=== PATIENT | male | born 1960 | race Caucasian/White ===

== ENCOUNTER 2017-08-13 12:45 | Inpatient (IN) | payer MEDICARE ==
[2017-08-13 13:21] LABS: Glucose,Whole Blood 114 mg/dL (75-99)
[2017-08-13] MEDS ORDERED: SODIUM CHLORIDE 0.9% 1,000 ML IV STA ×3 (13:25→13:42)
--- NOTE | 2017-08-13 13:36 | ED ---
General Adult HPI - General Chief complaint: Syncope Stated complaint: Syncope Time Seen by Provider: 08/13/17 13:13 Source: patient, family, RN notes reviewed Mode of arrival: wheelchair Limitations: no limitations - History of Present Illness Initial comments: Plain history of present illness this is a 56-year-old male here with his and son. The son reports that they were out [place] and he said he didn't feel well stated that he was seeing some dots and then he collapsed. Son states he also noted his father having had a second episode of passing out. Patient denies any headache denies any chest pain denies any shortness of breath denies being sweaty. No abdominal pain no nausea no vomiting and no neuro deficits. Patient states she's never happened to him before - Related Data Home Medications Medication Instructions Recorded Confirmed Atenolol [Tenormin] 25 mg PO DAILY 08/13/17 08/13/17 Gabapentin 600 mg PO TID 08/13/17 08/13/17 Losartan/Hydrochlorothiazide 1 tab PO DAILY 08/13/17 08/13/17 [Losartan-Hctz 100-12.5 mg Tab] oxyCODONE-APAP 10-325MG [Percocet 1 tab PO QID PRN 08/13/17 08/13/17 10-325 mg] Allergies Allergy/AdvReac Type Severity Reaction Status Date / Time No Known Allergies Allergy Verified 08/13/17 13:17 Review of Systems ROS Statement: Those systems with pertinent positive or pertinent negative responses have been documented in the HPI. Review of systems patient's denying any headache or visual acuity changes no neck ache denies any chest pain, palpitations this time no shortness of breath no GI/ problems. He has chronic weakness due to previous back problems. Not worse today than any other day. All systems were reviewed. Past medical problems hypertension he took his blood pressure pills today. He also has had back surgery L2-L3 with a lewis and screws he reports the lewis broke. Has not been replaced. He's had rotator cuff surgery right knee left knee patellar surgeries. Family history noncontributory no known ALLERGIES. The patient reports having had several beers today and denies drug use. Smokes daily. Strongly advised to stop. ROS Other: All systems not noted in ROS Statement are negative. Past Medical History Past Medical History: Hypertension History of Any Multi-Drug Resistant Organisms: None Reported Past Surgical History: Back Surgery, Joint Replacement, Orthopedic Surgery Additional Past Surgical History / Comment(s): rotator cuff,rt knee, Past Psychological History: No Psychological Hx Reported Smoking Status: Current every day smoker Past Alcohol Use History: Daily, Heavy Past Drug Use History: None Reported General Exam - General Exam Comments Initial Comments: General: The patient is awake and alert, currently in no distress. But he did report having had episodes of of seeing spots while sitting and moving all day today. 2 episodes of passing out. Denying any pain anywhere. Vital signs temp 98.0 pulse 79 respiratory rate 18 pulse ox 95% room air blood pressure 181/43. This is repeated after the patient Back to room 7 any staying in that same range. 1 L of fluid is being administered a second IV is being started at this time. Eye: Pupils are equal, round and reactive to light, pupils are small but equal. Patient denies any pain medications. extra-ocular movements are intact; there is normal conjunctiva bilaterally. No signs of icterus. Ears, nose, mouth and throat: There are moist mucous membranes and no oral lesions. Neck: The neck is supple, there is no tenderness Cardiovascular: There is a regular rate and rhythm. No murmur, rub or gallop is appreciated. Respiratory: Lungs are clear to auscultation, respirations are non-labored, breath sounds are equal. No wheezes, stridor, rales, or rhonchi. Gastrointestinal: Soft, non-distended, non-tender abdomen without masses or organomegaly noted. There is no rebound or guarding present. No CVA tenderness. Bowel sounds are unremarkable. Back: Chronic back pain. The patient uses walking devices. States no worse today than any other day. Musculoskeletal: Patient chronic pain to his lower extremities and weakness from previous lumbar surgeries. He states he feels her main injured himself in the medial groin area. Neurological: CN II-XII intact, There are no obvious motor or sensory deficits. Coordination appears grossly intact. Speech is normal. No focal or lateralizing findings. Patient states is not able to walk in normal fashion and has not been able to do so for a long time and that has not changed. Skin: Skin is warm and dry and no rashes or lesions are noted. Limitations: no limitations Course Vital Signs 09/08/13/17 08/13/17 13:04 13:33 13:43 Temperature 98.0 F Pulse Rate 79 70 68 Respiratory 18 16 16 Rate Blood Pressure 81/43 66/39 68/37 O2 Sat by Pulse 95 96 95 Oximetry 08/13/17 08/13/17 08/13/17 13:48 13:54 14:03 Temperature Pulse Rate 67 67 73 Respiratory 16 20 18 Rate Blood Pressure 77/46 80/42 86/50 O2 Sat by Pulse 96 96 96 Oximetry 08/13/17 08/13/17 08/13/17 14:08 14:28 15:05 Temperature 97.8 F Pulse Rate 70 65 94 Respiratory 18 20 18 Rate Blood Pressure 87/54 99/56 138/66 O2 Sat by Pulse 96 98 94 L Oximetry 08/13/17 08/13/17 15:21 16:14 Temperature 98.3 F Pulse Rate 81 82 Respiratory 18 20 Rate Blood Pressure 103/54 108/58 O2 Sat by Pulse 96 95 Oximetry EKG Findings - EKG Comments: EKG Findings:: EKG was done reviewed and 1312 showing normal sinus rhythm no acute ST elevation no ectopy no ischemic changes. Rate 77 HI interval was 154 QRS [address] QT [address] Villasenor Medical Decision Making - Medical Decision Making Medical decision-making. The patient presents with hypertension. It stayed in the low ranges. He received 1 L of fluid did not change significantly. A second liter as half minute this time. The patient denies any headache no chest pain no shortness of breath no extremity injuries pain no nausea no vomiting no diarrhea no chest pain or pressures he did take his blood pressure pills this morning. Has never noticed any dark black stools. No symptoms of fluid loss or dehydration secondary to bleeding or anemia. Patient states he feels normal. The patient will have dopamine started at 5 mcg/kg/m . S x-ray is done and reviewed by radiologist his impression is there is no focal airspace opacity, pleural effusion, or pneumothorax seen. Cardiac silhouette size is upper limits of normal. The osseous structures are demineralized. Impression no acute cardiopulmonary process as read by Dr. vieira Ultrasound of the right leg was done because the patient had discomfort to the medial thigh which she states occurred when he stumbled and fell. The radiologist's final impression is negative for DVT right leg. No ultrasound evidence for acute DVT in the right lower extremity. As read by Dr. vieira His urine drug triage positive for oxycodone. The patient does take Percocet on a when necessary basis for chronic back pain. He states he did not even take it today. Review of labs shows a white count of 8.5 hemoglobin 16 hematocrit of 45 with an INR 1.0. D-dimer isn't elevated at 2.37. The patient's potassium is 3.5. BUN 18 creatinine elevated at 2.0 with a GFR 34. Sugars 104. Troponin less than 0.012. The patient received 2 half liters of fluid before the blood pressure came up to the 90s systolic. He was started on dopamine 5 mcg/m/kg. After an hour more the blood pressure went up to approximately 150 range systolic was back down to 2 mics blood pressure dropped to approximately 180. The so dopamine was prepped again to 2.5. Patient remained symptom free. He denies knowing anything about chronic kidney disease. He's been stable while in emergency room. Case discussed with Dr. Woo on-call for Dr. Rick. Patient be admitted to his service with consultation from Dr. Juares - Lab Data Result diagrams: 08/13/17 13:30 08/13/17 13:30 Lab Results 08/13/17 08/13/17 08/13/17 Range/Units 13:17 13:30 13:30 WBC 8.5 (3.8-10.6) k/uL RBC 4.58 (4.30-5.90) m/uL Hgb 16.2 (13.0-17.5) gm/dL Hct 45.6 (39.0-53.0) % MCV 99.4 (80.0-100.0) fL MCH 35.3 H (25.0-35.0) pg MCHC 35.5 (31.0-37.0) g/dL RDW 12.5 (11.5-15.5) % Plt Count 232 (150-450) k/uL Neutrophils % 70 % Lymphocytes % 19 % Monocytes % 5 % Eosinophils % 3 % Basophils % 1 % Neutrophils # 6.0 (1.3-7.7) k/uL Lymphocytes # 1.6 (1.0-4.8) k/uL Monocytes # 0.4 (0-1.0) k/uL Eosinophils # 0.3 (0-0.7) k/uL Basophils # 0.1 (0-0.2) k/uL PT (9.0-12.0) sec INR (<1.2) APTT (22.0-30.0) sec D-Dimer (<0.60) mg/L FEU Sodium (137-145) mmol/L Potassium (3.5-5.1) mmol/L Chloride (98-107) mmol/L Carbon Dioxide (22-30) mmol/L Anion Gap mmol/L BUN (9-20) mg/dL Creatinine (0.66-1.25) mg/dL Est GFR (MDRD) Af Amer (>60 ml/min/1.73 sqM) Est GFR (MDRD) Non-Af (>60 ml/min/1.73 sqM) Glucose (74-99) mg/dL POC Glucose (mg/dL) 114 H (75-99) mg/dL POC Glu Cherry Cutter ID Dunore, Mellisa Calcium (8.4-10.2) mg/dL Magnesium (1.6-2.3) mg/dL Total Bilirubin (0.2-1.3) mg/dL AST (17-59) U/L ALT (21-72) U/L Alkaline Phosphatase (38-126) U/L Total Creatine Kinase 179 H (55-170) U/L CK-MB (CK-2) 1.5 (0.0-2.4) ng/mL CK-MB (CK-2) Rel Index 0.8 Troponin I <0.012 (0.000-0.034) ng/mL Total Protein (6.3-8.2) g/dL Albumin (3.5-5.0) g/dL Urine Opiates Screen (NotDetected) Ur Oxycodone Screen (NotDetected) Urine Methadone Screen (NotDetected) Ur Propoxyphene Screen (NotDetected) Ur Barbiturates Screen (NotDetected) U Tricyclic Antidepress (NotDetected) Ur Phencyclidine Scrn (NotDetected) Ur Amphetamines Screen (NotDetected) U Methamphetamines Scrn (NotDetected) U Benzodiazepines Scrn (NotDetected) Urine Cocaine Screen (NotDetected) U Marijuana (THC) Screen (NotDetected) Serum Alcohol mg/dL 08/13/17 08/13/17 08/13/17 Range/Units 13:30 13:30 14:55 WBC (3.8-10.6) k/uL RBC (4.30-5.90) m/uL Hgb (13.0-17.5) gm/dL Hct (39.0-53.0) % MCV (80.0-100.0) fL MCH (25.0-35.0) pg MCHC (31.0-37.0) g/dL RDW (11.5-15.5) % Plt Count (150-450) k/uL Neutrophils % % Lymphocytes % % Monocytes % % Eosinophils % % Basophils % % Neutrophils # (1.3-7.7) k/uL Lymphocytes # (1.0-4.8) k/uL Monocytes # (0-1.0) k/uL Eosinophils # (0-0.7) k/uL Basophils # (0-0.2) k/uL PT 10.2 (9.0-12.0) sec INR 1.0 (<1.2) APTT 24.3 (22.0-30.0) sec D-Dimer 2.37 H (<0.60) mg/L FEU Sodium 130 L (137-145) mmol/L Potassium 3.5 (3.5-5.1) mmol/L Chloride 90 L (98-107) mmol/L Carbon Dioxide 22 (22-30) mmol/L Anion Gap 18 mmol/L BUN 18 (9-20) mg/dL Creatinine 2.00 H (0.66-1.25) mg/dL Est GFR (MDRD) Af Amer 42 (>60 ml/min/1.73 sqM) Est GFR (MDRD) Non-Af 34 (>60 ml/min/1.73 sqM) Glucose 104 H (74-99) mg/dL POC Glucose (mg/dL) (75-99) mg/dL POC Glu Cherry Cutter ID Calcium 9.2 (8.4-10.2) mg/dL Magnesium 1.7 (1.6-2.3) mg/dL Total Bilirubin 0.8 (0.2-1.3) mg/dL AST 67 H (17-59) U/L ALT 77 H (21-72) U/L Alkaline Phosphatase 102 (38-126) U/L Total Creatine Kinase (55-170) U/L CK-MB (CK-2) (0.0-2.4) ng/mL CK-MB (CK-2) Rel Index Troponin I (0.000-0.034) ng/mL Total Protein 7.5 (6.3-8.2) g/dL Albumin 4.0 (3.5-5.0) g/dL Urine Opiates Screen Not Detected (NotDetected) Ur Oxycodone Screen Detected H (NotDetected) Urine Methadone Screen Not Detected (NotDetected) Ur Propoxyphene Screen Not Detected (NotDetected) Ur Barbiturates Screen Not Detected (NotDetected) U Tricyclic Antidepress Not Detected (NotDetected) Ur Phencyclidine Scrn Not Detected (NotDetected) Ur Amphetamines Screen Not Detected (NotDetected) U Methamphetamines Scrn Not Detected (NotDetected) U Benzodiazepines Scrn Not Detected (NotDetected) Urine Cocaine Screen Not Detected (NotDetected) U Marijuana (THC) Screen Not Detected (NotDetected) Serum Alcohol 91 mg/dL Disposition Clinical Impression: Syncopal episodes, Hypotension, Chronic kidney disease, Elevated d-dimer Disposition: ADMITTED IP TO THIS [facility] Condition: Serious Referrals: Diana Rick MD [Primary Care Provider] - 1-2 days
[2017-08-13 13:49] LABS: Basophils # (A) 0.1 k/uL (0-0.2); Basophils % (A) 1 %; CH 34.6; CHCM 34.9; Eosinophils # (A) 0.3 k/uL (0-0.7); Eosinophils % (A) 3 %; HCT 45.6 % (39.0-53.0); HDW 2.17; HGB 16.2 gm/dL (13.0-17.5); Luc # (Auto) 0.16; Luc % (Auto) 2; Lymphocytes # (A) 1.6 k/uL (1.0-4.8); Lymphocytes % (A) 19 %; MCH 35.3 pg (25.0-35.0); MCHC 35.5 g/dL (31.0-37.0); MCV 99.4 fL (80.0-100.0); Mean Platelet Volume 7.6; Monocytes # (A) 0.4 k/uL (0-1.0); Monocytes % (A) 5 %; Neutrophils % (A) 70 %; RBC 4.58 m/uL (4.30-5.90); RDW 12.5 % (11.5-15.5); WBC 8.5 k/uL (3.8-10.6); WBC (Perox) 8.23
[2017-08-13] MEDS ORDERED: DOPamine DRIP 800 MG in DEXTROSE/WATER 1 500ML.BAG IV ONE (13:52)
[2017-08-13 14:01] LABS: Partial Thromboplastin Time 24.3 sec (22.0-30.0); Prothrombin Time 10.2 sec (9.0-12.0)
[2017-08-13 14:03] LABS: Calcium 9.2 mg/dL (8.4-10.2); Magnesium 1.7 mg/dL (1.6-2.3); Potassium 3.5 mmol/L (3.5-5.1); Total Bilirubin 0.8 mg/dL (0.2-1.3); Total Protein 7.5 g/dL (6.3-8.2)
--- NOTE | 2017-08-13 14:05 | XR ---
EXAMINATION TYPE: XR chest 1V portable DATE OF EXAM: 08/13/2017 COMPARISON: NONE HISTORY: Syncope and hypotension TECHNIQUE: 2 AP portable frontal upright views of the chest are obtained. FINDINGS: There is no focal air space opacity, pleural effusion, or pneumothorax seen. The cardiac silhouette size is upper limits of normal. The osseous structures are demineralized. IMPRESSION: No acute cardiopulmonary process.
[2017-08-13 14:11] LABS: Creatine Kinase 179 U/L (55-170)
[2017-08-13 14:23] LABS: Creatine Kinase MB 1.5 ng/mL (0.0-2.4); Troponin I <0.012 ng/mL (0.000-0.034)
--- NOTE | 2017-08-13 14:24 | US ---
EXAMINATION TYPE: US venous doppler duplex LE RT DATE OF EXAM: 08/13/2017 1:27 PM COMPARISON: Prior in PACS bilateral venous ultrasound September 13, 2013. CLINICAL HISTORY: Pain right leg. Patient fell on right knee today SIDE PERFORMED: Right TECHNIQUE: The lower extremity deep venous system is examined utilizing real time linear array sonog eliana with graded compression, doppler sonography and color-flow sonography. VESSELS IMAGED: External Iliac Vein (EIV) Common Femoral Vein Deep Femoral Vein Greater Saphenous Vein * Femoral Vein Popliteal Vein Small Saphenous Vein * Proximal Calf Veins (* superficial vessels) Right Leg: Negative for DVT Grayscale, color doppler, spectral doppler imaging performed of the deep veins of the right lower ext remity. There is normal flow, compressibility, vascular waveforms. Mild subcutaneous edema is seen distally at calf level. IMPRESSION: No ultrasound evidence for acute DVT in the right lower extremity.
[2017-08-13] MEDS ORDERED: DOPamine DRIP 250 ML IV SCH (16:28)
[2017-08-13] MEDS ORDERED: NALOXONE 0.4 MG/ML 1 ML VIAL IV PRN (16:28)
[2017-08-13] MEDS: SODIUM CHLORIDE 0.9% 1,000 ML IV SCH (16:55)
[2017-08-13] MEDS ORDERED: DOPamine DRIP 800 MG in DEXTROSE/WATER 1 500ML.BAG IV SCH (17:00)
[2017-08-13] MEDS ORDERED: THIAMINE 100 MG TAB PO SCH (17:00)
[2017-08-13 17:25] LABS: Glucose,Whole Blood 150 mg/dL (75-99)
[2017-08-13 17:40] VITALS: BMI 40.0
[2017-08-13] MEDS ORDERED: LORazepam 2 MG/ML SYRINGE IV PRN ×3 (18:31)
[2017-08-13] MEDS: FAMOTIDINE 20 MG TAB PO SCH (20:42)
[2017-08-13 20:43] LABS: Glucose,Whole Blood 134 mg/dL (75-99)
[2017-08-13] MEDS: GABAPENTIN 300 MG CAP PO SCH (21:16)
[2017-08-13] MEDS: INSULIN LISPRO (humaLOG) 300 UNIT/3 ML VIAL SQ SCH (21:16)
[2017-08-14 05:03] LABS: Basophils % (A) 1 %; CH 34.9; CHCM 33.8; Eosinophils # (A) 0.3 k/uL (0-0.7); Eosinophils % (A) 4 %; HGB 15.1 gm/dL (13.0-17.5); Luc % (Auto) 2; Lymphocytes # (A) 1.1 k/uL (1.0-4.8); Lymphocytes % (A) 18 %; MCH 35.4 pg (25.0-35.0); MCHC 34.2 g/dL (31.0-37.0); MCV 103.4 fL (80.0-100.0); Macrocytosis Slight; Mean Platelet Volume 7.5; Monocytes # (A) 0.3 k/uL (0-1.0); Monocytes % (A) 6 %; Neutrophils % (A) 69 %; RBC 4.26 m/uL (4.30-5.90); RDW 12.6 % (11.5-15.5); WBC 5.8 k/uL (3.8-10.6); WBC (Perox) 5.83
[2017-08-14 05:23] LABS: ALT 63 U/L (21-72); AST 46 U/L (17-59); Alkaline Phosphatase 87 U/L (38-126); Anion Gap 5 mmol/L; Blood Urea Nitrogen 17 mg/dL (9-20); Calcium 8.4 mg/dL (8.4-10.2); Carbon Dioxide 30 mmol/L (22-30); Chloride 97 mmol/L (98-107); Glucose 140 mg/dL (74-99); Magnesium 1.6 mg/dL (1.6-2.3); Non-African American GFR(MDRD) >60 (>60 ml/min/1.73 sqM); Phosphorous 2.9 mg/dL (2.5-4.5); Potassium 3.7 mmol/L (3.5-5.1); Sodium 132 mmol/L (137-145); Total Bilirubin 1.1 mg/dL (0.2-1.3); Total Protein 6.3 g/dL (6.3-8.2)
[2017-08-14] MEDS ORDERED: Magnesium Replacement Protocol 1 EACH MISC MISCELLANE PRN (06:02)
[2017-08-14] MEDS ORDERED: Potassium Replacement Protocol 1 EACH MISC MISCELLANE PRN (06:03)
[2017-08-14] MEDS: SODIUM CHLORIDE 0.9% 1,000 ML IV SCH (06:49)
[2017-08-14] MEDS: MAGNESIUM SULFATE-D5W PMX 1 GM in DEXTROSE/WATER 1 100ML.BAG IVPB SCH ×2 (06:49→08:34)
[2017-08-14] MEDS ORDERED: POTASSIUM CHLORIDE ER 20 MEQ TAB.ER PO SCH (07:00)
[2017-08-14 07:39] LABS: Glucose,Whole Blood 145 mg/dL (75-99)
[2017-08-14] MEDS: INSULIN LISPRO (humaLOG) 300 UNIT/3 ML VIAL SQ SCH ×4 (08:15→21:02)
[2017-08-14] MEDS: FAMOTIDINE 20 MG TAB PO SCH ×2 (08:47→21:08)
[2017-08-14] MEDS: GABAPENTIN 300 MG CAP PO SCH ×3 (08:47→21:08)
[2017-08-14 11:59] LABS: Glucose,Whole Blood 94 mg/dL (75-99)
--- NOTE | 2017-08-14 12:04 | P.HPIM ---
History of Present Illness 56-year-old gentleman was admitted to the hospital after presyncopal episodes patient is found to have very low blood pressures systolic going up to 80s patient was given 2 L of IV fluids and subsequently was started on dopamine was admitted to ICU. Patient has normal sinus rhythm on the EKG patient is also taking atenolol at home. Patient did lose 50 pounds of weight. Patient denied any cough fever chills seizure-like activity post ictal confusion patient's episode lasted for few minutes. Patient's uses losartan and hydrocodone thiazide her hypertension along with atenolol. Patient has been using this medication for 3 years but did lose 50 pounds of this year which is unintentional weight loss. Patient quit smoking for 20 years started smoking again. Patient denied any cough denied any dysuria no signs or symptoms of sepsis whatsoever. Review of Systems REVIEW OF SYSTEMS: CONSTITUTIONAL: No fever, no malaise, no fatigue. HEENT: No recent visual problems or hearing problems. Denied any sore throat. CARDIOVASCULAR: No chest pain, orthopnea, PND, no palpitations, PULMONARY: No shortness of breath, no cough, no hemoptysis. GASTROINTESTINAL: No diarrhea, no nausea, no vomiting, no abdominal pain. Normoactive bowel sounds. NEUROLOGICAL: No headaches, no weakness, no numbness. HEMATOLOGICAL: Denies any bleeding or petechiae. GENITOURINARY: Denies any burning micturition, frequency, or urgency. MUSCULOSKELETAL/RHEUMATOLOGICAL: Denies any joint pain, swelling, or any muscle pain. ENDOCRINE: Denies any polyuria or polydipsia. The rest of the 14-point review of systems is negative. Past Medical History Past Medical History: Hypertension History of Any Multi-Drug Resistant Organisms: None Reported Past Surgical History: Back Surgery, Joint Replacement, Orthopedic Surgery Additional Past Surgical History / Comment(s): rotator cuff,rt knee, Past Psychological History: No Psychological Hx Reported Smoking Status: Current every day smoker Past Alcohol Use History: Daily, Heavy Past Drug Use History: None Reported - Past Family History Mother Family Medical History: Diabetes Mellitus Medications and Allergies Home Medications Medication Instructions Recorded Confirmed Type Atenolol [Tenormin] 25 mg PO DAILY 08/13/17 08/13/17 History Gabapentin 600 mg PO TID 08/13/17 08/13/17 History Losartan/Hydrochlorothiazide 1 tab PO DAILY 08/13/17 08/13/17 History [Losartan-Hctz 100-12.5 mg Tab] oxyCODONE-APAP 10-325MG [Percocet 1 tab PO QID PRN 08/13/17 08/13/17 History 10-325 mg] Allergies Allergy/AdvReac Type Severity Reaction Status Date / Time No Known Allergies Allergy Verified 08/13/17 13:17 Physical Exam Vitals: Vital Signs Temp Pulse Pulse Resp BP Pulse Ox 08/14/17 11:00 59 L 20 100/53 98 08/14/17 10:00 63 24 108/50 97 08/14/17 09:00 75 20 121/56 95 08/14/17 08:00 98.1 F 63 109/61 96 08/14/17 07:00 62 24 100/54 98 08/14/17 06:00 53 L 20 115/64 95 08/14/17 05:00 57 L 21 102/60 95 08/14/17 04:00 98.1 F 56 L 20 122/64 97 08/14/17 03:00 56 L 20 126/59 96 08/14/17 02:00 55 L 20 127/62 96 08/14/17 01:00 60 19 116/53 95 08/14/17 00:00 98.2 F 62 18 123/57 94 L 08/13/17 23:00 69 20 103/60 94 L 08/13/17 22:00 73 18 146/65 96 08/13/17 21:00 69 15 119/59 95 08/13/17 20:00 98.4 F 86 17 106/59 96 08/13/17 19:00 92 13 116/46 97 08/13/17 18:45 94 132/41 97 08/13/17 18:30 99 145/54 91 L 08/13/17 18:15 84 30 H 139/61 95 08/13/17 18:00 86 19 138/74 96 08/13/17 17:50 85 18 08/13/17 17:45 87 16 138/74 95 08/13/17 17:32 98.0 F 87 18 08/13/17 17:30 83 10 L 138/74 95 08/13/17 17:22 138/74 08/13/17 17:04 98.2 F 83 18 120/57 95 08/13/17 16:14 98.3 F 82 20 108/58 95 08/13/17 15:21 81 18 103/54 96 08/13/17 15:05 97.8 F 94 18 138/66 94 L 08/13/17 14:28 65 20 99/56 98 08/13/17 14:08 70 18 87/54 96 08/13/17 14:03 73 18 86/50 96 08/13/17 13:54 67 20 80/42 96 08/13/17 13:53 66 18 80/42 97 08/13/17 13:48 67 16 77/46 96 08/13/17 13:43 68 16 68/37 95 08/13/17 13:33 70 18 66/39 95 08/13/17 13:23 74 20 79/44 95 08/13/17 13:04 98.0 F 79 18 81/43 95 Intake and Output 08/13/17 08/14/17 08/14/17 22:59 06:59 14:59 Intake Total 2691.616 004 3921 Output Total 1400 1100 650 Balance 1291.552 -400 350 Intake: IV 225 700 400 Sodium Chloride 0.9% 1, 100 400 000 ml @ 100 mls/hr IV . Q10H JALEN Rx#:[id number] Sodium Chloride 0.9% 1, 225 600 000 ml @ 75 mls/hr IV . [id number] STA Rx#:[id number] Amount of Fluid Infused ( 2000 ml) Intake, IV Titration 266.552 100 Amount DOPamine DRIP 800 mg In 60.015 Dextrose/Water 1 500ml. bag @ 2.5 MCG/KG/MIN 12. 11 mls/hr IV .Q24H JALEN Rx #:[id number] DOPamine DRIP 800 mg In 56.537 Dextrose/Water 1 500ml. bag @ 5 MCG/KG/MIN 24.23 mls/hr IV .[id number] ONE Rx #:[id number] Magnesium Sulfate-D5w Pmx 100 1 gm In Dextrose/Water 1 100ml.bag @ 100 mls/hr IVPB Q1H JALEN Rx#: [id number] Sodium Chloride 0.9% 1, 150 000 ml @ 75 mls/hr IV . [id number] STA Rx#:[id number] Oral 200 500 Output: Urine 1400 1100 650 Other: Voiding Method Urinal Urinal Urinal # Voids 0 0 Weight 134 kg 133.8 kg PHYSICAL EXAMINATION: GENERAL: The patient is alert and oriented x3, not in any acute distress. Well developed, well nourished. HEENT: Pupils are round and equally reacting to light. EOMI. No scleral icterus. No conjunctival pallor. Normocephalic, atraumatic. No pharyngeal erythema. No thyromegaly. CARDIOVASCULAR: S1 and S2 present. No murmurs, rubs, or gallops. PULMONARY: Chest is clear to auscultation, no wheezing or crackles. ABDOMEN: Soft, nontender, nondistended, normoactive bowel sounds. No palpable organomegaly. MUSCULOSKELETAL: No joint swelling or deformity. EXTREMITIES: No cyanosis, clubbing, or pedal edema. NEUROLOGICAL: Gross neurological examination did not reveal any focal deficits. SKIN: No rashes. Results CBC & Chem 7: 08/14/17 04:39 08/14/17 04:37 Labs: Abnormal Lab Results - Last 24 Hours (Table) 08/13/17 08/13/17 08/13/17 Range/Units 13: 13:30 13:30 RBC (4.30-5.90) m/uL MCV (80.0-100.0) fL MCH 35.3 H (25.0-35.0) pg D-Dimer (<0.60) mg/L FEU Sodium (137-145) mmol/L Chloride (98-107) mmol/L Creatinine (0.66-1.25) mg/dL Glucose (74-99) mg/dL POC Glucose (mg/dL) 114 H (75-99) mg/dL AST (17-59) U/L ALT (21-72) U/L Total Creatine Kinase 179 H (55-170) U/L Albumin (3.5-5.0) g/dL Ur Oxycodone Screen (NotDetected) 08/13/17 08/13/17 08/13/17 Range/Units 13:30 13:30 14:55 RBC (4.30-5.90) m/uL MCV (80.0-100.0) fL MCH (25.0-35.0) pg D-Dimer 2.37 H (<0.60) mg/L FEU Sodium 130 L (137-145) mmol/L Chloride 90 L (98-107) mmol/L Creatinine 2.00 H (0.66-1.25) mg/dL Glucose 104 H (74-99) mg/dL POC Glucose (mg/dL) (75-99) mg/dL AST 67 H (17-59) U/L ALT 77 H (21-72) U/L Total Creatine Kinase (55-170) U/L Albumin (3.5-5.0) g/dL Ur Oxycodone Screen Detected H (NotDetected) 08/13/17 08/13/17 08/14/17 Range/Units 17:22 20:40 04:37 RBC (4.30-5.90) m/uL MCV (80.0-100.0) fL MCH (25.0-35.0) pg D-Dimer (<0.60) mg/L FEU Sodium 132 L (137-145) mmol/L Chloride 97 L (98-107) mmol/L Creatinine (0.66-1.25) mg/dL Glucose 140 H (74-99) mg/dL POC Glucose (mg/dL) 150 H 134 H (75-99) mg/dL AST (17-59) U/L ALT (21-72) U/L Total Creatine Kinase (55-170) U/L Albumin 3.2 L (3.5-5.0) g/dL Ur Oxycodone Screen (NotDetected) 08/14/17 08/14/17 Range/Units 04:39 07:38 RBC 4.26 L (4.30-5.90) m/uL MCV 103.4 H (80.0-100.0) fL MCH 35.4 H (25.0-35.0) pg D-Dimer (<0.60) mg/L FEU Sodium (137-145) mmol/L Chloride (98-107) mmol/L Creatinine (0.66-1.25) mg/dL Glucose (74-99) mg/dL POC Glucose (mg/dL) 145 H (75-99) mg/dL AST (17-59) U/L ALT (21-72) U/L Total Creatine Kinase (55-170) U/L Albumin (3.5-5.0) g/dL Ur Oxycodone Screen (NotDetected) Thrombosis Risk Factor Assmnt - Choose All That Apply Each Factor Represents 1 point: Age 41-60 years, Swollen legs (current) Thrombosis Risk Factor Assessment Total Risk Factor Score: 2 Thrombosis Risk Factor Assessment Level: Low Risk Assessment and Plan Plan: #1 syncope: Will opt an echocardiogram patient has normal sinus rhythm on the EKG and telemetry is essentially within normal his dopamine will be discussed in your patient will be started on lactated Ringer's because of hyperchloremia. Patient syncope secondary to low blood pressure which is again secondary to antidepressant medications. Loss of weight contributed to better control of his blood pressure may not need either of antidepressive medications. #2 hyponatremia hypovolemic hyponatremia antihypertensive medication along with the diuretic will be discontinued. #3 elevated d-dimer patient's venous Doppler of the bilateral lower extremities negative. My suspicion is extremely low for pulmonary embolism #4 rule out ankle fracture will often ankle x-ray. #5 mild sinus bradycardia secondary to atenolol which will be held. #6 obesity patient has been losing weight
--- NOTE | 2017-08-14 12:16 | XR ---
EXAMINATION TYPE: XR ankle complete RT DATE OF EXAM: 08/14/2017 CLINICAL HISTORY: Lateral right ankle pain with no known injury TECHNIQUE: Frontal, lateral and oblique images of the right ankle are obtained. COMPARISON: None. FINDINGS: There is no acute fracture/dislocation evident in the right ankle. The ankle mortise appe ars within normal limits. Soft tissue swelling is seen of the ankle, most pronounced medially. IMPRESSION: Mild soft tissue swelling of the ankle with no acute fracture or dislocation in the right ankle.
--- NOTE | 2017-08-14 12:20 | P.CNPUL ---
History of Present Illness Consult date: 08/14/17 Chief complaint: hypotension History of present illness: A 56-year-old male patient, obese, known history of obstructive sleep apnea, known history of excessive alcohol drinking, who came into the emergency department yesterday after having a brief episodes of syncope. The patient apparently was in a good state of health. He was at home and he felt acutely that his vision was off and he was seeing some dots and within a few seconds he collapsed and he had a very brief loss of consciousness following which she recovered his level of consciousness. This was witnessed by family members. He did not have any jerking body movements. No slurred speech. No focal neurological deficits. No change in his vision. No facial asymmetry or weakness. The patient was brought into the hospital where he was found to have a systolic blood pressure in the mid 60s. EKG was normal sinus rhythm without any acute ischemic changes. The patient was given IV fluids a total of 2 L and his blood pressure improved. Subsequently dropped again and had to be placed on dopamine and he had moved to the intensive care unit. He is still on normal saline today to 100 mL an hour. Dopamine was discontinued this morning at around 10:00. He is producing adequate amount of urine output. His blood pressure normalized. This patient had a recent cardiac evaluation by Dr. Chapman. Apparently had an echocardiogram and a cardiac stress this was done the office and he was told that the results were negative. He had a new blood pressure medication added to his regimen. He is on his losartan/ hydrochlorothiazide and atenolol got added to his regimen. Note that he did not have any nausea vomiting diarrhea or abdominal pain. No intravascular volume depletion or dehydration. Yet his creatinine was at 2 which normalized with fluids. He denies having any chest pain. No cough or sputum production. No chest tightness or wheezing. He did not have his carotids checked nor he had his CAT scan of his head. Currently his blood pressure medications are both on hold and he is maintaining a normal blood pressure and normal heart rate in the mid 60s. He has no specific complaints. Another issue is difficulty with ambulation. The patient had a work-related injury to his back many years back. He has undergone a spine surgery with laminectomy and fusion. Subsequently he had failure of the surgery and developed lower extremity weakness. Had seen by spine surgery for possible redo operation. However this has not been done and the patient has been having difficulty with mobility and is walking with the help of a crutches. No previous history of DVT or pulmonary embolism. Dr. Best of these were both negative. Urine drug screen was positive for oxycodone which the patient takes. I'll call level was also positive at 90. Review of Systems Constitutional: Reports weight loss (In the order of 50 pounds as the patient is trying to lose weight.) Eyes: denies blurred vision, denies bulging eye, denies decreased vision Ears: deny: decreased hearing, ear discharge, earache Ears, nose, mouth and throat: Denies headache, Denies sore throat Cardiovascular: Reports leg edema Respiratory: Reports sleep apnea, Reports snoring Gastrointestinal: Denies abdominal pain, Denies diarrhea, Denies nausea, Denies vomiting Genitourinary: Reports as per HPI Musculoskeletal: Reports gait dysfunction, Reports limitation of motion, Reports low back pain Musculoskeletal: bilateral: ankle swelling, absent: ankle pain, ankle stiffness Integumentary: Denies pruritus, Denies rash Neurological: Reports balance difficulties, Reports gait dysfunction, Reports motor disturbance, Reports syncope Psychiatric: Denies anxiety, Denies depression Endocrine: Denies fatigue, Denies weight change Past Medical History Past Medical History: Hypertension Additional Past Medical History / Comment(s): Obesity, obstructive sleep apnea, chronic back pain, previous back injury work-related and the patient has undergone a back surgery with laminectomy and fusion and he is receiving and management through Dr. Ruth. He has seen also Dr. Salcedo in the past. Hypertension, alcoholism. History of Any Multi-Drug Resistant Organisms: None Reported Past Surgical History: Back Surgery, Joint Replacement, Orthopedic Surgery Additional Past Surgical History / Comment(s): rotator cuff,rt knee, Past Psychological History: No Psychological Hx Reported Smoking Status: Current every day smoker Past Alcohol Use History: Daily, Heavy Past Drug Use History: None Reported - Past Family History Mother Family Medical History: Diabetes Mellitus Medications and Allergies Home Medications Medication Instructions Recorded Confirmed Type Atenolol [Tenormin] 25 mg PO DAILY 08/13/17 08/13/17 History Gabapentin 600 mg PO TID 08/13/17 08/13/17 History Losartan/Hydrochlorothiazide 1 tab PO DAILY 08/13/17 08/13/17 History [Losartan-Hctz 100-12.5 mg Tab] oxyCODONE-APAP 10-325MG [Percocet 1 tab PO QID PRN 08/13/17 08/13/17 History 10-325 mg] Allergies Allergy/AdvReac Type Severity Reaction Status Date / Time No Known Allergies Allergy Verified 08/13/17 13:17 Physical Exam Vitals: Vital Signs Temp Pulse Pulse Resp BP Pulse Ox 08/14/17 11:00 59 L 20 100/53 98 08/14/17 10:00 63 24 108/50 97 08/14/17 09:00 75 20 121/56 95 08/14/17 08:00 98.1 F 63 109/61 96 08/14/17 07:00 62 24 100/54 98 08/14/17 06:00 53 L 20 115/64 95 08/14/17 05:00 57 L 21 102/60 95 08/14/17 04:00 98.1 F 56 L 20 122/64 97 08/14/17 03:00 56 L 20 126/59 96 08/14/17 02:00 55 L 20 127/62 96 08/14/17 01:00 60 19 116/53 95 08/14/17 00:00 98.2 F 62 18 123/57 94 L 08/13/17 23:00 69 20 103/60 94 L 08/13/17 22:00 73 18 146/65 96 08/13/17 21:00 69 15 119/59 95 08/13/17 20:00 98.4 F 86 17 106/59 96 08/13/17 19:00 92 13 116/46 97 08/13/17 18:45 94 132/41 97 08/13/17 18:30 99 145/54 91 L 08/13/17 18:15 84 30 H 139/61 95 08/13/17 18:00 86 19 138/74 96 08/13/17 17:50 85 18 08/13/17 17:45 87 16 138/74 95 08/13/17 17:32 98.0 F 87 18 08/13/17 17:30 83 10 L 138/74 95 08/13/17 17:22 138/74 08/13/17 17:04 98.2 F 83 18 120/57 95 08/13/17 16:14 98.3 F 82 20 108/58 95 08/13/17 15:21 81 18 103/54 96 08/13/17 15:05 97.8 F 94 18 138/66 94 L 08/13/17 14:28 65 20 99/56 98 08/13/17 14:08 70 18 87/54 96 08/13/17 14:03 73 18 86/50 96 08/13/17 13:54 67 20 80/42 96 08/13/17 13:53 66 18 80/42 97 08/13/17 13:48 67 16 77/46 96 08/13/17 13:43 68 16 68/37 95 08/13/17 13:33 70 18 66/39 95 08/13/17 13:23 74 20 79/44 95 08/13/17 13:04 98.0 F 79 18 81/43 95 Intake and Output 08/13/17 08/14/17 08/14/17 22:59 06:59 14:59 Intake Total 2691.034 710 7242 Output Total 1400 1100 650 Balance 1291.552 -400 350 Intake: IV 225 700 400 Sodium Chloride 0.9% 1, 100 400 000 ml @ 100 mls/hr IV . Q10H JALEN Rx#:[id number] Sodium Chloride 0.9% 1, 225 600 000 ml @ 75 mls/hr IV . [id number] STA Rx#:[id number] Amount of Fluid Infused ( 2000 ml) Intake, IV Titration 266.552 100 Amount DOPamine DRIP 800 mg In 60.015 Dextrose/Water 1 500ml. bag @ 2.5 MCG/KG/MIN 12. 11 mls/hr IV .Q24H JALEN Rx #:[id number] DOPamine DRIP 800 mg In 56.537 Dextrose/Water 1 500ml. bag @ 5 MCG/KG/MIN 24.23 mls/hr IV .[id number] ONE Rx #:[id number] Magnesium Sulfate-D5w Pmx 100 1 gm In Dextrose/Water 1 100ml.bag @ 100 mls/hr IVPB Q1H JALEN Rx#: [id number] Sodium Chloride 0.9% 1, 150 000 ml @ 75 mls/hr IV . [id number] STA Rx#:[id number] Oral 200 500 Output: Urine 1400 1100 650 Other: Voiding Method Urinal Urinal Urinal # Voids 0 0 Weight 134 kg 133.8 kg Gen. appearance is calm and comfortable likely distress. Head is atraumatic normocephalic. Neck is supple and there is Mallampati class IV there is no with or neck masses and there is significant crowding of posterior oropharynx.Cardiac exam revealed the PMI to be normally situated and sized. The rhythm was regular and no extrasystoles were noted during several minutes of auscultation. The first and second heart sounds were normal and physiologic splitting of the second heart sound was noted. There were no murmurs, rubs, clicks, or gallops.Lungs were clear to auscultation and percussion, and with normal diaphragmatic excursion. No wheezes or rales were noted. Abdominal exam revealed normal bowel sounds. The abdomen was soft, non-tender, and without masses, organomegaly, or appreciable enlargement of the abdominal aorta. Extremities show trace edema and there is no cyanosis or clubbing. Neurologically the patient is motivated with his lower extremities bilaterally and the motor functions all 4 out of 5 and this is related to previous lumbar spine injury. He is or 81. Is awake and alert and following commands and answer questions appropriately. No cranial nerve deficits. No changes in speech. He has good insight. Skin is negative for any ulcers or wounds or rashes. Skeletal exam shows no active arthritis at this point. No joint deformities. Results - Laboratory Findings CBC and BMP: 08/14/17 04:39 08/14/17 04:37 PT/INR, D-dimer PT 10.2 sec (9.0-12.0) 08/13/17 13:30 INR 1.0 (<1.2) 08/13/17 13:30 D-Dimer 2.37 mg/L FEU (<0.60) H 08/13/17 13:30 Abnormal lab findings: Abnormal Labs 08/13/17 08/13/17 08/13/17:17 13:30 13:30 RBC MCV MCH 35.3 H D-Dimer Sodium Chloride Creatinine Glucose POC Glucose (mg/dL) 114 H AST ALT Total Creatine Kinase 179 H Albumin Ur Oxycodone Screen 08/13/17 08/13/17 08/13/17 13:30 13:30 14:55 RBC MCV MCH D-Dimer 2.37 H Sodium 130 L Chloride 90 L Creatinine 2.00 H Glucose 104 H POC Glucose (mg/dL) AST 67 H ALT 77 H Total Creatine Kinase Albumin Ur Oxycodone Screen Detected H 08/13/17 08/13/17 08/14/17 17:22 20:40 04:37 RBC MCV MCH D-Dimer Sodium 132 L Chloride 97 L Creatinine Glucose 140 H POC Glucose (mg/dL) 150 H 134 H AST ALT Total Creatine Kinase Albumin 3.2 L Ur Oxycodone Screen 08/14/17 08/14/17 04:39 07:38 RBC 4.26 L MCV 103.4 H MCH 35.4 H D-Dimer Sodium Chloride Creatinine Glucose POC Glucose (mg/dL) 145 H AST ALT Total Creatine Kinase Albumin Ur Oxycodone Screen - Diagnostic Findings Chest x-ray: image reviewed Assessment and Plan Plan: Assessment 1 syncope probably related to hemodynamic changes and hypotension. The patient had brief hypotension which was probably drug induced coupled by intravascular volume depletion and alcohol intoxication. This has recovered. No focal neurological deficit at this point. A recent cardiac evaluation that was done at [facility] office was apparently negative. We'll obtain the records from cardiology. 2 hypotension recovered and the patient is currently off antihypertensive medications 3 acute kidney injury, recovered 4 obesity 5 obstructive sleep apnea 6 gait dysfunction due to motor weakness rated to lumbar spine injury 7 alcoholism with acute alcohol intoxication, recovered. No signs of any delirium tremens 8 chronic back pain Plan Stop all antihypertensive medication. Obtain the records of the echocardiogram and stress is from cardiology's office. The patient is currently off pressors. The patient which is at the medical floor. Obtain Dopplers of the carotids if not done. We'll monitor his hemodynamics, blood pressure and neurologic status for another 24 hours here in the hospital.
[2017-08-14] MEDS: LACTATED RINGERS 1,000 ML IV SCH ×2 (12:33→21:03)
[2017-08-14] MEDS: THIAMINE 100 MG TAB PO SCH ×2 (12:33→16:12)
[2017-08-14 17:15] LABS: Glucose,Whole Blood 109 mg/dL (75-99)
[2017-08-14 20:50] LABS: Glucose,Whole Blood 121 mg/dL (75-99)
[2017-08-14] MEDS: oxyCODONE-APAP 10-325MG 1 EACH TAB PO PRN (21:08)
[2017-08-15 07:34] LABS: Glucose,Whole Blood 128 mg/dL (75-99)
[2017-08-15 07:52] VITALS: BP 114/72; PULSE 62; RESP 20; TEMP 96.2
[2017-08-15] MEDS: FAMOTIDINE 20 MG TAB PO SCH (08:00)
[2017-08-15] MEDS: INSULIN LISPRO (humaLOG) 300 UNIT/3 ML VIAL SQ SCH ×2 (08:00→12:32)
[2017-08-15] MEDS: LACTATED RINGERS 1,000 ML IV SCH (08:01)
[2017-08-15] MEDS: GABAPENTIN 300 MG CAP PO SCH (08:01)
[2017-08-15] MEDS: oxyCODONE-APAP 10-325MG 1 EACH TAB PO PRN (08:04)
--- NOTE | 2017-08-15 08:07 | ECHOF ---
Referral Reason: MEASUREMENTS -------- HEIGHT: 182.9 cm WEIGHT: 133.4 kg BP: 110/47 RVIDd: 2.4 cm (< 3.3) IVSd: 1.2 cm (0.6 - 1.1) LVIDd: 3.9 cm (3.9 - 5.3) LVPWd: 1.2 cm (0.6 - 1.1) IVSs: 1.9 cm LVIDs: 2.9 cm LVPWs: 1.8 cm LAESV Index (A-L): 17.24 ml/m Ao Diam: 3.4 cm (2.0 - 3.7) AV Cusp: 2.2 cm (1.5 - 2.6) LA Diam: 4.1 cm (2.7 - 3.8) MV EXCURSION: 16.594 mm (> 18.000) MV EF SLOPE: 116 mm/s (70 - 150) EPSS: 0.7 cm MV E Nickolas: 1.08 m/s MV DecT: 256 ms MV A Nickolas: 0.41 m/s MV E/A Ratio: 2.62 RAP: 5.00 mmHg RVSP: 9.56 mmHg FINDINGS -------- Sinus rhythm. This was a technically adequate study. The left ventricular size is normal. There is mild concentric left ventricular hypertrophy. Overall left ventricular systolic function is normal with, an EF between 55 - 60 %. The right ventricle is normal in size and function. Normal LA size by volume 22+/-6 ml/m2. The right atrium is normal in size. Aortic valve is trileaflet and is mildly thickened. There is no evidence of aortic regurgitation. There is no evidence of aortic stenosis. The mitral valve leaflets are mildly thickened. There is trace mitral regurgitation. Trace tricuspid regurgitation present. Right ventricular systolic pressure is normal at < 35 mmHg. There is no evidence of pulmonary hypertension. The pulmonic valve was not well visualized. The aortic root size is normal. IVC Not well visulized. The pericardium is normal. There is no pericardial effusion. CONCLUSIONS -------- 1. Sinus rhythm. 2. Trace tricuspid regurgitation present. 3. Right ventricular systolic pressure is normal at < 35 mmHg. 4. There is no evidence of pulmonary hypertension. 5. The pulmonic valve was not well visualized. 6. The aortic root size is normal. 7. IVC Not well visulized. 8. There is no pericardial effusion. 9. This was a technically adequate study. 10. The left ventricular size is normal. 11. There is mild concentric left ventricular hypertrophy. 12. Overall left ventricular systolic function is normal with, an EF between 55 - 60 %. 13. Normal LA size by volume 22+/-6 ml/m2. 14. Aortic valve is trileaflet and is mildly thickened. 15. The mitral valve leaflets are mildly thickened. 16. There is trace mitral regurgitation. [employer]YCHOLOGIST: Jarred Beatty RDCS
[2017-08-15 10:16] LABS: Anion Gap 7 mmol/L; Blood Urea Nitrogen 11 mg/dL (9-20); Calcium 8.8 mg/dL (8.4-10.2); Carbon Dioxide 28 mmol/L (22-30); Chloride 99 mmol/L (98-107); Glucose 161 mg/dL (74-99); Magnesium 1.6 mg/dL (1.6-2.3); Non-African American GFR(MDRD) >60 (>60 ml/min/1.73 sqM); Potassium 3.8 mmol/L (3.5-5.1); Sodium 134 mmol/L (137-145)
[2017-08-15 11:27] LABS: Glucose,Whole Blood 121 mg/dL (75-99)
[2017-08-15] MEDS: THIAMINE 100 MG TAB PO SCH (12:27)
--- NOTE | 2017-08-15 12:42 | P.DS ---
Providers Date of admission: 08/13/17 16:35 Attending physician: Eva Woo Consults: 08/13/17 16:28 Consult Physician Stat Consulting Provider: Sy Juares Consult Reason/Comments: ICU management Do you want consulting provider notified?: Already Contacted Primary care physician: Diana Rick [facility] Course: 56-year-old gentleman was admitted to the hospital after presyncopal episodes patient is found to have very low blood pressures systolic going up to 80s patient was given 2 L of IV fluids and subsequently was started on dopamine was admitted to ICU. Patient has normal sinus rhythm on the EKG patient is also taking atenolol at home. Patient did lose 50 pounds of weight. Patient denied any cough fever chills seizure-like activity post ictal confusion patient's episode lasted for few minutes. Patient's uses losartan and hydrocodone thiazide her hypertension along with atenolol. Patient has been using this medication for 3 years but did lose 50 pounds of this year which is unintentional weight loss. Patient quit smoking for 20 years started smoking again. Patient denied any cough denied any dysuria no signs or symptoms of sepsis whatsoever. 08/15/2017 Patient's echogram is essentially within normal limits no overnight events patient is feeling much better patient will be discharged home atenolol, INCK inhibitor and diuretic therapy will be discontinued and patient will follow Dr. Diana Rick as an outpatient PHYSICAL EXAMINATION: GENERAL: The patient is alert and oriented x3, not in any acute distress. Well developed, well nourished. HEENT: Pupils are round and equally reacting to light. EOMI. No scleral icterus. No conjunctival pallor. Normocephalic, atraumatic. No pharyngeal erythema. No thyromegaly. CARDIOVASCULAR: S1 and S2 present. No murmurs, rubs, or gallops. PULMONARY: Chest is clear to auscultation, no wheezing or crackles. ABDOMEN: Soft, nontender, nondistended, normoactive bowel sounds. No palpable organomegaly. MUSCULOSKELETAL: No joint swelling or deformity. EXTREMITIES: No cyanosis, clubbing, or pedal edema. NEUROLOGICAL: Gross neurological examination did not reveal any focal deficits. SKIN: No rashes. #1 syncope: Due to antidepressive medications #2 hyponatremia hypovolemic hyponatremia antihypertensive medication along with the diuretic will be discontinued. #3 elevated d-dimer patient's venous Doppler of the bilateral lower extremities negative. My suspicion is extremely low for pulmonary embolism #4 rule out ankle fracture, no ankle fracture on x-ray #5 mild sinus bradycardia secondary to atenolol which will be held. #6 obesity patient has been losing weight Patient Condition at Discharge: Good Plan - Discharge Summary New Discharge Prescriptions: Discontinued Losartan/Hydrochlorothiazide [Losartan-Hctz 100-12.5 mg Tab] 1 tab PO DAILY Atenolol [Tenormin] 25 mg PO DAILY No Action oxyCODONE-APAP 10-325MG [Percocet 10-325 mg] 1 tab PO QID PRN PRN Reason: Pain Gabapentin 600 mg PO TID Discharge Medication List Gabapentin 600 mg PO TID 08/13/17 [History] oxyCODONE-APAP 10-325MG [Percocet 10-325 mg] 1 tab PO QID PRN 08/13/17 [History] Follow up Appointment(s)/Referral(s): Thaddeus Hurley MD [STAFF PHYSICIAN] - As Needed Diana Rick MD [Primary Care Provider] - 3 Days (Office currently closed, please call for appointment. ) Sy Juares MD [STAFF PHYSICIAN] - As Needed Patient Instructions/Handouts: Hypotension (DC) Activity/Diet/Wound Care/Special Instructions: Low fat diet. NO smoking, cessation information provided. Discharge Disposition: HOME SELF-CARE
== END 2017-08-15 12:37 | disposition home or self-care (01) | DRG 312 ==
LOC: EC 12:45 → 6ICU 16:35 → 4MS4W 08-14 15:57
PROVIDERS: ADMIT Internal Medicine; ATTEND Internal Medicine
DX: R55 Syncope and collapse (principal); E87.1 Hypo-osmolality and hyponatremia; I95.9 Hypotension, unspecified; I10 Essential (primary) hypertension; T40.2X5A Adverse effect of other opioids, initial encounter; T46.5X5A Adverse effect of other antihypertensive drugs, initial encounter; R63.4 Abnormal weight loss; F17.200 Nicotine dependence, unspecified, uncomplicated; R00.1 Bradycardia, unspecified; T44.7X5A Adverse effect of beta-adrenoreceptor antagonists, initial encounter; G47.33 Obstructive sleep apnea (adult) (pediatric); Y90.4 Blood alcohol level of 80-99 mg/100 ml; E66.9 Obesity, unspecified; G89.29 Other chronic pain; M54.9 Dorsalgia, unspecified; F10.229 Alcohol dependence with intoxication, unspecified; E86.9 Volume depletion, unspecified; W01.0XXA Fall on same level from slipping, tripping and stumbling without subsequent striking against object, initial encounter; M25.472 Effusion, left ankle; M25.471 Effusion, right ankle; Z71.6 Tobacco abuse counseling; Z79.899 Other long term (current) drug therapy; Z98.1 Arthrodesis status; Z83.3 Family history of diabetes mellitus
CPT/HCPCS: 36415; 71010; 80048; 80053; 80306; 80320; 82550; 82553; 83735; 84100; 84484; 85025; 85379; 85610; 85730; 93005; 93306; 96361; 96365; 96366; 99285

== ENCOUNTER 2018-03-03 13:24 | Emergency (ER) | payer MEDICARE ==
[2018-03-03] MEDS ORDERED: RX INFO: IV CONTRAST WAS GIVEN 1 EACH MISC MISCELLANE PRN (13:29)
--- NOTE | 2018-03-03 13:36 | ED ---
General Adult HPI - General Stated complaint: Fall Time Seen by Provider: 03/03/18 13:24 Source: RN notes reviewed - History of Present Illness Initial comments: This is a 57-year-old male who presents emergency Department as a green party 1 trauma. Patient was significantly intoxicated according to the son and he fell down 10 steps. When EMS arrived they stated the patient a GCS of 3. Patient also was noted to have a laceration to the occipital region of the scalp. Patient is unable give any further history and no further history is available at this time. - Related Data Home Medications Medication Instructions Recorded Confirmed oxyCODONE-APAP 10-325MG [Percocet 1 tab PO QID PRN 08/13/17 03/03/18 10-325 mg] Gabapentin 600 mg PO Q8H 03/03/18 03/03/18 Losartan-Hctz 50-12.5 mg [Hyzaar 1 tab PO DAILY 03/03/18 03/03/18 50-12.5] Allergies Allergy/AdvReac Type Severity Reaction Status Date / Time No Known Allergies Allergy Verified 08/13/17 13:17 Review of Systems ROS Statement: Those systems with pertinent positive or pertinent negative responses have been documented in the HPI. ROS Other: All systems not noted in ROS Statement are negative. Past Medical History Past Medical History: Hypertension Additional Past Medical History / Comment(s): Obesity, obstructive sleep apnea, chronic back pain, previous back injury work-related and the patient has undergone a back surgery with laminectomy and fusion and he is receiving and management through Dr. Ruth. He has seen also Dr. Salcedo in the past. Hypertension, alcoholism. History of Any Multi-Drug Resistant Organisms: None Reported Past Surgical History: Back Surgery, Joint Replacement, Orthopedic Surgery Additional Past Surgical History / Comment(s): rotator cuff,rt knee, Past Psychological History: No Psychological Hx Reported Smoking Status: Current every day smoker Past Alcohol Use History: Daily, Heavy Past Drug Use History: None Reported - Past Family History Mother Family Medical History: Diabetes Mellitus General Exam - General Exam Comments Initial Comments: GENERAL: Patient is well-developed and well-nourished. Patient is nontoxic and well- hydrated and is in mild distress. ENT: Patient is in a c-collar and is level of consciousness is is not such that we can assess his neck. EYES: The sclera were anicteric and conjunctiva were pink and moist. Extraocular movements were intact and pupils were equal round and reactive to light. Eyelids were unremarkable. PULMONARY: Unlabored respirations. Good breath sounds bilaterally. No audible rales rhonchi or wheezing was noted. CARDIOVASCULAR: There is a regular rate and rhythm without any murmurs gallops or rubs. ABDOMEN: Soft and nontender with normal bowel sounds. SKIN: Abrasion right elbow Rectal Rectal exam had good sphincter tone NEUROLOGIC: Patient is awake but not answering any questions and only has garbled speech. Patient moves 3 extremities with painful stimuli with the exception of the right arm which appears to be flaccid. MUSCULOSKELETAL: Unable to assess since patient is not following commands. I have moved all 4 times without eliciting any pain however he is quite intoxicated. Procedures - Intubation Time Out Performed: Yes Sedative: Versed Paralytic: Succinylcholine Laryngoscope: Pizano Size: 3 ET Tube Size: 8 ET Tube Uncuffed: No Tube Secured Location: teeth Tube Placement Confirmation: visualized tube passing through cords, equal breath sounds bilaterally, no breath sounds over epigastrium, confirmation by capnometry Patient Tolerated Procedure: well Intubation Complications: none Medical Decision Making - Medical Decision Making This was a green party [address] with [address] Corral EKG shows normal sinus rhythm at 89 bpm SD interval is 176 QRS is 116 QT interval 398 QTC is 484. Patient's EKG shows no ST segment elevation or depression. nurse in the OR because he was in the middle of the surgery. Patient's EKG shows normal sinus rhythm at 89 bpm SD interval is 176 QRS is 116 QT interval 398 QTC is 484. Patient's EKG shows no ST segment elevation or depression. Patient's GCS on arrival was 10 patient was opening eyes spontaneously he was having income principal speech and he was withdrawing to painful stimuli except for the right arm CT of the brain shows a intercranial hemorrhage on the left frontal parietal region. Patient became combative while in CT so C-spine and CT of the chest and pelvis could not be completed. We took the patient back to the emergency department intubated the patient and then sedated with propofol and eventually brought him back for the remainder of his CAT scans. CT of the chest abdomen pelvis showed no acute abnormality. I spoke with the ER Dr. abby Franco at 3:51 PM and they accepted the patient. - Lab Data Result diagrams: 03/03/18 13:30 03/03/18 13:30 Lab Results 03/03/18 03/03/18 03/03/18 Range/Units 13:30 13:30 13:30 WBC 6.3 (3.8-10.6) k/uL RBC 5.28 (4.30-5.90) m/uL Hgb 17.8 H (13.0-17.5) gm/dL Hct 52.7 (39.0-53.0) % MCV 99.8 (80.0-100.0) fL MCH 33.7 (25.0-35.0) pg MCHC 33.7 (31.0-37.0) g/dL RDW 12.7 (11.5-15.5) % Plt Count 140 L (150-450) k/uL Neutrophils % 59 % Lymphocytes % 28 % Monocytes % 5 % Eosinophils % 5 % Basophils % 1 % Neutrophils # 3.7 (1.3-7.7) k/uL Lymphocytes # 1.7 (1.0-4.8) k/uL Monocytes # 0.3 (0-1.0) k/uL Eosinophils # 0.3 (0-0.7) k/uL Basophils # 0.1 (0-0.2) k/uL PT (9.0-12.0) sec INR (<1.2) APTT (22.0-30.0) sec Sodium 141 (137-145) mmol/L Potassium 3.9 (3.5-5.1) mmol/L Chloride 100 (98-107) mmol/L Carbon Dioxide 20 L (22-30) mmol/L Anion Gap 21 mmol/L BUN 11 (9-20) mg/dL Creatinine 0.70 (0.66-1.25) mg/dL Est GFR (CKD-EPI)AfAm >90 (>60 ml/min/1.73 sqM) Est GFR (CKD-EPI)NonAf >90 (>60 ml/min/1.73 sqM) Glucose 164 H (74-99) mg/dL POC Glucose (mg/dL) (75-99) mg/dL POC Glu Any Commodity Sales Deliverer ID Plasma Lactic Acid Jeremy (0.7-2.0) mmol/L Calcium 9.0 (8.4-10.2) mg/dL Total Bilirubin 1.4 H (0.2-1.3) mg/dL AST 122 H (17-59) U/L ALT 77 H (21-72) U/L Alkaline Phosphatase 117 (38-126) U/L Total Creatine Kinase 224 H (55-170) U/L CK-MB (CK-2) 2.2 (0.0-2.4) ng/mL CK-MB (CK-2) Rel Index 1.0 Troponin I <0.012 (0.000-0.034) ng/mL Total Protein 8.4 H (6.3-8.2) g/dL Albumin 4.2 (3.5-5.0) g/dL Amylase 52 (30-110) U/L Lipase 93 (23-300) U/L Urine Color Urine Appearance (Clear) Urine pH (5.0-8.0) Ur Specific [place] (1.001-1.035) Urine Protein (Negative) Urine Glucose (UA) (Negative) Urine Ketones (Negative) Urine Blood (Negative) Urine Nitrite (Negative) Urine Bilirubin (Negative) Urine Urobilinogen (<2.0) mg/dL Ur Leukocyte Esterase (Negative) Urine RBC (0-5) /hpf Urine WBC (0-5) /hpf Hyaline Casts (0-2) /lpf Urine Mucus (None) /hpf Urine Opiates Screen (NotDetected) Ur Oxycodone Screen (NotDetected) Urine Methadone Screen (NotDetected) Ur Propoxyphene Screen (NotDetected) Ur Barbiturates Screen (NotDetected) U Tricyclic Antidepress (NotDetected) Ur Phencyclidine Scrn (NotDetected) Ur Amphetamines Screen (NotDetected) U Methamphetamines Scrn (NotDetected) U Benzodiazepines Scrn (NotDetected) Urine Cocaine Screen (NotDetected) U Marijuana (THC) Screen (NotDetected) Serum Alcohol 278 mg/dL Blood Type Blood Type Recheck Antibody Screen Spec Expiration Date 03/03/18 03/03/18 03/03/18 Range/Units 13:30 13:30 13:31 WBC (3.8-10.6) k/uL RBC (4.30-5.90) m/uL Hgb (13.0-17.5) gm/dL Hct (39.0-53.0) % MCV (80.0-100.0) fL MCH (25.0-35.0) pg MCHC (31.0-37.0) g/dL RDW (11.5-15.5) % Plt Count (150-450) k/uL Neutrophils % % Lymphocytes % % Monocytes % % Eosinophils % % Basophils % % Neutrophils # (1.3-7.7) k/uL Lymphocytes # (1.0-4.8) k/uL Monocytes # (0-1.0) k/uL Eosinophils # (0-0.7) k/uL Basophils # (0-0.2) k/uL PT 11.0 (9.0-12.0) sec INR 1.1 (<1.2) APTT 21.5 L (22.0-30.0) sec Sodium (137-145) mmol/L Potassium (3.5-5.1) mmol/L Chloride (98-107) mmol/L Carbon Dioxide (22-30) mmol/L Anion Gap mmol/L BUN (9-20) mg/dL Creatinine (0.66-1.25) mg/dL Est GFR (CKD-EPI)AfAm (>60 ml/min/1.73 sqM) Est GFR (CKD-EPI)NonAf (>60 ml/min/1.73 sqM) Glucose (74-99) mg/dL POC Glucose (mg/dL) 147 H (75-99) mg/dL POC Glu Any Commodity Sales Deliverer ID Deepika Arnold Plasma Lactic Acid Jeremy 4.2 H* (0.7-2.0) mmol/L Calcium (8.4-10.2) mg/dL Total Bilirubin (0.2-1.3) mg/dL AST (17-59) U/L ALT (21-72) U/L Alkaline Phosphatase (38-126) U/L Total Creatine Kinase (55-170) U/L CK-MB (CK-2) (0.0-2.4) ng/mL CK-MB (CK-2) Rel Index Troponin I (0.000-0.034) ng/mL Total Protein (6.3-8.2) g/dL Albumin (3.5-5.0) g/dL Amylase (30-110) U/L Lipase (23-300) U/L Urine Color Urine Appearance (Clear) Urine pH (5.0-8.0) Ur Specific [place] (1.001-1.035) Urine Protein (Negative) Urine Glucose (UA) (Negative) Urine Ketones (Negative) Urine Blood (Negative) Urine Nitrite (Negative) Urine Bilirubin (Negative) Urine Urobilinogen (<2.0) mg/dL Ur Leukocyte Esterase (Negative) Urine RBC (0-5) /hpf Urine WBC (0-5) /hpf Hyaline Casts (0-2) /lpf Urine Mucus (None) /hpf Urine Opiates Screen (NotDetected) Ur Oxycodone Screen (NotDetected) Urine Methadone Screen (NotDetected) Ur Propoxyphene Screen (NotDetected) Ur Barbiturates Screen (NotDetected) U Tricyclic Antidepress (NotDetected) Ur Phencyclidine Scrn (NotDetected) Ur Amphetamines Screen (NotDetected) U Methamphetamines Scrn (NotDetected) U Benzodiazepines Scrn (NotDetected) Urine Cocaine Screen (NotDetected) U Marijuana (THC) Screen (NotDetected) Serum Alcohol mg/dL Blood Type Blood Type Recheck Antibody Screen Spec Expiration Date 03/03/18 03/03/18 Range/Units 13:47 14:25 WBC (3.8-10.6) k/uL RBC (4.30-5.90) m/uL Hgb (13.0-17.5) gm/dL Hct (39.0-53.0) % MCV (80.0-100.0) fL MCH (25.0-35.0) pg MCHC (31.0-37.0) g/dL RDW (11.5-15.5) % Plt Count (150-450) k/uL Neutrophils % % Lymphocytes % % Monocytes % % Eosinophils % % Basophils % % Neutrophils # (1.3-7.7) k/uL Lymphocytes # (1.0-4.8) k/uL Monocytes # (0-1.0) k/uL Eosinophils # (0-0.7) k/uL Basophils # (0-0.2) k/uL PT (9.0-12.0) sec INR (<1.2) APTT (22.0-30.0) sec Sodium (137-145) mmol/L Potassium (3.5-5.1) mmol/L Chloride (98-107) mmol/L Carbon Dioxide (22-30) mmol/L Anion Gap mmol/L BUN (9-20) mg/dL Creatinine (0.66-1.25) mg/dL Est GFR (CKD-EPI)AfAm (>60 ml/min/1.73 sqM) Est GFR (CKD-EPI)NonAf (>60 ml/min/1.73 sqM) Glucose (74-99) mg/dL POC Glucose (mg/dL) (75-99) mg/dL POC Glu Any Commodity Sales Deliverer ID Plasma Lactic Acid [place] (0.7-2.0) mmol/L Calcium (8.4-10.2) mg/dL Total Bilirubin (0.2-1.3) mg/dL AST (17-59) U/L ALT (21-72) U/L Alkaline Phosphatase (38-126) U/L Total Creatine Kinase (55-170) U/L CK-MB (CK-2) (0.0-2.4) ng/mL CK-MB (CK-2) Rel Index Troponin I (0.000-0.034) ng/mL Total Protein (6.3-8.2) g/dL Albumin (3.5-5.0) g/dL Amylase (30-110) U/L Lipase (23-300) U/L Urine Color Yellow Urine Appearance Clear (Clear) Urine pH 6.0 (5.0-8.0) Ur Specific [place] 1.010 (1.001-1.035) Urine Protein 2+ H (Negative) Urine Glucose (UA) Trace H (Negative) Urine Ketones Negative (Negative) Urine Blood Small H (Negative) Urine Nitrite Negative (Negative) Urine Bilirubin Negative (Negative) Urine Urobilinogen <2.0 (<2.0) mg/dL Ur Leukocyte Esterase Negative (Negative) Urine RBC 1 (0-5) /hpf Urine WBC 3 (0-5) /hpf Hyaline Casts 9 H (0-2) /lpf Urine Mucus Rare H (None) /hpf Urine Opiates Screen Not Detected (NotDetected) Ur Oxycodone Screen Not Detected (NotDetected) Urine Methadone Screen Not Detected (NotDetected) Ur Propoxyphene Screen Not Detected (NotDetected) Ur Barbiturates Screen Not Detected (NotDetected) U Tricyclic Antidepress Not Detected (NotDetected) Ur Phencyclidine Scrn Not Detected (NotDetected) Ur Amphetamines Screen Not Detected (NotDetected) U Methamphetamines Scrn Not Detected (NotDetected) U Benzodiazepines Scrn Not Detected (NotDetected) Urine Cocaine Screen Not Detected (NotDetected) U Marijuana (THC) Screen Not Detected (NotDetected) Serum Alcohol mg/dL Blood Type O Positive Blood Type Recheck No Antibody Screen NEGATIVE Spec Expiration Date 03/06/2018 - 2329 Critical Care Time Critical Care Time: Yes Total Critical Care Time: 35 Disposition Clinical Impression: Alcohol intoxication, Intraparenchymal hemorrhage of brain, Fall, Paralysis of right upper extremity Disposition: OTHER INSTITUTION NOT DEFINED Referrals: Diana Rick MD [Primary Care Provider] - 1-2 days
[2018-03-03 13:45] LABS: Basophils # (A) 0.1 k/uL (0-0.2); Basophils % (A) 1 %; Eosinophils # (A) 0.3 k/uL (0-0.7); Eosinophils % (A) 5 %; HCT 52.7 % (39.0-53.0); HGB 17.8 gm/dL (13.0-17.5); Lymphocytes # (A) 1.7 k/uL (1.0-4.8); Lymphocytes % (A) 28 %; MCH 33.7 pg (25.0-35.0); MCHC 33.7 g/dL (31.0-37.0); MCV 99.8 fL (80.0-100.0); Mean Platelet Volume 7.4; Monocytes # (A) 0.3 k/uL (0-1.0); Monocytes % (A) 5 %; Neutrophils # (A) 3.7 k/uL (1.3-7.7); Neutrophils % (A) 59 %; Platelet Count 140 k/uL (150-450); RBC 5.28 m/uL (4.30-5.90); RDW 12.7 % (11.5-15.5); WBC 6.3 k/uL (3.8-10.6)
--- NOTE | 2018-03-03 13:48 | XR ---
EXAMINATION TYPE: XR chest 1V portable DATE OF EXAM: 03/03/2018 Comparison: 08/13/2017 Clinical History: 57-year-old male pain after fall, trauma Findings: Backboard and other external artifact limits the assessment as well as low lung volumes. Heart border line to mildly enlarged. Diffuse interstitial prominence. No consolidation, pneumothorax, or pleural effusion. Impression: Exam limitations due to external artifacts. There is borderline cardiomegaly and hypoventilatory murdock ges. No definite acute process.
--- NOTE | 2018-03-03 13:50 | XR ---
EXAMINATION TYPE: XR pelvis AP view DATE OF EXAM: 03/03/2018 COMPARISON: NONE HISTORY: 57-year-old male pain after fall today, trauma TECHNIQUE: AP view FINDINGS: Exam limitations due to backboard artifact and large patient body habitus causing underpenetration. P osterior lumbar fusion hardware is present. There is limited assessment of the femoral necks due to e xternal rotation of the hips during patient positioning. Fragmented spur superior left acetabulum vinicio brayan os acetabuli or degenerative labral ossification. Some can deformities appear to be present at th e femoral head neck junctions and can be seen in the setting of femoral acetabular impingement syndro me. No displaced fracture seen. IMPRESSION: Suboptimal study. No obvious displaced fracture. The exam can be repeated when the patient is able.
[2018-03-03 13:55] LABS: ALT 77 U/L (21-72); AST 122 U/L (17-59); Albumin 4.2 g/dL (3.5-5.0); Alkaline Phosphatase 117 U/L (38-126); Amylase 52 U/L (30-110); Anion Gap 21 mmol/L; Blood Urea Nitrogen 11 mg/dL (9-20); Carbon Dioxide 20 mmol/L (22-30); Chloride 100 mmol/L (98-107); Glucose 164 mg/dL (74-99); Lipase 93 U/L (23-300); Potassium 3.9 mmol/L (3.5-5.1); Sodium 141 mmol/L (137-145); Total Bilirubin 1.4 mg/dL (0.2-1.3); Total Protein 8.4 g/dL (6.3-8.2)
[2018-03-03 13:59] LABS: Glucose,Whole Blood 147 mg/dL (75-99)
[2018-03-03 14:01] LABS: Alcohol 278 mg/dL
[2018-03-03] MEDS ORDERED: DIPH,PERTUS(ACELL)TETVAC-LF 0.5 ML VIAL IM ONE (14:02)
[2018-03-03 14:05] LABS: Creatine Kinase 224 U/L (55-170)
[2018-03-03 14:06] LABS: Appearance,Urine Clear (Clear); Bilirubin,Urine Negative (Negative); Blood,Urine Small (Negative); Color,Urine Yellow; Glucose,Urine (UA) Trace (Negative); Hyaline Casts,Urine 9 /lpf (0-2); Ketones,Urine Negative (Negative); Leukocyte Esterase,Urine Negative (Negative); Mucus,Urine Rare /hpf; Nitrite,Urine Negative (Negative); Protein,Urine 2+ (Negative); RBC,Urine 1 /hpf (0-5); Urobilinogen,Urine <2.0 mg/dL (<2.0); WBC,Urine 3 /hpf (0-5)
[2018-03-03] MEDS ORDERED: SUCCINYLCHOLINE CHLORIDE VIAL 200 MG/10 ML VIAL IV STA (14:06)
[2018-03-03] MEDS ORDERED: MIDAZOLAM (PF) 1 MG/ML 5 ML VIAL IV STA (14:06)
[2018-03-03] MEDS ORDERED: ceFAZolin 1,000 MG in DEXTROSE/WATER 1 50ML.BAG IVPB STA (14:06)
[2018-03-03 14:09] LABS: INR 1.1 (<1.2)
[2018-03-03] MEDS ORDERED: SODIUM CHLORIDE 0.9% 1,000 ML IV ONE ×2 (14:13→16:34)
[2018-03-03 14:15] LABS: Partial Thromboplastin Time 21.5 sec (22.0-30.0)
[2018-03-03 14:16] LABS: Amphetamine Screen,Urine Not Detected (NotDetected); Barbiturate Screen,Urine Not Detected (NotDetected); Benzodiazepines Screen,Urine Not Detected (NotDetected); Cocaine Screen,Urine Not Detected (NotDetected); Methadone Screen, Urine Not Detected (NotDetected); Opiate Screen,Urine Not Detected (NotDetected); Oxycodone Screen, Urine Not Detected (NotDetected); Phencyclidine Screen,Urine Not Detected (NotDetected); Tricyclic Antidepressant,Urine Not Detected (NotDetected); Urn Cannabinoid Scrn Not Detected (NotDetected)
[2018-03-03 14:18] LABS: Creatine Kinase MB 2.2 ng/mL (0.0-2.4); Troponin I <0.012 ng/mL (0.000-0.034)
--- NOTE | 2018-03-03 14:23 | CT ---
EXAMINATION TYPE: CT brain wo con DATE OF EXAM: 03/03/2018 COMPARISON: NONE HISTORY: Patient fell with blow to back of head. Laceration at site. Altered mental status. Patien t increasingly agitated during scan. CT DLP: 1110.[address] of the brain was performed. Left frontal parietal intraparenchymal hemorrhage measuring 1.6 x 1.1 cm. Small adjacent areas of sub arachnoid component. The ventricles, basal cisterns and sulci overlying the cerebral convexities demonstrate mild enlargem ent. There is decreased attenuation about the periventricular white matter and deep white matter of both cerebral hemispheres, compatible with chronic small vessel ischemia. Differential diagnosis does incl ude demyelination. No mass effects are seen.No midline shift. Osseous calvarium is intact. Moderate right-sided scalp hematoma temporal and temporoparietal region s. There is pansinusitis noted. If symptoms persist consider MRI. IMPRESSION: 1.Left frontal parietal intraparenchymal hemorrhage measuring 1.6 x 1.1 cm. Small adjacent areas of s ubarachnoid component. 2. Age related atrophic and chronic small vessel ischemic change . 3. Scalp hematoma is noted.
[2018-03-03] MEDS ORDERED: PROPOFOL 10 MG/ML 20 ML VIAL IV STA (14:36)
[2018-03-03] MEDS: PROPOFOL 1,000 MG in EMPTY BAG 1 BAG IV ONE ×2 (14:41→16:44)
--- NOTE | 2018-03-03 14:53 | XR ---
EXAMINATION TYPE: XR chest 1V portable DATE OF EXAM: 03/03/2018 HISTORY: Endotracheal tube COMPARISON: 03/03/2019 TECHNIQUE: Single view of the chest is submitted. FINDINGS: Endotracheal tube is appropriately placed with its distal tip 4.9 cm from the level of the kirit. There is no evidence for focal infiltrate. The heart is stable. Hilar and mediastinal structures are within normal limits. Degenerative changes are seen of the dorsal spine. IMPRESSION: 1. Appropriate endotracheal tube placement.
--- NOTE | 2018-03-03 15:24 | CT ---
EXAMINATION TYPE: CT cervical spine wo con DATE OF EXAM: 03/03/2018 COMPARISON: NONE HISTORY: Patient fell down 10 steps and hit back of head on cement. Laceration on back of head. Pat ient intubated and sedated at time of exam CT DLP: 688.[address] of the cervical spine was performed with bone and soft tissue window settings submitted . Coronal and sagittal reconstruction is obtained. There is normal alignment and prevertebral soft tissues. I do not see evidence for fracture or subluxation. Moderate to severe degenerative changes are present. Endotracheal tube is in place. IMPRESSION: No evidence for fracture or subluxation of the cervical spine.
[2018-03-03 15:48] LABS: ABG Base Excess -3.5 mmol/L; ABG HCO3 23 mmol/L (21-25); ABG PCO2 44 mmHg (35-45); ABG PH 7.32 (7.35-7.45); ABG PO2 326 mmHg (83-108); ABG TCO2 24 mmol/L (19-24)
--- NOTE | 2018-03-03 16:05 | CT ---
EXAMINATION TYPE: CT ChestAbdPelvis w con DATE OF EXAM: 03/03/2018 COMPARISON: NONE HISTORY: Patient fell down 10 steps and hit back of head on cement. Laceration on back of head. Pat ient intubated and sedated at time of exam and unable to bring arms above head. CT DLP: 688.4 mGycm CONTRAST: Contrast enhanced Trauma CT of the Chest, Abdomen and Pelvis is performed with IV Contrast, patient i njected with 100 mL of Isovue 300. Chest: LUNGS: Appropriate intubation noted. Basilar atelectasis identified. Mild upper lobe emphysematous ch kumar. There is no evidence for pneumothorax. No pleural effusion MEDIASTINUM: Thoracic aorta is of normal caliber without CT evidence to suggest traumatic induced ao rtic injury. No mediastinal fluid or blood. No pericardial fluid or cardia abnormality. HILAR STRUCTURES: No evidence for mass. No hilar adenopathy is appreciated. OTHER: No significant abnormality. OSSEOUS: No displaced osseous fractures identified. CT ABDOMEN AND PELVIS FINDINGS: LIVER/GB: No focal laceration, contusion or subcapsular hemorrhage. Incidental cholelithiasis noted . No space occupying hepatic lesion. Biliary tree is of normal caliber. PANCREAS: No evidence for transection. No inflammation. No distinct mass. SPLEEN: No focal laceration, contusion or subcapsular hemorrhage. ADRENALS: No hemorrhage. No nodule. No thickening. KIDNEYS/BLADDER: No focal laceration, contusion or subcapsular hemorrhage. No hydronephrosis. No n ephrolithiasis. No disctinct renal mass. BOWEL: Bowel is intact. No evidence for pneumoperitoneum. GENITAL ORGANS: No gross abnormality. LYMPH NODES: Periportal adenopathy measuring 2.2 cm. AORTA: No traumatic aortic injury visualized. OSSEOUS STRUCTURES: Postoperative fusion changes lumbar spine and lower cervical spine. OTHER: No evidence for hemoperitoneum. IMPRESSION: 1. No evidence for traumatic injury to the chest. 2. No evidence for traumatic injury to the abdomen or pelvis.
--- NOTE | 2018-03-06 08:09 | P.GSHP ---
History of Present Illness H&P Date: 03/03/18 Chief Complaint: Fall down steps, intoxicated This a 57-year-old male who apparently fell at home down approximately 10 steps. Patient is severely intoxicated. He had a Cle[place] Coma Scale of 3 at the scene. The patient was brought as a priority 1 trauma due to his low GCS. He is currently in the resuscitation room. The patient is combative and swearing. He is unable to give any medical history. Past Medical History Past Medical History: Hypertension Additional Past Medical History / Comment(s): Obesity, obstructive sleep apnea, chronic back pain, previous back injury work-related and the patient has undergone a back surgery with laminectomy and fusion and he is receiving and management through Dr. Ruth. He has seen also Dr. Salcedo in the past. Hypertension, alcoholism. History of Any Multi-Drug Resistant Organisms: None Reported Past Surgical History: Back Surgery, Joint Replacement, Orthopedic Surgery Additional Past Surgical History / Comment(s): rotator cuff,rt knee, Past Psychological History: No Psychological Hx Reported Smoking Status: Current every day smoker Past Alcohol Use History: Daily, Heavy Past Drug Use History: None Reported - Past Family History Mother Family Medical History: Diabetes Mellitus Medications and Allergies Home Medications Medication Instructions Recorded Confirmed Type oxyCODONE-APAP 10-325MG [Percocet 1 tab PO QID PRN 08/13/17 03/03/18 History 10-325 mg] Gabapentin 600 mg PO Q8H 03/03/18 03/03/18 History Losartan-Hctz 50-12.5 mg [Hyzaar 1 tab PO DAILY 03/03/18 03/03/18 History 50-12.5] Allergies Allergy/AdvReac Type Severity Reaction Status Date / Time No Known Allergies Allergy Verified 08/13/17 13:17 Surgical - Exam Vital signs appear stable. The patient is combative. He is moving all extremities, he has decreased movement of his right arm. - General Severely intoxicated well developed, well nourished - Eyes PERRL - ENT normal pinna, normal nares, normal mucosa, no hearing loss - Neck no masses - Respiratory normal expansion - Cardiovascular Rhythm: regular - Abdomen Abdomen: soft, non tender - Rectum Rectum: normal sphincter tone - Integumentary There is a contusion to the occipital area Results - Labs 03/03/18 13:03/03/18 13:30 Assessment and Plan Assessment: Fall down approximately 10 steps Severe intoxication Patient will undergo computed tomography scan for evaluation of traumatic brain injury.
== END 2018-03-03 16:56 | disposition other institution (70) ==
LOC: EC 13:24
DX: S06.2X9A Diffuse traumatic brain injury with loss of consciousness of unspecified duration, initial encounter (principal); F10.120 Alcohol abuse with intoxication, uncomplicated; G83.21 Monoplegia of upper limb affecting right dominant side; R40.2422 Glasgow coma scale score 9-12, at arrival to emergency department; I10 Essential (primary) hypertension; E66.9 Obesity, unspecified; Z68.41 Body mass index [BMI] 40.0-44.9, adult; G47.30 Sleep apnea, unspecified; F17.200 Nicotine dependence, unspecified, uncomplicated; Z79.899 Other long term (current) drug therapy; Z23 Encounter for immunization; W10.9XXA Fall (on) (from) unspecified stairs and steps, initial encounter
CPT/HCPCS: 99291; 31500; 96365; 90471; 36415; 36600; 94002; 93005; 86900; 86901; 80053; 82150; 82550; 82553; 82805; 83605; 83690; 84484; 85025; 85610; 85730; 86850; 81001; 80306; 80320; 72170; 71045; 72125; 70450; 71260; 74177; 90715; J0330; J2250; J0690; J2704 ×2; Q9967

== ENCOUNTER 2018-09-26 09:40 | Inpatient (IN) | payer MEDICARE ==
[2018-09-26] MEDS ORDERED: IBUPROFEN IV 600 MG in SODIUM CHLORIDE 0.9% 250 ML IV STA (09:56)
[2018-09-26] MEDS ORDERED: ACETAMINOPHEN IV (For NPO) 1,000 MG in EMPTY BAG 1 BAG IVPB STA (09:56)
[2018-09-26] MEDS ORDERED: cefTRIAXone 2,000 MG in SODIUM CHLORIDE 0.9% 100 ML IVPB STA (09:56)
--- NOTE | 2018-09-26 10:05 | ED ---
General Adult HPI - General Chief complaint: Neuro Symptoms/Deficit Stated complaint: poss CVA Time Seen by Provider: 09/26/18 09:45 Source: patient, RN notes reviewed Mode of arrival: EMS Limitations: no limitations - History of Present Illness Initial comments: This is a 57-year-old male who comes into the emergency department today with the complaint of right-sided facial twitching increased garbled speech and right arm weakness. According to the this all started yesterday but has progressed throughout the night and become worse. Patient also had 101 fever at home. Patient is unable to give any history because unable to express himself clearly at this time. states he is a drinker and he did have a couple drinks today. Patient has a history of diabetes hypertension high cholesterol. There is been no history of recent falls. Been no history of any syncopal episodes. According to the he has a couple speech quite a while now but yesterday was considerably worse and this morning was even worse. Patient has had no nausea or vomiting he is not complaining of any abdominal pain any chest pain. - Related Data Home Medications Medication Instructions Recorded Confirmed oxyCODONE-APAP 10-325MG [Percocet 1 tab PO QID PRN 08/13/17 03/03/18 10-325 mg] Gabapentin 600 mg PO Q8H 03/03/18 03/03/18 Losartan-Hctz 50-12.5 mg [Hyzaar 1 tab PO DAILY 03/03/18 03/03/18 50-12.5] Allergies Allergy/AdvReac Type Severity Reaction Status Date / Time No Known Allergies Allergy Verified 08/13/17 13:17 Review of Systems ROS Statement: Those systems with pertinent positive or pertinent negative responses have been documented in the HPI. ROS Other: All systems not noted in ROS Statement are negative. Past Medical History Past Medical History: Hypertension Additional Past Medical History / Comment(s): Obesity, obstructive sleep apnea, chronic back pain, previous back injury work-related and the patient has undergone a back surgery with laminectomy and fusion and he is receiving and management through Dr. Ruth. He has seen also Dr. Salcedo in the past. Hypertension, alcoholism. History of Any Multi-Drug Resistant Organisms: None Reported Past Surgical History: Back Surgery, Joint Replacement, Orthopedic Surgery Additional Past Surgical History / Comment(s): rotator cuff,rt knee, Past Psychological History: No Psychological Hx Reported Smoking Status: Current every day smoker Past Alcohol Use History: Daily, Heavy Past Drug Use History: None Reported - Past Family History Mother Family Medical History: Diabetes Mellitus General Exam - General Exam Comments Initial Comments: GENERAL: Patient is well-developed and well-nourished. Patient is nontoxic and well- hydrated and is in mild distress. ENT: Neck is soft and supple. No significant lymphadenopathy is noted. Oropharynx is clear. Moist mucous membranes. Neck has full range of motion without eliciting any pain. EYES: The sclera were anicteric and conjunctiva were pink and moist. Extraocular movements were intact and pupils were equal round and reactive to light. Eyelids were unremarkable. PULMONARY: Patient has rhonchi on the right side the base CARDIOVASCULAR: There is a regular rate and rhythm without any murmurs gallops or rubs. ABDOMEN: Soft and nontender with normal bowel sounds. No palpable organomegaly was noted. There is no palpable pulsatile mass. SKIN: Skin is clear with no lesions or rashes and otherwise unremarkable. NEUROLOGIC: Patient is alert and oriented difficult to assess orientation because he cannot understand the patient this time. Patient has twitching of the right side of his face but does not appear to be weak. Patient does have good extraocular motion. Patient's speech is significantly garbled and nontender breath and supple patient's right arm is significantly weaker than the left arm. MUSCULOSKELETAL: Normal extremities with adequate strength and full range of motion. LYMPHATICS: No significant lymphadenopathy is noted PSYCHIATRIC: Unable to assess secondary is poor speech. Limitations: no limitations Course Vital Signs 09/26/18 09/26/18 09/26/18 09:46 12:30 13:00 Temperature 101.1 F H Pulse Rate 99 96 Respiratory 18 22 22 Rate Blood Pressure 141/94 138/88 163/86 O2 Sat by Pulse 92 L 95 95 Oximetry 09/26/18 09/26/18 09/26/18 13:30 14:00 14:08 Temperature 100.8 F H Pulse Rate 96 96 96 Respiratory 22 22 20 Rate Blood Pressure 138/90 141/88 138/91 O2 Sat by Pulse 95 95 97 Oximetry Medical Decision Making - Medical Decision Making EKG showed normal sinus rhythm at 90 bpm AR interval 116 QRS 92 QT interval 356 QTC is 454. Patient's EKG shows no ST segment elevation or depression or T wave abnormalities are noted. Her patient was given 2 g of Rocephin secondary to the fever but no source was found at this time. I spoke with Dr. Ross she agrees to admit the patient. - Lab Data Result diagrams: 09/26/18 10:00 09/26/18 10:00 Lab Results 09/26/18 09/26/18 09/26/18 Range/Units 10:00 10:00 10:00 WBC 7.5 (3.8-10.6) k/uL RBC 4.28 L (4.30-5.90) m/uL Hgb 14.3 (13.0-17.5) gm/dL Hct 44.3 (39.0-53.0) % MCV 103.4 H (80.0-100.0) fL MCH 33.5 (25.0-35.0) pg MCHC 32.4 (31.0-37.0) g/dL RDW 13.0 (11.5-15.5) % Plt Count 177 (150-450) k/uL Neutrophils % 83 % Lymphocytes % 11 % Monocytes % 5 % Eosinophils % 1 % Basophils % 0 % Neutrophils # 6.2 (1.3-7.7) k/uL Lymphocytes # 0.8 L (1.0-4.8) k/uL Monocytes # 0.4 (0-1.0) k/uL Eosinophils # 0.1 (0-0.7) k/uL Basophils # 0.0 (0-0.2) k/uL Macrocytosis Slight PT (9.0-12.0) sec INR (<1.2) APTT (22.0-30.0) sec Sodium 134 L (137-145) mmol/L Potassium 3.6 (3.5-5.1) mmol/L Chloride 95 L (98-107) mmol/L Carbon Dioxide 26 (22-30) mmol/L Anion Gap 13 mmol/L BUN 13 (9-20) mg/dL Creatinine 0.94 (0.66-1.25) mg/dL Est GFR (CKD-EPI)AfAm >90 (>60 ml/min/1.73 sqM) Est GFR (CKD-EPI)NonAf 89 (>60 ml/min/1.73 sqM) Glucose 192 H (74-99) mg/dL Lactic Ac Sepsis Rflx Plasma Lactic Acid Jeremy (0.7-2.0) mmol/L Calcium 8.8 (8.4-10.2) mg/dL Magnesium (1.6-2.3) mg/dL Total Bilirubin 1.9 H (0.2-1.3) mg/dL AST 66 H (17-59) U/L ALT 45 (21-72) U/L Alkaline Phosphatase 123 (38-126) U/L Total Creatine Kinase 154 (55-170) U/L CK-MB (CK-2) 0.4 (0.0-2.4) ng/mL CK-MB (CK-2) Rel Index 0.3 Troponin I <0.012 (0.000-0.034) ng/mL Total Protein 7.8 (6.3-8.2) g/dL Albumin 3.9 (3.5-5.0) g/dL Urine Color Urine Appearance (Clear) Urine pH (5.0-8.0) Ur Specific [place] (1.001-1.035) Urine Protein (Negative) Urine Glucose (UA) (Negative) Urine Ketones (Negative) Urine Blood (Negative) Urine Nitrite (Negative) Urine Bilirubin (Negative) Urine Urobilinogen (<2.0) mg/dL Ur Leukocyte Esterase (Negative) Serum Alcohol <10 mg/dL Influenza Type A RNA (Not Detectd) Influenza Type B (PCR) (Not Detectd) 09/26/18 09/26/18 09/26/18 Range/Units 10:00 10:00 10:00 WBC (3.8-10.6) k/uL RBC (4.30-5.90) m/uL Hgb (13.0-17.5) gm/dL Hct (39.0-53.0) % MCV (80.0-100.0) fL MCH (25.0-35.0) pg MCHC (31.0-37.0) g/dL RDW (11.5-15.5) % Plt Count (150-450) k/uL Neutrophils % % Lymphocytes % % Monocytes % % Eosinophils % % Basophils % % Neutrophils # (1.3-7.7) k/uL Lymphocytes # (1.0-4.8) k/uL Monocytes # (0-1.0) k/uL Eosinophils # (0-0.7) k/uL Basophils # (0-0.2) k/uL Macrocytosis PT 11.3 (9.0-12.0) sec INR 1.2 H (<1.2) APTT 24.2 (22.0-30.0) sec Sodium (137-145) mmol/L Potassium (3.5-5.1) mmol/L Chloride (98-107) mmol/L Carbon Dioxide (22-30) mmol/L Anion Gap mmol/L BUN (9-20) mg/dL Creatinine (0.66-1.25) mg/dL Est GFR (CKD-EPI)AfAm (>60 ml/min/1.73 sqM) Est GFR (CKD-EPI)NonAf (>60 ml/min/1.73 sqM) Glucose (74-99) mg/dL Lactic Ac Sepsis Rflx Plasma Lactic Acid Jeremy 2.5 H* (0.7-2.0) mmol/L Calcium (8.4-10.2) mg/dL Magnesium (1.6-2.3) mg/dL Total Bilirubin (0.2-1.3) mg/dL AST (17-59) U/L ALT (21-72) U/L Alkaline Phosphatase (38-126) U/L Total Creatine Kinase (55-170) U/L CK-MB (CK-2) (0.0-2.4) ng/mL CK-MB (CK-2) Rel Index Troponin I (0.000-0.034) ng/mL Total Protein (6.3-8.2) g/dL Albumin (3.5-5.0) g/dL Urine Color Urine Appearance (Clear) Urine pH (5.0-8.0) Ur Specific [place] (1.001-1.035) Urine Protein (Negative) Urine Glucose (UA) (Negative) Urine Ketones (Negative) Urine Blood (Negative) Urine Nitrite (Negative) Urine Bilirubin (Negative) Urine Urobilinogen (<2.0) mg/dL Ur Leukocyte Esterase (Negative) Serum Alcohol mg/dL Influenza Type A RNA Not Detected (Not Detectd) Influenza Type B (PCR) Not Detected (Not Detectd) 11/03/18 11/03/18 11/03/18 Range/Units 10:00 10:49 13:27 WBC (3.8-10.6) k/uL RBC (4.30-5.90) m/uL Hgb (13.0-17.5) gm/dL Hct (39.0-53.0) % MCV (80.0-100.0) fL MCH (25.0-35.0) pg MCHC (31.0-37.0) g/dL RDW (11.5-15.5) % Plt Count (150-450) k/uL Neutrophils % % Lymphocytes % % Monocytes % % Eosinophils % % Basophils % % Neutrophils # (1.3-7.7) k/uL Lymphocytes # (1.0-4.8) k/uL Monocytes # (0-1.0) k/uL Eosinophils # (0-0.7) k/uL Basophils # (0-0.2) k/uL Macrocytosis PT (9.0-12.0) sec INR (<1.2) APTT (22.0-30.0) sec Sodium (137-145) mmol/L Potassium (3.5-5.1) mmol/L Chloride (98-107) mmol/L Carbon Dioxide (22-30) mmol/L Anion Gap mmol/L BUN (9-20) mg/dL Creatinine (0.66-1.25) mg/dL Est GFR (CKD-EPI)AfAm (>60 ml/min/1.73 sqM) Est GFR (CKD-EPI)NonAf (>60 ml/min/1.73 sqM) Glucose (74-99) mg/dL Lactic Ac Sepsis Rflx Y Plasma Lactic Acid Jeremy (0.7-2.0) mmol/L Calcium (8.4-10.2) mg/dL Magnesium 1.2 L (1.6-2.3) mg/dL Total Bilirubin (0.2-1.3) mg/dL AST (17-59) U/L ALT (21-72) U/L Alkaline Phosphatase (38-126) U/L Total Creatine Kinase (55-170) U/L CK-MB (CK-2) (0.0-2.4) ng/mL CK-MB (CK-2) Rel Index Troponin I (0.000-0.034) ng/mL Total Protein (6.3-8.2) g/dL Albumin (3.5-5.0) g/dL Urine Color Yellow Urine Appearance Clear (Clear) Urine pH 7.0 (5.0-8.0) Ur Specific [place] 1.014 (1.001-1.035) Urine Protein Trace H (Negative) Urine Glucose (UA) Negative (Negative) Urine Ketones Negative (Negative) Urine Blood Negative (Negative) Urine Nitrite Negative (Negative) Urine Bilirubin Negative (Negative) Urine Urobilinogen 4.0 (<2.0) mg/dL Ur Leukocyte Esterase Negative (Negative) Serum Alcohol mg/dL Influenza Type A RNA (Not Detectd) Influenza Type B (PCR) (Not Detectd) 09/26/18 Range/Units 14:07 WBC (3.8-10.6) k/uL RBC (4.30-5.90) m/uL Hgb (13.0-17.5) gm/dL Hct (39.0-53.0) % MCV (80.0-100.0) fL MCH (25.0-35.0) pg MCHC (31.0-37.0) g/dL RDW (11.5-15.5) % Plt Count (150-450) k/uL Neutrophils % % Lymphocytes % % Monocytes % % Eosinophils % % Basophils % % Neutrophils # (1.3-7.7) k/uL Lymphocytes # (1.0-4.8) k/uL Monocytes # (0-1.0) k/uL Eosinophils # (0-0.7) k/uL Basophils # (0-0.2) k/uL Macrocytosis PT (9.0-12.0) sec INR (<1.2) APTT (22.0-30.0) sec Sodium (137-145) mmol/L Potassium (3.5-5.1) mmol/L Chloride (98-107) mmol/L Carbon Dioxide (22-30) mmol/L Anion Gap mmol/L BUN (9-20) mg/dL Creatinine (0.66-1.25) mg/dL Est GFR (CKD-EPI)AfAm (>60 ml/min/1.73 sqM) Est GFR (CKD-EPI)NonAf (>60 ml/min/1.73 sqM) Glucose (74-99) mg/dL Lactic Ac Sepsis Rflx Plasma Lactic Acid Jeremy 1.1 (0.7-2.0) mmol/L Calcium (8.4-10.2) mg/dL Magnesium (1.6-2.3) mg/dL Total Bilirubin (0.2-1.3) mg/dL AST (17-59) U/L ALT (21-72) U/L Alkaline Phosphatase (38-126) U/L Total Creatine Kinase (55-170) U/L CK-MB (CK-2) (0.0-2.4) ng/mL CK-MB (CK-2) Rel Index Troponin I (0.000-0.034) ng/mL Total Protein (6.3-8.2) g/dL Albumin (3.5-5.0) g/dL Urine Color Urine Appearance (Clear) Urine pH (5.0-8.0) Ur Specific [place] (1.001-1.035) Urine Protein (Negative) Urine Glucose (UA) (Negative) Urine Ketones (Negative) Urine Blood (Negative) Urine Nitrite (Negative) Urine Bilirubin (Negative) Urine Urobilinogen (<2.0) mg/dL Ur Leukocyte Esterase (Negative) Serum Alcohol mg/dL Influenza Type A RNA (Not Detectd) Influenza Type B (PCR) (Not Detectd) Disposition Clinical Impression: Cerebrovascular accident, Febrile illness Disposition: ADMITTED IP TO THIS HOSP Referrals: Diana Rick MD [Primary Care Provider] - 1-2 days Time of Disposition: 15:02
[2018-09-26 10:26] LABS: Basophils % (A) 0 %; Eosinophils # (A) 0.1 k/uL (0-0.7); Eosinophils % (A) 1 %; HCT 44.3 % (39.0-53.0); HGB 14.3 gm/dL (13.0-17.5); Lymphocytes # (A) 0.8 k/uL (1.0-4.8); Lymphocytes % (A) 11 %; MCH 33.5 pg (25.0-35.0); MCHC 32.4 g/dL (31.0-37.0); MCV 103.4 fL (80.0-100.0); Macrocytosis Slight; Monocytes # (A) 0.4 k/uL (0-1.0); Monocytes % (A) 5 %; Neutrophils # (A) 6.2 k/uL (1.3-7.7); Neutrophils % (A) 83 %; Platelet Count 177 k/uL (150-450); RBC 4.28 m/uL (4.30-5.90); WBC 7.5 k/uL (3.8-10.6)
[2018-09-26 10:36] LABS: INR 1.2 (<1.2); Partial Thromboplastin Time 24.2 sec (22.0-30.0); Prothrombin Time 11.3 sec (9.0-12.0)
[2018-09-26 10:43] LABS: ALT 45 U/L (21-72); AST 66 U/L (17-59); Albumin 3.9 g/dL (3.5-5.0); Alcohol <10 mg/dL; Alkaline Phosphatase 123 U/L (38-126); Anion Gap 13 mmol/L; Blood Urea Nitrogen 13 mg/dL (9-20); Calcium 8.8 mg/dL (8.4-10.2); Carbon Dioxide 26 mmol/L (22-30); Chloride 95 mmol/L (98-107); Glucose 192 mg/dL (74-99); Potassium 3.6 mmol/L (3.5-5.1); Sodium 134 mmol/L (137-145); Total Bilirubin 1.9 mg/dL (0.2-1.3); Total Protein 7.8 g/dL (6.3-8.2)
[2018-09-26] MEDS: SODIUM CHLORIDE 0.9% 500 ML 500 ML IV SCH ×2 (10:58→10:59)
[2018-09-26 11:04] LABS: Creatine Kinase 154 U/L (55-170)
--- NOTE | 2018-09-26 11:11 | CT ---
EXAMINATION TYPE: CT brain wo con DATE OF EXAM: 09/26/2018 COMPARISON: Previous study dated 03/03/2018 HISTORY: altered mental status CT DLP: 1136.4 mGycm Automated exposure control for dose reduction was used. FINDINGS: There are mild, generalized changes of sulcal prominence and ventriculomegaly, compatible with atroph ic change. There is diffuse periventricular white matter lucency, compatible small vessel ischemic ch kumar. There is no acute focal lesion, mass effect or midline shift identified. I do not see evidence of intracranial blood. There is mild, chronic mucoperiosteal thickening involving the ethmoid sinuses. The mastoids are nathaniel r. The bony calvarium is intact. IMPRESSION: 1. NO ACUTE INTRACRANIAL ABNORMALITY. 2. MILD DEGENERATIVE CHANGE. 3. MILD, CHRONIC ETHMOIDAL SINUS MUCOSAL DISEASE.
[2018-09-26 11:15] LABS: Creatine Kinase MB 0.4 ng/mL (0.0-2.4); Troponin I <0.012 ng/mL (0.000-0.034)
--- NOTE | 2018-09-26 11:15 | XR ---
EXAMINATION TYPE: XR chest 2V DATE OF EXAM: 09/26/2018 HISTORY: Fever. REFERENCE: Previous study dated 03/03/2018. FINDINGS: The heart is mildly enlarged. The lungs are clear. Pleural spaces are clear. IMPRESSION: MILD CARDIOMEGALY.
[2018-09-26 13:49] LABS: Appearance,Urine Clear (Clear); Bilirubin,Urine Negative (Negative); Blood,Urine Negative (Negative); Color,Urine Yellow; Glucose,Urine (UA) Negative (Negative); Ketones,Urine Negative (Negative); Leukocyte Esterase,Urine Negative (Negative); Nitrite,Urine Negative (Negative); Protein,Urine Trace (Negative); Specific Gravity,Urine 1.014 (1.001-1.035)
[2018-09-26] MEDS ORDERED: THIAMINE 100 MG/ML 2 ML VIAL IM STA (15:06)
[2018-09-26] MEDS: LORazepam 2 MG/ML INJ IV PRN ×4 (15:48→23:13)
[2018-09-26 17:27] LABS: Glucose,Whole Blood 137 mg/dL (75-99)
[2018-09-26] MEDS: THIAMINE 100 MG TAB PO SCH (18:31)
[2018-09-26] MEDS ORDERED: VANCOMYCIN IV PER PHARMACY 1 EACH MISC MISCELLANE PRN (18:41)
[2018-09-26] MEDS ORDERED: Magnesium Replacement Protocol 1 EACH MISC MISCELLANE PRN (18:44)
[2018-09-26] MEDS: MAGNESIUM SULFATE-D5W PMX 1 GM in DEXTROSE/WATER 1 100ML.BAG IVPB SCH ×3 (19:47→23:17)
[2018-09-26] MEDS ORDERED: VANCOMYCIN 2,000 MG in SODIUM CHLORIDE 0.9% 500 ML 500 ML IVPB ONE (20:00)
--- NOTE | 2018-09-26 20:24 | P.CNNES ---
History of Present Illness Consult date: 09/26/18 Reason for Consult: Patient with right sided weakness and speech impairment. History of Present Illness: This patient is a 57-year-old right-handed white male who was brought into the emergency room at [facility] for evaluation of right-sided facial twitching and garbled speech. The patient's primary care physician is Dr. Rick and Louisa. Apparently he does follow with her on a fairly regular basis. According to the in the emergency room he was having worsening speech problems as well as right facial twitching and right-sided weakness. Patient was brought into the emergency room and was seen in the ER by . Patient continued to show evidence of slurred speech and also question of alcohol related seizure. Patient was sent for computed tomography scan of the brain which revealed no acute intracranial abnormality. There is mild degenerative change and mild chronic ethmoid sinusitis. Patient did have a temperature in the emergency room but after being treated with Tylenol as temperature did come back to normal. Patient is a very poor historian and is unable to provide much history at bedside is his speech is totally aphasic. He has evidence of expressive aphasia on examination at this time. Patient also has a history of alcohol abuse and apparently drinks a few drinks on a daily basis. His alcohol level was checked in the emergency room and was less then 10.0. He did have a elevated lactic acid level at 2.5. He was checked for influenza A and B both of which came back negative. As noted his temperature is now returned to normal. His white count in the emergency room was 7.5. Hemoglobin was 14.3. Due to his history of alcohol abuse he was started on a CIWA protocol in the ER and was admitted to the hospital. Due to his temperature in the ER he was given a dose of IV Rocephin and admitted to Hospital. Patient also has a history of obstructive sleep apnea and has undergone back surgery with a laminectomy procedure and is followed in the outpatient in management clinic with Dr. Ruth. As noted he has a long- standing history of alcoholism. Patient is examined today at bedside on the third floor. He is unable to answer simple questions such as his name or his home address. He has a great deal of evidence for expressive aphasia. He is noted to have blepharospasm involving both eyes. His neurological examination reveals patient to have significant right-sided hemiparesis as well as expressive aphasia. His clinical findings at this time to suggest any acute left hemispheric stroke. We have recommended he be admitted to the hospital for a complete stroke evaluation. His overall prognosis at this time remains very guarded. As noted on his neurological examination he has a right pronator drift as well as rotation of the right lower extremity with external rotation. He is able to lift both lower extremities with appears slightly weaker on his right side. His was not available at the time of his neurological examination this evening. We will attempt to contact her tomorrow morning to add any further details. The did mention that she felt his speech was much worse than 2 days ago. Once again he does have clear evidence of expressive aphasia at this time. The patient does have a history of having suffered a fall back on 03/03/2018. This was due to his chronic alcoholism and he was intoxicated and fell down stairs. The patient suffered an acute intracerebral hemorrhage on 03/03/2018 involving the right frontal parietal lobe. This area of hemorrhage measured 1.6 x 1.1 cm in size. Given this finding would recommend the patient to be avoiding any use of aspirin or aspirin products until his MRI is done to clarify his area of stroke and to see if there is any potential for hemorrhagic transformation. We have discussed these findings detail with the patient. We will continue to follow him neurologically closely during this admission. His overall long-term prognosis will depend on his stroke workup and findings. His overall prognosis remains very guarded. The patient is now admitted and neurology has been consulted for further evaluation and recommendations. Review of Systems Constitutional: Denies chills, Denies fever Eyes: right discharge, denies blurred vision, denies pain Ears, nose, mouth and throat: Denies headache, Denies sore throat Cardiovascular: Denies chest pain, Denies shortness of breath Respiratory: Denies cough Gastrointestinal: Denies abdominal pain, Denies diarrhea, Denies nausea, Denies vomiting Musculoskeletal: Denies myalgias Integumentary: Denies pruritus, Denies rash Neurological: Reports change in mentation, Reports change in speech, Reports confusion, Reports memory loss, Reports paresthesias, Reports sensory deficit, Reports tingling, Denies numbness, Denies weakness Psychiatric: Reports confusion, Reports difficulty concentrating, Reports memory loss, Denies anxiety, Denies depression Endocrine: Denies fatigue, Denies weight change Past Medical History Past Medical History: Hypertension Additional Past Medical History / Comment(s): Obesity, obstructive sleep apnea, chronic back pain, previous back injury work-related and the patient has undergone a back surgery with laminectomy and fusion and he is receiving and management through Dr. Ruth. He has seen also Dr. Salcedo in the past. Hypertension, alcoholism. History of Any Multi-Drug Resistant Organisms: None Reported Past Surgical History: Back Surgery, Joint Replacement, Orthopedic Surgery Additional Past Surgical History / Comment(s): rotator cuff,rt knee, Past Anesthesia/Blood Transfusion Reactions: No Reported Reaction Past Psychological History: No Psychological Hx Reported Smoking Status: Former smoker Past Alcohol Use History: Daily, Heavy Additional Past Alcohol Use History / Comment(s): Patient drinks 10-12 beers a day plus whiskey; today was given 1 beer because he thought thats why he was shaking . Only 3 beers yesterday Past Drug Use History: None Reported - Past Family History Mother Family Medical History: Diabetes Mellitus Medications and Allergies Home Medications Medication Instructions Recorded Confirmed Type oxyCODONE-APAP 10-325MG [Percocet 1 tab PO QID PRN 08/13/17 09/26/18 History 10-325 mg] Gabapentin 600 mg PO Q8H 03/03/18 09/26/18 History Losartan-Hctz 50-12.5 mg [Hyzaar 1 tab PO DAILY 03/03/18 09/26/18 History 50-12.5] Allergies Allergy/AdvReac Type Severity Reaction Status Date / Time No Known Allergies Allergy Verified 09/26/18 16:07 Physical Examination - Vital Signs Vital Signs: Vital Signs Temp Pulse Pulse Resp BP BP Pulse Ox 09/26/18 16:00 18 09/26/18 15:47 97.7 F 96 18 153/80 97 09/26/18 15:30 22 126/92 95 09/26/18 14:08 100.8 F H 96 20 138/91 97 09/26/18 14:00 96 22 141/88 95 09/26/18 13:30 96 22 138/90 95 09/26/18 13:00 96 22 163/86 95 09/26/18 12:30 22 138/88 95 09/26/18 09:46 101.1 F H 99 18 141/94 92 L Intake and Output 09/26/18 09/26/18 09/26/18 06:59 14:59 22:59 Output Total 150 Balance -150 Output: Urine 150 Straight 150 Other: Weight 108.862 kg 108.862 kg - Constitutional General appearance: average body habitus, cooperative - EENT EENT: PERRL, mucous membranes moist - Respiratory Respiratory: lungs clear, normal breath sounds - Cardiovascular Cardiovascular: regular rate, normal S1, normal S2 Extremities: no peripheral edema bilaterally - Gastrointestinal Gastrointestinal: normoactive bowel sounds - Integumentary Integumentary: normal - Neurologic Cranial nerve examination: PERRL, EOMI, VFF, V1/V2/V3 grossly intact, tongue midline, intact gag reflex, intact corneal reflex, normal palatal elevation Speech examination: intact Sensorimotor examination: intact Motor examination - right side: 3/5: biceps, triceps, wrist flexion, wrist extension, legal counsel, hip flexors, knee extensors, dorsiflexion, toe extension (EHL) , plantarflexion Motor examination - left side: 4/5: biceps, triceps, wrist flexion, wrist extension, legal counsel, hip flexors, knee extensors, dorsiflexion, toe extension (EHL) , plantarflexion Detailed sensory examination: intact Reflex and gait examination: intact Reflexes: 1+: ankle, bicep, knee, tricep - Musculoskeletal Musculoskeletal: no pain - Psychiatric Psychiatric: mood/affect appropriate, cooperative Results - Laboratory Findings CBC and BMP: 09/26/18 10:00 09/26/18 10:00 Abnormal Lab Findings: Abnormal Labs 09/26/18 09/26/18 09/26/18 10:00 10:00 10:00 RBC 4.28 L MCV 103.4 H Lymphocytes # 0.8 L INR Sodium 134 L Chloride 95 L Glucose 192 H POC Glucose (mg/dL) Plasma Lactic Acid Jeremy 2.5 H* Magnesium Total Bilirubin 1.9 H AST 66 H Urine Protein 09/26/18 09/26/18 09/26/18 10:00 10:00 13:27 RBC MCV Lymphocytes # INR 1.2 H Sodium Chloride Glucose POC Glucose (mg/dL) Plasma Lactic Acid Jeremy Magnesium 1.2 L Total Bilirubin AST Urine Protein Trace H 09/26/18 16:46 RBC MCV Lymphocytes # INR Sodium Chloride Glucose POC Glucose (mg/dL) 137 H Plasma Lactic Acid Jeremy Magnesium Total Bilirubin AST Urine Protein Assessment and Plan (1) Acute ischemic left middle cerebral artery (MCA) stroke Current Visit: Yes Status: Acute Code(s): I63.512 - CEREB INFRC D/T UNSP OCCLS OR STENOS OF LEFT MID CEREB ART SNOMED Code(s): 799521792 (2) Alcoholism Current Visit: Yes Status: Acute Code(s): F10.20 - ALCOHOL DEPENDENCE, UNCOMPLICATED SNOMED Code(s): 2488486 (3) Febrile illness Current Visit: Yes Status: Acute Code(s): R50.9 - FEVER, UNSPECIFIED SNOMED Code(s): 687380905 (4) Chronic kidney disease Current Visit: No Status: Acute Code(s): N18.9 - CHRONIC KIDNEY DISEASE, UNSPECIFIED SNOMED Code(s): 306074467 (5) Syncopal episodes Current Visit: No Status: Acute Code(s): R55 - SYNCOPE AND COLLAPSE SNOMED Code(s): 984739414 Plan: This patient is a 57-year-old right-handed white male who was brought into the emergency room at [facility] today for evaluation of right- sided facial twitching and some slurred and garbled speech. His symptoms had started yesterday according to his and has been progressively getting worse. She states she had a hard time understanding him speak at all at home and was unclear if this was due to his alcoholism. He does drink daily. He was brought into the emergency room at [facility] for further evaluation. He was seen in the ER by . He was sent for a computed tomography scan of the brain results which are noted above. He was surgically admitted to hospital for a complete stroke evaluation. The patient was started on a CIWA protocol given his alcohol is in. His neurological examination at this time is as noted above. He has definite expressive aphasia with right- sided hemiparesis. These findings suggest probable acute left MCA stroke. We have recommended a complete stroke evaluation for the patient. We will obtain an MRI of the brain for further assessment as well to localize his area of stroke. We would recommend to hold all aspirin therapy for this patient as he does have a history of having suffered a acute intracerebral hemorrhage after a fall back on 03/03/2018. We will await his MRI to be done before starting him on any aspirin therapy. The patient also has evidence of cognitive decline which hopefully should get better once he is treated for a 60 stroke. His overall prognosis at this time remains very guarded. Time with Patient: Greater than 30
[2018-09-26 21:02] LABS: Glucose,Whole Blood 143 mg/dL (75-99)
[2018-09-26] MEDS ORDERED: ACETAMINOPHEN IV (For NPO) 1,000 MG in EMPTY BAG 1 BAG IVPB PRN (21:28)
[2018-09-26] MEDS: IPRATROPIUM-ALBUTEROL 3 ML NEB INHALATION PRN (23:13)
[2018-09-26] MEDS: methylPREDNISolone SOD SUCCI 125 MG/2 ML VIAL IV SCH (23:13)
[2018-09-26] MEDS ORDERED: FUROSEMIDE 10 MG/ML 4 ML VIAL IV STA (23:57)
[2018-09-27] MEDS ORDERED: ACETAMINOPHEN IV (For NPO) 1,000 MG in EMPTY BAG 1 BAG IVPB SCH
--- NOTE | 2018-09-27 00:06 | XR ---
EXAMINATION TYPE: XR chest 1V portable DATE OF EXAM: 09/26/2018 COMPARISON: Today HISTORY: Right-sided facial twitching. Right arm weakness TECHNIQUE: Single frontal view of the chest is obtained. FINDINGS: Heart is enlarged. There is some pulmonary vascular congestion. There is widening of the m ediastinum. There is no gross heart failure. IMPRESSION: Inspiration is decreased compared to exam earlier today. There is some widening of the m ediastinum apparently due to lipomatosis.
[2018-09-27] MEDS ORDERED: VANCOMYCIN 2,000 MG in SODIUM CHLORIDE 0.9% 500 ML 500 ML IVPB SCH (06:00)
[2018-09-27 06:04] LABS: Basophils % (A) 0 %; Eosinophils % (A) 0 %; HCT 44.1 % (39.0-53.0); HGB 14.1 gm/dL (13.0-17.5); Lymphocytes # (A) 0.3 k/uL (1.0-4.8); Lymphocytes % (A) 4 %; MCH 33.2 pg (25.0-35.0); MCHC 31.9 g/dL (31.0-37.0); MCV 104.1 fL (80.0-100.0); Macrocytosis Slight; Monocytes # (A) 0.1 k/uL (0-1.0); Monocytes % (A) 1 %; Neutrophils # (A) 8.1 k/uL (1.3-7.7); Neutrophils % (A) 94 %; Platelet Count 169 k/uL (150-450); RBC 4.24 m/uL (4.30-5.90); RDW 12.8 % (11.5-15.5); WBC 8.5 k/uL (3.8-10.6)
[2018-09-27] MEDS: methylPREDNISolone SOD SUCCI 125 MG/2 ML VIAL IV SCH ×4 (06:06→23:00)
[2018-09-27] MEDS: LORazepam 2 MG/ML INJ IV PRN ×7 (06:06→23:34)
[2018-09-27 06:13] LABS: Glucose,Whole Blood 185 mg/dL (75-99)
[2018-09-27 06:26] LABS: ALT 40 U/L (21-72); AST 59 U/L (17-59); Albumin 3.7 g/dL (3.5-5.0); Alkaline Phosphatase 113 U/L (38-126); Anion Gap 11 mmol/L; Blood Urea Nitrogen 15 mg/dL (9-20); Calcium 8.1 mg/dL (8.4-10.2); Carbon Dioxide 28 mmol/L (22-30); Chloride 97 mmol/L (98-107); Cholesterol 174 mg/dL (<200); Glucose 188 mg/dL (74-99); HDL Cholesterol 42 mg/dL (40-60); LDL Cholesterol,Calculated 112 mg/dL (0-99); Magnesium 1.9 mg/dL (1.6-2.3); Potassium 3.5 mmol/L (3.5-5.1); Sodium 136 mmol/L (137-145); Total Bilirubin 1.7 mg/dL (0.2-1.3); Total Protein 7.8 g/dL (6.3-8.2); Triglycerides 100 mg/dL (<150)
[2018-09-27] MEDS: INSULIN ASPART 100 UNIT/ML 1 ML 10 ML VIAL SQ SCH ×4 (06:54→20:25)
[2018-09-27] MEDS: IPRATROPIUM-ALBUTEROL 3 ML NEB INHALATION SCH ×4 (08:19→20:50)
--- NOTE | 2018-09-27 08:36 | XR ---
EXAMINATION TYPE: XR chest 1V portable DATE OF EXAM: 09/27/2018 HISTORY: follow up shortness of breath. REFERENCE: Previous study dated 09/26/2018. FINDINGS: The heart is enlarged. The lungs appear clear. Pleural spaces are clear. IMPRESSION: CARDIOMEGALY.
--- NOTE | 2018-09-27 09:58 | P.CNPUL ---
History of Present Illness Consult date: 09/27/18 Requesting physician: Nilson Gillis Reason for consult: dyspnea, abnormal CXR/CT Chief complaint: Shortness of breath, suspect aspiration, left MCA CVA History of present illness: This is a 57-year-old white male patient of Dr. Rick, who was brought into the emergency department on 09/26/2018 for evaluation of right-sided facial twitching, garbled speech, right arm weakness. Initial brain CT was negative for any acute intracranial abnormality, showed mild degenerative change. EKG showed normal sinus rhythm without evidence of acute ischemic changes. Patient has persistent symptoms of expressive aphasia, he is having right-sided facial twitching, and right-sided weakness. Past medical history is significant for heavy EtOH use, nicotine dependence, currently in remission, obstructive sleep apnea, chronic back pain, with history of back surgery with a laminectomy procedure, hypertension. Patient did have a fever presentation, of 101.1F, mild lactic acidosis of 2.5, but his lab work was negative for any leukocytosis , WBC was 7.5, chemistry showed sodium of 134, potassium of 3.6, chloride of 95 , renal profile and rest of electrolytes were within normal limits, AST was 66, ALT was 45, alk phos was 123, troponin was negative 1, urinalysis negative for any infection. Influenza screen was negative, serum alcohol was less than 10. She has developed acute hypoxemic respiratory failure, he is on supplemental oxygen currently at 4 L per nasal cannula. He was noted to be tachypneic at times, he is a poor historian, but he states he is short of breath, but denied any chest pain. Chest x-ray on 09/26/2018 showed mild cardiomegaly, but no acute pulmonary process, chest x-ray taken later that day showed some pulmonary vascular congestion, and widening of the mediastinum, no gross heart failure. Based on the findings of the chest x-ray, fluid overload was suspected, and patient was given a dose of IV Lasix with significant diuresis, he is in -3275 ML fluid balance over the last 24 hours. He was started on empiric antibiotics in the form of Rocephin, and there has been no recurrence of fevers since admission. Cultures are still pending at this time. His morning patient is seen in evaluation on selective care unit, he is awake and alert, he still has significant dysarthria, and expressive aphasia. I'm told by nursing staff that he is requiring intermittent oral suctioning, and patient has no gag reflex, he remains nothing by mouth, he is being evaluation by speech pathologist. No obvious facial asymmetry noted on today's exam, having some twitching of his face, his right-sided weakness seems to be somewhat improved. Urology is following, and patient is undergoing neurological evaluation for suspected left MCA CVA. Review of Systems patient is a poor historian, ROS was obtained from family, and the chart All systems: negative Constitutional: Denies chills, Denies fever Eyes: denies blurred vision, denies pain Ears, nose, mouth and throat: Denies headache, Denies sore throat Cardiovascular: Denies chest pain, Denies shortness of breath Respiratory: Reports dyspnea, Denies cough Gastrointestinal: Denies abdominal pain, Denies diarrhea, Denies nausea, Denies vomiting Musculoskeletal: Reports gait dysfunction, Reports low back pain, Denies myalgias Integumentary: Denies pruritus, Denies rash Neurological: Reports balance difficulties, Reports change in speech, Reports gait dysfunction, Reports motor disturbance, Denies numbness, Denies weakness Psychiatric: Denies anxiety, Denies depression Endocrine: Denies fatigue, Denies weight change Past Medical History Past Medical History: Hypertension Additional Past Medical History / Comment(s): Obesity, obstructive sleep apnea, chronic back pain, previous back injury work-related and the patient has undergone a back surgery with laminectomy and fusion and he is receiving and management through Dr. Ruth. He has seen also Dr. Salcedo in the past. Hypertension, alcoholism. History of Any Multi-Drug Resistant Organisms: None Reported Past Surgical History: Back Surgery, Joint Replacement, Orthopedic Surgery Additional Past Surgical History / Comment(s): rotator cuff,rt knee, Past Anesthesia/Blood Transfusion Reactions: No Reported Reaction Past Psychological History: No Psychological Hx Reported Smoking Status: Former smoker Past Alcohol Use History: Daily, Heavy Additional Past Alcohol Use History / Comment(s): Patient drinks 10-12 beers a day plus whiskey; today was given 1 beer because he thought thats why he was shaking . Only 3 beers yesterday Past Drug Use History: None Reported - Past Family History Mother Family Medical History: Diabetes Mellitus Medications and Allergies Home Medications Medication Instructions Recorded Confirmed Type oxyCODONE-APAP 10-325MG [Percocet 1 tab PO QID PRN 08/13/17 09/26/18 History 10-325 mg] Gabapentin 600 mg PO Q8H 03/03/18 09/26/18 History Losartan-Hctz 50-12.5 mg [Hyzaar 1 tab PO DAILY 03/03/18 09/26/18 History 50-12.5] Allergies Allergy/AdvReac Type Severity Reaction Status Date / Time No Known Allergies Allergy Verified 09/26/18 16:07 Physical Exam Vitals: Vital Signs Temp Pulse Pulse Resp BP BP Pulse Ox 09/27/18 08:32 94 09/27/18 08:20 92 09/27/18 03:08 97.8 F 73 20 151/91 97 09/27/18 01:29 EST 24 09/27/18 00:29 19 09/26/18 23:52 36 H 09/26/18 23:26 98.4 F 70 36 H 121/86 94 L 09/26/18 23:23 95 09/26/18 23:16 95 09/26/18 20:01 36 H 09/26/18 19:57 98.3 F 92 25 H 145/80 94 L 09/26/18 16:00 18 09/26/18 15:47 97.7 F 96 18 153/80 97 09/26/18 15:30 22 126/92 95 09/26/18 14:08 100.8 F H 96 20 138/91 97 09/26/18 14:00 96 22 141/88 95 09/26/18 13:30 96 22 138/90 95 09/26/18 13:00 96 22 163/86 95 09/26/18 12:30 22 138/88 95 Intake and Output 09/26/18 09/27/18 09/27/18 23:59 06:59 14:59 Output Total Balance Output: Urine Straight Uretheral (Romo) Other: Voiding Method Weight GENERAL EXAM: Alert, pleasant, 57-year-old white male, in no apparent distress , has difficulty communicating, dysarthric, with expressive aphasia. He has difficulty following commands HEAD: Normocephalic/atraumatic. EYES: Normal reaction of pupils, equal size. Conjunctiva pink, sclera white. NOSE: Clear with pink turbinates. THROAT: No erythema or exudates. NECK: No masses, no JVD, no thyroid enlargement, no adenopathy. CHEST: No chest wall deformity. Symmetrical expansion. LUNGS: Equal air entry with normal wheeze, diminished at the bases CVS: Regular rate and rhythm, normal S1 and S2, no gallops, no murmurs, no rubs ABDOMEN: Soft, nontender. No hepatosplenomegaly, normal bowel sounds, no guarding or rigidity. EXTREMITIES: No clubbing, no edema, no cyanosis, 2+ pulses and upper and lower extremities. MUSCULOSKELETAL: Right-sided weakness, and upper and lower extremity SPINE: No scoliosis or deformity SKIN: No rashes CENTRAL NERVOUS SYSTEM: Alert and oriented -1. Results - Laboratory Findings CBC and BMP: 09/27/18 05:18 09/27/18 05:18 PT/INR, D-dimer PT 11.3 sec (9.0-12.0) 09/26/18 10:00 INR 1.2 (<1.2) H 09/26/18 10:00 Abnormal lab findings: Abnormal Labs 09/26/18 09/26/18 09/26/18 10:00 10:00 10:00 RBC 4.28 L MCV 103.4 H Neutrophils # Lymphocytes # 0.8 L INR Sodium 134 L Chloride 95 L Glucose 192 H POC Glucose (mg/dL) Plasma Lactic Acid Jeremy 2.5 H* Calcium Magnesium Total Bilirubin 1.9 H AST 66 H LDL Cholesterol, Calc Urine Protein 09/26/18 09/26/18 09/26/18 10:00 10:00 13:27 RBC MCV Neutrophils # Lymphocytes # INR 1.2 H Sodium Chloride Glucose POC Glucose (mg/dL) Plasma Lactic Acid Jeremy Calcium Magnesium 1.2 L Total Bilirubin AST LDL Cholesterol, Calc Urine Protein Trace H 09/26/18 09/26/18 09/27/18 16:46 21:00 05:18 RBC MCV Neutrophils # Lymphocytes # INR Sodium 136 L Chloride 97 L Glucose 188 H POC Glucose (mg/dL) 137 H 143 H Plasma Lactic Acid Jeremy Calcium 8.1 L Magnesium Total Bilirubin 1.7 H AST LDL Cholesterol, Calc 112 H Urine Protein 09/27/18 09/27/18 05:18 06:11 RBC 4.24 L MCV 104.1 H Neutrophils # 8.1 H Lymphocytes # 0.3 L INR Sodium Chloride Glucose POC Glucose (mg/dL) 185 H Plasma Lactic Acid Jeremy Calcium Magnesium Total Bilirubin AST LDL Cholesterol, Calc Urine Protein - Diagnostic Findings Chest x-ray: report reviewed, image reviewed Additional studies: Brain CT results reviewed Assessment and Plan Plan: Assessment: #1. Acute hypoxemic respiratory failure, related to fluid overload and suspected aspiration, chest x-ray showed some pulmonary vascular congestion, cardiomegaly #2. Left hemispheric CVA, patient presented with sided weakness, twitching, expressive aphasia #3. Mild lactic acidosis present on admission, febrile episode, rule out infectious etiology/sepsis. Cultures are pending, and there has been no recurrence of fevers. Lactic acid is now within normal limits. #4. EtOH dependence #5. Nicotine dependence, currently in remission, patient quit smoking 2 years ago, but carries 87-twti-lbbs smoking history #6. History of obstructive sleep apnea #7. History of chronic back pain, related to work related injury, patient is status post laminectomy and fusion, follows with Dr. Marino #8. Hypertension Plan: Continue current plan of treatment, continue the steroids, nebulized bronchodilators, today's chest x-ray has been reviewed, and showed possible atelectasis, mild pulmonary vascular congestion but this was taken during poor inspiratory effort. We will obtain a BNP, we may add additional dose of Lasix. Patient has diuresed well, weaning FiO2, maintain aspiration precautions, patient is awaiting to be evaluated by speech therapy, to the bed up at least 30 at all times. Patient remains nothing by mouth. We'll collect the sputum cultures. No recurrent fevers, no significant chest congestion, no hemoptysis. Patient may have some ongoing silent aspiration, without savanna pneumonia. We' ll continue to follow and make further recommendations based on his clinical course, patient is completing his neurological workup, scheduled for MRI/MRA of the brain today. I performed a history & physical examination of the patient and discussed their management with my nurse practitioner, Nimisha Higgins. I reviewed the nurse practitioner's note and agree with the documented findings and plan of care. Lung sounds are positive some scattered wheezes. The findings and the impression was discussed with the patient. I attest to the documentation by the nurse practitioner.
--- NOTE | 2018-09-27 10:38 | US ---
EXAMINATION TYPE: US carotid duplex BILAT DATE OF EXAM: 09/27/2018 COMPARISON: NONE CLINICAL HISTORY: Patient with acute left hemispheric stroke.. patient speaking to me but words are n ot making sense, possible CVA EXAM MEASUREMENTS: RIGHT: Peak Systolic Velocity (PSV) cm/sec ----- Right CCA: 90.4 ----- Right ICA: 82.6 ----- Right ECA: 122.5 ICA/CCA ratio: 0.9 RIGHT: End Diastole cm/sec ----- Right CCA: 23.2 ----- Right ICA: 20.6 ----- Right ECA: 13.8 LEFT: Peak Systolic Velocity (PSV) cm/sec ----- Left CCA: 85.3 ----- Left ICA: 60.2 ----- Left ECA: 101.5 ICA/CCA ratio: 0.7 LEFT: End Diastole cm/sec ----- Left CCA: 21.6 ----- Left ICA: 17.5 ----- Left ECA: 17.9 VERTEBRALS (direction of flow): Right Vertebral: Antegrade Left Vertebral: Antegrade Rhythm: Normal Mild homogeneous plaque seen, no significant stenosis Challenging patient to scan, kept shaking and moaning throughout exam IMPRESSION: I DO NOT SEE EVIDENCE OF A HEMODYNAMICALLY SIGNIFICANT STENOSIS IN EITHER CAROTID SYSTEM. Criteria for Assigning % of Stenosis / Diameter reduction (Estimation based on the indirect measurements of the internal carotid artery velocities (ICA PSV). 1. Normal (no stenosis)=ICA PSV < 125 cm/s: ratio < 2.0: ICA EDV<40 cm/s. 2. Less than 50% stenosis=ICA PSV < 125 cm/s: ratio < 2.0: ICA EDV<40 cm/s. 3. 50 to 69% stenosis=ICA PSV of 125 to 230 cm/s: ration 2.0 ? 4.0: ICA EDV 40-100 cm/s. 4. Greater than 70% stenosis to near occlusion= ICA PSV > 230 cm/s: ratio > 4.0: ICA EDV > 100 cm/s. 5. Near occlusion= ICA PSV velocities may be low or undetectable: variable ratio and ICA EDV. 6. Total occlusion=unable to detect flow.
[2018-09-27 12:00] LABS: Glucose,Whole Blood 170 mg/dL (75-99)
[2018-09-27] MEDS: THIAMINE 100 MG TAB PO SCH ×2 (13:34→17:50)
--- NOTE | 2018-09-27 15:03 | P.HPIM ---
History of Present Illness H&P Date: 09/26/18 Chief Complaint: Right arm weakness with right-sided facial twitching and slurring of speech Mr. Glasgow is a 57-year-old male with a past medical history of chronic low back pain status post laminectomy and fusion follows with Dr. Ruth, obstructive sleep apnea, obesity, hypertension brought in by his family members for right upper extremity weakness and right facial twitching. And he has pain having garbled speech for the past couple of days. The patient has garbled speech which cannot be comprehended, so most of the history is taken from the who is at the bedside. The mentions that for the past 1 week patient has been having right arm weakness, and also slurring of his speech. When he was asked by his to go to the hospital, the patient became very combative and did not want to seek medical attention. But eventually the family noticed that they could not understand his speech and his weakness has been getting worse and he was not able to get out of the bed, so brought to the hospital for further evaluation. As per his patient is alcoholic and drinks alcohol every day. Patient has history of obstructive sleep apnea. Noncompliant with CPAP. His chronic low back pain issues status post laminectomy and fusion surgery. He follows with Dr. Ruth in the pain clinic. Patient usually walks with a walker at home and has bilateral lower extremity weakness since having the surgery. His also mentions that patient suffered a fall in February 2018 due to his history of alcoholism as he was intoxicated. At that time patient had acute intracerebral hemorrhage involving the right frontal and parietal lobes. In the ED patient had a CAT scan of the brain that was negative for any acute intracranial abnormality. Patient had a fever in the ED, he was given a dose of ceftriaxone and admitted to the hospital. Review of systems-could not be done as the patient has garbled speech. He has expressive aphasia. Past Medical History Past Medical History: Hypertension Additional Past Medical History / Comment(s): Obesity, obstructive sleep apnea, chronic back pain, previous back injury work-related and the patient has undergone a back surgery with laminectomy and fusion and he is receiving and management through Dr. Ruth. He has seen also Dr. Salcedo in the past. Hypertension, alcoholism. History of Any Multi-Drug Resistant Organisms: None Reported Past Surgical History: Back Surgery, Joint Replacement, Orthopedic Surgery Additional Past Surgical History / Comment(s): rotator cuff,rt knee, Past Anesthesia/Blood Transfusion Reactions: No Reported Reaction Past Psychological History: No Psychological Hx Reported Smoking Status: Former smoker Past Alcohol Use History: Daily, Heavy Additional Past Alcohol Use History / Comment(s): Patient drinks 10-12 beers a day plus whiskey; today was given 1 beer because he thought thats why he was shaking . Only 3 beers yesterday Past Drug Use History: None Reported - Past Family History Mother Family Medical History: Diabetes Mellitus Medications and Allergies Home Medications Medication Instructions Recorded Confirmed Type oxyCODONE-APAP 10-325MG [Percocet 1 tab PO QID PRN 08/13/17 09/26/18 History 10-325 mg] Gabapentin 600 mg PO Q8H 03/03/18 09/26/18 History Losartan-Hctz 50-12.5 mg [Hyzaar 1 tab PO DAILY 03/03/18 09/26/18 History 50-12.5] Allergies Allergy/AdvReac Type Severity Reaction Status Date / Time No Known Allergies Allergy Verified 09/26/18 16:07 Physical Exam Vitals: Vital Signs Temp Pulse Pulse Resp BP BP Pulse Ox 09/26/18 20:01 36 H 09/26/18 19:57 98.3 F 92 25 H 145/80 94 L 09/26/18 16:00 18 09/26/18 15:47 97.7 F 96 18 153/80 97 09/26/18 15:30 22 126/92 95 09/26/18 14:08 100.8 F H 96 20 138/91 97 09/26/18 14:00 96 22 141/88 95 09/26/18 13:30 96 22 138/90 95 09/26/18 13:00 96 22 163/86 95 09/26/18 12:30 22 138/88 95 09/26/18 09:46 101.1 F H 99 18 141/94 92 L Intake and Output 09/26/18 09/26/18 09/26/18 06:59 14:59 22:59 Output Total 150 Balance -150 Output: Urine 150 Straight 150 Other: Voiding Method Urinal Incontinent Weight 108.862 kg 108.862 kg GENERAL EXAM GEN. APPEARANCE: alert, in no apparent distress, poorly kempt. HEAD EXAM: atraumatic, normocephalic, normal inspection EYE EXAM: No pallor. No icterus. ENT EXAM: normal exam, mucous membranes moist NECK EXAM: No JVD. No thyromegaly. No meningismus. RESPIRATORY EXAM: Coarse breath sounds heard bilaterally. No wheezes or crackles. Diminished at the bases. CARDIOVASCULAR EXAM: S1 and S2 heard. Tachycardia. GI/ABDOMINAL EXAM: soft, normal bowel sounds. Absent: distended, tenderness, guarding, rebound, rigid EXTREMITIES EXAM: No edema. NEUROLOGICAL EXAM: alert, follows simple commands.power is 3 x 5 in the upper extremity on the right side and 4 x 5 in the left side. Bilateral lower [id number] is 1 x 5. Results CBC & Chem 7: 09/27/18 05:18 09/27/18 05:18 Labs: Abnormal Lab Results - Last 24 Hours (Table) 09/26/18 09/26/18 09/26/18 Range/Units 10:00 10:00 10:00 RBC 4.28 L (4.30-5.90) m/uL MCV 103.4 H (80.0-100.0) fL Lymphocytes # 0.8 L (1.0-4.8) k/uL INR (<1.2) Sodium 134 L (137-145) mmol/L Chloride 95 L (98-107) mmol/L Glucose 192 H (74-99) mg/dL POC Glucose (mg/dL) (75-99) mg/dL Plasma Lactic Acid Jeremy 2.5 H* (0.7-2.0) mmol/L Magnesium (1.6-2.3) mg/dL Total Bilirubin 1.9 H (0.2-1.3) mg/dL AST 66 H (17-59) U/L Urine Protein (Negative) 09/26/18 09/26/18 09/26/18 Range/Units 10:00 10:00 13:27 RBC (4.30-5.90) m/uL MCV (80.0-100.0) fL Lymphocytes # (1.0-4.8) k/uL INR 1.2 H (<1.2) Sodium (137-145) mmol/L Chloride (98-107) mmol/L Glucose (74-99) mg/dL POC Glucose (mg/dL) (75-99) mg/dL Plasma Lactic Acid Jeremy (0.7-2.0) mmol/L Magnesium 1.2 L (1.6-2.3) mg/dL Total Bilirubin (0.2-1.3) mg/dL AST (17-59) U/L Urine Protein Trace H (Negative) 09/26/18 09/26/18 Range/Units 16:46 21:00 RBC (4.30-5.90) m/uL MCV (80.0-100.0) fL Lymphocytes # (1.0-4.8) k/uL INR (<1.2) Sodium (137-145) mmol/L Chloride (98-107) mmol/L Glucose (74-99) mg/dL POC Glucose (mg/dL) 137 H 143 H (75-99) mg/dL Plasma Lactic Acid Jeremy (0.7-2.0) mmol/L Magnesium (1.6-2.3) mg/dL Total Bilirubin (0.2-1.3) mg/dL AST (17-59) U/L Urine Protein (Negative) Microbiology - Last 24 Hours (Table) 09/26/18 13:28 Urine Culture - Preliminary Urine,Catheterized Thrombosis Risk Factor Assmnt - Choose All That Apply Each Factor Represents 1 point: Age 41-60 years Other Risk Factors: No Thrombosis Risk Factor Assessment Total Risk Factor Score: 1 Thrombosis Risk Factor Assessment Level: Low Risk Assessment and Plan Assessment: Right upper extremity weakness- secondary to cerebrovascular accident Slurred speech-secondary to stroke Fever Alcohol abuse Hypomagnesemia Obesity BMI is 35.9 Plan: Patient has right upper extremity along with slurring of speech secondary to stroke. CT of the head has been negative for any acute intracranial process. Patient had a fever, so empirically started on antibiotics. Blood cultures, urine cultures, sputum cultures have been obtained. In the ED patient was noted to have twitching movements of his right upper extremity along with twitching movements of his right side of the face. Neurology has been consulted. Further recommendations to follow depending on the progress of the patient discussed with his at the bedside that this is most likely a stroke. Patient to be kept nothing by mouth as that is a risk of aspiration. Overall prognosis is guarded.
--- NOTE | 2018-09-27 16:23 | P.CONS ---
History of Present Illness - Reason for Consult Consult date: 09/27/18 - Chief Complaint altered mental status - History of Present Illness 57 -year-old male presents to the emergency center by his family. They relates that he has a history of significant alcohol use. Often greater than 10 drinks a day. Apparently for 3 or 4 days before they brought him to Hospital was a marked decrease in the amount of alcohol that he was drinking. They thought the changes that he was exhibiting were related to some alcohol withdrawal. However he had difficulties with some right-sided weakness and difficulty ambulating in his speech was garbled, when he started to have some twitching to the right side of his face they were concerned and was brought to the emergency center. He subsequently has been seen by neurology with concerns to a left MCA stroke original computed tomography scan without evidence of acute change MRI is pending. Infectious diseases consultation is requested regarding the fever that was present at admission of 101.1 elevation of his lactic acid of 2.5. The family relates that he seems to be calm at this point in time it is evident that his speech is unintelligible. He seems comfortable and calm with his family present. Review of Systems ROS unobtainable: due to mental status Past Medical History Past Medical History: Hypertension Additional Past Medical History / Comment(s): Obesity, obstructive sleep apnea, chronic back pain, previous back injury work-related and the patient has undergone a back surgery with laminectomy and fusion and he is receiving and management through Dr. Ruth. He has seen also Dr. Salcedo in the past. Hypertension, alcoholism. History of Any Multi-Drug Resistant Organisms: None Reported Past Surgical History: Back Surgery, Joint Replacement, Orthopedic Surgery Additional Past Surgical History / Comment(s): rotator cuff,rt knee, Past Anesthesia/Blood Transfusion Reactions: No Reported Reaction Past Psychological History: No Psychological Hx Reported Additional Psychological History / Comment(s): and has adult children who despite his alcoholism are involved. He is medically disabled on disability had some kind of injury at work requiring back surgery and this has not had a good outcome and he has significant lower extremity neuropathy. Is noted positive tobacco use and positive alcohol use. Family denies any significant recreational drug use. No experience. 2 pet Dogs in the home Smoking Status: Former smoker Past Alcohol Use History: Daily, Heavy Additional Past Alcohol Use History / Comment(s): Patient drinks 10-12 beers a day plus whiskey; today was given 1 beer because he thought thats why he was shaking . Only 3 beers yesterday Past Drug Use History: None Reported - Past Family History Mother Family Medical History: Diabetes Mellitus Medications and Allergies Home Medications and Allergies Comment(s): Current Medications Albuterol/Ipratropium (Duoneb 0.5 Mg-3 Mg/3 Ml Soln) 3 ml INHALATION RT-QID PRN PRN Reason: Shortness Of Breath Or Wheezing Last Admin: 09/26/18 23:13 Dose: 3 ml Albuterol/Ipratropium (Duoneb 0.5 Mg-3 Mg/3 Ml Soln) 3 ml INHALATION RT-QID [facility] Last Admin: 09/27/18 10:46 Dose: 3 ml Acetaminophen 1,000 mg/ IV (Solution) 100 mls @ 400 mls/hr IVPB Q4HR PRN PRN Reason: Fever Stop: 09/27/18 21:29 Ampicillin Sodium/Sulbactam (Sodium 3 gm/ Sodium Chloride) 100 mls @ 200 mls/ hr IVPB Q6HR [facility] Insulin Aspart (Novolog) 0 unit SQ ACHS [facility]; Protocol Last Admin: 09/27/18 13:33 Dose: Not Given Lorazepam (Ativan) 1 mg IV Q2HR PRN PRN Reason: CIWA 8 or 9 Last Admin: 09/27/18 12:05 Dose: 1 mg Lorazepam (Ativan) 1 mg IV Q1HR PRN PRN Reason: CIWA 10 to 15 Methylprednisolone Sodium Succinate (Solu-Medrol) 60 mg IV Q6HR [facility] Last Admin: 09/27/18 13:36 Dose: 60 mg Miscellaneous Information (Magnesium Per Protocol) 1 each MISCELLANE DAILY PRN ; Protocol PRN Reason: Per Protocol Silver Sulfadiazine (Silvadene Cream) 1 applic TOPICAL DAILY [facility] Thiamine HCl (Vitamin B-1) 100 mg PO BID@1200,1700 [facility] Last Admin: 09/27/18 13:34 Dose: Not Given Home Medications Medication Instructions Recorded Confirmed Type oxyCODONE-APAP 10-325MG [Percocet 1 tab PO QID PRN 08/13/17 09/26/18 History 10-325 mg] Gabapentin 600 mg PO Q8H 03/03/18 09/26/18 History Losartan-Hctz 50-12.5 mg [Hyzaar 1 tab PO DAILY 03/03/18 09/26/18 History 50-12.5] Allergies Allergy/AdvReac Type Severity Reaction Status Date / Time No Known Allergies Allergy Verified 09/26/18 16:07 Physical Exam Vitals: Vital Signs Temp Pulse Pulse Resp BP Pulse Ox 09/27/18 12:00 98.2 F 100 24 153/86 95 09/27/18 11:01 94 09/27/18 10:46 92 09/27/18 08:32 94 09/27/18 08:20 92 09/27/18 08:00 98.2 F 86 22 146/83 96 09/27/18 03:08 97.8 F 73 20 151/91 97 09/27/18 01:29 EST 24 09/27/18 00:29 19 09/26/18 23:52 36 H 09/26/18 23:26 98.4 F 70 36 H 121/86 94 L 09/26/18 23:23 95 09/26/18 23:16 95 09/26/18 20:01 36 H 09/26/18 19:57 98.3 F 92 25 H 145/80 94 L Intake and Output 09/27/18 09/27/18 09/27/18 06:59 14:59 22:59 Output Total Balance Output: Urine Other: Voiding Method Indwelling Catheter # Bowel Movements 0 Weight 57-year-old male who looks older than his stated age HEENT: Anicteric conjunctiva are pink and moist nasal mucosa grossly intact without significant lesions, there is no thrush. Dentition is poor for age Neck: The neck is supple without significant lymphadenopathy or thyromegaly. Lungs: There is symmetrical bilateral air entry there are a few expiratory wheezes that are scattered without savanna bronchial sounds or dullness or egophony is noted Heart: Regular rate and rhythm with an audible S1-S2, audible S3 positive S4. There is no significant murmur click or rub, PMI was nondisplaced. Abdomen: Positive bowel sounds soft and nontender without palpable masses or organomegaly. There was no guarding or rebound. Extremities: The upper extremities have excellent pulses they are symmetric, the lower extremities show evidence of chronic bilateral lower extremity edema with chronic hemosiderin staining bilaterally, small area of irritation possibly injury to the medial aspect of the left calf. Family relate there are dogs which may be injured the leg as well as his arms. His liver there are some scattered ecchymosis on the upper extremities. There is minimal erythema superimposed on the chronic skin changes to the left leg. Neuro: The patient is awake and alert his speech is unintelligible he does not follow commands Results CBC & Chem 7: 09/27/18 05:18 09/27/18 05:18 Labs: Abnormal Lab Results - Last 24 Hours (Table) 09/26/18 09/26/18 09/27/18 Range/Units 16:46 21:00 05:18 RBC (4.30-5.90) m/uL MCV (80.0-100.0) fL Neutrophils # (1.3-7.7) k/uL Lymphocytes # (1.0-4.8) k/uL Sodium 136 L (137-145) mmol/L Chloride 97 L (98-107) mmol/L Glucose 188 H (74-99) mg/dL POC Glucose (mg/dL) 137 H 143 H (75-99) mg/dL Calcium 8.1 L (8.4-10.2) mg/dL Total Bilirubin 1.7 H (0.2-1.3) mg/dL LDL Cholesterol, Calc 112 H (0-99) mg/dL 09/27/18 09/27/18 09/27/18 Range/Units 05:18 06:11 11:42 RBC 4.24 L (4.30-5.90) m/uL MCV 104.1 H (80.0-100.0) fL Neutrophils # 8.1 H (1.3-7.7) k/uL Lymphocytes # 0.3 L (1.0-4.8) k/uL Sodium (137-145) mmol/L Chloride (98-107) mmol/L Glucose (74-99) mg/dL POC Glucose (mg/dL) 185 H 170 H (75-99) mg/dL Calcium (8.4-10.2) mg/dL Total Bilirubin (0.2-1.3) mg/dL LDL Cholesterol, Calc (0-99) mg/dL Microbiology - Last 24 Hours (Table) 09/26/18 13:28 Urine Culture - Final Urine,Catheterized 09/26/18 10:00 Blood Culture - Preliminary Blood No Growth after 24 hours 09/26/18 23:10 Urine Culture - Preliminary Urine,Catheterized Laboratory Results WBC 8.5 k/uL (3.8-10.6) 09/27/18 05:18 RBC 4.24 m/uL (4.30-5.90) L 09/27/18 05:18 Hgb 14.1 gm/dL (13.0-17.5) 09/27/18 05:18 Hct 44.1 % (39.0-53.0) 09/27/18 05:18 MCV 104.1 fL (80.0-100.0) H 09/27/18 05:18 MCH 33.2 pg (25.0-35.0) 09/27/18 05:18 MCHC 31.9 g/dL (31.0-37.0) 09/27/18 05:18 RDW 12.8 % (11.5-15.5) 09/27/18 05:18 Plt Count 169 k/uL (150-450) 09/27/18 05:18 Neutrophils % 94 % 09/27/18 05:18 Lymphocytes % 4 % 09/27/18 05:18 Monocytes % 1 % 09/27/18 05:18 Eosinophils % 0 % 09/27/18 05:18 Basophils % 0 % 09/27/18 05:18 Neutrophils # 8.1 k/uL (1.3-7.7) H 09/27/18 05:18 Lymphocytes # 0.3 k/uL (1.0-4.8) L 09/27/18 05:18 Monocytes # 0.1 k/uL (0-1.0) 09/27/18 05:18 Eosinophils # 0.0 k/uL (0-0.7) 09/27/18 05:18 Basophils # 0.0 k/uL (0-0.2) 09/27/18 05:18 Macrocytosis Slight 09/27/18 05:18 PT 11.3 sec (9.0-12.0) 09/26/18 10:00 INR 1.2 (<1.2) H 09/26/18 10:00 APTT 24.2 sec (22.0-30.0) 09/26/18 10:00 Sodium 136 mmol/L (137-145) L 09/27/18 05:18 Potassium 3.5 mmol/L (3.5-5.1) 09/27/18 05:18 Chloride 97 mmol/L (98-107) L 09/27/18 05:18 Carbon Dioxide 28 mmol/L (22-30) 09/27/18 05:18 Anion Gap 11 mmol/L 09/27/18 05:18 BUN 15 mg/dL (9-20) 09/27/18 05:18 Creatinine 0.81 mg/dL (0.66-1.25) 09/27/18 05:18 Est GFR (CKD-EPI)AfAm >90 (>60 ml/min/1.73 sqM) 09/27/18 05:18 Est GFR (CKD-EPI)NonAf >90 (>60 ml/min/1.73 sqM) 09/27/18 05:18 Glucose 188 mg/dL (74-99) H 09/27/18 05:18 POC Glucose (mg/dL) 170 mg/dL (75-99) H 09/27/18 11:42 POC Glu Clinical Faculty ID Jacquelin Bower 09/27/18 11:42 Lactic Ac Sepsis Rflx Y 09/26/18 10:49 Plasma Lactic Acid Jeremy 1.1 mmol/L (0.7-2.0) 09/26/18 14:07 Calcium 8.1 mg/dL (8.4-10.2) L 09/27/18 05:18 Magnesium 1.9 mg/dL (1.6-2.3) 09/27/18 05:18 Total Bilirubin 1.7 mg/dL (0.2-1.3) H 09/27/18 05:18 AST 59 U/L (17-59) 09/27/18 05:18 ALT 40 U/L (21-72) 09/27/18 05:18 Alkaline Phosphatase 113 U/L (38-126) 09/27/18 05:18 Total Creatine Kinase 154 U/L (55-170) 09/26/18 10:00 CK-MB (CK-2) 0.4 ng/mL (0.0-2.4) 09/26/18 10:00 CK-MB (CK-2) Rel Index 0.3 09/26/18 10:00 Troponin I <0.012 ng/mL (0.000-0.034) 09/26/18 10:00 NT-Pro-B Natriuret Pep 392 pg/mL 09/27/18 05:18 Total Protein 7.8 g/dL (6.3-8.2) 09/27/18 05:18 Albumin 3.7 g/dL (3.5-5.0) 09/27/18 05:18 Triglycerides 100 mg/dL (<150) 09/27/18 05:18 Cholesterol 174 mg/dL (<200) 09/27/18 05:18 LDL Cholesterol, Calc 112 mg/dL (0-99) H 09/27/18 05:18 HDL Cholesterol 42 mg/dL (40-60) 09/27/18 05:18 Urine Color Yellow 09/26/18 13:27 Urine Appearance Clear (Clear) 09/26/18 13:27 Urine pH 7.0 (5.0-8.0) 09/26/18 13:27 Ur Specific [place] 1.014 (1.001-1.035) 09/26/18 13:27 Urine Protein Trace (Negative) H 09/26/18 13:27 Urine Glucose (UA) Negative (Negative) 09/26/18 13:27 Urine Ketones Negative (Negative) 09/26/18 13:27 Urine Blood Negative (Negative) 09/26/18 13:27 Urine Nitrite Negative (Negative) 09/26/18 13:27 Urine Bilirubin Negative (Negative) 09/26/18 13:27 Urine Urobilinogen 4.0 mg/dL (<2.0) 09/26/18 13:27 Ur Leukocyte Esterase Negative (Negative) 09/26/18 13:27 Serum Alcohol <10 mg/dL 09/26/18 10:00 Influenza Type A RNA Not Detected (Not Detectd) 09/26/18 10:00 Influenza Type B (PCR) Not Detected (Not Detectd) 09/26/18 10:00 Microbiology 09/26/18 13:28 Urine,Catheterized Urine Culture - Final 09/26/18 10:00 Blood Blood Culture - Preliminary No Growth after 24 hours 09/26/18 23:10 Urine,Catheterized Urine Culture - Preliminary Assessment and Plan (1) Alcoholism Current Visit: Yes Status: Acute Code(s): F10.20 - ALCOHOL DEPENDENCE, UNCOMPLICATED SNOMED Code(s): 3898120 (2) Acute ischemic left middle cerebral artery (MCA) stroke Current Visit: Yes Status: Acute Code(s): I63.512 - CEREB INFRC D/T UNSP OCCLS OR STENOS OF LEFT MID CEREB ART SNOMED Code(s): 669314103 (3) Fever Narrative/Plan: 57-year-old male presents to hospital with alteration of his mental status. The patient has a long-standing history of alcohol use and at first the family thought with his decreased alcohol intake he was having difficulties with withdrawal. However he then developed some twitching to the right side of his face and his speech worsened and constantly was brought to the emergency center. There there was concerns to a left MCA stroke given the twitching to the right arm the right facial droop and twitching and his unintelligible speech. Original computed tomography scan is normal but MRI is still pending, neurology consult is ongoing. At presentation the patient did have a fever 101.1 and an elevated lactic acid. Given his stroke there was concerns of potential aspiration especially since he was also having some acute respiratory failure at the time of his admission that has now improved. On the exam the patient does have evidence of the minimal erythema to the left leg it appears to be small injury the family relates may have come from their pet dog. With his alcohol use he has been skin is noted by the multiple ecchymotic areas on the upper extremities of the also claim comes from his interactions with their pet dog. There could be a mild cellulitis of the left lower extremity and constantly antibiotic therapy will be utilized. There is also concern for potential aspiration although his chest x-ray looks quite well and respiratory failure appears to be improving. Antibiotic therapy with Unasyn is started other antibiotics have been discontinued. Local wound care to the lower extremities with Silvadene is requested. The patient's fever and transient lactic acidosis admission could've also been directly related to his acute cerebrovascular accident. Current Visit: Yes Status: Acute Code(s): R50.9 - FEVER, UNSPECIFIED SNOMED Code(s): 098359862
[2018-09-27 17:00] LABS: Glucose,Whole Blood 172 mg/dL (75-99)
[2018-09-27] MEDS: AMPICILLIN-SULBACTAM 3 GM in SODIUM CHLORIDE 0.9% 100 ML IVPB SCH ×2 (18:01→23:00)
[2018-09-27 20:24] LABS: Glucose,Whole Blood 182 mg/dL (75-99)
--- NOTE | 2018-09-27 22:43 | P.PN ---
Subjective Progress Note Date: 09/27/18 Principal diagnosis: Left MCA stroke Mr. Glasgow is a 57-year-old male with a past medical history of chronic low back pain status post laminectomy and fusion follows with Dr. Ruth, obstructive sleep apnea, obesity, hypertension brought in by his family members for right upper extremity weakness and right facial twitching. And he has pain having garbled speech for the past couple of days. The patient has garbled speech which cannot be comprehended, so most of the history is taken from the who is at the bedside. The mentions that for the past 1 week patient has been having right arm weakness, and also slurring of his speech. When he was asked by his to go to the hospital, the patient became very combative and did not want to seek medical attention. But eventually the family noticed that they could not understand his speech and his weakness has been getting worse and he was not able to get out of the bed, so brought to the hospital for further evaluation. As per his patient is alcoholic and drinks alcohol every day. Patient has history of obstructive sleep apnea. Noncompliant with CPAP. His chronic low back pain issues status post laminectomy and fusion surgery. He follows with Dr. Ruth in the pain clinic. Patient usually walks with a walker at home and has bilateral lower extremity weakness since having the surgery. His also mentions that patient suffered a fall in February 2018 due to his history of alcoholism as he was intoxicated. At that time patient had acute intracerebral hemorrhage involving the right frontal and parietal lobes. In the ED patient had a CAT scan of the brain that was negative for any acute intracranial abnormality. Patient had a fever in the ED, he was given a dose of ceftriaxone and admitted to the hospital. on 09/27/18 - Today the pt is lying in the bed . Over night pt had issues with swallowing and was aspirating his own secretions. He was kept NPO. as per nursing staff report ,pt has twitching movements of his right arm and right side of the face this afternoon. Review of systems-could not be done as the patient has garbled speech. He has expressive aphasia. Objective - Vital Signs Vital signs: Vital Signs Temp 98.2 F 09/27/18 08:00 Pulse 94 09/27/18 11:01 Resp 22 09/27/18 08:00 BP 146/83 09/27/18 08:00 Pulse Ox 96 09/27/18 08:00 Intake & Output 09/26/18 09/27/18 09/27/18 19:59 06:59 18:59 Output Total Balance Weight Output: Urine Straight Uretheral (Romo) Other: Voiding Method Indwelling Catheter # Bowel Movements 0 - Exam GEN. APPEARANCE: alert, in no apparent distress, poorly kempt. HEAD EXAM: atraumatic, normocephalic, normal inspection EYE EXAM: No pallor. No icterus. ENT EXAM: normal exam, mucous membranes moist NECK EXAM: No JVD. No thyromegaly. No meningismus. RESPIRATORY EXAM: Coarse breath sounds heard bilaterally. No wheezes or crackles. Diminished at the bases. CARDIOVASCULAR EXAM: S1 and S2 heard. Tachycardia. GI/ABDOMINAL EXAM: soft, normal bowel sounds. Absent: distended, tenderness, guarding, rebound, rigid EXTREMITIES EXAM: No edema. NEUROLOGICAL EXAM: alert, follows simple commands.power is 3 x 5 in the upper extremity on the right side and 4 x 5 in the left side. Bilateral lower [id number] is 1 / 5. - Labs CBC & Chem 7: 09/27/18 05:18 09/27/18 05:18 Labs: Abnormal Lab Results - Last 24 Hours (Table) 09/26/18 09/26/18 09/27/18 Range/Units 16:46 21:00 05:18 RBC (4.30-5.90) m/uL MCV (80.0-100.0) fL Neutrophils # (1.3-7.7) k/uL Lymphocytes # (1.0-4.8) k/uL Sodium 136 L (137-145) mmol/L Chloride 97 L (98-107) mmol/L Glucose 188 H (74-99) mg/dL POC Glucose (mg/dL) 137 H 143 H (75-99) mg/dL Calcium 8.1 L (8.4-10.2) mg/dL Total Bilirubin 1.7 H (0.2-1.3) mg/dL LDL Cholesterol, Calc 112 H (0-99) mg/dL 09/27/18 09/27/18 09/27/18 Range/Units 05:18 06:11 11:42 RBC 4.24 L (4.30-5.90) m/uL MCV 104.1 H (80.0-100.0) fL Neutrophils # 8.1 H (1.3-7.7) k/uL Lymphocytes # 0.3 L (1.0-4.8) k/uL Sodium (137-145) mmol/L Chloride (98-107) mmol/L Glucose (74-99) mg/dL POC Glucose (mg/dL) 185 H 170 H (75-99) mg/dL Calcium (8.4-10.2) mg/dL Total Bilirubin (0.2-1.3) mg/dL LDL Cholesterol, Calc (0-99) mg/dL Microbiology - Last 24 Hours (Table) 09/26/18 13:28 Urine Culture - Final Urine,Catheterized 09/26/18 10:00 Blood Culture - Preliminary Blood No Growth after 24 hours 09/26/18 23:10 Urine Culture - Preliminary Urine,Catheterized Assessment and Plan Assessment: Right upper extremity weakness- secondary to cerebrovascular accident Slurred speech-secondary to stroke Fever Alcohol abuse Hypomagnesemia Obesity BMI is 35.9 Plan: Patient has right upper extremity along with slurring of speech secondary to stroke. CT of the head has been negative for any acute intracranial process. Patient had a fever, so empirically started on antibiotics. Blood cultures, urine cultures, sputum cultures have been obtained. In the ED patient was noted to have twitching movements of his right upper extremity along with twitching movements of his right side of the face. Neurology on board and following . Stroke work up initiated. . Further recommendations to follow depending on the progress of the patient discussed with his at the bedside explained that this is most likely a stroke. Patient to be kept nothing by mouth as that is a risk of aspiration. Overall prognosis is guarded.
--- NOTE | 2018-09-28 00:31 | P.PN ---
Subjective Progress Note Date: 09/27/18 This patient is a 57-year-old male who was seen yesterday neurology consultation for evaluation of altered mental status and increased confusion. Patient was found to have evidence of expressive aphasia with right-sided facial droop. He is scheduled to undergo MRI of the brain for further evaluation of acute left MCA stroke. He was noted to have some facial twitching on his right side as well with evidence yesterday of having some blepharospasms of the eyelids. The patient is undergoing a complete stroke evaluation. Further recommendations will be given pending his MRI results. The patient appears to be agitated this evening and is requiring special attention by the nursing staff. This may be due to related to his alcohol withdrawal syndrome. He is to continue on a CIWA protocol utilizing Ativan. We 're waiting MRI of the brain to be done hopefully tomorrow morning. Depending on the MRI results further recommendations will be given. He does continue to demonstrate evidence of dysarthric speech. He has word finding difficulties in speech is quite garbled at times. His overall prognosis at this time remains very guarded. Objective - Vital Signs Vital signs: Vital Signs Temp 98.7 F 09/27/18 16:00 Pulse 108 H 09/27/18 21:02 Resp 20 09/27/18 16:00 BP 156/82 09/27/18 16:00 Pulse Ox 95 09/27/18 16:00 Intake & Output 09/27/18 09/27/18 09/28/18 06:59 18:59 06:59 Output Total 800 Balance -800 Weight Output: Urine 800 Straight Uretheral (Romo) Other: Voiding Method Indwelling Catheter # Bowel Movements 0 0 - Exam Physical examination: PHYSICAL EXAMINATION: Patient is resting comfortably in bed. VITAL SIGNS: Blood pressure is [156/82]. Heart rate is [98]. Respiration is [20] . Temperature is [98.7]. HEENT: Head is atraumatic, neck is supple, there were no carotid bruits. CHEST: Lungs are clear to auscultation and percussion. CARDIAC: S1, S2 normal rate and rhythm. There is no murmur. ABDOMEN: Soft and nontender. Bowel sounds are present. EXTREMITIES: There is no pedal edema. Peripheral pulses are present. Neurological examination: Patient's neurological examination is unchanged from yesterday. Patient is slightly more agitated this evening and showing signs of mild delirium and ing. With the help of family and nursing staff he does seem to become more cooperative at times. His neurological examination otherwise remains unchanged. He has evidence of a diffuse expressive aphasia. - Labs CBC & Chem 7: 09/27/18 05:18 09/27/18 05:18 Labs: Abnormal Lab Results - Last 24 Hours (Table) 09/27/18 09/27/18 09/27/18 Range/Units 05:18 05:18 06:11 RBC 4.24 L (4.30-5.90) m/uL MCV 104.1 H (80.0-100.0) fL Neutrophils # 8.1 H (1.3-7.7) k/uL Lymphocytes # 0.3 L (1.0-4.8) k/uL Sodium 136 L (137-145) mmol/L Chloride 97 L (98-107) mmol/L Glucose 188 H (74-99) mg/dL POC Glucose (mg/dL) 185 H (75-99) mg/dL Calcium 8.1 L (8.4-10.2) mg/dL Total Bilirubin 1.7 H (0.2-1.3) mg/dL LDL Cholesterol, Calc 112 H (0-99) mg/dL 09/27/18 09/27/18 09/27/18 Range/Units 11:42 16:22 20:22 RBC (4.30-5.90) m/uL MCV (80.0-100.0) fL Neutrophils # (1.3-7.7) k/uL Lymphocytes # (1.0-4.8) k/uL Sodium (137-145) mmol/L Chloride (98-107) mmol/L Glucose (74-99) mg/dL POC Glucose (mg/dL) 170 H 172 H 182 H (75-99) mg/dL Calcium (8.4-10.2) mg/dL Total Bilirubin (0.2-1.3) mg/dL LDL Cholesterol, Calc (0-99) mg/dL Microbiology - Last 24 Hours (Table) 09/26/18 13:28 Urine Culture - Final Urine,Catheterized 09/26/18 10:00 Blood Culture - Preliminary Blood No Growth after 24 hours 09/26/18 23:10 Urine Culture - Preliminary Urine,Catheterized Assessment and Plan (1) Acute ischemic left middle cerebral artery (MCA) stroke Current Visit: Yes Status: Acute Code(s): I63.512 - CEREB INFRC D/T UNSP OCCLS OR STENOS OF LEFT MID CEREB ART SNOMED Code(s): 245332416 (2) Alcoholism Current Visit: Yes Status: Acute Code(s): F10.20 - ALCOHOL DEPENDENCE, UNCOMPLICATED SNOMED Code(s): 1526428 (3) Febrile illness Current Visit: Yes Status: Acute Code(s): R50.9 - FEVER, UNSPECIFIED SNOMED Code(s): 888878734 (4) Chronic kidney disease Current Visit: No Status: Acute Code(s): N18.9 - CHRONIC KIDNEY DISEASE, UNSPECIFIED SNOMED Code(s): 469857315 (5) Syncopal episodes Current Visit: No Status: Acute Code(s): R55 - SYNCOPE AND COLLAPSE SNOMED Code(s): 651866962 Plan: This patient is a 57-year-old male being evaluated for altered mental status and right-sided weakness with some dysarthric speech. Patient is being scheduled for MRI of the brain hopefully to be done tomorrow. He was noted this evening to be quite agitated and showing signs of alcohol withdrawal. He is to continue on a [facility] protocol for alcohol withdrawal. Hopefully this will be of help in benefit to the patient. The patient does have evidence of cellulitis involving both of his lower extremities. Infectious disease has been consulted for this reason and Dr. López has given some recommendations. Given this patient's overall clinical findings there is a high suspicion he may have suffered an acute stroke. Further recommendations will be given pending his MRI results. His overall prognosis at this time remains very guarded.
[2018-09-28] MEDS: LORazepam 2 MG/ML INJ IV PRN ×4 (00:34→08:51)
[2018-09-28] MEDS ORDERED: FUROSEMIDE 10 MG/ML 2 ML VIAL IV ONE (02:12)
[2018-09-28] MEDS: LORazepam Vial 40 MG in DEXTROSE 5% IN WATER 80 ML IV SCH ×4 (03:46→23:29)
[2018-09-28 05:36] LABS: Anion Gap 8 mmol/L; Blood Urea Nitrogen 22 mg/dL (9-20); Calcium 7.7 mg/dL (8.4-10.2); Carbon Dioxide 29 mmol/L (22-30); Chloride 100 mmol/L (98-107); Glucose 180 mg/dL (74-99); Sodium 137 mmol/L (137-145)
[2018-09-28 05:56] LABS: Potassium 3.5 mmol/L (3.5-5.1)
[2018-09-28 05:57] LABS: Basophils % (A) 0 %; Eosinophils % (A) 0 %; HCT 38.1 % (39.0-53.0); Lymphocytes # (A) 0.3 k/uL (1.0-4.8); Lymphocytes % (A) 3 %; MCH 34.4 pg (25.0-35.0); Mean Platelet Volume 7.6; Monocytes # (A) 0.2 k/uL (0-1.0); Monocytes % (A) 3 %; Neutrophils # (A) 6.7 k/uL (1.3-7.7); Neutrophils % (A) 93 %; Platelet Count 137 k/uL (150-450); RBC 3.77 m/uL (4.30-5.90); RDW 12.5 % (11.5-15.5); WBC 7.2 k/uL (3.8-10.6)
[2018-09-28] MEDS: methylPREDNISolone SOD SUCCI 125 MG/2 ML VIAL IV SCH ×3 (06:11→18:29)
[2018-09-28] MEDS: AMPICILLIN-SULBACTAM 3 GM in SODIUM CHLORIDE 0.9% 100 ML IVPB SCH ×3 (06:37→20:15)
[2018-09-28] MEDS ORDERED: Potassium Replacement Protocol 1 EACH MISC MISCELLANE PRN (06:42)
--- NOTE | 2018-09-28 06:51 | XR ---
EXAMINATION TYPE: XR chest 1V portable DATE OF EXAM: 09/28/2018 COMPARISON: Yesterday HISTORY: Fluid overload TECHNIQUE: Single frontal view of the chest is obtained. FINDINGS: There is no heart failure nor confluent pneumonic infiltrate. There is coarsening of the l arlet markings. There are chest leads. There is minimal pulmonary congestion. IMPRESSION: Pulmonary congestion is similar to yesterday. No overt heart failure. There is improved aeration at the right lung base compared to yesterday.
[2018-09-28] MEDS: IPRATROPIUM-ALBUTEROL 3 ML NEB INHALATION SCH ×5 (07:12→21:06)
[2018-09-28] MEDS: INSULIN ASPART 100 UNIT/ML 1 ML 10 ML VIAL SQ SCH ×4 (09:06→22:16)
[2018-09-28] MEDS: POTASSIUM CHLORIDE 10 MEQ in WATER FOR INJECTION 1 100ML.BAG IVPB SCH ×4 (09:07→14:43)
[2018-09-28 09:09] LABS: Glucose,Whole Blood 175 mg/dL (75-99)
--- NOTE | 2018-09-28 09:17 | P.PN ---
Subjective Progress Note Date: 09/28/18 Principal diagnosis: Acute hypoxemic respiratory failure related to suspected aspiration, atelectasis , and mild fluid overload This is a 57-year-old white male patient of Dr. Rick, who was brought into the emergency department on 09/26/2018 for evaluation of right-sided facial twitching, garbled speech, right arm weakness. Initial brain CT was negative for any acute intracranial abnormality, showed mild degenerative change. EKG showed normal sinus rhythm without evidence of acute ischemic changes. Patient has persistent symptoms of expressive aphasia, he is having right-sided facial twitching, and right-sided weakness. Past medical history is significant for heavy EtOH use, nicotine dependence, currently in remission, obstructive sleep apnea, chronic back pain, with history of back surgery with a laminectomy procedure, hypertension. Patient did have a fever presentation, of 101.1F, mild lactic acidosis of 2.5, but his lab work was negative for any leukocytosis , WBC was 7.5, chemistry showed sodium of 134, potassium of 3.6, chloride of 95 , renal profile and rest of electrolytes were within normal limits, AST was 66, ALT was 45, alk phos was 123, troponin was negative 1, urinalysis negative for any infection. Influenza screen was negative, serum alcohol was less than 10. She has developed acute hypoxemic respiratory failure, he is on supplemental oxygen currently at 4 L per nasal cannula. He was noted to be tachypneic at times, he is a poor historian, but he states he is short of breath, but denied any chest pain. Chest x-ray on 09/26/2018 showed mild cardiomegaly, but no acute pulmonary process, chest x-ray taken later that day showed some pulmonary vascular congestion, and widening of the mediastinum, no gross heart failure. Based on the findings of the chest x-ray, fluid overload was suspected, and patient was given a dose of IV Lasix with significant diuresis, he is in -3275 ML fluid balance over the last 24 hours. He was started on empiric antibiotics in the form of Rocephin, and there has been no recurrence of fevers since admission. Cultures are still pending at this time. His morning patient is seen in evaluation on selective care unit, he is awake and alert, he still has significant dysarthria, and expressive aphasia. I'm told by nursing staff that he is requiring intermittent oral suctioning, and patient has no gag reflex, he remains nothing by mouth, he is being evaluation by speech pathologist. No obvious facial asymmetry noted on today's exam, having some twitching of his face, his right-sided weakness seems to be somewhat improved. Urology is following, and patient is undergoing neurological evaluation for suspected left MCA CVA. On 09/28/2018 patient seen in follow-up he was transferred to the intensive care unit last night for acute alcohol , and delirium. He was agitated, he was started on Ativan drip at 1 mg per hour. From pulmonary perspective patient remains congested, and wheezy, currently on 3-1/2 L per nasal cannula, his pulse ox is 93-94%, additional dose of Lasix this morning, patient has diuresis , today's chest x-ray has been reviewed by Dr. Cordoba, and shows worsening of the lung markings, minimal pulmonary congestion, no overt heart failure, improved aeration at the right lung base compared to yesterday. He remains on IV steroids, and nebulized bronchodilators. Highly suspect aspiration, speech therapy has been consulted, patient remains nothing by mouth, he is sedated this morning, we will stop the Ativan drip, patient does arouse to tactile stimuli, however he falls back asleep. 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 Patient remains on antibiotic coverage, for his cellulitis. He is scheduled for EEG and MRI of the brain today. Dynamically stable, his maintenance IV fluids is 0.9 normal saline at a rate of 20 ML per hour. No other drips. Today's labs have been reviewed, WBC 7.2, hemoglobin is 13.0, electrolytes are within normal limits, BUN is up slightly at 22, creatinine 0.7. Cultures remain negative thus far, unable to send the sputum culture, patient is unable to cough and produce a sputum sample. Neurology, infectious disease are following. Objective - Vital Signs Vital signs: Vital Signs Temp 98.8 F 09/28/18 08:00 Pulse 64 09/28/18 08:00 Resp 27 H 09/28/18 08:00 BP 148/82 09/28/18 08:00 Pulse Ox 94 L 09/28/18 08:00 Intake & Output 09/27/18 09/28/18 09/28/18 18:59 06:59 18:59 Intake Total 4.667 27.625 Output Total 800 1375 155 Balance -800 -1370.333 -127.375 Intake: IV 20 .9 NS 20 Intake, IV Titration 4.667 7.625 Amount LORazepam Vial 40 mg In 4.667 7.625 Dextrose 5% in Water 80 ml @ 2 MG/HR 5 mls/hr IV .[facility] Rx#:[id number] Output: Urine 800 1375 155 Uretheral (Romo) 700 Other: Voiding Method Indwelling Catheter Indwelling Catheter # Bowel Movements 0 0 - Exam GENERAL EXAM: Sedated, but arousable to shaking, pleasant, 57-year-old white male, in no apparent distress, has difficulty communicating, dysarthric, with expressive aphasia. He has difficulty following commands. HEAD: Normocephalic/atraumatic. EYES: Normal reaction of pupils, equal size. Conjunctiva pink, sclera white. NOSE: Clear with pink turbinates. THROAT: No erythema or exudates. NECK: No masses, no JVD, no thyroid enlargement, no adenopathy. CHEST: No chest wall deformity. Symmetrical expansion. LUNGS: Diffuse wheezes, and scattered rhonchi CVS: Regular rate and rhythm, normal S1 and S2, no gallops, no murmurs, no rubs ABDOMEN: Soft, nontender. No hepatosplenomegaly, normal bowel sounds, no guarding or rigidity. EXTREMITIES: No clubbing, no edema, no cyanosis, 2+ pulses and upper and lower extremities. 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 No obvious facial asymmetry - Labs CBC & Chem 7: 09/28/18 04:10 09/28/18 04:10 Labs: Abnormal Lab Results - Last 24 Hours (Table) 09/27/18 09/27/18 09/27/18 Range/Units 11:42 16:22 20:22 RBC (4.30-5.90) m/uL Hct (39.0-53.0) % MCV (80.0-100.0) fL Plt Count (150-450) k/uL Lymphocytes # (1.0-4.8) k/uL BUN (9-20) mg/dL Glucose (74-99) mg/dL POC Glucose (mg/dL) 170 H 172 H 182 H (75-99) mg/dL Calcium (8.4-10.2) mg/dL 09/28/18 09/28/18 Range/Units 04:10 04:10 RBC 3.77 L (4.30-5.90) m/uL Hct 38.1 L (39.0-53.0) % MCV 101.0 H (80.0-100.0) fL Plt Count 137 L (150-450) k/uL Lymphocytes # 0.3 L (1.0-4.8) k/uL BUN 22 H (9-20) mg/dL Glucose 180 H (74-99) mg/dL POC Glucose (mg/dL) (75-99) mg/dL Calcium 7.7 L (8.4-10.2) mg/dL Microbiology - Last 24 Hours (Table) 09/26/18 13:28 Urine Culture - Final Urine,Catheterized 09/26/18 10:00 Blood Culture - Preliminary Blood No Growth after 24 hours 09/26/18 23:10 Urine Culture - Preliminary Urine,Catheterized Assessment and Plan Plan: Assessment: #1. Acute hypoxemic respiratory failure, related to fluid overload and suspected aspiration, chest x-ray showed some pulmonary vascular congestion, cardiomegaly #2. Left hemispheric CVA, patient presented with sided weakness, twitching, expressive aphasia #3. Mild lactic acidosis present on admission, febrile episode, rule out infectious etiology/sepsis. Cultures are pending, and there has been no recurrence of fevers. Lactic acid is now within normal limits. #4. EtOH dependence, and acute withdrawal with agitation and delirium #5. Nicotine dependence, currently in remission, patient quit smoking 2 years ago, but carries [id number] smoking history #6. History of obstructive sleep apnea #7. History of chronic back pain, related to work related injury, patient is status post laminectomy and fusion, follows with Dr. Marino #8. Hypertension Plan: Maintain aspiration precautions, continue patient nothing by mouth status, patient is awaiting to be evaluated by speech pathologist, most likely will be unable to complete a swallow evaluation at this time due to his sedation, discontinue Ativan drip, use intermittent Ativan per protocol, hemodynamically stable, still remains quite congested and wheezy, we'll continue with IV steroids, nebulized bronchodilators and current antibiotic coverage, today's chest x-ray has been reviewed with Dr. Cordoba and shows improvement in the pulmonary congestion, and better aeration at the right lung base, no overt heart failure or pneumonia. Continue monitoring in the intensive care unit, patient is scheduled for EEG and possibly MRI of the brain today. I performed a history & physical examination of the patient and discussed their management with my nurse practitioner, Nimisha Higgins. I reviewed the nurse practitioner's note and agree with the documented findings and plan of care. Lung sounds are positive some scattered wheezes. The findings and the impression was discussed with the patient. I attest to the documentation by the nurse practitioner. Time with Patient: Greater than 30
[2018-09-28 11:59] LABS: Glucose,Whole Blood 148 mg/dL (75-99)
[2018-09-28] MEDS: THIAMINE 100 MG TAB PO SCH ×2 (12:35→18:06)
[2018-09-28] MEDS ORDERED: FUROSEMIDE 10 MG/ML 4 ML VIAL IV STA (15:00)
[2018-09-28] MEDS ORDERED: VANCOMYCIN TROUGH DUE 1 EACH MISC MISCELLANE ONE (17:00)
--- NOTE | 2018-09-28 17:31 | MR ---
EXAMINATION TYPE: MR brain wo con DATE OF EXAM: 09/28/2018 COMPARISON: CT brain 09/26/2018 HISTORY: Acute left hemispheric stroke, Left facial droop, rt hand weakness, garbled speech, patient was confused in am, borderline tremor Standard multiplanar, multisequence MRI departmental protocol Multiplanar, multisequence images of the were acquired. Diffusion weighted imaging was performed. FINDINGS: On the T2 and FLAIR images there is some gyriform cortical increased signal involving left posterior temporal lobe. These areas measure up to 1.5 cm. There are multiple white matter high signa l foci around the lateral ventricles. These measure up to 1 cm and are seen in the frontal temporal a nd parietal lobes. The diffusion images also show a thin ribbon of increased signal at the surface of the left occipital lobe that could also be involved. I see no evidence of a cerebellar infarct. Brai nstem appears intact. There is no midline shift. There is no evidence of intracranial hemorrhage. Patricia la turcica appears normal. There is also subtle cortical increased linear signal involving the left i nsular lobe. Left temporal lobe cortical lesions are also demonstrated as increased signal on the dif fusion images. IMPRESSION: Abnormal cortical signal in the left posterior temporal lobe and also insula of the left temporal lob e consistent with subacute infarct. There is probably also involvement of left occipital lobe cortex. Multiple white matter foci as above are nonspecific and could relate to chronic small vessel ischemi a or demyelinating disease.
[2018-09-28 18:27] LABS: Glucose,Whole Blood 154 mg/dL (75-99)
--- NOTE | 2018-09-28 19:04 | EEG ---
ELECTROENCEPHALOGRAM REPORT DATE OF EE09/28/2018 ELECTROENCEPHALOGRAPHIC EXAMINATION REPORT: INDICATION FOR EXAMINATION: This patient is a 58-year-old male being evaluated for acute right-sided weakness and dysarthric speech. Patient with probable acute stroke syndrome. AGE: [age]. EEG FINDINGS: A routine 21-channel awake digital EEG recording was accomplished utilizing the 10-20 international system with bipolar and referential montages. The background activity in the most alert resting state consists of a low to medium amplitude, fairly well developed well sustained 6 Hz activity over the posterior head regions. This posterior rhythm attenuates to eye opening. There is a small amount of low amplitude 18-20 Hz beta activity seen maximally over the anterior head regions. Muscle and movement artifact was observed on a few occasions during the tracing. No activation procedures were performed. No epileptiform discharges were seen. IMPRESSION: This EEG is moderately abnormal in a diffuse fashion due to slowing of the EEG background. The EEG failed to reveal any focal, lateralized, or epileptiform abnormalities. If clinically indicated, a follow-up EEG is recommended. Clinical correlation is recommended. MMKIERAN / JULISSAN: [id number] /
[2018-09-28 20:59] LABS: Glucose,Whole Blood 159 mg/dL (75-99)
--- NOTE | 2018-09-28 22:20 | P.PN ---
Subjective Progress Note Date: 09/28/18 This patient is a 57-year-old male who was seen yesterday neurology consultation for evaluation of altered mental status and increased confusion. Patient was found to have evidence of expressive aphasia with right-sided facial droop. He is scheduled to undergo MRI of the brain for further evaluation of acute left MCA stroke. He was noted to have some facial twitching on his right side as well with evidence yesterday of having some blepharospasms of the eyelids. The patient has a extensive history of alcohol abuse in the past. He has been placed on a CIWA protocol and was switched to an Ativan drip due to agitation today. The patient is undergoing a complete stroke evaluation. He is to continue on a CIWA protocol utilizing Ativan. The patient remains somewhat obtunded today but is arousable only to sternal rub. This is likely secondary effect to his Ativan CIWA protocol. The patient was able to complete MRI of the brain today which was reviewed. His MRI reveals abnormal cortical signal in the left posterior temporal lobe and also the left insula. These findings are consistent with subacute infarct. There was also probable involvement of the left occipital lobe as well. These multiple areas of infarction suggest possibility of cardioembolic stroke. We are recommending the patient to be evaluated by cardiology for YARIEL procedure tomorrow. He does continue to demonstrate evidence of dysarthric speech when he is awake and conversing with the nursing staff. He has word finding difficulties in speech is quite garbled at times. This patient has suffered an acute left hemispheric stroke suggesting possibility of cardioembolic phenomenon. As mentioned we will consult cardiology for possible YARIEL procedure tomorrow. He is to continue with current medical management of his multiple conditions. His overall prognosis at this time remains very guarded. Objective - Vital Signs Vital signs: Vital Signs Temp 98.3 F 09/28/18 16:00 Pulse 68 09/28/18 17:40 Resp 24 09/28/18 17:00 BP 146/92 09/28/18 17:00 Pulse Ox 94 L 09/28/18 17:00 Intake & Output 09/27/18 09/28/18 09/28/18 18:59 06:59 18:59 Intake Total 4.667 499.938 Output Total 800 1375 985 Balance -800 -1370.333 -485.062 Intake: IV 490 .9 NS 190 Potassium Chloride 10 meq 300 In Water For Injection 1 100ml.bag @ 100 mls/hr IVPB Q1HR [facility] Rx#: [id number] Intake, IV Titration 4.667 9.938 Amount LORazepam Vial 40 mg In 4.667 9.938 Dextrose 5% in Water 80 ml @ 2 MG/HR 5 mls/hr IV .Q20H [facility] Rx#:[id number] Output: Urine 800 1375 985 Uretheral (Romo) 700 Other: Voiding Method Indwelling Catheter Indwelling Catheter Indwelling Catheter # Bowel Movements 0 0 - Exam Physical examination: PHYSICAL EXAMINATION: Patient is resting comfortably in bed. VITAL SIGNS: Blood pressure is [146/92]. Heart rate is [85]. Respiration is [24] . Temperature is [98.3]. HEENT: Head is atraumatic, neck is supple, there were no carotid bruits. CHEST: Lungs are clear to auscultation and percussion. CARDIAC: S1, S2 normal rate and rhythm. There is no murmur. ABDOMEN: Soft and nontender. Bowel sounds are present. EXTREMITIES: There is no pedal edema. Peripheral pulses are present. Neurological examination: The patient is examined today in the intensive care unit. He remains very obtunded secondary to medication effect from the Ativan. He is drowsy and unable to follow any commands at this time. He is noted to be moving all 4 extremities. His memory and intellectual functions are severely impaired at this time. Cranial nerve examination: Cranial nerves II through XII are grossly intact. Motor examination: Patient is moving all 4 extremities. Sensory examination: Patient does withdraw to painful stimuli. Deep tendon reflexes: DTRs are 1+ and symmetric. Plantar responses flexor bilaterally. Pronation gait cannot be assessed in this patient at this time. - Labs CBC & Chem 7: 09/28/18 04:10 09/28/18 19:24 Labs: Abnormal Lab Results - Last 24 Hours (Table) 09/27/18 09/28/18 09/28/18 Range/Units 20:22 04:10 04:10 RBC 3.77 L (4.30-5.90) m/uL Hct 38.1 L (39.0-53.0) % MCV 101.0 H (80.0-100.0) fL Plt Count 137 L (150-450) k/uL Lymphocytes # 0.3 L (1.0-4.8) k/uL BUN 22 H (9-20) mg/dL Glucose 180 H (74-99) mg/dL POC Glucose (mg/dL) 182 H (75-99) mg/dL Calcium 7.7 L (8.4-10.2) mg/dL 09/28/18 09/28/18 Range/Units 08:57 11:47 RBC (4.30-5.90) m/uL Hct (39.0-53.0) % MCV (80.0-100.0) fL Plt Count (150-450) k/uL Lymphocytes # (1.0-4.8) k/uL BUN (9-20) mg/dL Glucose (74-99) mg/dL POC Glucose (mg/dL) 175 H 148 H (75-99) mg/dL Calcium (8.4-10.2) mg/dL Microbiology - Last 24 Hours (Table) 09/26/18 23:10 Urine Culture - Final Urine,Catheterized 09/26/18 10:00 Blood Culture - Preliminary Blood No Growth after 48 hours 09/26/18 13:28 Urine Culture - Final Urine,Catheterized Assessment and Plan (1) Acute ischemic left middle cerebral artery (MCA) stroke Current Visit: Yes Status: Acute Code(s): I63.512 - CEREB INFRC D/T UNSP OCCLS OR STENOS OF LEFT MID CEREB ART SNOMED Code(s): 318041432 (2) Alcoholism Current Visit: Yes Status: Acute Code(s): F10.20 - ALCOHOL DEPENDENCE, UNCOMPLICATED SNOMED Code(s): 9535115 (3) Febrile illness Current Visit: Yes Status: Acute Code(s): R50.9 - FEVER, UNSPECIFIED SNOMED Code(s): 654533996 (4) Chronic kidney disease Current Visit: No Status: Acute Code(s): N18.9 - CHRONIC KIDNEY DISEASE, UNSPECIFIED SNOMED Code(s): 078635539 (5) Syncopal episodes Current Visit: No Status: Acute Code(s): R55 - SYNCOPE AND COLLAPSE SNOMED Code(s): 667433216 Plan: This patient is a 58-year-old right-handed white male who was admitted to Hospital with symptoms of acute hypoxic respiratory failure and fluid overload. He was resuscitated and transferred to the intensive care unit where he was noted to have evidence of severe dysarthric speech. He was complaining of weakness on his right side. He was sent for MRI of the brain today which was completed. MRI reveals evidence of multiple areas of acute stroke involving the left posterior temporal lobe and left insula. There is also questionable left occipital lobe infarct on this MRI of the brain. These findings suggest possibility of cardioembolic phenomena as a cause of his stroke. We have consulted cardiology for YARIEL procedure tomorrow morning. The patient is being treated for alcohol withdrawal syndrome and is currently on Ativan drip. He was very combative earlier in the day secondary to his long-standing history of alcohol abuse. Neurologically the patient is showing no new clinical signs. We will continue close neurological follow-up for the patient during this admission. His overall prognosis at this time remains very guarded.
--- NOTE | 2018-09-28 23:49 | P.PN ---
Subjective Progress Note Date: 09/28/18 57 -year-old male presents to the emergency center by his family. They relates that he has a history of significant alcohol use. Often greater than 10 drinks a day. Apparently for 3 or 4 days before they brought him to Hospital was a marked decrease in the amount of alcohol that he was drinking. They thought the changes that he was exhibiting were related to some alcohol withdrawal. However he had difficulties with some right-sided weakness and difficulty ambulating in his speech was garbled, when he started to have some twitching to the right side of his face they were concerned and was brought to the emergency center. He subsequently has been seen by neurology with concerns to a left MCA stroke original computed tomography scan without evidence of acute change MRI is pending. Infectious diseases consultation is requested regarding the fever that was present at admission of 101.1 elevation of his lactic acid of 2.5. The family relates that he seems to be calm at this point in time it is evident that his speech is unintelligible. He seems comfortable and calm with his family present. 09/28/2018 patient is just returned from his MRI to further characterize the brain lesion. Nursing staff is noted are some ecchymosis to the right ear which was not easily seen in the past. Patient has confusion but does not seem to have tenderness at the site. Objective - Vital Signs Vital signs: Vital Signs Temp 98.3 F 09/28/18 21:00 Pulse 69 09/28/18 22:00 Resp 21 09/28/18 22:00 BP 144/84 09/28/18 22:00 Pulse Ox 96 09/28/18 22:00 Intake & Output 09/28/18 09/28/18 09/29/18 06:59 18:59 06:59 Intake Total 4.667 520.521 86.958 Output Total 1375 985 275 Balance -1370.333 -464.479 -188.042 Intake: IV 490 50 .9 NS 190 50 Potassium Chloride 10 meq 300 In Water For Injection 1 100ml.bag @ 100 mls/hr IVPB Q1HR [facility] Rx#: [id number] Intake, IV Titration 4.667 30.521 36.958 Amount LORazepam Vial 40 mg In 4.667 30.521 36.958 Dextrose 5% in Water 80 ml @ 2 MG/HR 5 mls/hr IV .Q20H [facility] Rx#:[id number] Output: Urine 1375 985 275 Uretheral (Romo) 700 Other: Voiding Method Indwelling Catheter Indwelling Catheter Indwelling Catheter # Bowel Movements 0 - Exam 57-year-old male who looks older than his stated age HEENT: Anicteric conjunctiva are pink and moist nasal mucosa grossly intact without significant lesions, there is no thrush. Dentition is poor for age, evidence of some ecchymosis to the right pinna and to the very outer aspect of the outer canal. No fluctuance or hematoma is palpated Neck: The neck is supple without significant lymphadenopathy or thyromegaly. Lungs: There is symmetrical bilateral air entry there are a few expiratory wheezes that are scattered without savanna bronchial sounds or dullness or egophony is noted Heart: Regular rate and rhythm with an audible S1-S2, audible S3 positive S4. There is no significant murmur click or rub, PMI was nondisplaced. Abdomen: Positive bowel sounds soft and nontender without palpable masses or organomegaly. There was no guarding or rebound. Extremities: The upper extremities have excellent pulses they are symmetric, the lower extremities show evidence of chronic bilateral lower extremity edema with chronic hemosiderin staining bilaterally, small area of irritation possibly injury to the medial aspect of the left calf. Family relate there are dogs which may be injured the leg as well as his arms. His liver there are some scattered ecchymosis on the upper extremities. There is minimal erythema superimposed on the chronic skin changes to the left leg. Neuro: The patient is awake and alert his speech is unintelligible he does not follow commands - Labs CBC & Chem 7: 09/28/18 04:10 09/28/18 19:24 Labs: Abnormal Lab Results - Last 24 Hours (Table) 09/28/18 09/28/18 09/28/18 Range/Units 04:10 04:10 08:57 RBC 3.77 L (4.30-5.90) m/uL Hct 38.1 L (39.0-53.0) % MCV 101.0 H (80.0-100.0) fL Plt Count 137 L (150-450) k/uL Lymphocytes # 0.3 L (1.0-4.8) k/uL Potassium (3.5-5.1) mmol/L BUN 22 H (9-20) mg/dL Glucose 180 H (74-99) mg/dL POC Glucose (mg/dL) 175 H (75-99) mg/dL Calcium 7.7 L (8.4-10.2) mg/dL 09/28/18 09/28/18 09/28/18 Range/Units 11:47 18:15 19:24 RBC (4.30-5.90) m/uL Hct (39.0-53.0) % MCV (80.0-100.0) fL Plt Count (150-450) k/uL Lymphocytes # (1.0-4.8) k/uL Potassium 3.3 L (3.5-5.1) mmol/L BUN (9-20) mg/dL Glucose (74-99) mg/dL POC Glucose (mg/dL) 148 H 154 H (75-99) mg/dL Calcium (8.4-10.2) mg/dL 09/28/18 Range/Units 20:47 RBC (4.30-5.90) m/uL Hct (39.0-53.0) % MCV (80.0-100.0) fL Plt Count (150-450) k/uL Lymphocytes # (1.0-4.8) k/uL Potassium (3.5-5.1) mmol/L BUN (9-20) mg/dL Glucose (74-99) mg/dL POC Glucose (mg/dL) 159 H (75-99) mg/dL Calcium (8.4-10.2) mg/dL Microbiology - Last 24 Hours (Table) 09/26/18 23:10 Urine Culture - Final Urine,Catheterized 09/26/18 10:00 Blood Culture - Preliminary Blood No Growth after 48 hours Laboratory Results WBC 7.2 k/uL (3.8-10.6) 09/28/18 04:10 RBC 3.77 m/uL (4.30-5.90) L 09/28/18 04:10 Hgb 13.0 gm/dL (13.0-17.5) 09/28/18 04:10 Hct 38.1 % (39.0-53.0) L 09/28/18 04:10 MCV 101.0 fL (80.0-100.0) H 09/28/18 04:10 MCH 34.4 pg (25.0-35.0) 09/28/18 04:10 MCHC 34.0 g/dL (31.0-37.0) 09/28/18 04:10 RDW 12.5 % (11.5-15.5) 09/28/18 04:10 Plt Count 137 k/uL (150-450) L 09/28/18 04:10 Neutrophils % 93 % 09/28/18 04:10 Lymphocytes % 3 % 09/28/18 04:10 Monocytes % 3 % 09/28/18 04:10 Eosinophils % 0 % 09/28/18 04:10 Basophils % 0 % 09/28/18 04:10 Neutrophils # 6.7 k/uL (1.3-7.7) 09/28/18 04:10 Lymphocytes # 0.3 k/uL (1.0-4.8) L 09/28/18 04:10 Monocytes # 0.2 k/uL (0-1.0) 09/28/18 04:10 Eosinophils # 0.0 k/uL (0-0.7) 09/28/18 04:10 Basophils # 0.0 k/uL (0-0.2) 09/28/18 04:10 Macrocytosis Slight 09/27/18 05:18 PT 11.3 sec (9.0-12.0) 09/26/18 10:00 INR 1.2 (<1.2) H 09/26/18 10:00 APTT 24.2 sec (22.0-30.0) 09/26/18 10:00 Sodium 137 mmol/L (137-145) 09/28/18 04:10 Potassium 3.3 mmol/L (3.5-5.1) L 09/28/18 19:24 Chloride 100 mmol/L (98-107) 09/28/18 04:10 Carbon Dioxide 29 mmol/L (22-30) 09/28/18 04:10 Anion Gap 8 mmol/L 09/28/18 04:10 BUN 22 mg/dL (9-20) H 09/28/18 04:10 Creatinine 0.77 mg/dL (0.66-1.25) 09/28/18 04:10 Est GFR (CKD-EPI)AfAm >90 (>60 ml/min/1.73 sqM) 09/28/18 04:10 Est GFR (CKD-EPI)NonAf >90 (>60 ml/min/1.73 sqM) 09/28/18 04:10 Glucose 180 mg/dL (74-99) H 09/28/18 04:10 POC Glucose (mg/dL) 159 mg/dL (75-99) H 09/28/18 20:47 POC Glu Contour Band Saw Operator Vertical Courtney Landeros 09/28/18 20:47 Lactic Ac Sepsis Rflx Y 09/26/18 10:49 Plasma Lactic Acid Jeremy 1.1 mmol/L (0.7-2.0) 09/26/18 14:07 Calcium 7.7 mg/dL (8.4-10.2) L 09/28/18 04:10 Magnesium 1.9 mg/dL (1.6-2.3) 09/27/18 05:18 Total Bilirubin 1.7 mg/dL (0.2-1.3) H 09/27/18 05:18 AST 59 U/L (17-59) 09/27/18 05:18 ALT 40 U/L (21-72) 09/27/18 05:18 Alkaline Phosphatase 113 U/L (38-126) 09/27/18 05:18 Total Creatine Kinase 154 U/L (55-170) 09/26/18 10:00 CK-MB (CK-2) 0.4 ng/mL (0.0-2.4) 09/26/18 10:00 CK-MB (CK-2) Rel Index 0.3 09/26/18 10:00 Troponin I <0.012 ng/mL (0.000-0.034) 09/26/18 10:00 NT-Pro-B Natriuret Pep 392 pg/mL 09/27/18 05:18 Total Protein 7.8 g/dL (6.3-8.2) 09/27/18 05:18 Albumin 3.7 g/dL (3.5-5.0) 09/27/18 05:18 Triglycerides 100 mg/dL (<150) 09/27/18 05:18 Cholesterol 174 mg/dL (<200) 09/27/18 05:18 LDL Cholesterol, Calc 112 mg/dL (0-99) H 09/27/18 05:18 HDL Cholesterol 42 mg/dL (40-60) 09/27/18 05:18 Urine Color Yellow 09/26/18 13:27 Urine Appearance Clear (Clear) 09/26/18 13:27 Urine pH 7.0 (5.0-8.0) 09/26/18 13:27 Ur Specific Prentiss 1.014 (1.001-1.035) 09/26/18 13:27 Urine Protein Trace (Negative) H 09/26/18 13:27 Urine Glucose (UA) Negative (Negative) 09/26/18 13:27 Urine Ketones Negative (Negative) 09/26/18 13:27 Urine Blood Negative (Negative) 09/26/18 13:27 Urine Nitrite Negative (Negative) 09/26/18 13:27 Urine Bilirubin Negative (Negative) 09/26/18 13:27 Urine Urobilinogen 4.0 mg/dL (<2.0) 09/26/18 13:27 Ur Leukocyte Esterase Negative (Negative) 09/26/18 13:27 Serum Alcohol <10 mg/dL 09/26/18 10:00 Influenza Type A RNA Not Detected (Not Detectd) 09/26/18 10:00 Influenza Type B (PCR) Not Detected (Not Detectd) 09/26/18 10:00 Microbiology 09/26/18 23:10 Urine,Catheterized Urine Culture - Final 09/26/18 10:00 Blood Blood Culture - Preliminary No Growth after 48 hours 09/26/18 13:28 Urine,Catheterized Urine Culture - Final - Imaging and Cardiology MRI - head: pending Assessment and Plan (1) Alcoholism Current Visit: Yes Status: Acute Code(s): F10.20 - ALCOHOL DEPENDENCE, UNCOMPLICATED SNOMED Code(s): 6930491 (2) Acute ischemic left middle cerebral artery (MCA) stroke Current Visit: Yes Status: Acute Code(s): I63.512 - CEREB INFRC D/T UNSP OCCLS OR STENOS OF LEFT MID CEREB ART SNOMED Code(s): 499650603 (3) Fever Narrative/Plan: 57-year-old male presents to hospital with alteration of his mental status. The patient has a long-standing history of alcohol use and at first the family thought with his decreased alcohol intake he was having difficulties with withdrawal. However he then developed some twitching to the right side of his face and his speech worsened and constantly was brought to the emergency center. There there was concerns to a left MCA stroke given the twitching to the right arm the right facial droop and twitching and his unintelligible speech. Original computed tomography scan is normal but MRI is still pending, neurology consult is ongoing. At presentation the patient did have a fever 101.1 and an elevated lactic acid. Given his stroke there was concerns of potential aspiration especially since he was also having some acute respiratory failure at the time of his admission that has now improved. On the exam the patient does have evidence of the minimal erythema to the left leg it appears to be small injury the family relates may have come from their pet dog. With his alcohol use he has been skin is noted by the multiple ecchymotic areas on the upper extremities of the also claim comes from his interactions with their pet dog. There could be a mild cellulitis of the left lower extremity and constantly antibiotic therapy will be utilized. There is also concern for potential aspiration although his chest x-ray looks quite well and respiratory failure appears to be improving. Antibiotic therapy with Unasyn is started other antibiotics have been discontinued. Local wound care to the lower extremities with Silvadene is requested. The patient's fever and transient lactic acidosis admission could've also been directly related to his acute cerebrovascular accident. Cultures are negative so far as of 09/28/2018. MRI has just been completed and await the results and further help quantify any difficulty with the right pinna and outer aspect of the auditory canal given the ecchymosis that is seen. There is some notation there has been some traumatic falls. Current Visit: Yes Status: Acute Code(s): R50.9 - FEVER, UNSPECIFIED SNOMED Code(s): 871568384
[2018-09-29] MEDS: IPRATROPIUM-ALBUTEROL 3 ML NEB INHALATION PRN (02:22)
[2018-09-29] MEDS: methylPREDNISolone SOD SUCCI 125 MG/2 ML VIAL IV SCH ×5 (04:00→23:36)
[2018-09-29] MEDS: AMPICILLIN-SULBACTAM 3 GM in SODIUM CHLORIDE 0.9% 100 ML IVPB SCH ×5 (04:00→23:37)
[2018-09-29] MEDS ORDERED: POTASSIUM CHLORIDE 10 MEQ in WATER FOR INJECTION 1 100ML.BAG IVPB SCH (04:00)
[2018-09-29 05:29] LABS: HCT 41.5 % (39.0-53.0); HGB 13.4 gm/dL (13.0-17.5); MCH 32.9 pg (25.0-35.0); MCHC 32.4 g/dL (31.0-37.0); MCV 101.6 fL (80.0-100.0); Mean Platelet Volume 7.3; Platelet Count 158 k/uL (150-450); RBC 4.08 m/uL (4.30-5.90); RDW 12.5 % (11.5-15.5); WBC 8.1 k/uL (3.8-10.6)
[2018-09-29 05:43] LABS: ALT 38 U/L (21-72); AST 46 U/L (17-59); Albumin 3.5 g/dL (3.5-5.0); Alkaline Phosphatase 87 U/L (38-126); Anion Gap 9 mmol/L; Blood Urea Nitrogen 27 mg/dL (9-20); Calcium 7.9 mg/dL (8.4-10.2); Carbon Dioxide 29 mmol/L (22-30); Chloride 102 mmol/L (98-107); Glucose 179 mg/dL (74-99); Phosphorus 4.1 mg/dL (2.5-4.5); Potassium 3.2 mmol/L (3.5-5.1); Sodium 140 mmol/L (137-145); Total Bilirubin 1.1 mg/dL (0.2-1.3); Total Protein 7.1 g/dL (6.3-8.2)
[2018-09-29 06:29] LABS: ABG HCO3 31 mmol/L (21-25); ABG Oxygen Saturation 99.2 % (94-97); ABG PCO2 34 mmHg (35-45); ABG PO2 148 mmHg (83-108); ABG TCO2 32 mmol/L (19-24)
[2018-09-29] MEDS: POTASSIUM CHLORIDE 10 MEQ in WATER FOR INJECTION 1 100ML.BAG IVPB SCH ×7 (06:35→23:36)
[2018-09-29 06:38] LABS: ABG PH 7.57 (7.35-7.45)
[2018-09-29] MEDS: INSULIN ASPART 100 UNIT/ML 1 ML 10 ML VIAL SQ SCH ×4 (06:44→21:31)
[2018-09-29] MEDS: MAGNESIUM SULFATE-D5W PMX 1 GM in DEXTROSE/WATER 1 100ML.BAG IVPB SCH ×2 (06:51→09:30)
[2018-09-29 06:52] LABS: Glucose,Whole Blood 171 mg/dL (75-99)
[2018-09-29] MEDS: IPRATROPIUM-ALBUTEROL 3 ML NEB INHALATION SCH ×4 (08:05→19:10)
--- NOTE | 2018-09-29 08:16 | CONS ---
CONSULTATION Mr. Glasgow is a 58-year-old male with a history of chronic alcoholism who presented with right-sided facial twitching, garbled speech and some weakness on the right side. He was diagnosed with possible acute ischemic event. Patient is awake, following command, has garbled speech and not able to answer questions. Cardiology consultation was requested for possible YARIEL. The patient has no prior history of cardiac disease and there is no evidence of atrial fibrillation during his admission. He was febrile on presentation and he had mild lactic acidosis. In the past, his left ventricular systolic function was preserved and there was no evidence of valvular disease. Apparently, patient has a weak gag reflex. His prior history is remarkable for history of obstructive sleep apnea, history of alcoholism with daily alcohol intake, history of back discomfort. History of smoking. I am not able to obtain review of systems. MEDICATIONS: His medications at the time of presentation include gabapentin, losartan HCT 50-12.5 mg daily and . PHYSICAL EXAMINATION: He is a 58-year-old male, alert, drowsy, opening his eyes to pain and verbal stimuli, garbled speech, following commands. Blood pressure 124/90 with the heart rate in the 70s. HEAD: Normocephalic with some twitching on the right side. EYES: Sclerae nonicteric. NECK: No bruit. LUNGS: With diffuse scattered rhonchi bilaterally. HEART: Regular rate and rhythm. S1, S2. No S3. No rub or gallop appreciated. ABDOMEN: Soft. Positive bowel sounds. No organomegaly. EXTREMITIES: No edema. LAB DATA: Lab data revealed a hemoglobin of 13.4, white blood cell of 8.1. The pH 7.57, pO2 of 148, pCO2 of 34. BUN and creatinine 27 and 0.72. Potassium 3.2. His EKG revealed sinus mechanism with no acute ST-segment changes with evidence of left ventricular hypertrophy. His brain MRI revealed a subacute infarct in the left posterior temporal lobe and insula of left temporal lobe and there is some involvement left occipital lobe cortex and there is also white matter foci that could be chronic small-vessel disease or demyelinating disease. IMPRESSION: 1. Twitching of the face and garbled speech could be transient ischemic attack, no clear evidence of cardiac etiology at this point. 2. History of chronic alcoholism. 3. Febrile episode on presentation with acute respiratory failure on presentation. 4. Chronic tobacco use. The patient has stopped 2 years ago, but he has findings consistent with chronic obstructive lung disease. 5. Chronic back pain. RECOMMENDATION: From the cardiac standpoint, at this time I will hold on doing a YARIEL because of his overall status. I am concerned that if we sedated the patient for a YARIEL there may be a risk of worsening respiratory failure. I will obtain a transthoracic echocardiogram and once he is stabilized then a YARIEL can be performed if clinically indicated. Thank you for this consult. We will follow with you. SADE / IJN: [id number] /
[2018-09-29] MEDS: ASPIRIN 300 MG SUPP RECTAL SCH (09:30)
--- NOTE | 2018-09-29 09:34 | XR ---
EXAMINATION TYPE: XR chest 1V portable DATE OF EXAM: 09/29/2018 COMPARISON: 09/28/2016 INDICATION: Adventitious lung sounds TECHNIQUE: Single frontal view of the chest is obtained. FINDINGS: The heart size is normal. The pulmonary vasculature is normal. Minimal plate atelectasis at the left costophrenic angle. Lung melendez otherwise appear clear. IMPRESSION: 1. Minimal plate atelectasis left base.
--- NOTE | 2018-09-29 09:39 | P.PN ---
Subjective Progress Note Date: 09/29/18 Principal diagnosis: Acute hypoxemic respiratory failure related to suspected aspiration, atelectasis , and mild fluid overload This is a 57-year-old white male patient of Dr. Rick, who was brought into the emergency department on 09/26/2018 for evaluation of right-sided facial twitching, garbled speech, right arm weakness. Initial brain CT was negative for any acute intracranial abnormality, showed mild degenerative change. EKG showed normal sinus rhythm without evidence of acute ischemic changes. Patient has persistent symptoms of expressive aphasia, he is having right-sided facial twitching, and right-sided weakness. Past medical history is significant for heavy EtOH use, nicotine dependence, currently in remission, obstructive sleep apnea, chronic back pain, with history of back surgery with a laminectomy procedure, hypertension. Patient did have a fever presentation, of 101.1F, mild lactic acidosis of 2.5, but his lab work was negative for any leukocytosis , WBC was 7.5, chemistry showed sodium of 134, potassium of 3.6, chloride of 95 , renal profile and rest of electrolytes were within normal limits, AST was 66, ALT was 45, alk phos was 123, troponin was negative 1, urinalysis negative for any infection. Influenza screen was negative, serum alcohol was less than 10. She has developed acute hypoxemic respiratory failure, he is on supplemental oxygen currently at 4 L per nasal cannula. He was noted to be tachypneic at times, he is a poor historian, but he states he is short of breath, but denied any chest pain. Chest x-ray on 09/26/2018 showed mild cardiomegaly, but no acute pulmonary process, chest x-ray taken later that day showed some pulmonary vascular congestion, and widening of the mediastinum, no gross heart failure. Based on the findings of the chest x-ray, fluid overload was suspected, and patient was given a dose of IV Lasix with significant diuresis, he is in -3275 ML fluid balance over the last 24 hours. He was started on empiric antibiotics in the form of Rocephin, and there has been no recurrence of fevers since admission. Cultures are still pending at this time. His morning patient is seen in evaluation on selective care unit, he is awake and alert, he still has significant dysarthria, and expressive aphasia. I'm told by nursing staff that he is requiring intermittent oral suctioning, and patient has no gag reflex, he remains nothing by mouth, he is being evaluation by speech pathologist. No obvious facial asymmetry noted on today's exam, having some twitching of his face, his right-sided weakness seems to be somewhat improved. Urology is following, and patient is undergoing neurological evaluation for suspected left MCA CVA. On 09/28/2018 patient seen in follow-up he was transferred to the intensive care unit last night for acute alcohol , and delirium. He was agitated, he was started on Ativan drip at 1 mg per hour. From pulmonary perspective patient remains congested, and wheezy, currently on 3-1/2 L per nasal cannula, his pulse ox is 93-94%, additional dose of Lasix this morning, patient has diuresis , today's chest x-ray has been reviewed by Dr. Cordoba, and shows worsening of the lung markings, minimal pulmonary congestion, no overt heart failure, improved aeration at the right lung base compared to yesterday. He remains on IV steroids, and nebulized bronchodilators. Highly suspect aspiration, speech therapy has been consulted, patient remains nothing by mouth, he is sedated this morning, we will stop the Ativan drip, patient does arouse to tactile stimuli, however he falls back asleep. No obvious facial asymmetry noted, patient was asked to squeeze hands, and patient's right-sided project accountant is still weaker than the left. Patient remains on antibiotic coverage, for his cellulitis. He is scheduled for EEG and MRI of the brain today. Dynamically stable, his maintenance IV fluids is 0.9 normal saline at a rate of 20 ML per hour. No other drips. Today's labs have been reviewed, WBC 7.2, hemoglobin is 13.0, electrolytes are within normal limits, BUN is up slightly at 22, creatinine 0.7. Cultures remain negative thus far, unable to send the sputum culture, patient is unable to cough and produce a sputum sample. Neurology, infectious disease are following. On 09/29/2018 patient seen in follow-up in the intensive care unit, is a little bit more alert today, he tries to squeeze hands on command, he still has right- sided weakness. His cough is weak, patient remains congested, he is currently on 10 L per high flow nasal cannula, and his pulse ox is 96%, patient is afebrile, hemodynamically stable, yesterday patient was placed back on Ativan drip, which is currently infusing at a rate of 2 mg per hour for acute agitation , and seizure-like activity. Brain MRI showed abnormal cortical signal in the left posterior temporal lobe and insula of the left temporal lobe consistent with subacute infarct. Multiple white matter foci that were nonspecific but could relate to chronic small vessel ischemia 0D myelinating disease. EEG was moderately abnormal in a diffuse fashion due to slowing of the EEG background, it failed to reveal any focal, lateralizing or epileptiform abnormalities. His chest x-ray has been reviewed by Dr. Cordoba, and showed no acute abnormality, small pleural effusion, and some bibasilar atelectasis. Patient continues on nebulized bronchodilators, he remains nothing by mouth for aspiration precautions, he has been unable to complete a swallow evaluation due to his mental status, agitation, and sedation. Speech therapy is to reevaluate the patient today. Ultra Tears remain negative, no fever no chills, patient is on Unasyn for the cellulitis in his lower legs. Infectious disease is following. Objective - Vital Signs Vital signs: Vital Signs Temp 97.9 F 09/29/18 08:00 Pulse 79 09/29/18 08:22 Resp 19 09/29/18 08:00 BP 152/88 09/29/18 08:00 Pulse Ox 66 L 09/29/18 08:00 Intake & Output 09/28/18 09/29/18 09/29/18 18:59 06:59 18:59 Intake Total 520.521 343.250 40 Output Total 985 560 79 Balance -464.479 -216.750 -39 Weight 119.068 kg Intake: IV 490 300 40 .9 NS 190 200 40 Ampicillin-Sulbactam 3 gm 100 In Sodium Chloride 0.9% 100 ml @ 200 mls/hr IVPB Q6HR JALEN Rx#:[id number] Potassium Chloride 10 meq 300 In Water For Injection 1 100ml.bag @ 100 mls/hr IVPB Q1HR JALEN Rx#: [id number] Intake, IV Titration 30.521 43.250 Amount LORazepam Vial 40 mg In 30.521 43.250 Dextrose 5% in Water 80 ml @ 2 MG/HR 5 mls/hr IV .Q20H JALEN Rx#:[id number] Output: Urine 985 560 79 Other: Voiding Method Indwelling Catheter Indwelling Catheter Indwelling Catheter # Bowel Movements 0 - Exam GENERAL EXAM: Awake, alert, 57-year-old white male, in no apparent distress, has difficulty communicating, patient is nonverbal he responding today, has expressive aphasia. He did attempt to squeeze with his hands on command, still has the right-sided weakness HEAD: Normocephalic/atraumatic. EYES: Normal reaction of pupils, equal size. Conjunctiva pink, sclera white. NOSE: Clear with pink turbinates. THROAT: No erythema or exudates. NECK: No masses, no JVD, no thyroid enlargement, no adenopathy. CHEST: No chest wall deformity. Symmetrical expansion. LUNGS: Diffuse rhonchi throughout CVS: Regular rate and rhythm, normal S1 and S2, no gallops, no murmurs, no rubs ABDOMEN: Soft, nontender. No hepatosplenomegaly, normal bowel sounds, no guarding or rigidity. EXTREMITIES: No clubbing, no edema, no cyanosis, 2+ pulses and upper and lower extremities. Bilateral lower extremities are jesse wrapped MUSCULOSKELETAL: Right-sided weakness, and upper and lower extremity SPINE: No scoliosis or deformity SKIN: No rashes CENTRAL NERVOUS SYSTEM: Patient has right-sided project accountant weakness, unable to assess motor strength in lower extremity. - Labs CBC & Chem 7: 09/29/18 04:55 09/29/18 04:55 Labs: Abnormal Lab Results - Last 24 Hours (Table) 09/28/18 09/28/18 09/28/18 Range/Units 11:47 18:15 19:24 RBC (4.30-5.90) m/uL MCV (80.0-100.0) fL ABG pH (7.35-7.45) ABG pCO2 (35-45) mmHg ABG pO2 (83-108) mmHg ABG HCO3 (21-25) mmol/L ABG Total CO2 (19-24) mmol/L ABG O2 Saturation (94-97) % Potassium 3.3 L (3.5-5.1) mmol/L BUN (9-20) mg/dL Glucose (74-99) mg/dL POC Glucose (mg/dL) 148 H 154 H (75-99) mg/dL Calcium (8.4-10.2) mg/dL 09/28/18 09/29/18 09/29/18 Range/Units 20:47 04:55 04:55 RBC 4.08 L (4.30-5.90) m/uL MCV 101.6 H (80.0-100.0) fL ABG pH (7.35-7.45) ABG pCO2 (35-45) mmHg ABG pO2 (83-108) mmHg ABG HCO3 (21-25) mmol/L ABG Total CO2 (19-24) mmol/L ABG O2 Saturation (94-97) % Potassium 3.2 L (3.5-5.1) mmol/L BUN 27 H (9-20) mg/dL Glucose 179 H (74-99) mg/dL POC Glucose (mg/dL) 159 H (75-99) mg/dL Calcium 7.9 L (8.4-10.2) mg/dL 09/29/18 09/29/18 Range/Units 06:24 06:41 RBC (4.30-5.90) m/uL MCV (80.0-100.0) fL ABG pH 7.57 H* (7.35-7.45) ABG pCO2 34 L (35-45) mmHg ABG pO2 148 H (83-108) mmHg ABG HCO3 31 H (21-25) mmol/L ABG Total CO2 32 H (19-24) mmol/L ABG O2 Saturation 99.2 H (94-97) % Potassium (3.5-5.1) mmol/L BUN (9-20) mg/dL Glucose (74-99) mg/dL POC Glucose (mg/dL) 171 H (75-99) mg/dL Calcium (8.4-10.2) mg/dL Microbiology - Last 24 Hours (Table) 09/26/18 23:10 Urine Culture - Final Urine,Catheterized 09/26/18 10:00 Blood Culture - Preliminary Blood No Growth after 48 hours Assessment and Plan Plan: Assessment: #1. Acute hypoxemic respiratory failure, related to fluid overload and suspected aspiration, chest x-ray showed some pulmonary vascular congestion, cardiomegaly, patient has been receiving intermittent daily doses of Lasix, and today's chest x-ray on 09/29/2018 was no acute pulmonary process, small left pleural effusion, and bibasilar atelectasis, no clear evidence of pneumonia #2. Left hemispheric CVA, patient presented with sided weakness, twitching, expressive aphasia #3. Mild lactic acidosis present on admission, febrile episode, rule out infectious etiology/sepsis. Cultures are pending, and there has been no recurrence of fevers. Lactic acid is now within normal limits. #4. EtOH dependence, and acute withdrawal with agitation and delirium #5. Nicotine dependence, currently in remission, patient quit smoking 2 years ago, but carries [id number] smoking history #6. History of obstructive sleep apnea #7. History of chronic back pain, related to work related injury, patient is status post laminectomy and fusion, follows with Dr. Marino #8. Hypertension Plan: We will check with neurology whether the Ativan drip can be discontinued, and whether CIWA protocol can be used for management of patient's EtOH withdrawal. Continue monitoring the neurological status, patient nothing by mouth, maintain aspiration precautions, speech evaluation is pending, we will add a small dose of Lasix on a daily basis, 20 mg daily, patient's chest x-ray has been reviewed by Dr. Dr. Cordoba, showed small left pleural effusion, no acute process. No clear evidence of pneumonia. No fever, no chills, patient is covered with Unasyn for the cellulitis in his bilateral lower extremities, Dr. López is following. I performed a history & physical examination of the patient and discussed their management with my nurse practitioner, Nimisha Higgins. I reviewed the nurse practitioner's note and agree with the documented findings and plan of care. Lung sounds are positive some scattered wheezes. The findings and the impression was discussed with the patient. I attest to the documentation by the nurse practitioner. Time with Patient: Greater than 30
--- NOTE | 2018-09-29 10:35 | ECHOF ---
Referral Reason:htn MEASUREMENTS -------- HEIGHT: 182.9 cm WEIGHT: 118.8 kg BP: 130/82 RVIDd: 2.9 cm (< 3.3) IVSd: 1.3 cm (0.6 - 1.1) LVIDd: 5.0 cm (3.9 - 5.3) LVPWd: 1.1 cm (0.6 - 1.1) IVSs: 1.7 cm LVIDs: 3.1 cm LVPWs: 0.9 cm Ao Diam: 3.1 cm (2.0 - 3.7) AV Cusp: 1.8 cm (1.5 - 2.6) LA Diam: 3.7 cm (2.7 - 3.8) MV EXCURSION: 19.089 mm (> 18.000) MV EF SLOPE: 124 mm/s (70 - 150) EPSS: 0.3 cm MV E Nickolas: 0.65 m/s MV DecT: 263 ms MV A Nickolas: 0.66 m/s MV E/A Ratio: 0.99 RAP: 5.00 mmHg RVSP: 16.65 mmHg FINDINGS -------- Sinus rhythm. This was a techncally difficult study with suboptimal views, , Lumason utilized for enhancement of im ages. The left ventricular size is normal. There is mild concentric left ventricular hypertrophy. Overa ll left ventricular systolic function is normal with, an EF between 55 - 60 %. The right ventricle is normal in size. The left atrial size is normal. The right atrial size is normal. 5.0mg OF Lumason UTLIZED: 2 OR MORE WALL SEGMENTS NOT VISUALIZED. The aortic valve is trileaflet, and appears structurally normal. No aortic stenosis or regurgitation. Mild mitral regurgitation is present. Mild tricuspid regurgitation present. There is no evidence of pulmonary hypertension. The right v entricular systolic pressure, as measured by Doppler, is 16.65mmHg. There is no pulmonic regurgitation present. The aortic root size is normal. There is no pericardial effusion. CONCLUSIONS -------- 1. This was a techncally difficult study with suboptimal views, , Lumason utilized for enhancement of images. 2. The left ventricular size is normal. 3. There is mild concentric left ventricular hypertrophy. 4. Overall left ventricular systolic function is normal with, an EF between 55 - 60 %. 5. The right ventricle is normal in size. 6. The left atrial size is normal. 7. The right atrial size is normal. 8. 5.0mg OF Lumason UTLIZED: 2 OR MORE WALL SEGMENTS NOT VISUALIZED. 9. The aortic valve is trileaflet, and appears structurally normal. No aortic stenosis or regurgitati on. 10. Mild mitral regurgitation is present. 11. Mild tricuspid regurgitation present. 12. There is no evidence of pulmonary hypertension. 13. The right ventricular systolic pressure, as measured by Doppler, is 16.65mmHg. 14. There is no pulmonic regurgitation present. 15. The aortic root size is normal. 16. There is no pericardial effusion. LINK KNITTING MACHINE OPERATOR: Sravanthi Landis RDCS
[2018-09-29] MEDS: FUROSEMIDE 10 MG/ML 2 ML VIAL IV SCH (11:00)
[2018-09-29 12:10] LABS: Glucose,Whole Blood 221 mg/dL (75-99)
[2018-09-29] MEDS: THIAMINE 100 MG TAB PO SCH ×2 (12:30→16:19)
[2018-09-29] MEDS: LORazepam 2 MG/ML INJ IV PRN ×3 (13:57→23:36)
--- NOTE | 2018-09-29 15:08 | P.PN ---
Subjective Progress Note Date: 09/29/18 This patient is a 57-year-old male who was seen in neurology consultation for evaluation of altered mental status and increased confusion. Patient was found to have evidence of expressive aphasia with right-sided facial droop. He underwent an MRI of the brain for further evaluation of acute left MCA stroke. He was noted to have some facial twitching on his right side as well with evidence yesterday of having some blepharospasms of the eyelids. The patient has a extensive history of alcohol abuse in the past. He has been placed on a CIWA protocol and was switched to an Ativan drip due to agitation today. Due to excessive sedation he was taken off of the Ativan drip this morning. He is to continue on a CIWA protocol. The patient is undergoing a complete stroke evaluation. The patient remains somewhat obtunded today but is arousable only to sternal rub. This is likely secondary effect to his Ativan CIWA protocol. The patient was able to complete MRI of the brain yesterday which was reviewed. His MRI reveals abnormal cortical signal in the left posterior temporal lobe and also the left insula. These findings are consistent with subacute infarct. There was also probable involvement of the left occipital lobe as well. These multiple areas of infarction suggest possibility of cardioembolic stroke. We are recommending the patient to be evaluated by cardiology for YARIEL procedure. He does continue to demonstrate evidence of dysarthric speech when he is awake and conversing with the nursing staff. He has word finding difficulties in speech is quite garbled at times. This patient has suffered an acute left hemispheric stroke suggesting possibility of cardioembolic phenomenon. His MRI findings were discussed today with Dr. Quiñonez from cardiology. He would like to hold off on performing a YARIEL procedure on this patient who is still not alert enough to follow commands. There is concern for possibility of aspiration given his low level of alertness. We will hold off on YARIEL procedure at this time until the patient shows more improvement in his overall mental status. He is to continue with current medical management of his multiple conditions and he is being followed by multiple specialists. His overall prognosis at this time remains very guarded. Objective - Vital Signs Vital signs: Vital Signs Temp 97.9 F 09/29/18 08:00 Pulse 86 09/29/18 12:07 Resp 15 09/29/18 10:00 BP 137/78 09/29/18 11:00 Pulse Ox 94 L 09/29/18 11:00 Intake & Output 09/28/18 09/29/18 09/29/18 18:59 06:59 18:59 Intake Total 520.521 343.250 80 Output Total 985 560 175 Balance -464.479 -216.750 -95 Weight 119.068 kg Intake: IV 490 300 80 .9 NS 190 200 80 Ampicillin-Sulbactam 3 gm 100 In Sodium Chloride 0.9% 100 ml @ 200 mls/hr IVPB Q6HR [facility] Rx#:[id number] Potassium Chloride 10 meq 300 In Water For Injection 1 100ml.bag @ 100 mls/hr IVPB Q1HR [facility]AL[facility] Rx#: [id number] Intake, IV Titration 30.521 43.250 Amount LORazepam Vial 40 mg In 30. 43.250 Dextrose 5% in Water 80 ml @ 2 MG/HR 5 mls/hr IV .Q20H [facility] Rx#:[id number] Output: Urine 985 560 175 Other: Voiding Method Indwelling Catheter Indwelling Catheter Indwelling Catheter # Bowel Movements 0 - Exam Physical examination: PHYSICAL EXAMINATION: Patient is resting comfortably in bed. VITAL SIGNS: Blood pressure is [137/78]. Heart rate is [79]. Respiration is [15] . Temperature is [97.9]. HEENT: Head is atraumatic, neck is supple, there were no carotid bruits. CHEST: Lungs are clear to auscultation and percussion. CARDIAC: S1, S2 normal rate and rhythm. There is no murmur. ABDOMEN: Soft and nontender. Bowel sounds are present. EXTREMITIES: There is no pedal edema. Peripheral pulses are present. Neurological examination: The patient is examined today in the intensive care unit. He remains obtunded secondary to medication effect from the Ativan. patient is awake but follows only very simple commands. He is not oriented to time or place. He is drowsy and unable to follow any commands at this time. He is noted to be moving all 4 extremities. His memory and intellectual functions are severely impaired at this time. Cranial nerve examination: Cranial nerves II through XII are grossly intact. Motor examination: Patient is moving all 4 extremities. Sensory examination: Patient does withdraw to painful stimuli. Deep tendon reflexes: DTRs are 1+ and symmetric. Plantar responses flexor bilaterally. Pronation gait cannot be assessed in this patient at this time. - Labs CBC & Chem 7: 09/29/18 04:55 09/29/18 04:55 Labs: Abnormal Lab Results - Last 24 Hours (Table) 09/28/18 09/28/18 09/28/18 Range/Units 18:15 19:24 20:47 RBC (4.30-5.90) m/uL MCV (80.0-100.0) fL ABG pH (7.35-7.45) ABG pCO2 (35-45) mmHg ABG pO2 (83-108) mmHg ABG HCO3 (21-25) mmol/L ABG Total CO2 (19-24) mmol/L ABG O2 Saturation (94-97) % Potassium 3.3 L (3.5-5.1) mmol/L BUN (9-20) mg/dL Glucose (74-99) mg/dL POC Glucose (mg/dL) 154 H 159 H (75-99) mg/dL Calcium (8.4-10.2) mg/dL 09/29/18 09/29/18 09/29/18 Range/Units 04:55 04:55 06:24 RBC 4.08 L (4.30-5.90) m/uL MCV 101.6 H (80.0-100.0) fL ABG pH 7.57 H* (7.35-7.45) ABG pCO2 34 L (35-45) mmHg ABG pO2 148 H (83-108) mmHg ABG HCO3 31 H (21-25) mmol/L ABG Total CO2 32 H (19-24) mmol/L ABG O2 Saturation 99.2 H (94-97) % Potassium 3.2 L (3.5-5.1) mmol/L BUN 27 H (9-20) mg/dL Glucose 179 H (74-99) mg/dL POC Glucose (mg/dL) (75-99) mg/dL Calcium 7.9 L (8.4-10.2) mg/dL 09/29/18 09/29/18 Range/Units 06:41 11:59 RBC (4.30-5.90) m/uL MCV (80.0-100.0) fL ABG pH (7.35-7.45) ABG pCO2 (35-45) mmHg ABG pO2 (83-108) mmHg ABG HCO3 (21-25) mmol/L ABG Total CO2 (19-24) mmol/L ABG O2 Saturation (94-97) % Potassium (3.5-5.1) mmol/L BUN (9-20) mg/dL Glucose (74-99) mg/dL POC Glucose (mg/dL) 171 H 221 H (75-99) mg/dL Calcium (8.4-10.2) mg/dL Microbiology - Last 24 Hours (Table) 09/26/18 10:00 Blood Culture - Preliminary Blood No Growth after 72 hours 09/26/18 23:10 Urine Culture - Final Urine,Catheterized Assessment and Plan (1) Acute ischemic left middle cerebral artery (MCA) stroke Current Visit: Yes Status: Acute Code(s): I63.512 - CEREB INFRC D/T UNSP OCCLS OR STENOS OF LEFT MID CEREB ART SNOMED Code(s): 158827436 (2) Alcoholism Current Visit: Yes Status: Acute Code(s): F10.20 - ALCOHOL DEPENDENCE, UNCOMPLICATED SNOMED Code(s): 9493419 (3) Febrile illness Current Visit: Yes Status: Acute Code(s): R50.9 - FEVER, UNSPECIFIED SNOMED Code(s): 740569381 (4) Chronic kidney disease Current Visit: No Status: Acute Code(s): N18.9 - CHRONIC KIDNEY DISEASE, UNSPECIFIED SNOMED Code(s): 025242056 (5) Syncopal episodes Current Visit: No Status: Acute Code(s): R55 - SYNCOPE AND COLLAPSE SNOMED Code(s): 889161510 Plan: This patient is a 58-year-old right-handed white male who was admitted to Hospital with symptoms of acute hypoxic respiratory failure and fluid overload. He was resuscitated and transferred to the intensive care unit where he was noted to have evidence of severe dysarthric speech. Patient has history of alcohol abuse and was started on a CIWA protocol in the intensive care unit. He was complaining of weakness on his right side. He was sent for MRI of the brain today which was completed yesterday. MRI reveals evidence of multiple areas of acute stroke involving the left posterior temporal lobe and left insula. There is also questionable left occipital lobe infarct on this MRI of the brain. These findings suggest possibility of cardioembolic phenomena as a cause of his stroke. We have consulted cardiology for YARIEL procedure tomorrow morning. Case was discussed today with Dr. Quiñonez from cardiology. He would like to hold off on performing the YARIEL procedure until the patient is more awake and alert. He is concerned for possibility of aspiration. The patient is being treated for alcohol withdrawal syndrome and is currently on Ativan drip. Due to severe sedation he is now been switched back to a CIWA protocol and seems to be tolerating this well. He was very combative earlier in the day secondary to his long-standing history of alcohol abuse. Neurologically the patient is showing no new clinical signs. We will continue close neurological follow-up for the patient during this admission. His overall prognosis at this time remains very guarded. We will continue our workup for a complete stroke assessment in this patient. His overall prognosis at this time remains very guarded.
[2018-09-29 17:18] LABS: Glucose,Whole Blood 165 mg/dL (75-99)
[2018-09-29] MEDS ORDERED: Potassium Replacement Protocol 1 EACH MISC MISCELLANE PRN (18:57)
[2018-09-29] MEDS: LORazepam Vial 40 MG in DEXTROSE 5% IN WATER 80 ML IV SCH ×2 (21:20)
[2018-09-29 21:29] LABS: Glucose,Whole Blood 168 mg/dL (75-99)
--- NOTE | 2018-09-29 22:57 | P.PN ---
Subjective Progress Note Date: 09/28/18 Principal diagnosis: Left MCA stroke Mr. Glasgow is a 57-year-old male with a past medical history of chronic low back pain status post laminectomy and fusion follows with Dr. Ruth, obstructive sleep apnea, obesity, hypertension brought in by his family members for right upper extremity weakness and right facial twitching. And he has pain having garbled speech for the past couple of days. The patient has garbled speech which cannot be comprehended, so most of the history is taken from the who is at the bedside. The mentions that for the past 1 week patient has been having right arm weakness, and also slurring of his speech. When he was asked by his to go to the hospital, the patient became very combative and did not want to seek medical attention. But eventually the family noticed that they could not understand his speech and his weakness has been getting worse and he was not able to get out of the bed, so brought to the hospital for further evaluation. As per his patient is alcoholic and drinks alcohol every day. Patient has history of obstructive sleep apnea. Noncompliant with CPAP. His chronic low back pain issues status post laminectomy and fusion surgery. He follows with Dr. Ruth in the pain clinic. Patient usually walks with a walker at home and has bilateral lower extremity weakness since having the surgery. His also mentions that patient suffered a fall in February 2018 due to his history of alcoholism as he was intoxicated. At that time patient had acute intracerebral hemorrhage involving the right frontal and parietal lobes. In the ED patient had a CAT scan of the brain that was negative for any acute intracranial abnormality. Patient had a fever in the ED, he was given a dose of ceftriaxone and admitted to the hospital. on 09/27/18 - Today the pt is lying in the bed . Over night pt had issues with swallowing and was aspirating his own secretions. He was kept NPO. as per nursing staff report ,pt has twitching movements of his right arm and right side of the face this afternoon. On 09/28/2018 Patient was transferred to intensive care unit due to alcohol withdrawals and possible DTs. Patient was started on Ativan drip. Currently discontinued. Patient's blood pressure is uncontrolled. Patient failed swallow evaluation. Patient was given a dose of IV Lasix 40 mg today. Chest x-ray showed worsening lung markings, minimal pulmonary congestion and no overt heart failure, improved aeration in the right lung base compared to yesterday. Patient is continued on IV steroids and breathing treatments. Patient is being continued on antibiotics for cellulitis. MRI scheduled for 4 PM today., Patient is being followed by pulmonary, neurology and ID. Patient is on high flow oxygen via nausea cannula. Review of systems-could not be done as the patient has garbled speech. He has expressive aphasia. Objective - Vital Signs Vital signs: Vital Signs Temp 98.3 F 09/28/18 16:00 Pulse 68 09/28/18 17:40 Resp 24 09/28/18 17:00 BP 146/92 09/28/18 17:00 Pulse Ox 94 L 09/28/18 17:00 Intake & Output 09/27/18 09/28/18 09/28/18 18:59 06:59 18:59 Intake Total 4.667 499.938 Output Total 800 1375 985 Balance -800 -1370.333 -485.062 Intake: IV 490 .9 NS 190 Potassium Chloride 10 meq 300 In Water For Injection 1 100ml.bag @ 100 mls/hr IVPB Q1HR JALEN Rx#: [id number] Intake, IV Titration 4.667 9.938 Amount LORazepam Vial 40 mg In 4.667 9.938 Dextrose 5% in Water 80 ml @ 2 MG/HR 5 mls/hr IV .Q20H JALEN Rx#:[id number] Output: Urine 800 1375 985 Uretheral (Romo) 700 Other: Voiding Method Indwelling Catheter Indwelling Catheter Indwelling Catheter # Bowel Movements 0 0 - Exam GEN. APPEARANCE: alert, in no apparent distress, poorly kempt. HEAD EXAM: atraumatic, normocephalic, normal inspection EYE EXAM: No pallor. No icterus. ENT EXAM: normal exam, mucous membranes moist NECK EXAM: No JVD. No thyromegaly. No meningismus. RESPIRATORY EXAM: Coarse breath sounds heard bilaterally. No wheezes or crackles. Diminished at the bases. CARDIOVASCULAR EXAM: S1 and S2 heard. Tachycardia. GI/ABDOMINAL EXAM: soft, normal bowel sounds. Absent: distended, tenderness, guarding, rebound, rigid EXTREMITIES EXAM: No edema. NEUROLOGICAL EXAM: alert, follows simple commands.power is 3 x 5 in the upper extremity on the right side and 4 x 5 in the left side. Bilateral lower dcvhicpcjzo-cjinktl-yfiff is 1 / 5. - Labs CBC & Chem 7: 09/29/18 04:55 09/29/18 18:06 Labs: Abnormal Lab Results - Last 24 Hours (Table) 09/27/18 09/28/18 09/28/18 Range/Units 20:22 04:10 04:10 RBC 3.77 L (4.30-5.90) m/uL Hct 38.1 L (39.0-53.0) % MCV 101.0 H (80.0-100.0) fL Plt Count 137 L (150-450) k/uL Lymphocytes # 0.3 L (1.0-4.8) k/uL BUN 22 H (9-20) mg/dL Glucose 180 H (74-99) mg/dL POC Glucose (mg/dL) 182 H (75-99) mg/dL Calcium 7.7 L (8.4-10.2) mg/dL 09/28/18 09/28/18 Range/Units 08:57 11:47 RBC (4.30-5.90) m/uL Hct (39.0-53.0) % MCV (80.0-100.0) fL Plt Count (150-450) k/uL Lymphocytes # (1.0-4.8) k/uL BUN (9-20) mg/dL Glucose (74-99) mg/dL POC Glucose (mg/dL) 175 H 148 H (75-99) mg/dL Calcium (8.4-10.2) mg/dL Microbiology - Last 24 Hours (Table) 09/26/18 23:10 Urine Culture - Final Urine,Catheterized 09/26/18 10:00 Blood Culture - Preliminary Blood No Growth after 48 hours 09/26/18 13:28 Urine Culture - Final Urine,Catheterized Assessment and Plan Assessment: Acute hypoxic respiratory failure secondary to fluid overload and suspected aspiration pneumonia. Right upper extremity weakness- secondary to acute left hemispheric cerebrovascular accident Slurred speech-secondary to stroke Hypertensive urgency Alcohol withdrawal symptoms and possible DTs History of obstructive sleep apnea Chronic back pain with history of work-related injury Alcohol abuse Hypomagnesemia Obesity BMI is 35.9 DVT prophylaxis Plan: Patient has right upper extremity along with slurring of speech secondary to stroke. CT of the head has been negative for any acute intracranial process. Patient had a fever, so empirically started on antibiotics. Blood cultures, urine cultures, sputum cultures have been obtained. In the ED patient was noted to have twitching movements of his right upper extremity along with twitching movements of his right side of the face. Neurology on board and following. Patient will be continued on aspirin rectally, antibiotics in the form of Unasyn and continue with hydralazine IV when necessary if SBP greater than 160 mmHg. Further recommendations to follow depending on the progress of the patient discussed with his at the bedside explained that this is most likely a stroke. Patient to be kept nothing by mouth as that is a risk of aspiration. Overall prognosis is poor. Time with Patient: Greater than 30
--- NOTE | 2018-09-29 23:02 | P.PN ---
Subjective Progress Note Date: 09/29/18 Principal diagnosis: Left MCA stroke Mr. Glasgow is a 57-year-old male with a past medical history of chronic low back pain status post laminectomy and fusion follows with Dr. Ruth, obstructive sleep apnea, obesity, hypertension brought in by his family members for right upper extremity weakness and right facial twitching. And he has pain having garbled speech for the past couple of days. The patient has garbled speech which cannot be comprehended, so most of the history is taken from the who is at the bedside. The mentions that for the past 1 week patient has been having right arm weakness, and also slurring of his speech. When he was asked by his to go to the hospital, the patient became very combative and did not want to seek medical attention. But eventually the family noticed that they could not understand his speech and his weakness has been getting worse and he was not able to get out of the bed, so brought to the hospital for further evaluation. As per his patient is alcoholic and drinks alcohol every day. Patient has history of obstructive sleep apnea. Noncompliant with CPAP. His chronic low back pain issues status post laminectomy and fusion surgery. He follows with Dr. Ruth in the pain clinic. Patient usually walks with a walker at home and has bilateral lower extremity weakness since having the surgery. His also mentions that patient suffered a fall in February 2018 due to his history of alcoholism as he was intoxicated. At that time patient had acute intracerebral hemorrhage involving the right frontal and parietal lobes. In the ED patient had a CAT scan of the brain that was negative for any acute intracranial abnormality. Patient had a fever in the ED, he was given a dose of ceftriaxone and admitted to the hospital. on 09/27/18 - Today the pt is lying in the bed . Over night pt had issues with swallowing and was aspirating his own secretions. He was kept NPO. as per nursing staff report ,pt has twitching movements of his right arm and right side of the face this afternoon. On 09/28/2018 Patient was transferred to intensive care unit due to alcohol withdrawals and possible DTs. Patient was started on Ativan drip. Currently discontinued. Patient's blood pressure is uncontrolled. Patient failed swallow evaluation. Patient was given a dose of IV Lasix 40 mg today. Chest x-ray showed worsening lung markings, minimal pulmonary congestion and no overt heart failure, improved aeration in the right lung base compared to yesterday. Patient is continued on IV steroids and breathing treatments. Patient is being continued on antibiotics for cellulitis. MRI scheduled for 4 PM today., Patient is being followed by pulmonary, neurology and ID. Patient is on high flow oxygen via nausea cannula. 09/29/2018 Patient is still having significant right-sided weakness. But was able to follow simple commands. Patient is still requiring high flow oxygen via nasal cannula. MRI of the brain showed abnormal cortical signal in the left posterior temporal lobe consistent with subacute stroke. EEG is abnormal. 2-D echocardiogram was done. YARIEL could not be done due to his overall respiratory status. Chest x-ray showed minimal platelike atelectasis, left base. Patient is being continued on Unasyn for the cellulitis in his bilateral lower extremities. Pulmonary, ID and neurology is following.. Review of systems-could not be done as the patient has garbled speech. He has expressive aphasia. Current medications reviewed. Objective - Vital Signs Vital signs: Vital Signs Temp 97.9 F 09/29/18 08:00 Pulse 86 09/29/18 12:07 Resp 15 09/29/18 10:00 BP 137/78 09/29/18 11:00 Pulse Ox 94 L 09/29/18 11:00 Intake & Output 09/28/18 09/29/18 09/29/18 18:59 06:59 18:59 Intake Total 520.521 343.250 80 Output Total 985 560 175 Balance -464.479 -216.750 -95 Weight 119.068 kg Intake: IV 490 300 80 .9 NS 190 200 80 Ampicillin-Sulbactam 3 gm 100 In Sodium Chloride 0.9% 100 ml @ 200 mls/hr IVPB Q6HR JALEN Rx#:[id number] Potassium Chloride 10 meq 300 In Water For Injection 1 100ml.bag @ 100 mls/hr IVPB Q1HR JALEN Rx#: [id number] Intake, IV Titration 30.521 43.250 Amount LORazepam Vial 40 mg In 30.52 43.250 Dextrose 5% in Water 80 ml @ 2 MG/HR 5 mls/hr IV .Q20H JALEN Rx#:[id number] Output: Urine 985 560 175 Other: Voiding Method Indwelling Catheter Indwelling Catheter Indwelling Catheter # Bowel Movements 0 - Exam GEN. APPEARANCE: alert, in no apparent distress, poorly kempt. HEAD EXAM: atraumatic, normocephalic, normal inspection EYE EXAM: No pallor. No icterus. ENT EXAM: normal exam, mucous membranes moist NECK EXAM: No JVD. No thyromegaly. No meningismus. RESPIRATORY EXAM: Coarse breath sounds heard bilaterally. No wheezes or crackles. Diminished at the bases. CARDIOVASCULAR EXAM: S1 and S2 heard. Tachycardia. GI/ABDOMINAL EXAM: soft, normal bowel sounds. Absent: distended, tenderness, guarding, rebound, rigid EXTREMITIES EXAM: No edema. NEUROLOGICAL EXAM: alert, follows simple commands.power is 3 x 5 in the upper extremity on the right side and 4 x 5 in the left side. Bilateral lower huqxswkzfpr-ubionat-izmmt is 1 / 5. - Labs CBC & Chem 7: 09/29/18 04:55 09/29/18 18:06 Labs: Abnormal Lab Results - Last 24 Hours (Table) 09/28/18 09/28/18 09/28/18 Range/Units 18:15 19:24 20:47 RBC (4.30-5.90) m/uL MCV (80.0-100.0) fL ABG pH (7.35-7.45) ABG pCO2 (35-45) mmHg ABG pO2 (83-108) mmHg ABG HCO3 (21-25) mmol/L ABG Total CO2 (19-24) mmol/L ABG O2 Saturation (94-97) % Potassium 3.3 L (3.5-5.1) mmol/L BUN (9-20) mg/dL Glucose (74-99) mg/dL POC Glucose (mg/dL) 154 H 159 H (75-99) mg/dL Calcium (8.4-10.2) mg/dL 09/29/18 09/29/18 09/29/18 Range/Units 04:55 04:55 06:24 RBC 4.08 L (4.30-5.90) m/uL MCV 101.6 H (80.0-100.0) fL ABG pH 7.57 H* (7.35-7.45) ABG pCO2 34 L (35-45) mmHg ABG pO2 148 H (83-108) mmHg ABG HCO3 31 H (21-25) mmol/L ABG Total CO2 32 H (19-24) mmol/L ABG O2 Saturation 99.2 H (94-97) % Potassium 3.2 L (3.5-5.1) mmol/L BUN 27 H (9-20) mg/dL Glucose 179 H (74-99) mg/dL POC Glucose (mg/dL) (75-99) mg/dL Calcium 7.9 L (8.4-10.2) mg/dL 09/29/18 09/29/18 Range/Units 06:41 11:59 RBC (4.30-5.90) m/uL MCV (80.0-100.0) fL ABG pH (7.35-7.45) ABG pCO2 (35-45) mmHg ABG pO2 (83-108) mmHg ABG HCO3 (21-25) mmol/L ABG Total CO2 (19-24) mmol/L ABG O2 Saturation (94-97) % Potassium (3.5-5.1) mmol/L BUN (9-20) mg/dL Glucose (74-99) mg/dL POC Glucose (mg/dL) 171 H 221 H (75-99) mg/dL Calcium (8.4-10.2) mg/dL Microbiology - Last 24 Hours (Table) 09/26/18 10:00 Blood Culture - Preliminary Blood No Growth after 72 hours 09/26/18 23:10 Urine Culture - Final Urine,Catheterized Assessment and Plan Assessment: Acute hypoxic respiratory failure secondary to fluid overload and suspected aspiration pneumonia. Right upper extremity weakness- secondary to acute left hemispheric cerebrovascular accident Slurred speech-secondary to stroke Hypertensive urgency Alcohol withdrawal symptoms and possible DTs History of obstructive sleep apnea Chronic back pain with history of work-related injury Alcohol abuse Hypomagnesemia Obesity BMI is 35.9 DVT prophylaxis Plan: Patient has right upper extremity along with slurring of speech secondary to stroke. CT of the head has been negative for any acute intracranial process. Patient had a fever, so empirically started on antibiotics. Blood cultures, urine cultures, sputum cultures have been obtained. In the ED patient was noted to have twitching movements of his right upper extremity along with twitching movements of his right side of the face. Neurology on board and following. Patient will be continued on aspirin rectally, antibiotics in the form of Unasyn and continue with hydralazine IV when necessary if SBP greater than 160 mmHg. Catapres patch if available at pharmacy. Continue with IV Lasix. Further recommendations to follow depending on the progress of the patient discussed with his at the bedside explained that this is most likely a stroke. Patient to be kept nothing by mouth as that is a risk of aspiration. Overall prognosis is poor. Time with Patient: Greater than 30
--- NOTE | 2018-09-29 23:27 | P.PN ---
Subjective Progress Note Date: 09/29/18 57 -year-old male presents to the emergency center by his family. They relates that he has a history of significant alcohol use. Often greater than 10 drinks a day. Apparently for 3 or 4 days before they brought him to Hospital was a marked decrease in the amount of alcohol that he was drinking. They thought the changes that he was exhibiting were related to some alcohol withdrawal. However he had difficulties with some right-sided weakness and difficulty ambulating in his speech was garbled, when he started to have some twitching to the right side of his face they were concerned and was brought to the emergency center. He subsequently has been seen by neurology with concerns to a left MCA stroke original computed tomography scan without evidence of acute change MRI is pending. Infectious diseases consultation is requested regarding the fever that was present at admission of 101.1 elevation of his lactic acid of 2.5. The family relates that he seems to be calm at this point in time it is evident that his speech is unintelligible. He seems comfortable and calm with his family present. 09/28/2018 patient is just returned from his MRI to further characterize the brain lesion. Nursing staff is noted are some ecchymosis to the right ear which was not easily seen in the past. Patient has confusion but does not seem to have tenderness at the site. 09/29/2018 patient continues to have some difficulties with secretions, continues to have a large amount of twitching on the right side of his face and is following with neurology status post his significant stroke. Objective - Vital Signs Vital signs: Vital Signs Temp 98.3 F 09/29/18 21:00 Pulse 87 09/29/18 23:00 Resp 22 09/29/18 23:00 BP 137/86 09/29/18 23:00 Pulse Ox 94 L 09/29/18 23:00 Intake & Output 09/29/18 09/29/18 09/30/18 06:59 18:59 06:59 Intake Total 343.250 100 480 Output Total 560 575 180 Balance -216.750 -475 300 Weight 119.068 kg 119.068 kg Intake: IV 300 100 80 .9 NS 200 100 80 Ampicillin-Sulbactam 3 gm 100 In Sodium Chloride 0.9% 100 ml @ 200 mls/hr IVPB Q6HR [facility] Rx#:[id number] Intake, IV Titration 43.250 400 Amount LORazepam Vial 40 mg In 43.250 Dextrose 5% in Water 80 ml @ 2 MG/HR 5 mls/hr IV .Q20H [facility] Rx#:[id number] Potassium Chloride 10 meq 400 In Water For Injection 1 100ml.bag @ 100 mls/hr IVPB Q1HR [facility] Rx#: [id number] Output: Urine 560 575 180 Other: Voiding Method Indwelling Catheter Indwelling Catheter # Bowel Movements 0 0 - Exam 57-year-old male who looks older than his stated age HEENT: Anicteric conjunctiva are pink and moist nasal mucosa grossly intact without significant lesions, there is no thrush. Dentition is poor for age, evidence of some ecchymosis to the right pinna and to the very outer aspect of the outer canal. No fluctuance or hematoma is palpated Neck: The neck is supple without significant lymphadenopathy or thyromegaly. Lungs: There is symmetrical bilateral air entry there are a few expiratory wheezes that are scattered without savanna bronchial sounds or dullness or egophony is noted Heart: Regular rate and rhythm with an audible S1-S2, audible S3 positive S4. There is no significant murmur click or rub, PMI was nondisplaced. Abdomen: Positive bowel sounds soft and nontender without palpable masses or organomegaly. There was no guarding or rebound. Extremities: The upper extremities have excellent pulses they are symmetric, the lower extremities show evidence of chronic bilateral lower extremity edema with chronic hemosiderin staining bilaterally, small area of irritation possibly injury to the medial aspect of the left calf. Family relate there are dogs which may be injured the leg as well as his arms. His liver there are some scattered ecchymosis on the upper extremities. There is minimal erythema superimposed on the chronic skin changes to the left leg. Neuro: The patient is awake and alert his speech is unintelligible he does not follow commands - Labs CBC & Chem 7: 09/29/18 04:55 09/29/18 18:06 Labs: Abnormal Lab Results - Last 24 Hours (Table) 09/29/18 09/29/18 09/29/18 Range/Units 04:55 04:55 06:24 RBC 4.08 L (4.30-5.90) m/uL MCV 101.6 H (80.0-100.0) fL ABG pH 7.57 H* (7.35-7.45) ABG pCO2 34 L (35-45) mmHg ABG pO2 148 H (83-108) mmHg ABG HCO3 31 H (21-25) mmol/L ABG Total CO2 32 H (19-24) mmol/L ABG O2 Saturation 99.2 H (94-97) % Potassium 3.2 L (3.5-5.1) mmol/L BUN 27 H (9-20) mg/dL Glucose 179 H (74-99) mg/dL POC Glucose (mg/dL) (75-99) mg/dL Calcium 7.9 L (8.4-10.2) mg/dL 09/29/18 09/29/18 09/29/18 Range/Units 06:41 11:59 17:07 RBC (4.30-5.90) m/uL MCV (80.0-100.0) fL ABG pH (7.35-7.45) ABG pCO2 (35-45) mmHg ABG pO2 (83-108) mmHg ABG HCO3 (21-25) mmol/L ABG Total CO2 (19-24) mmol/L ABG O2 Saturation (94-97) % Potassium (3.5-5.1) mmol/L BUN (9-20) mg/dL Glucose (74-99) mg/dL POC Glucose (mg/dL) 171 H 221 H 165 H (75-99) mg/dL Calcium (8.4-10.2) mg/dL 09/29/18 09/29/18 Range/Units 18:06 21:25 RBC (4.30-5.90) m/uL MCV (80.0-100.0) fL ABG pH (7.35-7.45) ABG pCO2 (35-45) mmHg ABG pO2 (83-108) mmHg ABG HCO3 (21-25) mmol/L ABG Total CO2 (19-24) mmol/L ABG O2 Saturation (94-97) % Potassium 3.1 L (3.5-5.1) mmol/L BUN (9-20) mg/dL Glucose (74-99) mg/dL POC Glucose (mg/dL) 168 H (75-99) mg/dL Calcium (8.4-10.2) mg/dL Microbiology - Last 24 Hours (Table) 09/26/18 10:00 Blood Culture - Preliminary Blood No Growth after 72 hours Laboratory Results WBC 8.1 k/uL (3.8-10.6) 09/29/18 04:55 RBC 4.08 m/uL (4.30-5.90) L 09/29/18 04:55 Hgb 13.4 gm/dL (13.0-17.5) 09/29/18 04:55 Hct 41.5 % (39.0-53.0) 09/29/18 04:55 MCV 101.6 fL (80.0-100.0) H 09/29/18 04:55 MCH 32.9 pg (25.0-35.0) 09/29/18 04:55 MCHC 32.4 g/dL (31.0-37.0) 09/29/18 04:55 RDW 12.5 % (11.5-15.5) 09/29/18 04:55 Plt Count 158 k/uL (150-450) 09/29/18 04:55 Neutrophils % 93 % 09/28/18 04:10 Lymphocytes % 3 % 09/28/18 04:10 Monocytes % 3 % 09/28/18 04:10 Eosinophils % 0 % 09/28/18 04:10 Basophils % 0 % 09/28/18 04:10 Neutrophils # 6.7 k/uL (1.3-7.7) 09/28/18 04:10 Lymphocytes # 0.3 k/uL (1.0-4.8) L 09/28/18 04:10 Monocytes # 0.2 k/uL (0-1.0) 09/28/18 04:10 Eosinophils # 0.0 k/uL (0-0.7) 09/28/18 04:10 Basophils # 0.0 k/uL (0-0.2) 09/28/18 04:10 Macrocytosis Slight 09/27/18 05:18 PT 11.3 sec (9.0-12.0) 09/26/18 10:00 INR 1.2 (<1.2) H 09/26/18 10:00 APTT 24.2 sec (22.0-30.0) 09/26/18 10:00 Sample Site Right Radial 09/29/18 06:24 ABG pH 7.57 (7.35-7.45) H* 09/29/18 06:24 ABG pCO2 34 mmHg (35-45) L 09/29/18 06:24 ABG pO2 148 mmHg (83-108) H 09/29/18 06:24 ABG HCO3 31 mmol/L (21-25) H 09/29/18 06:24 ABG Total CO2 32 mmol/L (19-24) H 09/29/18 06:24 ABG O2 Saturation 99.2 % (94-97) H 09/29/18 06:24 ABG Base Excess 9.0 mmol/L 09/29/18 06:24 Dre Test Yes 09/29/18 06:24 FiO2 60 % 09/29/18 06:24 Sodium 140 mmol/L (137-145) 09/29/18 04:55 Potassium 3.1 mmol/L (3.5-5.1) L 09/29/18 18:06 Chloride 102 mmol/L (98-107) 09/29/18 04:55 Carbon Dioxide 29 mmol/L (22-30) 09/29/18 04:55 Anion Gap 9 mmol/L 09/29/18 04:55 BUN 27 mg/dL (9-20) H 09/29/18 04:55 Creatinine 0.72 mg/dL (0.66-1.25) 09/29/18 04:55 Est GFR (CKD-EPI)AfAm >90 (>60 ml/min/1.73 sqM) 09/29/18 04:55 Est GFR (CKD-EPI)NonAf >90 (>60 ml/min/1.73 sqM) 09/29/18 04:55 Glucose 179 mg/dL (74-99) H 09/29/18 04:55 POC Glucose (mg/dL) 168 mg/dL (75-99) H 09/29/18 21:25 POC Glu [employer] Brennan 09/29/18 21:25 Lactic Ac Sepsis Rflx Y 09/26/18 10:49 Plasma Lactic Acid Jeremy 1.1 mmol/L (0.7-2.0) 09/26/18 14:07 Calcium 7.9 mg/dL (8.4-10.2) L 09/29/18 04:55 Phosphorus 4.1 mg/dL (2.5-4.5) 09/29/18 04:55 Magnesium 1.8 mg/dL (1.6-2.3) 09/29/18 04:55 Total Bilirubin 1.1 mg/dL (0.2-1.3) 09/29/18 04:55 AST 46 U/L (17-59) 09/29/18 04:55 ALT 38 U/L (21-72) 09/29/18 04:55 Alkaline Phosphatase 87 U/L (38-126) 09/29/18 04:55 Total Creatine Kinase 154 U/L (55-170) 09/26/18 10:00 CK-MB (CK-2) 0.4 ng/mL (0.0-2.4) 09/26/18 10:00 CK-MB (CK-2) Rel Index 0.3 09/26/18 10:00 Troponin I <0.012 ng/mL (0.000-0.034) 09/26/18 10:00 NT-Pro-B Natriuret Pep 392 pg/mL 09/27/18 05:18 Total Protein 7.1 g/dL (6.3-8.2) 09/29/18 04:55 Albumin 3.5 g/dL (3.5-5.0) 09/29/18 04:55 Triglycerides 100 mg/dL (<150) 09/27/18 05:18 Cholesterol 174 mg/dL (<200) 09/27/18 05:18 LDL Cholesterol, Calc 112 mg/dL (0-99) H 09/27/18 05:18 HDL Cholesterol 42 mg/dL (40-60) 09/27/18 05:18 Urine Color Yellow 09/26/18 13:27 Urine Appearance Clear (Clear) 09/26/18 13:27 Urine pH 7.0 (5.0-8.0) 09/26/18 13:27 Ur Specific Byron 1.014 (1.001-1.035) 09/26/18 13:27 Urine Protein Trace (Negative) H 09/26/18 13:27 Urine Glucose (UA) Negative (Negative) 09/26/18 13:27 Urine Ketones Negative (Negative) 09/26/18 13:27 Urine Blood Negative (Negative) 09/26/18 13:27 Urine Nitrite Negative (Negative) 09/26/18 13:27 Urine Bilirubin Negative (Negative) 09/26/18 13:27 Urine Urobilinogen 4.0 mg/dL (<2.0) 09/26/18 13:27 Ur Leukocyte Esterase Negative (Negative) 09/26/18 13:27 Serum Alcohol <10 mg/dL 09/26/18 10:00 Influenza Type A RNA Not Detected (Not Detectd) 09/26/18 10:00 Influenza Type B (PCR) Not Detected (Not Detectd) 09/26/18 10:00 Microbiology 09/26/18 10:00 Blood Blood Culture - Preliminary No Growth after 72 hours 09/26/18 23:10 Urine,Catheterized Urine Culture - Final 09/26/18 13:28 Urine,Catheterized Urine Culture - Final Assessment and Plan (1) Alcoholism Current Visit: Yes Status: Acute Code(s): F10.20 - ALCOHOL DEPENDENCE, UNCOMPLICATED SNOMED Code(s): 8427808 (2) Acute ischemic left middle cerebral artery (MCA) stroke Current Visit: Yes Status: Acute Code(s): I63.512 - CEREB INFRC D/T UNSP OCCLS OR STENOS OF LEFT MID CEREB ART SNOMED Code(s): 845332512 (3) Fever Narrative/Plan: 57-year-old male presents to hospital with alteration of his mental status. The patient has a long-standing history of alcohol use and at first the family thought with his decreased alcohol intake he was having difficulties with withdrawal. However he then developed some twitching to the right side of his face and his speech worsened and constantly was brought to the emergency center. There there was concerns to a left MCA stroke given the twitching to the right arm the right facial droop and twitching and his unintelligible speech. Original computed tomography scan is normal but MRI is still pending, neurology consult is ongoing. At presentation the patient did have a fever 101.1 and an elevated lactic acid. Given his stroke there was concerns of potential aspiration especially since he was also having some acute respiratory failure at the time of his admission that has now improved. On the exam the patient does have evidence of the minimal erythema to the left leg it appears to be small injury the family relates may have come from their pet dog. With his alcohol use he has been skin is noted by the multiple ecchymotic areas on the upper extremities of the also claim comes from his interactions with their pet dog. There could be a mild cellulitis of the left lower extremity and constantly antibiotic therapy will be utilized. There is also concern for potential aspiration although his chest x-ray looks quite well and respiratory failure appears to be improving. Antibiotic therapy with Unasyn is started other antibiotics have been discontinued. Local wound care to the lower extremities with Silvadene is requested. The patient's fever and transient lactic acidosis admission could've also been directly related to his acute cerebrovascular accident. Cultures are negative so far as of 09/28/2018. MRI has just been completed and await the results and further help quantify any difficulty with the right pinna and outer aspect of the auditory canal given the ecchymosis that is seen. There is some notation there has been some traumatic falls. 09/29/2018 patient with little change in the last day. Followed by neurology regarding his cerebrovascular accident temporal area. Patient continues has some difficulty handling secretions with ongoing concerns to aspiration events. Current Visit: Yes Status: Acute Code(s): R50.9 - FEVER, UNSPECIFIED SNOMED Code(s): 707967033
[2018-09-30] MEDS: POTASSIUM CHLORIDE 10 MEQ in WATER FOR INJECTION 1 100ML.BAG IVPB SCH ×3 (00:57→08:08)
[2018-09-30] MEDS: LORazepam 2 MG/ML INJ IV PRN ×2 (04:10→13:20)
[2018-09-30 04:11] LABS: HCT 43.1 % (39.0-53.0); HGB 14.2 gm/dL (13.0-17.5); MCH 33.6 pg (25.0-35.0); MCV 101.8 fL (80.0-100.0); Mean Platelet Volume 7.5; Platelet Count 169 k/uL (150-450); RBC 4.23 m/uL (4.30-5.90); RDW 12.3 % (11.5-15.5); WBC 8.2 k/uL (3.8-10.6)
[2018-09-30 04:23] LABS: ALT 50 U/L (21-72); AST 71 U/L (17-59); Albumin 3.6 g/dL (3.5-5.0); Alkaline Phosphatase 93 U/L (38-126); Anion Gap 7 mmol/L; Blood Urea Nitrogen 29 mg/dL (9-20); Calcium 8.2 mg/dL (8.4-10.2); Carbon Dioxide 29 mmol/L (22-30); Chloride 108 mmol/L (98-107); Glucose 191 mg/dL (74-99); Magnesium 2.2 mg/dL (1.6-2.3); Potassium 3.7 mmol/L (3.5-5.1); Sodium 144 mmol/L (137-145); Total Bilirubin 1.4 mg/dL (0.2-1.3); Total Protein 7.5 g/dL (6.3-8.2)
[2018-09-30] MEDS: AMPICILLIN-SULBACTAM 3 GM in SODIUM CHLORIDE 0.9% 100 ML IVPB SCH ×3 (05:22→20:29)
[2018-09-30] MEDS: methylPREDNISolone SOD SUCCI 125 MG/2 ML VIAL IV SCH ×3 (05:23→18:22)
[2018-09-30] MEDS ORDERED: Potassium Replacement Protocol 1 EACH MISC MISCELLANE PRN (06:03)
--- NOTE | 2018-09-30 07:28 | XR ---
EXAMINATION TYPE: XR chest 1V portable DATE OF EXAM: 09/30/2018 HISTORY: Shortness of breath. COMPARISON: 09/29/2018 TECHNIQUE: Single view of the chest is submitted. FINDINGS: Demonstrated are scattered senescent parenchymal change. Continued cardiomegaly with pulmonary venous congestion. Linear atelectasis at the lung bases. Hilar and mediastinal structures are within normal limits. Degenerative changes are seen of the dorsal spine. IMPRESSION: 1. Stable chest
[2018-09-30] MEDS: IPRATROPIUM-ALBUTEROL 3 ML NEB INHALATION SCH ×4 (07:45→20:14)
--- NOTE | 2018-09-30 07:49 | PN ---
PROGRESS NOTE Mr. Glasgow is a 58-year-old male who presented with twitching on the right side of the face as well as change in the mental status. He has a known history of chronic alcoholism. He is awake, but not following commands. He continues to be in sinus mechanism with no evidence of tachycardia or bradycardia. Hemodynamically, his blood pressure has been stable, slightly on the higher side. He has no need for pressors. He underwent a transthoracic echocardiogram yesterday that revealed a normal left ventricular size and systolic function with mild mitral and tricuspid regurgitation. His MRI revealed multiple lesions raising the possibility of embolic stroke. He continues to be at this time on aspirin rectally, Lasix 20 mg daily. PHYSICAL EXAMINATION: Blood pressure running in the 140s to 150s with the heart rate in the 70s. LUNGS: With scattered rhonchi no wheezes. HEART: Regular rate and rhythm. S1, S2. No S3. No rub appreciated with a systolic murmur. ABDOMEN: Soft, obese. Positive bowel sounds. No organomegaly. EXTREMITIES: Chronic skin changes with 1+ edema. LAB DATA: Lab data revealed BUN and creatinine 29 and 0.7. His total bilirubin is 1.4. Hemoglobin 14.2, white blood cell of 8.2. Platelet count 169. IMPRESSION: 1. Twitching on the right side of the face and weakness with abnormal MRI consistent with a cerebrovascular accident. 2. Chronic alcoholism. 3. Dyspnea with cough and febrile episode on presentation. Possible aspiration pneumonia. RECOMMENDATION: From the cardiac standpoint, at this time, I will continue clinical observation. I do not feel that he is stable to undergo YARIEL and I have discussed that issue with Dr. Jensen. Considering his overall status and the fact that he is in sinus mechanism and his alcoholism, he is not a candidate for anticoagulation and I do not see any indication for that so far and there is no evidence to suggest a cardiac etiology for his neurological event. If he stabilized and there is still a need to undergo YARIEL that can be performed at a later time. MMODL / IJN: [id number] /
[2018-09-30] MEDS: ASPIRIN 300 MG SUPP RECTAL SCH (08:26)
[2018-09-30] MEDS: FUROSEMIDE 10 MG/ML 2 ML VIAL IV SCH (08:31)
--- NOTE | 2018-09-30 09:13 | P.PN ---
Subjective Progress Note Date: 09/30/18 Principal diagnosis: Acute hypoxemic respiratory failure related to suspected aspiration, atelectasis , and mild fluid overload This is a 57-year-old white male patient of Dr. Rick, who was brought into the emergency department on 09/26/2018 for evaluation of right-sided facial twitching, garbled speech, right arm weakness. Initial brain CT was negative for any acute intracranial abnormality, showed mild degenerative change. EKG showed normal sinus rhythm without evidence of acute ischemic changes. Patient has persistent symptoms of expressive aphasia, he is having right-sided facial twitching, and right-sided weakness. Past medical history is significant for heavy EtOH use, nicotine dependence, currently in remission, obstructive sleep apnea, chronic back pain, with history of back surgery with a laminectomy procedure, hypertension. Patient did have a fever presentation, of 101.1F, mild lactic acidosis of 2.5, but his lab work was negative for any leukocytosis , WBC was 7.5, chemistry showed sodium of 134, potassium of 3.6, chloride of 95 , renal profile and rest of electrolytes were within normal limits, AST was 66, ALT was 45, alk phos was 123, troponin was negative 1, urinalysis negative for any infection. Influenza screen was negative, serum alcohol was less than 10. She has developed acute hypoxemic respiratory failure, he is on supplemental oxygen currently at 4 L per nasal cannula. He was noted to be tachypneic at times, he is a poor historian, but he states he is short of breath, but denied any chest pain. Chest x-ray on 09/26/2018 showed mild cardiomegaly, but no acute pulmonary process, chest x-ray taken later that day showed some pulmonary vascular congestion, and widening of the mediastinum, no gross heart failure. Based on the findings of the chest x-ray, fluid overload was suspected, and patient was given a dose of IV Lasix with significant diuresis, he is in -3275 ML fluid balance over the last 24 hours. He was started on empiric antibiotics in the form of Rocephin, and there has been no recurrence of fevers since admission. Cultures are still pending at this time. His morning patient is seen in evaluation on selective care unit, he is awake and alert, he still has significant dysarthria, and expressive aphasia. I'm told by nursing staff that he is requiring intermittent oral suctioning, and patient has no gag reflex, he remains nothing by mouth, he is being evaluation by speech pathologist. No obvious facial asymmetry noted on today's exam, having some twitching of his face, his right-sided weakness seems to be somewhat improved. Urology is following, and patient is undergoing neurological evaluation for suspected left MCA CVA. On 09/28/2018 patient seen in follow-up he was transferred to the intensive care unit last night for acute alcohol , and delirium. He was agitated, he was started on Ativan drip at 1 mg per hour. From pulmonary perspective patient remains congested, and wheezy, currently on 3-1/2 L per nasal cannula, his pulse ox is 93-94%, additional dose of Lasix this morning, patient has diuresis , today's chest x-ray has been reviewed by Dr. Cordoba, and shows worsening of the lung markings, minimal pulmonary congestion, no overt heart failure, improved aeration at the right lung base compared to yesterday. He remains on IV steroids, and nebulized bronchodilators. Highly suspect aspiration, speech therapy has been consulted, patient remains nothing by mouth, he is sedated this morning, we will stop the Ativan drip, patient does arouse to tactile stimuli, however he falls back asleep. No obvious facial asymmetry noted, patient was asked to squeeze hands, and patient's right-sided condenser cleaner is still weaker than the left. Patient remains on antibiotic coverage, for his cellulitis. He is scheduled for EEG and MRI of the brain today. Dynamically stable, his maintenance IV fluids is 0.9 normal saline at a rate of 20 ML per hour. No other drips. Today's labs have been reviewed, WBC 7.2, hemoglobin is 13.0, electrolytes are within normal limits, BUN is up slightly at 22, creatinine 0.7. Cultures remain negative thus far, unable to send the sputum culture, patient is unable to cough and produce a sputum sample. Neurology, infectious disease are following. On 09/29/2018 patient seen in follow-up in the intensive care unit, is a little bit more alert today, he tries to squeeze hands on command, he still has right- sided weakness. His cough is weak, patient remains congested, he is currently on 10 L per high flow nasal cannula, and his pulse ox is 96%, patient is afebrile, hemodynamically stable, yesterday patient was placed back on Ativan drip, which is currently infusing at a rate of 2 mg per hour for acute agitation , and seizure-like activity. Brain MRI showed abnormal cortical signal in the left posterior temporal lobe and insula of the left temporal lobe consistent with subacute infarct. Multiple white matter foci that were nonspecific but could relate to chronic small vessel ischemia 0D myelinating disease. EEG was moderately abnormal in a diffuse fashion due to slowing of the EEG background, it failed to reveal any focal, lateralizing or epileptiform abnormalities. His chest x-ray has been reviewed by Dr. Cordoba, and showed no acute abnormality, small pleural effusion, and some bibasilar atelectasis. Patient continues on nebulized bronchodilators, he remains nothing by mouth for aspiration precautions, he has been unable to complete a swallow evaluation due to his mental status, agitation, and sedation. Speech therapy is to reevaluate the patient today. Ultra Tears remain negative, no fever no chills, patient is on Unasyn for the cellulitis in his lower legs. Infectious disease is following. On 09/30/2018 patient seen again in follow-up in the intensive care unit. He is more awake, and continues to have twitching of his right side of the face. He is moving his right arm, but his response is intermittent, and at times patient is able to follow commands and respond, he give us a thumbs up with his right hand when asked how he was doing this morning. However when we asked him to squeeze hands on command later was not able to do it with either one. Yesterday patient was started on oral diet, however he has difficulty managing secretions, he has a weak cough, and for that reason he is back to nothing by mouth status. Lung sounds slightly better, although remain congested, with scattered rhonchi. We place the patient on a small dose of IV Lasix every day, today's chest x-ray has been reviewed by Dr. Salcedo, and showed some plate atelectasis in the right lower lobe. Shanae on Unasyn. Afebrile, currently on 11 L per high flow nasal cannula, his pulse ox is 93%, and blood cultures remain negative, we were unable to send the sputum culture. Today's labs have been reviewed, WBC is 8.2, hemoglobin is 14.2, sodium is 144, potassium is 3.7, chloride is 108, BUN is 29 creatinine 0.72. Objective - Vital Signs Vital signs: Vital Signs Temp 98.1 F 09/30/18 04:00 Pulse 87 09/30/18 08:00 Resp 25 H 09/30/18 07:00 BP 165/97 09/30/18 07:00 Pulse Ox 93 L 09/30/18 07:00 Intake & Output 09/29/18 09/30/18 09/30/18 18:59 06:59 18:59 Intake Total 100 1100 230 Output Total 575 453 75 Balance -475 647 155 Weight 119.068 kg 118.4 kg Intake: IV 100 700 230 .9 NS 100 600 30 Ampicillin-Sulbactam 3 gm 100 100 In Sodium Chloride 0.9% 100 ml @ 200 mls/hr IVPB Q6HR JALEN Rx#:[id number] Potassium Chloride 10 meq 100 In Water For Injection 1 100ml.bag @ 100 mls/hr IVPB Q1HR JALEN Rx#: [id number] Intake, IV Titration 400 Amount Potassium Chloride 10 meq 400 In Water For Injection 1 100ml.bag @ 100 mls/hr IVPB Q1HR JALEN Rx#: [id number] Output: Urine 575 453 75 Other: Voiding Method Indwelling Catheter Indwelling Catheter # Bowel Movements 0 1 - Exam GENERAL EXAM: Awake, alert, 57-year-old white male, in no apparent distress, has difficulty communicating, patient is nonverbal he responding today, has expressive aphasia. He did attempt to squeeze with his hands on command, still has the right-sided weakness, at times he is able to lift his right arm, and give us a thumbs up with his right hand. Patient has intermittent twitching of his right side of his face HEAD: Normocephalic/atraumatic. EYES: Normal reaction of pupils, equal size. Conjunctiva pink, sclera white. NOSE: Clear with pink turbinates. THROAT: No erythema or exudates. NECK: No masses, no JVD, no thyroid enlargement, no adenopathy. CHEST: No chest wall deformity. Symmetrical expansion. LUNGS: Diffuse rhonchi throughout, slightly less congested compared to yesterday 's exam. Patient has a weak cough CVS: Regular rate and rhythm, normal S1 and S2, no gallops, no murmurs, no rubs ABDOMEN: Soft, nontender. No hepatosplenomegaly, normal bowel sounds, no guarding or rigidity. EXTREMITIES: No clubbing, no edema, no cyanosis, 2+ pulses and upper and lower extremities. Bilateral lower extremities are jesse wrapped MUSCULOSKELETAL: Right-sided weakness, and upper and lower extremity SPINE: No scoliosis or deformity SKIN: No rashes CENTRAL NERVOUS SYSTEM: Patient has right-sided condenser cleaner weakness, unable to assess motor strength in lower extremity. - Labs CBC & Chem 7: 09/30/18 03:51 09/30/18 03:51 Labs: Abnormal Lab Results - Last 24 Hours (Table) 09/29/18 09/29/18 09/29/18 Range/Units 11:59 17:07 18:06 RBC (4.30-5.90) m/uL MCV (80.0-100.0) fL Potassium 3.1 L (3.5-5.1) mmol/L Chloride (98-107) mmol/L BUN (9-20) mg/dL Glucose (74-99) mg/dL POC Glucose (mg/dL) 221 H 165 H (75-99) mg/dL Calcium (8.4-10.2) mg/dL Total Bilirubin (0.2-1.3) mg/dL AST (17-59) U/L 09/29/18 09/30/18 09/30/18 Range/Units 21:25 03:51 03:51 RBC 4.23 L (4.30-5.90) m/uL MCV 101.8 H (80.0-100.0) fL Potassium (3.5-5.1) mmol/L Chloride 108 H (98-107) mmol/L BUN 29 H (9-20) mg/dL Glucose 191 H (74-99) mg/dL POC Glucose (mg/dL) 168 H (75-99) mg/dL Calcium 8.2 L (8.4-10.2) mg/dL Total Bilirubin 1.4 H (0.2-1.3) mg/dL AST 71 H (17-59) U/L Microbiology - Last 24 Hours (Table) 09/26/18 10:00 Blood Culture - Preliminary Blood No Growth after 72 hours Assessment and Plan Plan: Assessment: #1. Acute hypoxemic respiratory failure, related to fluid overload and suspected aspiration, chest x-ray showed some pulmonary vascular congestion, cardiomegaly, patient has been receiving intermittent daily doses of Lasix, and today's chest x-ray on 09/29/2018 was no acute pulmonary process, small left pleural effusion, and bibasilar atelectasis, no clear evidence of pneumonia #2. Left hemispheric CVA, patient presented with sided weakness, twitching, expressive aphasia #3. Mild lactic acidosis present on admission, febrile episode, rule out infectious etiology/sepsis. Cultures are pending, and there has been no recurrence of fevers. Lactic acid is now within normal limits. #4. EtOH dependence, and acute withdrawal with agitation and delirium #5. Nicotine dependence, currently in remission, patient quit smoking 2 years ago, but carries [id number] smoking history #6. History of obstructive sleep apnea #7. History of chronic back pain, related to work related injury, patient is status post laminectomy and fusion, follows with Dr. Marino #8. Hypertension Plan: Maintain aspiration precautions, patient will remain nothing by mouth, he continues to have difficulty managing his secretions, has extremely weak cough. No agitation, difficult to assess his mentation, at times he is able to follow commands, and he is moving his right side, he was able to give us a thumbs up with his right hand, but other times he is not following commands, and he may still be delirious related to his EtOH withdrawal, and CVA. Continue with daily Lasix dose, today's chest x-ray has been reviewed with Dr. Cordoba, and just showed some atelectasis in the right lower lobe. No fever, no chills, continue current antibiotic coverage. Nebulized bronchodilators. Patient will remain in the intensive care unit for further monitoring. I performed a history & physical examination of the patient and discussed their management with my nurse practitioner, Nimisha Higgins. I reviewed the nurse practitioner's note and agree with the documented findings and plan of care. Lung sounds are positive some scattered wheezes. The findings and the impression was discussed with the patient. I attest to the documentation by the nurse practitioner. Time with Patient: Greater than 30
[2018-09-30] MEDS: THIAMINE 100 MG TAB PO SCH ×2 (11:07→18:25)
[2018-09-30 11:23] LABS: Glucose,Whole Blood 174 mg/dL (75-99)
[2018-09-30] MEDS: INSULIN ASPART 100 UNIT/ML 1 ML 10 ML VIAL SQ SCH ×2 (11:26→18:20)
[2018-09-30] MEDS: hydrALAZINE HCL 20 MG/ML 1 ML VIAL IVP PRN (15:09)
[2018-09-30 18:17] LABS: Glucose,Whole Blood 219 mg/dL (75-99)
[2018-09-30] MEDS: LORazepam Vial 40 MG in DEXTROSE 5% IN WATER 80 ML IV SCH ×2 (18:25)
[2018-10-01] MEDS: AMPICILLIN-SULBACTAM 3 GM in SODIUM CHLORIDE 0.9% 100 ML IVPB SCH ×4 (00:03→19:07)
[2018-10-01] MEDS: INSULIN ASPART 100 UNIT/ML 1 ML 10 ML VIAL SQ SCH ×4 (00:28→19:04)
[2018-10-01] MEDS: methylPREDNISolone SOD SUCCI 125 MG/2 ML VIAL IV SCH ×4 (00:28→19:04)
[2018-10-01 00:32] LABS: Glucose,Whole Blood 185 mg/dL (75-99)
[2018-10-01] MEDS: LORazepam 2 MG/ML INJ IV PRN ×6 (01:36→23:18)
[2018-10-01 05:28] LABS: HCT 42.9 % (39.0-53.0); HGB 13.7 gm/dL (13.0-17.5); MCH 33.3 pg (25.0-35.0); MCHC 31.9 g/dL (31.0-37.0); MCV 104.1 fL (80.0-100.0); Macrocytosis Slight; Mean Platelet Volume 7.7; Platelet Count 169 k/uL (150-450); RBC 4.12 m/uL (4.30-5.90); RDW 12.5 % (11.5-15.5); WBC 6.8 k/uL (3.8-10.6)
[2018-10-01 05:38] LABS: ALT 63 U/L (21-72); AST 67 U/L (17-59); Albumin 3.4 g/dL (3.5-5.0); Alkaline Phosphatase 84 U/L (38-126); Anion Gap 5 mmol/L; Blood Urea Nitrogen 34 mg/dL (9-20); Calcium 8.4 mg/dL (8.4-10.2); Carbon Dioxide 32 mmol/L (22-30); Chloride 112 mmol/L (98-107); Glucose 148 mg/dL (74-99); Potassium 3.5 mmol/L (3.5-5.1); Sodium 149 mmol/L (137-145); Total Bilirubin 1.2 mg/dL (0.2-1.3); Total Protein 6.9 g/dL (6.3-8.2)
[2018-10-01] MEDS: SCOPOLAMINE 1.5MG/72HR PATCH TRANSDERM SCH (06:10)
[2018-10-01] MEDS ORDERED: Potassium Replacement Protocol 1 EACH MISC MISCELLANE PRN ×2 (06:11→07:00)
--- NOTE | 2018-10-01 06:16 | XR ---
EXAMINATION TYPE: XR chest 1V portable DATE OF EXAM: 10/01/2018 CLINICAL HISTORY: Difficulty breathing progress study. TECHNIQUE: Single AP portable upright view of the chest is obtained. COMPARISON: Chest x-ray from one day earlier and older studies. FINDINGS: Cardiac silhouette size is stable and enlarged. Bibasilar opacity remains present. Upper l ungs are clear without pneumothorax. Osseous structures are intact. IMPRESSION: Overall stable findings, cardiomegaly with patchy bibasilar atelectasis and/or infiltra te and probable small to tiny bilateral pleural effusions all redemonstrated.
[2018-10-01 06:34] LABS: Glucose,Whole Blood 146 mg/dL (75-99)
[2018-10-01] MEDS ORDERED: POTASSIUM CHLORIDE ER 20 MEQ TAB.ER PO SCH (07:00)
--- NOTE | 2018-10-01 07:37 | P.PN ---
Subjective Progress Note Date: 10/01/18 Principal diagnosis: Acute hypoxemic respiratory failure related to suspected aspiration, atelectasis , and mild fluid overload This is a 57-year-old white male patient of Dr. Rick, who was brought into the emergency department on 09/26/2018 for evaluation of right-sided facial twitching, garbled speech, right arm weakness. Initial brain CT was negative for any acute intracranial abnormality, showed mild degenerative change. EKG showed normal sinus rhythm without evidence of acute ischemic changes. Patient has persistent symptoms of expressive aphasia, he is having right-sided facial twitching, and right-sided weakness. Past medical history is significant for heavy EtOH use, nicotine dependence, currently in remission, obstructive sleep apnea, chronic back pain, with history of back surgery with a laminectomy procedure, hypertension. Patient did have a fever presentation, of 101.1F, mild lactic acidosis of 2.5, but his lab work was negative for any leukocytosis , WBC was 7.5, chemistry showed sodium of 134, potassium of 3.6, chloride of 95 , renal profile and rest of electrolytes were within normal limits, AST was 66, ALT was 45, alk phos was 123, troponin was negative 1, urinalysis negative for any infection. Influenza screen was negative, serum alcohol was less than 10. She has developed acute hypoxemic respiratory failure, he is on supplemental oxygen currently at 4 L per nasal cannula. He was noted to be tachypneic at times, he is a poor historian, but he states he is short of breath, but denied any chest pain. Chest x-ray on 09/26/2018 showed mild cardiomegaly, but no acute pulmonary process, chest x-ray taken later that day showed some pulmonary vascular congestion, and widening of the mediastinum, no gross heart failure. Based on the findings of the chest x-ray, fluid overload was suspected, and patient was given a dose of IV Lasix with significant diuresis, he is in -3275 ML fluid balance over the last 24 hours. He was started on empiric antibiotics in the form of Rocephin, and there has been no recurrence of fevers since admission. Cultures are still pending at this time. His morning patient is seen in evaluation on selective care unit, he is awake and alert, he still has significant dysarthria, and expressive aphasia. I'm told by nursing staff that he is requiring intermittent oral suctioning, and patient has no gag reflex, he remains nothing by mouth, he is being evaluation by speech pathologist. No obvious facial asymmetry noted on today's exam, having some twitching of his face, his right-sided weakness seems to be somewhat improved. Urology is following, and patient is undergoing neurological evaluation for suspected left MCA CVA. On 09/28/2018 patient seen in follow-up he was transferred to the intensive care unit last night for acute alcohol , and delirium. He was agitated, he was started on Ativan drip at 1 mg per hour. From pulmonary perspective patient remains congested, and wheezy, currently on 3-1/2 L per nasal cannula, his pulse ox is 93-94%, additional dose of Lasix this morning, patient has diuresis , today's chest x-ray has been reviewed by Dr. Cordoba, and shows worsening of the lung markings, minimal pulmonary congestion, no overt heart failure, improved aeration at the right lung base compared to yesterday. He remains on IV steroids, and nebulized bronchodilators. Highly suspect aspiration, speech therapy has been consulted, patient remains nothing by mouth, he is sedated this morning, we will stop the Ativan drip, patient does arouse to tactile stimuli, however he falls back asleep. No obvious facial asymmetry noted, patient was asked to squeeze hands, and patient's right-sided tack coverer is still weaker than the left. Patient remains on antibiotic coverage, for his cellulitis. He is scheduled for EEG and MRI of the brain today. Dynamically stable, his maintenance IV fluids is 0.9 normal saline at a rate of 20 ML per hour. No other drips. Today's labs have been reviewed, WBC 7.2, hemoglobin is 13.0, electrolytes are within normal limits, BUN is up slightly at 22, creatinine 0.7. Cultures remain negative thus far, unable to send the sputum culture, patient is unable to cough and produce a sputum sample. Neurology, infectious disease are following. On 09/29/2018 patient seen in follow-up in the intensive care unit, is a little bit more alert today, he tries to squeeze hands on command, he still has right- sided weakness. His cough is weak, patient remains congested, he is currently on 10 L per high flow nasal cannula, and his pulse ox is 96%, patient is afebrile, hemodynamically stable, yesterday patient was placed back on Ativan drip, which is currently infusing at a rate of 2 mg per hour for acute agitation , and seizure-like activity. Brain MRI showed abnormal cortical signal in the left posterior temporal lobe and insula of the left temporal lobe consistent with subacute infarct. Multiple white matter foci that were nonspecific but could relate to chronic small vessel ischemia 0D myelinating disease. EEG was moderately abnormal in a diffuse fashion due to slowing of the EEG background, it failed to reveal any focal, lateralizing or epileptiform abnormalities. His chest x-ray has been reviewed by Dr. Cordoba, and showed no acute abnormality, small pleural effusion, and some bibasilar atelectasis. Patient continues on nebulized bronchodilators, he remains nothing by mouth for aspiration precautions, he has been unable to complete a swallow evaluation due to his mental status, agitation, and sedation. Speech therapy is to reevaluate the patient today. Ultra Tears remain negative, no fever no chills, patient is on Unasyn for the cellulitis in his lower legs. Infectious disease is following. On 09/30/2018 patient seen again in follow-up in the intensive care unit. He is more awake, and continues to have twitching of his right side of the face. He is moving his right arm, but his response is intermittent, and at times patient is able to follow commands and respond, he give us a thumbs up with his right hand when asked how he was doing this morning. However when we asked him to squeeze hands on command later was not able to do it with either one. Yesterday patient was started on oral diet, however he has difficulty managing secretions, he has a weak cough, and for that reason he is back to nothing by mouth status. Lung sounds slightly better, although remain congested, with scattered rhonchi. We place the patient on a small dose of IV Lasix every day, today's chest x-ray has been reviewed by Dr. Salcedo, and showed some plate atelectasis in the right lower lobe. Shanae on Unasyn. Afebrile, currently on 11 L per high flow nasal cannula, his pulse ox is 93%, and blood cultures remain negative, we were unable to send the sputum culture. Today's labs have been reviewed, WBC is 8.2, hemoglobin is 14.2, sodium is 144, potassium is 3.7, chloride is 108, BUN is 29 creatinine 0.72. On 2017 patient seen in follow-up in the intensive care unit, is much more alert, and following commands, still has very slight residual right-sided weakness, but she is moving his right upper and lower extremity, and his strength on the right side has definitely improved. The facial twitching on the right side of his face has significantly improved. Lung sounds are positive for some scattered wheezing, much less congested compared to previous exams. Patient's FiO2 is down to 3 L per high flow nasal cannula, his pulse ox is 92%, only a couple of low-grade fevers with a T-max of 99.9F, blood and urine cultures remain negative, today's chest x-ray has been reviewed by Dr. Salcedo, showed cardiomegaly with patchy basilar atelectasis and probable small to tiny bilateral pleural effusions. Today's blood work has been reviewed, WBC 6.8, hemoglobin is 13.7, sodium is 149, potassium is 3.5, chloride is 112, CO2 is 32, B1 is 34, creatinine 0.70. He remains on empiric coverage, in the form of Unasyn. Patient has dysphagia secondary to his left MCA stroke, he has been doing swallow evaluations, and for that reason was a discussion about PEG tube placement, and the family is in agreement with the PEG tube placement. Objective - Vital Signs Vital signs: Vital Signs Temp 97.6 F 09/30/18 21:00 Pulse 57 L 10/01/18 06:00 Resp 25 H 10/01/18 07:00 BP 184/99 10/01/18 07:00 Pulse Ox 92 L 10/01/18 07:00 Intake & Output 09/30/18 10/01/18 10/01/18 18:59 06:59 18:59 Intake Total 550 220 20 Output Total 962 497 80 Balance -412 -277 -60 Weight 100.3 kg Intake: IV 550 220 20 .9 NS 250 220 20 Ampicillin-Sulbactam 3 gm 200 In Sodium Chloride 0.9% 100 ml @ 200 mls/hr IVPB Q6HR JALEN Rx#:[id number] Potassium Chloride 10 meq 100 In Water For Injection 1 100ml.bag @ 100 mls/hr IVPB Q1HR JALEN Rx#: [id number] Output: Urine 962 497 80 Other: Voiding Method Indwelling Catheter Indwelling Catheter - Exam GENERAL EXAM: Awake, alert, 57-year-old white male, in no apparent distress, he follows commands, he is moving his right side, no facial asymmetry, he is able to tack coverer with his right hand, and there is very slight residual right-sided weakness, he is moving his lower extremities as well, with slight residual weakness on the right. Right facial twitches have improved at times he is able to lift his right arm, and give us a thumbs up with his right hand. Patient has intermittent twitching of his right side of his face HEAD: Normocephalic/atraumatic. EYES: Normal reaction of pupils, equal size. Conjunctiva pink, sclera white. NOSE: Clear with pink turbinates. THROAT: No erythema or exudates. NECK: No masses, no JVD, no thyroid enlargement, no adenopathy. CHEST: No chest wall deformity. Symmetrical expansion. LUNGS: Diffuse rhonchi throughout, less congested compared to yesterday's exam. Patient has a weak cough CVS: Regular rate and rhythm, normal S1 and S2, no gallops, no murmurs, no rubs ABDOMEN: Soft, nontender. No hepatosplenomegaly, normal bowel sounds, no guarding or rigidity. EXTREMITIES: No clubbing, no edema, no cyanosis, 2+ pulses and upper and lower extremities. Bilateral lower extremities are jesse wrapped MUSCULOSKELETAL: Right-sided weakness, and upper and lower extremity SPINE: No scoliosis or deformity SKIN: No rashes CENTRAL NERVOUS SYSTEM: Patient has right-sided tack coverer weakness, unable to assess motor strength in lower extremity. - Labs CBC & Chem 7: 10/01/18 04:39 10/01/18 04:39 Labs: Abnormal Lab Results - Last 24 Hours (Table) 09/30/18 09/30/18 10/01/18 Range/Units 11:12 18:05 00:20 RBC (4.30-5.90) m/uL MCV (80.0-100.0) fL Sodium (137-145) mmol/L Chloride (98-107) mmol/L Carbon Dioxide (22-30) mmol/L BUN (9-20) mg/dL Glucose (74-99) mg/dL POC Glucose (mg/dL) 174 H 219 H 185 H (75-99) mg/dL AST (17-59) U/L Albumin (3.5-5.0) g/dL 10/01/18 10/01/18 10/01/18 Range/Units 04:39 04:39 06:22 RBC 4.12 L (4.30-5.90) m/uL MCV 104.1 H (80.0-100.0) fL Sodium 149 H (137-145) mmol/L Chloride 112 H (98-107) mmol/L Carbon Dioxide 32 H (22-30) mmol/L BUN 34 H (9-20) mg/dL Glucose 148 H (74-99) mg/dL POC Glucose (mg/dL) 146 H (75-99) mg/dL AST 67 H (17-59) U/L Albumin 3.4 L (3.5-5.0) g/dL Microbiology - Last 24 Hours (Table) 09/26/18 10:00 Blood Culture - Preliminary Blood No Growth after 96 hours Assessment and Plan Plan: Assessment: #1. Acute hypoxemic respiratory failure, related to fluid overload and suspected aspiration, chest x-ray showed some pulmonary vascular congestion, cardiomegaly, patient has been receiving intermittent daily doses of Lasix, and today's chest x-ray on 09/29/2018 was no acute pulmonary process, small left pleural effusion, and bibasilar atelectasis, no clear evidence of pneumonia On 10/01/2018 patient has been getting a small dose of Lasix every day, chest x- ray today showed bibasilar atelectasis, and small to tiny bilateral pleural effusions. Patient has been diuresed, his oxygenation improved, down to 3 L per high flow nasal cannula. We'll discontinue the Lasix today. #2. Left hemispheric CVA, patient presented with sided weakness, twitching, expressive aphasia #3. Mild lactic acidosis present on admission, febrile episode, rule out infectious etiology/sepsis. Cultures are pending, and there has been no recurrence of fevers. Lactic acid is now within normal limits. #4. EtOH dependence, and acute withdrawal with agitation and delirium #5. Nicotine dependence, currently in remission, patient quit smoking 2 years ago, but carries [id number] smoking history #6. History of obstructive sleep apnea #7. History of chronic back pain, related to work related injury, patient is status post laminectomy and fusion, follows with Dr. Marino #8. Hypertension Plan: Patient's mentation has much improved, he is persistently following command, no agitation, no tremors today, no twitching of his right side of his face, no facial asymmetry, he still has some slight residual right-sided weakness. Patient has failed a swallow evaluation, PEG tube placement was discussed with the family and the patient and they're in agreement to proceed the PEG tube placement. Patient's chest x-ray from today has been reviewed by Dr. Dr. Cordoba , showed some bibasilar atelectasis and tiny pleural effusions, patient has been diuresed, his oxygenation has improved, we will discontinue the Lasix today. Maintain aspiration precautions, tingling weaning FiO2. Continue with nebulized bronchodilators, will continue current dose of systemic steroids. Continue current antibiotic coverage, cultures remain negative, no fever no chills. Patient symptoms of EtOH withdrawal are improving, his a lot less agitated, and compliant with his care. We'll continue to monitor in the intensive care unit today. Consult GI service for placement of PEG tube. I performed a history & physical examination of the patient and discussed their management with my nurse practitioner, Nimisha Higgins. I reviewed the nurse practitioner's note and agree with the documented findings and plan of care. Lung sounds are positive some scattered wheezes. The findings and the impression was discussed with the patient. I attest to the documentation by the nurse practitioner. Time with Patient: Greater than 30
[2018-10-01] MEDS: IPRATROPIUM-ALBUTEROL 3 ML NEB INHALATION SCH ×4 (07:46→20:58)
[2018-10-01] MEDS: POTASSIUM CHLORIDE 10 MEQ in WATER FOR INJECTION 1 100ML.BAG IVPB SCH ×4 (07:55→14:24)
[2018-10-01] MEDS: ASPIRIN 300 MG SUPP RECTAL SCH (08:04)
--- NOTE | 2018-10-01 08:05 | PN ---
PROGRESS NOTE Mr. Glasgow is a 58-year-old male who presented with change in mental status, twitching on the right side of the face and weakness and was diagnosed with CVA. He has a history of alcoholism. He appears more awake and alert today. He has no evidence of tachycardia or bradycardia. Hemodynamically, he is stable. There is a possibility of proceeding with a PEG tube placement because of an issue with ability to swallow. He had a possible aspiration pneumonia. His echocardiogram revealed a normal left ventricular size and systolic function. He continues to be at this time on aspirin rectally and thiamine. PHYSICAL EXAMINATION: Blood pressure running in the 160s with the heart rate in the 60s. LUNGS: With scattered rhonchi bilaterally. HEART: Regular rate and rhythm. S1, S2. No S3. No rub appreciated. ABDOMEN: Soft, nontender. EXTREMITIES: No edema. IMPRESSION: 1. Cerebrovascular accident. 2. Possible pneumonia. 3. Hypertension. 4. Change in mental status. RECOMMENDATION: From the cardiac standpoint, the patient at this time is starting to get more stable if YARIEL is indicated. I will hold on that. I will add to his regimen clonidine patch to improve his blood pressure control. We will await the decision regarding the swallow evaluation and depending on his progress further recommendation will be made. I have discussed those findings with his family and once he starts to be able to take p.o., then we can adjust his antihypertensive treatment. I will use clonidine patch at this point and I am hopeful that we will be able to stop that down the road and switch to other oral medication. MMODL / IJN: [id number] /
[2018-10-01] MEDS ORDERED: cloNIDine 0.1 MG/24HR PATCH TRANSDERM SCH (09:00)
[2018-10-01] MEDS: LORazepam Vial 40 MG in DEXTROSE 5% IN WATER 80 ML IV SCH ×2 (11:29)
[2018-10-01] MEDS: THIAMINE 100 MG TAB PO SCH ×2 (11:30→16:13)
[2018-10-01 12:10] LABS: Glucose,Whole Blood 178 mg/dL (75-99)
--- NOTE | 2018-10-01 14:59 | US ---
EXAMINATION TYPE: US abdomen limited DATE OF EXAM: 10/01/2018 COMPARISON: NONE CLINICAL HISTORY: Rule out ascites, peg planned. R/O ascites Right and Left flank scanned, no evidence of ascites IMPRESSION: 4 images saved show no measurable ascites over the bilateral flank region.
[2018-10-01 17:17] LABS: Glucose,Whole Blood 163 mg/dL (75-99)
[2018-10-01] MEDS: LACTATED RINGERS 1,000 ML IV SCH (19:07)
--- NOTE | 2018-10-01 19:35 | P.PN ---
Subjective Progress Note Date: 09/30/18 This patient is a 57-year-old male who was seen in neurology consultation for evaluation of altered mental status and increased confusion. Patient was found to have evidence of expressive aphasia with right-sided facial droop. He underwent an MRI of the brain for further evaluation of acute left MCA stroke. He was noted to have some facial twitching on his right side as well with evidence yesterday of having some blepharospasms of the eyelids. The patient has a extensive history of alcohol abuse in the past. He has been placed on a CIWA protocol and was switched to an Ativan drip due to agitation today. Due to excessive sedation he was taken off of the Ativan drip this morning. He is to continue on a CIWA protocol. The patient is undergoing a complete stroke evaluation. The patient remains somewhat obtunded today but is arousable only to sternal rub. This is likely secondary effect to his Ativan CIWA protocol. The patient was able to complete MRI of the brain yesterday which was reviewed. His MRI reveals abnormal cortical signal in the left posterior temporal lobe and also the left insula. These findings are consistent with subacute infarct. There was also probable involvement of the left occipital lobe as well. These multiple areas of infarction suggest possibility of cardioembolic stroke. We are recommending the patient to be evaluated by cardiology for YARIEL procedure. He does continue to demonstrate evidence of dysarthric speech when he is awake and conversing with the nursing staff. He has word finding difficulties in speech is quite garbled at times. This patient has suffered an acute left hemispheric stroke suggesting possibility of cardioembolic phenomenon. His MRI findings were discussed today with Dr. Quiñonez from cardiology. He would like to hold off on performing a YARIEL procedure on this patient who is still not alert enough to follow commands. There is concern for possibility of aspiration given his low level of alertness. We will hold off on YARIEL procedure at this time until the patient shows more improvement in his overall mental status. The patient failed his swallow evaluation by speech therapy today. He has been reluctant to move forward with a PEG tube placement but we did discuss this treatment option with him and his and son at bedside. Patient is now agreeable to consider moving forward to have a PEG tube placement at least temporarily as he is unable to swallow without risk of aspiration. We discussed this in detail and have now notified the ICU nursing staff to inform the appropriate physicians tomorrow morning regarding his decision to move forward with a PEG tube placement. He is to continue with current medical management of his multiple conditions and he is being followed by multiple specialists. His overall prognosis at this time remains very guarded. Objective - Vital Signs Vital signs: Vital Signs Temp 99.9 F H 09/30/18 12:00 Pulse 70 09/30/18 16:36 Resp 24 09/30/18 12:00 BP 154/89 09/30/18 12:00 Pulse Ox 98 09/30/18 12:00 Intake & Output 09/29/18 09/30/18 09/30/18 18:59 06:59 18:59 Intake Total 100 1100 430 Output Total 575 453 745 Balance -475 647 -315 Weight 119.068 kg 118.4 kg Intake: IV 100 700 430 .9 NS 100 600 130 Ampicillin-Sulbactam 3 gm 100 200 In Sodium Chloride 0.9% 100 ml @ 200 mls/hr IVPB Q6HR [facility] Rx#:[id number] Potassium Chloride 10 meq 100 In Water For Injection 1 100ml.bag @ 100 mls/hr IVPB Q1HR [facility] Rx#: [id number] Intake, IV Titration 400 Amount Potassium Chloride 10 meq 400 In Water For Injection 1 100ml.bag @ 100 mls/hr IVPB Q1HR [facility] Rx#: [id number] Output: Urine 575 453 745 Other: Voiding Method Indwelling Catheter Indwelling Catheter Indwelling Catheter # Bowel Movements 0 1 - Exam Physical examination: PHYSICAL EXAMINATION: Patient is resting comfortably in bed. VITAL SIGNS: Blood pressure is [154/89]. Heart rate is [80]. Respiration is [24] . Temperature is [99.9]. HEENT: Head is atraumatic, neck is supple, there were no carotid bruits. CHEST: Lungs are clear to auscultation and percussion. CARDIAC: S1, S2 normal rate and rhythm. There is no murmur. ABDOMEN: Soft and nontender. Bowel sounds are present. EXTREMITIES: There is no pedal edema. Peripheral pulses are present. Neurological examination: The patient is examined today in the intensive care unit. He remains obtunded secondary to medication effect from the Ativan. patient is awake but follows only very simple commands. He is not oriented to time or place. He is drowsy and unable to follow any commands at this time. He is noted to be moving all 4 extremities. His memory and intellectual functions are severely impaired at this time. Cranial nerve examination: Cranial nerves II through XII are grossly intact. Motor examination: Patient is moving all 4 extremities. Sensory examination: Patient does withdraw to painful stimuli. Deep tendon reflexes: DTRs are 1+ and symmetric. Plantar responses flexor bilaterally. Pronation gait cannot be assessed in this patient at this time. - Labs CBC & Chem 7: 10/01/18 04:39 10/01/18 04:39 Labs: Abnormal Lab Results - Last 24 Hours (Table) 09/29/18 09/29/18 09/30/18 Range/Units 18:06 21:25 03:51 RBC 4.23 L (4.30-5.90) m/uL MCV 101.8 H (80.0-100.0) fL Potassium 3.1 L (3.5-5.1) mmol/L Chloride (98-107) mmol/L BUN (9-20) mg/dL Glucose (74-99) mg/dL POC Glucose (mg/dL) 168 H (75-99) mg/dL Calcium (8.4-10.2) mg/dL Total Bilirubin (0.2-1.3) mg/dL AST (17-59) U/L 09/30/18 09/30/18 Range/Units 03:51 11:12 RBC (4.30-5.90) m/uL MCV (80.0-100.0) fL Potassium (3.5-5.1) mmol/L Chloride 108 H (98-107) mmol/L BUN 29 H (9-20) mg/dL Glucose 191 H (74-99) mg/dL POC Glucose (mg/dL) 174 H (75-99) mg/dL Calcium 8.2 L (8.4-10.2) mg/dL Total Bilirubin 1.4 H (0.2-1.3) mg/dL AST 71 H (17-59) U/L Microbiology - Last 24 Hours (Table) 09/26/18 10:00 Blood Culture - Preliminary Blood No Growth after 96 hours Assessment and Plan (1) Acute ischemic left middle cerebral artery (MCA) stroke Current Visit: Yes Status: Acute Code(s): I63.512 - CEREB INFRC D/T UNSP OCCLS OR STENOS OF LEFT MID CEREB ART SNOMED Code(s): 740431703 (2) Alcoholism Current Visit: Yes Status: Acute Code(s): F10.20 - ALCOHOL DEPENDENCE, UNCOMPLICATED SNOMED Code(s): 5587481 (3) Febrile illness Current Visit: Yes Status: Acute Code(s): R50.9 - FEVER, UNSPECIFIED SNOMED Code(s): 173721813 (4) Chronic kidney disease Current Visit: No Status: Acute Code(s): N18.9 - CHRONIC KIDNEY DISEASE, UNSPECIFIED SNOMED Code(s): 323119909 (5) Syncopal episodes Current Visit: No Status: Acute Code(s): R55 - SYNCOPE AND COLLAPSE SNOMED Code(s): 591656068 Plan: This patient is a 58-year-old right-handed white male who was admitted to Hospital with symptoms of acute hypoxic respiratory failure and fluid overload. He was resuscitated and transferred to the intensive care unit where he was noted to have evidence of severe dysarthric speech. Patient has history of alcohol abuse and was started on a CIWA protocol in the intensive care unit. He was complaining of weakness on his right side. He was sent for MRI of the brain today which was completed yesterday. MRI reveals evidence of multiple areas of acute stroke involving the left posterior temporal lobe and left insula. There is also questionable left occipital lobe infarct on this MRI of the brain. These findings suggest possibility of cardioembolic phenomena as a cause of his stroke. We have consulted cardiology for YARIEL procedure tomorrow morning. Case was discussed today with Dr. Quiñonez from cardiology. He would like to hold off on performing the YARIEL procedure until the patient is more awake and alert. He is concerned for possibility of aspiration. The patient is being treated for alcohol withdrawal syndrome and is currently on Ativan drip. Due to severe sedation he is now been switched back to a CIWA protocol and seems to be tolerating this well. He was very combative earlier in the day secondary to his long-standing history of alcohol abuse. We did have a long discussion with the patient his and his son at bedside today in the ICU. He is much more awake and alert and is able to understand and comprehend what we were discussing in terms of his stroke and his inability to swallow. We've recommended patient to strongly consider moving forward with a PEG tube placement at least temporarily until he shows improvement with his swallowing capacity secondary to a stroke. Patient is now agreeable after discussing all of these points with his and son at bedside. We will notify the nursing staff in the ICU of his intention now to go ahead with a PEG tube placement. We will continue to monitor his progress closely during this admission. Neurologically the patient is showing no new clinical signs. We will continue our workup for a complete stroke assessment in this patient. His overall prognosis at this time remains very guarded. This case was discussed at length with the patient and his and son at bedside in the ICU. All of their questions were answered. They are aware of his guarded condition. They have agreed to move forward with PEG tube placement for feeding purposes and this will be arranged through the nursing staff in the ICU and the physicians tomorrow morning. We will continue close neurological follow this patient in the intensive care unit.
--- NOTE | 2018-10-01 21:22 | P.CONS ---
History of Present Illness - Reason for Consult Consult date: 10/01/18 Oropharyngeal dysphagia Requesting physician: Nilson Gillis - Chief Complaint Right-sided weakness, difficulty speaking - History of Present Illness 58-year-old male with a medical history significant for TANYA, hypertension and alcohol abuse who presented with a constellation of symptoms including difficulty speaking, right sided weakness and a facial twitch on the right side. After presentation the patient was seen and evaluated and is being treated for a left MCA CVA, as well as possible aspiration pneumonia. During his stay the patient has had some improvement in his symptoms however he has continued to fail swallowing evaluations and it is the recommendation of the neurology service that the patient has a PEG tube placed due to the risk of aspiration. Review of Systems Could not be obtained given a dysphagia in a patient who has had a CVA. Past Medical History Past Medical History: Hypertension Additional Past Medical History / Comment(s): Obesity, obstructive sleep apnea, chronic back pain, previous back injury work-related and the patient has undergone a back surgery with laminectomy and fusion and he is receiving and management through Dr. Ruth. He has seen also Dr. Salcedo in the past. Hypertension, alcoholism. History of Any Multi-Drug Resistant Organisms: None Reported Past Surgical History: Back Surgery, Joint Replacement, Orthopedic Surgery Additional Past Surgical History / Comment(s): rotator cuff,rt knee, Past Anesthesia/Blood Transfusion Reactions: No Reported Reaction Past Psychological History: No Psychological Hx Reported Additional Psychological History / Comment(s): and has adult children who despite his alcoholism are involved. He is medically disabled on disability had some kind of injury at work requiring back surgery and this has not had a good outcome and he has significant lower extremity neuropathy. Is noted positive tobacco use and positive alcohol use. Family denies any significant recreational drug use. No experience. 2 pet Dogs in the home Smoking Status: Former smoker Past Alcohol Use History: Daily, Heavy Additional Past Alcohol Use History / Comment(s): Patient drinks 10-12 beers a day plus whiskey; today was given 1 beer because he thought thats why he was shaking . Only 3 beers yesterday Past Drug Use History: None Reported - Past Family History Mother Family Medical History: Diabetes Mellitus Medications and Allergies Home Medications Medication Instructions Recorded Confirmed Type oxyCODONE-APAP 10-325MG [Percocet 1 tab PO QID PRN 08/13/17 09/26/18 History 10-325 mg] Gabapentin 600 mg PO Q8H 03/03/18 09/26/18 History Losartan-Hctz 50-12.5 mg [Hyzaar 1 tab PO DAILY 03/03/18 09/26/18 History 50-12.5] Allergies Allergy/AdvReac Type Severity Reaction Status Date / Time No Known Allergies Allergy Verified 09/26/18 16:07 Physical Exam Vitals: Vital Signs Temp Pulse Resp BP Pulse Ox 10/01/18 19:50 67 10/01/18 19:44 68 10/01/18 17:00 74 22 162/97 84 L 10/01/18 16:01 98.7 F 81 18 162/97 93 L 10/01/18 15:00 69 92 L 10/01/18 14:00 76 91 L 10/01/18 13:00 78 20 168/99 100 10/01/18 12:18 76 10/01/18 12:08 67 10/01/18 12:00 98.3 F 75 11 L 95 10/01/18 11:00 78 27 H 95 10/01/18 10:00 79 20 95 10/01/18 09:00 78 22 95 10/01/18 08:00 97.9 F 76 16 160/89 97 10/01/18 07:59 72 10/01/18 07:46 70 10/01/18 07:00 25 H 184/99 92 L 10/01/18 06:00 57 L 23 160/96 93 L 10/01/18 05:00 53 L 15 160/96 96 10/01/18 04:00 51 L 22 160/96 96 10/01/18 03:00 22 160/96 94 L 10/01/18 02:00 76 25 H 160/96 93 L 10/01/18 01:00 69 15 10/01/18 00:00 71 25 H 173/66 93 L 09/30/18 23:37 78 23 93 L 09/30/18 23:00 80 25 H 91 L 09/30/18 22:00 80 12 95 Intake and Output 10/01/18 10/01/18 10/01/18 06:59 14:59 22:59 Intake Total 160 640 40 Output Total 267 290 125 Balance -107 350 -85 Intake: IV 160 240 40 .9 NS 160 140 40 Ampicillin-Sulbactam 3 gm 100 In Sodium Chloride 0.9% 100 ml @ 200 mls/hr IVPB Q6HR [facility] Rx#:[id number] Intake, IV Titration 400 Amount Potassium Chloride 10 meq 400 In Water For Injection 1 100ml.bag @ 100 mls/hr IVPB Q1HR [facility] Rx#: [id number] Output: Urine 267 290 125 Other: Voiding Method Indwelling Catheter Indwelling Catheter Indwelling Catheter Weight 100.3 kg 100.3 kg Results CBC & Chem 7: 10/01/18 04:39 10/01/18 04:39 Labs: Abnormal Lab Results - Last 24 Hours (Table) 10/01/18 10/01/18 10/01/18 Range/Units 00:20 04:39 04:39 RBC 4.12 L (4.30-5.90) m/uL MCV 104.1 H (80.0-100.0) fL Sodium 149 H (137-145) mmol/L Chloride 112 H (98-107) mmol/L Carbon Dioxide 32 H (22-30) mmol/L BUN 34 H (9-20) mg/dL Glucose 148 H (74-99) mg/dL POC Glucose (mg/dL) 185 H (75-99) mg/dL AST 67 H (17-59) U/L Albumin 3.4 L (3.5-5.0) g/dL 10/01/18 10/01/18 10/01/18 Range/Units 06:22 11:58 17:05 RBC (4.30-5.90) m/uL MCV (80.0-100.0) fL Sodium (137-145) mmol/L Chloride (98-107) mmol/L Carbon Dioxide (22-30) mmol/L BUN (9-20) mg/dL Glucose (74-99) mg/dL POC Glucose (mg/dL) 146 H 178 H 163 H (75-99) mg/dL AST (17-59) U/L Albumin (3.5-5.0) g/dL Microbiology - Last 24 Hours (Table) 09/26/18 10:00 Blood Culture - Preliminary Blood No Growth after 120 hours Assessment and Plan (1) Oropharyngeal dysphagia Narrative/Plan: Secondary to CVA. Current Visit: Yes Status: Acute Code(s): R13.12 - DYSPHAGIA, OROPHARYNGEAL PHASE SNOMED Code(s): 06433652 (2) Acute ischemic left middle cerebral artery (MCA) stroke Current Visit: Yes Status: Acute Code(s): I63.512 - CEREB INFRC D/T UNSP OCCLS OR STENOS OF LEFT MID CEREB ART SNOMED Code(s): 193309440 (3) Alcoholism Current Visit: Yes Status: Acute Code(s): F10.20 - ALCOHOL DEPENDENCE, UNCOMPLICATED SNOMED Code(s): 4510998 Plan: Supportive care Appreciate recommendations by infectious disease, neurology and parts chaser service Nothing by mouth Continue antibiotics We'll plan on PEG tube placement Extensive explanation to the patient on the steps involved in PEG tube placement , its utility and the risks of the procedure Thank you for allowing us to participate in the care of this patient
[2018-10-01] MEDS: hydrALAZINE HCL 20 MG/ML 1 ML VIAL IVP PRN (22:19)
[2018-10-02] MEDS: methylPREDNISolone SOD SUCCI 125 MG/2 ML VIAL IV SCH ×2 (00:05→06:10)
[2018-10-02] MEDS: INSULIN ASPART 100 UNIT/ML 1 ML 10 ML VIAL SQ SCH ×5 (00:05→22:38)
[2018-10-02] MEDS: AMPICILLIN-SULBACTAM 3 GM in SODIUM CHLORIDE 0.9% 100 ML IVPB SCH ×5 (00:05→23:13)
[2018-10-02 00:11] LABS: Glucose,Whole Blood 162 mg/dL (75-99)
[2018-10-02] MEDS: LORazepam 2 MG/ML INJ IV PRN ×5 (01:17→23:21)
[2018-10-02 04:30] LABS: HGB 14.4 gm/dL (13.0-17.5); MCH 33.5 pg (25.0-35.0); MCHC 31.9 g/dL (31.0-37.0); Macrocytosis Slight; Mean Platelet Volume 7.5; Platelet Count 171 k/uL (150-450); RBC 4.29 m/uL (4.30-5.90); RDW 12.5 % (11.5-15.5); WBC 6.6 k/uL (3.8-10.6)
[2018-10-02 04:34] LABS: INR 1.3 (<1.2); Prothrombin Time 12.3 sec (9.0-12.0)
[2018-10-02 04:42] LABS: ALT 85 U/L (21-72); AST 90 U/L (17-59); Albumin 3.4 g/dL (3.5-5.0); Alkaline Phosphatase 88 U/L (38-126); Anion Gap 5 mmol/L; Blood Urea Nitrogen 33 mg/dL (9-20); Calcium 8.5 mg/dL (8.4-10.2); Carbon Dioxide 29 mmol/L (22-30); Chloride 118 mmol/L (98-107); Glucose 189 mg/dL (74-99); Potassium 3.4 mmol/L (3.5-5.1); Sodium 152 mmol/L (137-145); Total Bilirubin 1.4 mg/dL (0.2-1.3); Total Protein 6.8 g/dL (6.3-8.2)
[2018-10-02] MEDS ORDERED: Potassium Replacement Protocol 1 EACH MISC MISCELLANE PRN (05:54)
[2018-10-02 06:04] LABS: Glucose,Whole Blood 175 mg/dL (75-99)
[2018-10-02] MEDS: POTASSIUM CHLORIDE 10 MEQ in WATER FOR INJECTION 1 100ML.BAG IVPB SCH ×4 (07:03→20:58)
--- NOTE | 2018-10-02 08:18 | XR ---
EXAMINATION TYPE: XR chest 1V portable DATE OF EXAM: 10/02/2018 COMPARISON: 10/01/2018 INDICATION: Adventitious lung sounds, increased lung sounds TECHNIQUE: Single frontal view of the chest is obtained. FINDINGS: The heart size is mildly prominent.. The pulmonary vasculature is normal. Minimal bibasilar infiltrates may be present, greater on the left. This is relatively stable from com parison IMPRESSION: 1. Mild left lower lobe infiltrate essentially stable from prior study.
--- NOTE | 2018-10-02 08:24 | PN ---
PROGRESS NOTE Mr. Glasgow is a 58-year-old male who presented with change in mental status, speech changes as well as twitching on the right side was diagnosed with possible cerebrovascular accident. He is awake, alert, not able to swallow. He is scheduled to undergo a PEG tube placement today. He continued be in sinus mechanism. There is no evidence of atrial fibrillation documented. He remains with issue with his speech. He continued be on clonidine patch 0.1 mg weekly, aspirin rectally, hydralazine on a p.r.n. basis. PHYSICAL EXAMINATION: Blood pressure running in the 150s with the heart rate in the 60s. LUNGS: With few rhonchi bilaterally. HEART: Regular rate and rhythm. S1, S2. No S3. No rub or gallop appreciated. ABDOMEN: Soft. Positive bowel sounds. No organomegaly. EXTREMITIES: No edema. His right-sided weakness is improving. LAB DATA: Lab data revealed an INR 1.3. BUN and creatinine 33 and 0.7. Potassium 3.4. Total bilirubin of 1.4. IMPRESSION: 1. Right-sided weakness with speech disturbance and evidence of cerebrovascular accident. 2. Inability to swallow, scheduled for PEG tube. 3. Hypertension. 4. History of alcohol intake. RECOMMENDATION: From the cardiac standpoint once the PEG tube is placed then we will switch him to oral antihypertensive regimen. Because of his overall status, I will continue to hold on doing a YARIEL at this time and if it is felt by the neurological service that that is needed, then we will proceed with that at a later time. SADE / JULISSAN: [id number] /
--- NOTE | 2018-10-02 08:29 | P.PN ---
Subjective Progress Note Date: 10/01/18 This patient is a 57-year-old male who was seen in neurology consultation for evaluation of altered mental status and increased confusion. Patient was found to have evidence of expressive aphasia with right-sided facial droop. He underwent an MRI of the brain for further evaluation of acute left MCA stroke. He was noted to have some facial twitching on his right side as well with evidence yesterday of having some blepharospasms of the eyelids. The patient has a extensive history of alcohol abuse in the past. He has been placed on a CIWA protocol and was switched to an Ativan drip due to agitation today. Due to excessive sedation he was taken off of the Ativan drip this morning. He is to continue on a CIWA protocol. The patient is undergoing a complete stroke evaluation. The patient remains somewhat obtunded today but is arousable only to sternal rub. This is likely secondary effect to his Ativan CIWA protocol. The patient was able to complete MRI of the brain yesterday which was reviewed. His MRI reveals abnormal cortical signal in the left posterior temporal lobe and also the left insula. These findings are consistent with subacute infarct. There was also probable involvement of the left occipital lobe as well. These multiple areas of infarction suggest possibility of cardioembolic stroke. We are recommending the patient to be evaluated by cardiology for YARIEL procedure. He does continue to demonstrate evidence of dysarthric speech when he is awake and conversing with the nursing staff. He has word finding difficulties in speech is quite garbled at times. This patient has suffered an acute left hemispheric stroke suggesting possibility of cardioembolic phenomenon. His MRI findings were discussed today with Dr. Quiñonez from cardiology. He would like to hold off on performing a YARIEL procedure on this patient who is still not alert enough to follow commands. There is concern for possibility of aspiration given his low level of alertness. We will hold off on YARIEL procedure at this time until the patient shows more improvement in his overall mental status. The patient failed his swallow evaluation by speech therapy today. He has been reluctant to move forward with a PEG tube placement but we did discuss this treatment option with him and his and son at bedside. Patient is now agreeable to consider moving forward to have a PEG tube placement at least temporarily until he is able to swallow without risk of aspiration. According to the ICU nursing staff the patient is scheduled for PEG tube placement at 8 AM tomorrow morning. Patient continues to show improvement in his overall mental status. He shows very little right-sided weakness. Cardiology is aware of his improvement and we will continue close monitoring to see if he may benefit from YARIEL if he continues to show neurological improvement in his condition. We will continue with current medical management of his multiple conditions and he is being followed by multiple specialists. His overall prognosis at this time remains very guarded. Objective - Vital Signs Vital signs: Vital Signs Temp 98.7 F 10/01/18 16:01 Pulse 74 10/01/18 17:00 Resp 22 10/01/18 17:00 BP 162/97 10/01/18 17:00 Pulse Ox 84 L 10/01/18 17:00 Intake & Output 10/01/18 10/01/18 10/02/18 06:59 18:59 06:59 Intake Total 220 680 Output Total 497 415 Balance -277 265 Weight 100.3 kg 100.3 kg Intake: IV 220 280 .9 NS 220 180 Ampicillin-Sulbactam 3 gm 100 In Sodium Chloride 0.9% 100 ml @ 200 mls/hr IVPB Q6HR [facility] Rx#:[id number] Intake, IV Titration 400 Amount Potassium Chloride 10 meq 400 In Water For Injection 1 100ml.bag @ 100 mls/hr IVPB Q1HR [facility] Rx#: [id number] Output: Urine 497 415 Other: Voiding Method Indwelling Catheter Indwelling Catheter - Exam Physical examination: PHYSICAL EXAMINATION: Patient is resting comfortably in bed. VITAL SIGNS: Blood pressure is [162/97]. Heart rate is [74]. Respiration is [22] . Temperature is [98.7]. HEENT: Head is atraumatic, neck is supple, there were no carotid bruits. CHEST: Lungs are clear to auscultation and percussion. CARDIAC: S1, S2 normal rate and rhythm. There is no murmur. ABDOMEN: Soft and nontender. Bowel sounds are present. EXTREMITIES: There is no pedal edema. Peripheral pulses are present. Neurological examination: The patient is examined today in the intensive care unit. He is much more awake and alert today in the intensive care unit. Patient is much more calm today and less agitated. He is able to follow simple commands. He is moving all extremities with slight right-sided weakness. The deep tendon reflexes are 1+ and symmetric. Plantar responses flexor bilaterally. - Labs CBC & Chem 7: 10/02/18 04:07 10/02/18 04:07 Labs: Abnormal Lab Results - Last 24 Hours (Table) 10/01/18 10/01/18 10/01/18 Range/Units 00:20 04:39 04:39 RBC 4.12 L (4.30-5.90) m/uL MCV 104.1 H (80.0-100.0) fL Sodium 149 H (137-145) mmol/L Chloride 112 H (98-107) mmol/L Carbon Dioxide 32 H (22-30) mmol/L BUN 34 H (9-20) mg/dL Glucose 148 H (74-99) mg/dL POC Glucose (mg/dL) 185 H (75-99) mg/dL AST 67 H (17-59) U/L Albumin 3.4 L (3.5-5.0) g/dL 10/01/18 10/01/18 10/01/18 Range/Units 06:22 11:58 17:05 RBC (4.30-5.90) m/uL MCV (80.0-100.0) fL Sodium (137-145) mmol/L Chloride (98-107) mmol/L Carbon Dioxide (22-30) mmol/L BUN (9-20) mg/dL Glucose (74-99) mg/dL POC Glucose (mg/dL) 146 H 178 H 163 H (75-99) mg/dL AST (17-59) U/L Albumin (3.5-5.0) g/dL Microbiology - Last 24 Hours (Table) 09/26/18 10:00 Blood Culture - Preliminary Blood No Growth after 120 hours Assessment and Plan (1) Acute ischemic left middle cerebral artery (MCA) stroke Current Visit: Yes Status: Acute Code(s): I63.512 - CEREB INFRC D/T UNSP OCCLS OR STENOS OF LEFT MID CEREB ART SNOMED Code(s): 925118755 (2) Alcoholism Current Visit: Yes Status: Acute Code(s): F10.20 - ALCOHOL DEPENDENCE, UNCOMPLICATED SNOMED Code(s): 2858291 (3) Febrile illness Current Visit: Yes Status: Acute Code(s): R50.9 - FEVER, UNSPECIFIED SNOMED Code(s): 248167384 (4) Chronic kidney disease Current Visit: No Status: Acute Code(s): N18.9 - CHRONIC KIDNEY DISEASE, UNSPECIFIED SNOMED Code(s): 524314358 (5) Syncopal episodes Current Visit: No Status: Acute Code(s): R55 - SYNCOPE AND COLLAPSE SNOMED Code(s): 466453994 Plan: This patient is a 58-year-old right-handed white male who was admitted to Hospital with symptoms of acute hypoxic respiratory failure and fluid overload. He was resuscitated and transferred to the intensive care unit where he was noted to have evidence of severe dysarthric speech. Patient has history of alcohol abuse and was started on a CIWA protocol in the intensive care unit. He was complaining of weakness on his right side. He was sent for MRI of the brain today which was completed yesterday. MRI reveals evidence of multiple areas of acute stroke involving the left posterior temporal lobe and left insula. There is also questionable left occipital lobe infarct on this MRI of the brain. These findings suggest possibility of cardioembolic phenomena as a cause of his stroke. We have consulted cardiology for YARIEL procedure tomorrow morning. Case was discussed today with Dr. Quiñonez from cardiology. He would like to hold off on performing the YARIEL procedure until the patient is more awake and alert. He is concerned for possibility of aspiration. The patient is being treated for alcohol withdrawal syndrome and is currently on Ativan drip. Due to severe sedation he is now been switched back to a CIWA protocol and seems to be tolerating this well. He was very combative earlier in the day secondary to his long-standing history of alcohol abuse. We did have a long discussion with the patient his and his son at bedside today in the ICU. He is much more awake and alert and is able to understand and comprehend what we were discussing in terms of his stroke and his inability to swallow. We've recommended patient to strongly consider moving forward with a PEG tube placement at least temporarily until he shows improvement with his swallowing capacity secondary to a stroke. Patient is now agreeable after discussing all of these points with his and son at bedside. We will notify the nursing staff in the ICU of his intention now to go ahead with a PEG tube placement. We will continue to monitor his progress closely during this admission. Neurologically the patient is showing no new clinical signs. We will continue our workup for a complete stroke assessment in this patient. His overall prognosis at this time remains very guarded. This case was discussed at length with the patient and his and son at bedside in the ICU yesterday. All of their questions were answered. They are aware of his guarded condition. They have agreed to move forward with PEG tube placement for feeding purposes and this will be arranged through the nursing staff in the ICU and the physicians tomorrow morning. Patient is scheduled to undergo PEG tube placement at 8 AM tomorrow morning. He continues to show improvement in his overall mental status. Cardiology is aware of his neurological improvement and will consider YARIEL procedure at a later time. We will continue close neurological follow this patient in the intensive care unit.
[2018-10-02] MEDS ORDERED: MIDAZOLAM 2 MG/2 ML VIAL ONE (08:51)
[2018-10-02] MEDS ORDERED: PROPOFOL 10 MG/ML 20 ML VIAL IV ONE (08:51)
[2018-10-02] MEDS ORDERED: KETAMINE 10 MG/ML 20 ML VIAL ONE (08:51)
[2018-10-02] MEDS ORDERED: LIDOCAINE 1% INJ 10MG/ML (20 ML MDV) ONE (08:51)
[2018-10-02] MEDS ORDERED: IV FLUID CONTINUATION 450 ML IV ONE (08:58)
--- NOTE | 2018-10-02 09:52 | P.PN ---
Subjective Progress Note Date: 10/02/18 Principal diagnosis: Acute hypoxemic respiratory failure related to suspected aspiration, atelectasis , and mild fluid overload This is a 57-year-old white male patient of Dr. Rick, who was brought into the emergency department on 09/26/2018 for evaluation of right-sided facial twitching, garbled speech, right arm weakness. Initial brain CT was negative for any acute intracranial abnormality, showed mild degenerative change. EKG showed normal sinus rhythm without evidence of acute ischemic changes. Patient has persistent symptoms of expressive aphasia, he is having right-sided facial twitching, and right-sided weakness. Past medical history is significant for heavy EtOH use, nicotine dependence, currently in remission, obstructive sleep apnea, chronic back pain, with history of back surgery with a laminectomy procedure, hypertension. Patient did have a fever presentation, of 101.1F, mild lactic acidosis of 2.5, but his lab work was negative for any leukocytosis , WBC was 7.5, chemistry showed sodium of 134, potassium of 3.6, chloride of 95 , renal profile and rest of electrolytes were within normal limits, AST was 66, ALT was 45, alk phos was 123, troponin was negative 1, urinalysis negative for any infection. Influenza screen was negative, serum alcohol was less than 10. She has developed acute hypoxemic respiratory failure, he is on supplemental oxygen currently at 4 L per nasal cannula. He was noted to be tachypneic at times, he is a poor historian, but he states he is short of breath, but denied any chest pain. Chest x-ray on 09/26/2018 showed mild cardiomegaly, but no acute pulmonary process, chest x-ray taken later that day showed some pulmonary vascular congestion, and widening of the mediastinum, no gross heart failure. Based on the findings of the chest x-ray, fluid overload was suspected, and patient was given a dose of IV Lasix with significant diuresis, he is in -3275 ML fluid balance over the last 24 hours. He was started on empiric antibiotics in the form of Rocephin, and there has been no recurrence of fevers since admission. Cultures are still pending at this time. His morning patient is seen in evaluation on selective care unit, he is awake and alert, he still has significant dysarthria, and expressive aphasia. I'm told by nursing staff that he is requiring intermittent oral suctioning, and patient has no gag reflex, he remains nothing by mouth, he is being evaluation by speech pathologist. No obvious facial asymmetry noted on today's exam, having some twitching of his face, his right-sided weakness seems to be somewhat improved. Urology is following, and patient is undergoing neurological evaluation for suspected left MCA CVA. On 09/28/2018 patient seen in follow-up he was transferred to the intensive care unit last night for acute alcohol , and delirium. He was agitated, he was started on Ativan drip at 1 mg per hour. From pulmonary perspective patient remains congested, and wheezy, currently on 3-1/2 L per nasal cannula, his pulse ox is 93-94%, additional dose of Lasix this morning, patient has diuresis , today's chest x-ray has been reviewed by Dr. Cordoba, and shows worsening of the lung markings, minimal pulmonary congestion, no overt heart failure, improved aeration at the right lung base compared to yesterday. He remains on IV steroids, and nebulized bronchodilators. Highly suspect aspiration, speech therapy has been consulted, patient remains nothing by mouth, he is sedated this morning, we will stop the Ativan drip, patient does arouse to tactile stimuli, however he falls back asleep. 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 Patient remains on antibiotic coverage, for his cellulitis. He is scheduled for EEG and MRI of the brain today. Dynamically stable, his maintenance IV fluids is 0.9 normal saline at a rate of 20 ML per hour. No other drips. Today's labs have been reviewed, WBC 7.2, hemoglobin is 13.0, electrolytes are within normal limits, BUN is up slightly at 22, creatinine 0.7. Cultures remain negative thus far, unable to send the sputum culture, patient is unable to cough and produce a sputum sample. Neurology, infectious disease are following. On 09/29/2018 patient seen in follow-up in the intensive care unit, is a little bit more alert today, he tries to squeeze hands on command, he still has right- sided weakness. His cough is weak, patient remains congested, he is currently on 10 L per high flow nasal cannula, and his pulse ox is 96%, patient is afebrile, hemodynamically stable, yesterday patient was placed back on Ativan drip, which is currently infusing at a rate of 2 mg per hour for acute agitation , and seizure-like activity. Brain MRI showed abnormal cortical signal in the left posterior temporal lobe and insula of the left temporal lobe consistent with subacute infarct. Multiple white matter foci that were nonspecific but could relate to chronic small vessel ischemia 0D myelinating disease. EEG was moderately abnormal in a diffuse fashion due to slowing of the EEG background, it failed to reveal any focal, lateralizing or epileptiform abnormalities. His chest x-ray has been reviewed by Dr. Cordoba, and showed no acute abnormality, small pleural effusion, and some bibasilar atelectasis. Patient continues on nebulized bronchodilators, he remains nothing by mouth for aspiration precautions, he has been unable to complete a swallow evaluation due to his mental status, agitation, and sedation. Speech therapy is to reevaluate the patient today. Ultra Tears remain negative, no fever no chills, patient is on Unasyn for the cellulitis in his lower legs. Infectious disease is following. On 09/30/2018 patient seen again in follow-up in the intensive care unit. He is more awake, and continues to have twitching of his right side of the face. He is moving his right arm, but his response is intermittent, and at times patient is able to follow commands and respond, he give us a thumbs up with his right hand when asked how he was doing this morning. However when we asked him to squeeze hands on command later was not able to do it with either one. Yesterday patient was started on oral diet, however he has difficulty managing secretions, he has a weak cough, and for that reason he is back to nothing by mouth status. Lung sounds slightly better, although remain congested, with scattered rhonchi. We place the patient on a small dose of IV Lasix every day, today's chest x-ray has been reviewed by Dr. Salcedo, and showed some plate atelectasis in the right lower lobe. Shanae on Unasyn. Afebrile, currently on 11 L per high flow nasal cannula, his pulse ox is 93%, and blood cultures remain negative, we were unable to send the sputum culture. Today's labs have been reviewed, WBC is 8.2, hemoglobin is 14.2, sodium is 144, potassium is 3.7, chloride is 108, BUN is 29 creatinine 0.72. On 2017 patient seen in follow-up in the intensive care unit, is much more alert, and following commands, still has very slight residual right-sided weakness, but she is moving his right upper and lower extremity, and his strength on the right side has definitely improved. The facial twitching on the right side of his face has significantly improved. Lung sounds are positive for some scattered wheezing, much less congested compared to previous exams. Patient's FiO2 is down to 3 L per high flow nasal cannula, his pulse ox is 92%, only a couple of low-grade fevers with a T-max of 99.9F, blood and urine cultures remain negative, today's chest x-ray has been reviewed by Dr. Salcedo, showed cardiomegaly with patchy basilar atelectasis and probable small to tiny bilateral pleural effusions. Today's blood work has been reviewed, WBC 6.8, hemoglobin is 13.7, sodium is 149, potassium is 3.5, chloride is 112, CO2 is 32, B1 is 34, creatinine 0.70. He remains on empiric coverage, in the form of Unasyn. Patient has dysphagia secondary to his left MCA stroke, he has been doing swallow evaluations, and for that reason was a discussion about PEG tube placement, and the family is in agreement with the PEG tube placement. On 10/02/2018 patient seen in follow-up in the intensive care unit, he has been selective overflow. Logically he continues to improve, he is following commands , he is up out of bed with assistance, and he is able to take a few steps to the commode and back, his right-sided weakness is definitely improving, with only slight residual weakness. Speech is still garbled, and patient has failed swallow evaluation. He was seen by GI service, and she scheduled for PEG tube placement today by Dr. Rosado. Pulmonary perspective patient is stable, room air pulse ox is 98%, lung sounds are air, no rhonchi, no wheezing, patient is afebrile. Cultures are negative. His chest x-ray showed mild left lower lobe infiltrate/atelectasis, stable from prior study. Labs have been reviewed, WBC 6.6, hemoglobin is 14.4, INR is 1.3, sodium is 152, potassium is 3.4, chloride is 118, BUN is 33, creatinine is 0.75, history we discontinued patient's Lasix. Objective - Vital Signs Vital signs: Vital Signs Temp 97.6 F 10/02/18 08:00 Pulse 72 10/02/18 08:00 Resp 27 H 10/02/18 08:00 BP 168/100 10/02/18 08:00 Pulse Ox 98 10/02/18 08:00 Intake & Output 10/01/18 10/02/18 10/02/18 18:59 06:59 18:59 Intake Total 680 280 270 Output Total 415 405 150 Balance 265 -125 120 Weight 100.3 kg 112.4 kg Intake: IV 280 280 270 .9 NS 180 80 20 Ampicillin-Sulbactam 3 gm 100 200 In Sodium Chloride 0.9% 100 ml @ 200 mls/hr IVPB Q6HR [facility] Rx#:[id number] Intake, IV Titration 400 Amount Potassium Chloride 10 meq 400 In Water For Injection 1 100ml.bag @ 100 mls/hr IVPB Q1HR [facility] Rx#: [id number] Output: Urine 415 405 150 Other: Voiding Method Indwelling Catheter Indwelling Catheter - Exam GENERAL EXAM: Awake, alert, 57-year-old white male, in no apparent distress, he follows commands, he is moving his right side, no facial asymmetry, 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 Right facial twitches have improved. The patient seen up out of bed, and he was able to take a few steps with assistance, right-sided weakness continues to improve at times he is able to lift his right arm, and give us a thumbs up with his right hand. Patient has intermittent twitching of his right side of his face HEAD: Normocephalic/atraumatic. EYES: Normal reaction of pupils, equal size. Conjunctiva pink, sclera white. NOSE: Clear with pink turbinates. THROAT: No erythema or exudates. NECK: No masses, no JVD, no thyroid enlargement, no adenopathy. CHEST: No chest wall deformity. Symmetrical expansion. LUNGS: Clear breath sounds bilaterally, no rhonchi, no wheezing Patient has a weak cough CVS: Regular rate and rhythm, normal S1 and S2, no gallops, no murmurs, no rubs ABDOMEN: Soft, nontender. No hepatosplenomegaly, normal bowel sounds, no guarding or rigidity. EXTREMITIES: No clubbing, no edema, no cyanosis, 2+ pulses and upper and lower extremities. 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 - Labs CBC & Chem 7: 10/02/18 04:07 10/02/18 04:07 Labs: Abnormal Lab Results - Last 24 Hours (Table) 10/01/18 10/01/18 10/01/18 Range/Units 11:58 17:05 23:59 RBC (4.30-5.90) m/uL MCV (80.0-100.0) fL PT (9.0-12.0) sec INR (<1.2) Sodium (137-145) mmol/L Potassium (3.5-5.1) mmol/L Chloride (98-107) mmol/L BUN (9-20) mg/dL Glucose (74-99) mg/dL POC Glucose (mg/dL) 178 H 163 H 162 H (75-99) mg/dL Total Bilirubin (0.2-1.3) mg/dL AST (17-59) U/L ALT (21-72) U/L Albumin (3.5-5.0) g/dL 10/02/18 10/02/18 10/02/18 Range/Units 04:07 04:07 04:07 RBC 4.29 L (4.30-5.90) m/uL MCV 105.0 H (80.0-100.0) fL PT 12.3 H (9.0-12.0) sec INR 1.3 H (<1.2) Sodium 152 H (137-145) mmol/L Potassium 3.4 L (3.5-5.1) mmol/L Chloride 118 H (98-107) mmol/L BUN 33 H (9-20) mg/dL Glucose 189 H (74-99) mg/dL POC Glucose (mg/dL) (75-99) mg/dL Total Bilirubin 1.4 H (0.2-1.3) mg/dL AST 90 H (17-59) U/L ALT 85 H (21-72) U/L Albumin 3.4 L (3.5-5.0) g/dL 10/02/18 Range/Units 05:53 RBC (4.30-5.90) m/uL MCV (80.0-100.0) fL PT (9.0-12.0) sec INR (<1.2) Sodium (137-145) mmol/L Potassium (3.5-5.1) mmol/L Chloride (98-107) mmol/L BUN (9-20) mg/dL Glucose (74-99) mg/dL POC Glucose (mg/dL) 175 H (75-99) mg/dL Total Bilirubin (0.2-1.3) mg/dL AST (17-59) U/L ALT (21-72) U/L Albumin (3.5-5.0) g/dL Microbiology - Last 24 Hours (Table) 09/26/18 10:00 Blood Culture - Preliminary Blood No Growth after 120 hours Assessment and Plan Plan: Assessment: #1. Acute hypoxemic respiratory failure, related to fluid overload and suspected aspiration, chest x-ray showed some pulmonary vascular congestion, cardiomegaly, patient has been receiving intermittent daily doses of Lasix, and today's chest x-ray on 09/29/2018 was no acute pulmonary process, small left pleural effusion, and bibasilar atelectasis, no clear evidence of pneumonia On 10/01/2018 patient has been getting a small dose of Lasix every day, chest x- ray today showed bibasilar atelectasis, and small to tiny bilateral pleural effusions. Patient has been diuresed, his oxygenation improved, down to 3 L per high flow nasal cannula. We'll discontinue the Lasix today. On 10/02/2018 patient seen in follow-up in the intensive care unit. He is awaiting a bed on selective care unit, mentation and right-sided weakness continue to improve, no twitching, no seizure-like activity, no agitation today. He is compliant with his care #2. Left hemispheric CVA, patient presented with sided weakness, twitching, expressive aphasia #3. Mild lactic acidosis present on admission, febrile episode, rule out infectious etiology/sepsis. Cultures are pending, and there has been no recurrence of fevers. Lactic acid is now within normal limits. #4. EtOH dependence, and acute withdrawal with agitation and delirium #5. Nicotine dependence, currently in remission, patient quit smoking 2 years ago, but carries [id number] smoking history #6. History of obstructive sleep apnea #7. History of chronic back pain, related to work related injury, patient is status post laminectomy and fusion, follows with Dr. Marino #8. Hypertension Plan: Continue holding diuretics, we start the patient on D5W at a rate of 75 ML per hour, continue nebulized bronchodilators, patient is on the room air, , lung sounds are clear to auscultation on today's exam. We will discontinue patient' s Solu-Medrol. Patient remains nothing by mouth, scheduled for PEG tube placement by Dr. Rosado today. Cultures remain negative. Neurologic the patient is improving, right-sided weakness is improving, no agitation, no seizure-like activity. He is following commands. He is up out of bed with assistance. From pulmonary/critical care perspective patient is stable to transfer to [facility] floor I performed a history & physical examination of the patient and discussed their management with my nurse practitioner, Nimisha Higgins. I reviewed the nurse practitioner's note and agree with the documented findings and plan of care. Lung sounds are clear. The findings and the impression was discussed with the patient. I attest to the documentation by the nurse practitioner. Time with Patient: Less than 30
--- NOTE | 2018-10-02 09:54 | P.PCN ---
Date of Procedure: 10/02/18 Description of Procedure: Brief history: Patient is a 58-year-old pleasant male with a history of alcohol abuse who presented to the hospital with complaints of right-sided weakness, facial twitching and difficulty speaking. He subsequently was found to have a left MCA CVA for which she is currently receiving treatment. Gastroenterology was consult dated for placement of a PEG tube as the patient was having difficulty swallowing and there was concern for aspiration. Procedure performed: EGD with PEG tube placement Preoperative diagnosis: Oropharyngeal dysphagia IV sedation by anesthesia: MAC Estimated blood loss: Minimal. Procedure: After informed consent was obtained with the patient as well as the family the patient was brought into the endoscopy unit. IV conscious sedation was administered by anesthesia under continuous monitoring. The Olympus GF 190 video endoscope was inserted into the mouth and esophagus intubated without any difficulty and was gradually advanced to the stomach and duodenum. The bulb and second part of the duodenum was visualized which appeared normal. The scope at this time was withdrawn to the stomach adequately insufflated with air. Adequate transillumination was achieved onto the anterior abdominal wall. At the site of adequate transillumination and maximal finger indentation, on the anterior abdominal wall, this area was sterilely prepped and draped. One percent Lidocaine was infiltrated into the skin and a small incision was made. Trocar and cannula was passed through the incision into the stomach cavity. The trocar was removed. The insertion wire was passed through the cannula into the stomach. Insertion wire was snared and then the insertion wire, snare and endoscope were withdrawn from the mouth. The [employer] PEG tube was then passed over the insertion wire and pushed through the incision site. PEG tube was pushed until the internal bolster was sitting snugly against the gastric mucosa which was confirmed with repeat EGD. On repeat EGD the esophagus was intubated without any difficulty and was advanced into the stomach. The internal bumper appeared to be in secure position. The visualized portions of the antrum body cardia and fundus of the stomach appeared normal. The esophagus was carefully examined as the scope was gradually being withdrawn which appeared normal. At this time external bumper was placed on the PEG tube closer to the anterior abdominal wall at 4 cm rochelle. The patient tolerated the procedure well. Impression: Successful [employer] PEG tube placement as described above. Recommendations: Findings of this examination were discussed with the patient's family. The patient will be started on tube feeds tonight at 8 pm and can be started on meds through the PEG tube with water flushes starting today at 3 pm. Post-PEG tube orders were written, including local PEG site care. Patient not given pre procedure antibiotic prophylaxis as he is currently on Unasyn.
[2018-10-02] MEDS: IPRATROPIUM-ALBUTEROL 3 ML NEB INHALATION SCH ×4 (09:57→20:51)
[2018-10-02] MEDS ORDERED: DEXTROSE 5% IN WATER 1,000 ML IV SCH (10:00)
[2018-10-02] MEDS: ASPIRIN 300 MG SUPP RECTAL SCH (10:27)
[2018-10-02] MEDS: LORazepam Vial 40 MG in DEXTROSE 5% IN WATER 80 ML IV SCH ×2 (10:29)
[2018-10-02] MEDS: THIAMINE 100 MG TAB PO SCH ×2 (11:08→14:46)
[2018-10-02 12:05] LABS: Glucose,Whole Blood 193 mg/dL (75-99)
[2018-10-02 17:30] LABS: Glucose,Whole Blood 128 mg/dL (75-99)
[2018-10-02 18:17] LABS: Glucose,Whole Blood 139 mg/dL (75-99)
[2018-10-02] MEDS ORDERED: traMADol 50 MG TAB PO PRN (22:06)
[2018-10-02] MEDS: LACTATED RINGERS 1,000 ML IV SCH (22:36)
[2018-10-03 00:06] LABS: Glucose,Whole Blood 184 mg/dL (75-99)
[2018-10-03] MEDS: INSULIN ASPART 100 UNIT/ML 1 ML 10 ML VIAL SQ SCH ×6 (00:54→23:43)
[2018-10-03] MEDS ORDERED: traMADol 50 MG TAB PEG/G-TUBE PRN (01:54)
[2018-10-03] MEDS: LORazepam Vial 40 MG in DEXTROSE 5% IN WATER 80 ML IV SCH ×2 (02:40)
--- NOTE | 2018-10-03 02:53 | P.PN ---
Subjective Progress Note Date: 10/02/18 Principal diagnosis: Left MCA stroke Mr. Glasgow is a 57-year-old male with a past medical history of chronic low back pain status post laminectomy and fusion follows with Dr. Ruth, obstructive sleep apnea, obesity, hypertension brought in by his family members for right upper extremity weakness and right facial twitching. And he has pain having garbled speech for the past couple of days. The patient has garbled speech which cannot be comprehended, so most of the history is taken from the who is at the bedside. The mentions that for the past 1 week patient has been having right arm weakness, and also slurring of his speech. When he was asked by his to go to the hospital, the patient became very combative and did not want to seek medical attention. But eventually the family noticed that they could not understand his speech and his weakness has been getting worse and he was not able to get out of the bed, so brought to the hospital for further evaluation. As per his patient is alcoholic and drinks alcohol every day. Patient has history of obstructive sleep apnea. Noncompliant with CPAP. His chronic low back pain issues status post laminectomy and fusion surgery. He follows with Dr. Ruth in the pain clinic. Patient usually walks with a walker at home and has bilateral lower extremity weakness since having the surgery. His also mentions that patient suffered a fall in February 2018 due to his history of alcoholism as he was intoxicated. At that time patient had acute intracerebral hemorrhage involving the right frontal and parietal lobes. In the ED patient had a CAT scan of the brain that was negative for any acute intracranial abnormality. Patient had a fever in the ED, he was given a dose of ceftriaxone and admitted to the hospital. on 09/27/18 - Today the pt is lying in the bed . Over night pt had issues with swallowing and was aspirating his own secretions. He was kept NPO. as per nursing staff report ,pt has twitching movements of his right arm and right side of the face this afternoon. On 09/28/2018 Patient was transferred to intensive care unit due to alcohol withdrawals and possible DTs. Patient was started on Ativan drip. Currently discontinued. Patient's blood pressure is uncontrolled. Patient failed swallow evaluation. Patient was given a dose of IV Lasix 40 mg today. Chest x-ray showed worsening lung markings, minimal pulmonary congestion and no overt heart failure, improved aeration in the right lung base compared to yesterday. Patient is continued on IV steroids and breathing treatments. Patient is being continued on antibiotics for cellulitis. MRI scheduled for 4 PM today., Patient is being followed by pulmonary, neurology and ID. Patient is on high flow oxygen via nausea cannula. 09/29/2018 Patient is still having significant right-sided weakness. But was able to follow simple commands. Patient is still requiring high flow oxygen via nasal cannula. MRI of the brain showed abnormal cortical signal in the left posterior temporal lobe consistent with subacute stroke. EEG is abnormal. 2-D echocardiogram was done. YARIEL could not be done due to his overall respiratory status. Chest x-ray showed minimal platelike atelectasis, left base. Patient is being continued on Unasyn for the cellulitis in his bilateral lower extremities. Pulmonary, ID and neurology is following.. 10/02/2018 Patient is currently awake alert but does have expressive aphasia. Patient is status post PEG tube placement and was started on tube feeding. Patient otherwise still agitated sometimes and continued on sitter as he was pulling tubes. Patient is afebrile. Sodium 152 for depression 3.4 No nausea no vomiting. Tolerating tube feeding. Patient is being transferred to medical floor today. Chest x-ray showed mild left lower lobe infiltrate essentially stable from previous study Review of systems-could not be done as the patient has garbled speech. He has expressive aphasia. Current medications reviewed. Objective - Vital Signs Vital signs: Vital Signs Temp 97.6 F 10/02/18 21:00 Pulse 80 10/02/18 21:00 Resp 18 10/02/18 21:00 BP 135/94 10/02/18 21:00 Pulse Ox 96 10/02/18 21:00 Intake & Output 10/02/18 10/02/18 10/03/18 06:59 18:59 06:59 Intake Total 280 405 Output Total 405 460 Balance -125 -55 Weight 112.4 kg 112.4 kg Intake: IV 280 405 .9 NS 80 80 Ampicillin-Sulbactam 3 gm 200 In Sodium Chloride 0.9% 100 ml @ 200 mls/hr IVPB Q6HR JALEN Rx#:[id number] Dextrose 5% in Water 1, 75 000 ml @ 75 mls/hr IV . [id number] JALEN Rx#:[id number] Output: Urine 405 460 Other: Voiding Method Indwelling Catheter Indwelling Catheter - Exam GEN. APPEARANCE: alert, in no apparent distress, poorly kempt. HEAD EXAM: atraumatic, normocephalic, normal inspection EYE EXAM: No pallor. No icterus. ENT EXAM: normal exam, mucous membranes moist NECK EXAM: No JVD. No thyromegaly. No meningismus. RESPIRATORY EXAM: Coarse breath sounds heard bilaterally. No wheezes or crackles. Diminished at the bases. CARDIOVASCULAR EXAM: S1 and S2 heard. Tachycardia. GI/ABDOMINAL EXAM: soft, normal bowel sounds. Absent: distended, tenderness, guarding, rebound, rigid EXTREMITIES EXAM: No edema. NEUROLOGICAL EXAM: alert, follows simple commands.power is 3 x 5 in the upper extremity on the right side and 4 x 5 in the left side. Bilateral lower [id number] is 1 / 5. - Labs CBC & Chem 7: 10/02/18 04:07 10/02/18 04:07 Labs: Abnormal Lab Results - Last 24 Hours (Table) 10/01/18 10/02/18 10/02/18 Range/Units 23:59 04:07 04:07 RBC 4.29 L (4.30-5.90) m/uL MCV 105.0 H (80.0-100.0) fL PT (9.0-12.0) sec INR (<1.2) Sodium 152 H (137-145) mmol/L Potassium 3.4 L (3.5-5.1) mmol/L Chloride 118 H (98-107) mmol/L BUN 33 H (9-20) mg/dL Glucose 189 H (74-99) mg/dL POC Glucose (mg/dL) 162 H (75-99) mg/dL Total Bilirubin 1.4 H (0.2-1.3) mg/dL AST 90 H (17-59) U/L ALT 85 H (21-72) U/L Albumin 3.4 L (3.5-5.0) g/dL 10/02/18 10/02/18 10/02/18 Range/Units 04:07 05:53 11:53 RBC (4.30-5.90) m/uL MCV (80.0-100.0) fL PT 12.3 H (9.0-12.0) sec INR 1.3 H (<1.2) Sodium (137-145) mmol/L Potassium (3.5-5.1) mmol/L Chloride (98-107) mmol/L BUN (9-20) mg/dL Glucose (74-99) mg/dL POC Glucose (mg/dL) 175 H 193 H (75-99) mg/dL Total Bilirubin (0.2-1.3) mg/dL AST (17-59) U/L ALT (21-72) U/L Albumin (3.5-5.0) g/dL 10/02/18 10/02/18 Range/Units 17:18 18:05 RBC (4.30-5.90) m/uL MCV (80.0-100.0) fL PT (9.0-12.0) sec INR (<1.2) Sodium (137-145) mmol/L Potassium (3.5-5.1) mmol/L Chloride (98-107) mmol/L BUN (9-20) mg/dL Glucose (74-99) mg/dL POC Glucose (mg/dL) 128 H 139 H (75-99) mg/dL Total Bilirubin (0.2-1.3) mg/dL AST (17-59) U/L ALT (21-72) U/L Albumin (3.5-5.0) g/dL Microbiology - Last 24 Hours (Table) 09/26/18 10:00 Blood Culture - Final Blood No Growth after 144 hours Assessment and Plan Assessment: Acute hypoxic respiratory failure secondary to fluid overload and suspected aspiration pneumonia. Currently saturating well on nasal cannula. Right upper extremity weakness- secondary to acute left hemispheric cerebrovascular accident Dysphagia. Status post PEG tube placement Slurred speech-secondary to stroke Hypertensive urgency Alcohol withdrawal symptoms and possible DTs History of obstructive sleep apnea Chronic back pain with history of work-related injury Alcohol abuse Hypomagnesemia Obesity BMI is 35.9 DVT prophylaxis Plan: Patient has right upper extremity along with slurring of speech secondary to stroke. CT of the head has been negative for any acute intracranial process. MRI of the brain showed abnormal cortical signal in the left posterior temporal lobe and also insula of the left temporal lobe consistent with subacute infarct. 2-D echocardiogram showed normal EF. Patient be continued on aspirin, Catapres patch and hydralazine when necessary. Medications can be changed to via PEG tube once the patient tolerates tube feeding. Continued on antibiotics in the form of Unasyn for possible aspiration pneumonia. ID and pulmonary is following. Continue on PT OT and speech therapy. Possible rehab transfer early next week. Prognosis is guarded. Time with Patient: Greater than 30
[2018-10-03] MEDS: LORazepam 2 MG/ML INJ IV PRN ×4 (03:23→13:57)
[2018-10-03 06:10] LABS: Glucose,Whole Blood 115 mg/dL (75-99)
[2018-10-03] MEDS: AMPICILLIN-SULBACTAM 3 GM in SODIUM CHLORIDE 0.9% 100 ML IVPB SCH ×4 (06:22→23:33)
[2018-10-03] MEDS: IPRATROPIUM-ALBUTEROL 3 ML NEB INHALATION SCH ×4 (07:38→20:24)
[2018-10-03 08:17] LABS: Anion Gap 4 mmol/L; Blood Urea Nitrogen 28 mg/dL (9-20); Calcium 9.1 mg/dL (8.4-10.2); Carbon Dioxide 27 mmol/L (22-30); Chloride 122 mmol/L (98-107); Glucose 178 mg/dL (74-99); Potassium 3.4 mmol/L (3.5-5.1); Sodium 153 mmol/L (137-145)
[2018-10-03 12:12] LABS: Glucose,Whole Blood 177 mg/dL (75-99)
[2018-10-03] MEDS: SCOPOLAMINE 1.5MG/72HR PATCH TRANSDERM SCH (13:44)
[2018-10-03] MEDS ORDERED: Potassium Replacement Protocol 1 EACH MISC MISCELLANE PRN (14:12)
[2018-10-03] MEDS ORDERED: cloNIDine HCL 0.1 MG TAB PO PRN (14:38)
[2018-10-03] MEDS ORDERED: hydrALAZINE HCL 20 MG/ML 1 ML VIAL IVP PRN (14:38)
[2018-10-03] MEDS ORDERED: TEMAZEPAM 15 MG CAP PO PRN (14:38)
[2018-10-03] MEDS: THIAMINE 100 MG TAB PO SCH ×2 (15:30→16:20)
[2018-10-03] MEDS: SILVER sulfADIAZINE Cream 400 GM 1 APPLIC APPLIC TOPICAL SCH (15:31)
[2018-10-03] MEDS: ASPIRIN 300 MG SUPP RECTAL SCH (15:32)
[2018-10-03] MEDS: GABAPENTIN 300 MG CAP PO SCH ×2 (16:19→23:33)
--- NOTE | 2018-10-03 16:19 | PN ---
PROGRESS NOTE DATE OF SERVICE: 10/03/2018 This 58-year-old gentleman who was admitted with acute respiratory failure and aspiration pneumonia also suspected to have a stroke with right upper extremity weakness. The patient also had dysphasia and dysphagia also. PEG tube has been inserted. The patient has been closely monitored. Patient also had change in mental status also. Multiple consultants are following the patient closely. PAST MEDICAL HISTORY: Reviewed. REVIEW OF SYSTEMS: Could not be taken. The patient is aphasic. CURRENT MEDICATIONS: 1. DuoNeb q.i.d. and p.r.n. 2. Unasyn 3 g q.6h. 3. Aspirin 300 mg daily. 4. Catapres 0.1 transdermal patch. 5. Apresoline. 6. Ativan p.r.n. 7. K-Dur. 8. Vitamin B. 9. Ultram p.r.n. PHYSICAL EXAM: Patient is conscious, dysphasic. Pulse 72, blood pressure 156/94, respirations 16, temperature 97.2, pulse ox 94% on room air. HEENT: Conjunctivae normal. Oral mucosa moist. Neck is no jugular venous distention. No carotid bruit. No lymph node enlargement. CARDIOVASCULAR: S1, S2. RESPIRATORY: Breath sounds diminished in the bases. Scattered rhonchi and crackles. ABDOMEN: Soft, obese. PEG tube in situ. LEGS: No edema. NERVOUS SYSTEM: Diffusely weak. LAB STUDIES: Labs at this time shows sodium is 153, potassium 3.4, WBC 6.2, hemoglobin 14.4. Bilirubin is 1.4. ASSESSMENT: 1. Possible aspiration pneumonia with acute hypoxic respiratory failure. 2. Acute stroke involving the right upper limb weakness as well as dysphasia with left hemispheric stroke. 3. Hyponatremia. 4. Dysphagia status post PEG tube placement. 5. Change in mental status, acute on chronic metabolic encephalopathy. 6. Hypertensive urgency. 7. Alcohol withdrawal symptoms and possible DTs. 8. Obstructive sleep apnea. 9. Chronic back pain. 10.Gait dysfunction. 11.Hypomagnesemia. 12.Obesity. RECOMMENDATIONS AND DISCUSSION: This 58-year-old gentleman who presented with multiple complex medical issues, we will monitor the patient closely. Continue current management and symptomatic treatment. PEG tube feedings will be continued. Repeat labs. Otherwise, I would also recommend D5 water at this time and otherwise Ativan to be continued. Multiple supplements and p.o. medication also will be reconciled. Prognosis guarded because of multiple complex medical issues. Further recommendations to follow. See orders for details. MMODL / IJN: [id number] /
[2018-10-03] MEDS: POTASSIUM CHLORIDE ER 20 MEQ TAB.ER PO SCH ×2 (16:20→16:21)
[2018-10-03] MEDS: ASPIRIN 81 MG PO SCH (16:20)
[2018-10-03] MEDS: DEXTROSE 5% IN WATER 1,000 ML IV SCH (16:21)
[2018-10-03] MEDS ORDERED: ONDANSETRON 4 MG/2 ML VIAL IVP PRN (18:07)
[2018-10-03 18:12] LABS: Glucose,Whole Blood 170 mg/dL (75-99)
[2018-10-03] MEDS: METOPROLOL TARTRATE 12.5 MG TAB PO SCH (21:28)
[2018-10-03 23:37] LABS: Glucose,Whole Blood 227 mg/dL (75-99)
[2018-10-04] MEDS: AMPICILLIN-SULBACTAM 3 GM in SODIUM CHLORIDE 0.9% 100 ML IVPB SCH ×4 (05:12→23:57)
[2018-10-04 05:53] LABS: Glucose,Whole Blood 241 mg/dL (75-99)
[2018-10-04] MEDS: INSULIN ASPART 100 UNIT/ML 1 ML 10 ML VIAL SQ SCH ×4 (05:55→23:58)
[2018-10-04] MEDS: IPRATROPIUM-ALBUTEROL 3 ML NEB INHALATION SCH ×4 (06:59→19:52)
[2018-10-04 07:30] LABS: Basophils % (A) 0 %; Eosinophils # (A) 0.3 k/uL (0-0.7); Eosinophils % (A) 4 %; HCT 43.4 % (39.0-53.0); HGB 13.6 gm/dL (13.0-17.5); Lymphocytes % (A) 14 %; MCH 33.4 pg (25.0-35.0); MCHC 31.3 g/dL (31.0-37.0); MCV 106.7 fL (80.0-100.0); Macrocytosis Moderate; Mean Platelet Volume 8.7; Monocytes # (A) 0.3 k/uL (0-1.0); Monocytes % (A) 4 %; Neutrophils # (A) 5.6 k/uL (1.3-7.7); Neutrophils % (A) 78 %; Platelet Count 133 k/uL (150-450); RBC 4.07 m/uL (4.30-5.90); RDW 12.7 % (11.5-15.5); WBC 7.2 k/uL (3.8-10.6)
[2018-10-04 07:50] LABS: Anion Gap 3 mmol/L; Blood Urea Nitrogen 23 mg/dL (9-20); Calcium 8.8 mg/dL (8.4-10.2); Carbon Dioxide 31 mmol/L (22-30); Chloride 121 mmol/L (98-107); Glucose 137 mg/dL (74-99); Potassium 3.3 mmol/L (3.5-5.1); Sodium 155 mmol/L (137-145)
[2018-10-04] MEDS: METOPROLOL TARTRATE 12.5 MG TAB PO SCH ×2 (08:55→20:27)
[2018-10-04] MEDS: ASPIRIN 81 MG PO SCH (08:56)
[2018-10-04] MEDS: PANTOPRAZOLE 40 MG TABLET PO SCH (08:56)
[2018-10-04] MEDS: GABAPENTIN 300 MG CAP PO SCH ×3 (08:56→23:57)
[2018-10-04] MEDS: MULTIVITAMINS, THERA 1 EACH TAB PO SCH (08:59)
[2018-10-04] MEDS: THIAMINE 100 MG TAB PO SCH ×2 (08:59→14:48)
[2018-10-04] MEDS: FOLIC ACID 1 MG TAB PO SCH (09:00)
[2018-10-04] MEDS: SILVER sulfADIAZINE Cream 400 GM 1 APPLIC APPLIC TOPICAL SCH (09:10)
[2018-10-04] MEDS: POTASSIUM BICARBONATE/CIT AC 20 MEQ TABLET.EFF NG-TUBE SCH ×2 (09:57→11:16)
[2018-10-04 11:35] LABS: Glucose,Whole Blood 186 mg/dL (75-99)
[2018-10-04] MEDS: DEXTROSE 5% IN WATER 1,000 ML IV SCH (11:59)
[2018-10-04] MEDS: oxyCODONE-APAP 10-325MG 1 EACH TAB PO PRN ×3 (11:59→23:57)
[2018-10-04] MEDS: LORazepam 2 MG/ML INJ IV PRN (14:49)
[2018-10-04] MEDS ORDERED: POTASSIUM BICARBONATE/CIT AC 20 MEQ TABLET.EFF NG-TUBE ONE (16:00)
[2018-10-04 17:25] LABS: Glucose,Whole Blood 142 mg/dL (75-99)
--- NOTE | 2018-10-04 21:38 | PN ---
PROGRESS NOTE DATE OF SERVICE: 10/04/2018 This 58-year-old gentleman who was admitted with aspiration pneumonia also had a stroke. The patient also had PEG tube placement. The patient has tolerated the PEG tube feeds, but however the sodium is elevated. Patient also has a change in mental status. The patient also had multiple medical issues. The patient is being treated symptomatically. Patient also had suspect alcohol withdrawal also. Potassium is being corrected also. PAST MEDICAL HISTORY: Reviewed. REVIEW OF SYSTEMS: Could not be taken. The patient is dysphasic. CURRENT MEDICATIONS ARE: 1. DuoNeb q.i.d. and p.r.n. 2. Unasyn 3 g IV q.6h. 3. Aspirin 81 mg. 4. Catapres 0.1 q.4. 5. Catapres patch. 6. Folic acid 1 mg. 7. Neurontin. 8. Apresoline. 9. Ativan. 10.Lopressor. 11.Percocet 10 mg. 12.K-Lyte. 13.Scopolamine. 14.Restoril. 15.Ultram. PHYSICAL EXAM: Patient is alert, oriented x2. Dysphagic. Pulse 84. Blood pressure 113/60, respirations 16, temperature 97.9, pulse ox 94% on room air. HEENT: Conjunctivae normal. Oral mucosa moist. Neck is no jugular venous distention. No carotid bruit. No lymph node enlargement. Cardiovascular systems: S1, S2 muffled. Respirations: Breath sounds diminished in the bases. A few scattered rhonchi. No crackles. ABDOMEN: Soft. Mild diffuse distention. No guarding. No rigidity. PEG tube in situ. Bowel sounds present. Legs: No edema. No swelling. NERVOUS SYSTEM: Higher functions as mentioned earlier. Mild diffuse weakness, especially on the left side. Dysphasic. Gait dysfunction present. LABS: WBC 7.2, hemoglobin 13.2, sodium 150, potassium 3.3. ASSESSMENT: 1. Aspiration pneumonia with acute hypoxic respiratory failure. 2. Acute stroke involving the right upper lobe weakness as well as dysphagia caused by a left hemispheric stroke. 3. Dysphasia. 4. Hypernatremia. 5. Dysphagia secondary and PEG tube placement. 6. Change in mental status, acute on chronic metabolic encephalopathy. 7. Possible alcohol withdrawals and early delirium tremens. 8. Hypertensive urgency. 9. Obstructive sleep apnea. 10.Chronic back pain. 11.Gait dysfunction. 12.Hypomagnesemia. 13.Obesity. RECOMMENDATIONS AND DISCUSSION: Recommend to continue current medications, management. Continue to monitor. Symptomatic treatment. Otherwise, at this time, I recommend continue with current medications. Cautious PEG tube feeds, aspiration precautions, antibiotics, bronchodilators. I would also recommend free water and monitor sodium closely, potassium supplements. PT/OT evaluation, possible ECF rehab. Guarded prognosis because of multiple complex medical issues and further recommendations to follow. Discussed with the patient and staff. Further recommendations to follow. MMODL / IJN: [id number] /
[2018-10-04 23:53] LABS: Glucose,Whole Blood 168 mg/dL (75-99)
[2018-10-05] MEDS: AMPICILLIN-SULBACTAM 3 GM in SODIUM CHLORIDE 0.9% 100 ML IVPB SCH ×3 (05:36→17:42)
[2018-10-05 05:41] LABS: Glucose,Whole Blood 135 mg/dL (75-99)
[2018-10-05] MEDS: INSULIN ASPART 100 UNIT/ML 1 ML 10 ML VIAL SQ SCH ×3 (05:41→17:37)
[2018-10-05] MEDS: DEXTROSE 5% IN WATER 1,000 ML IV SCH (06:48)
[2018-10-05] MEDS: GABAPENTIN 300 MG CAP PO SCH ×2 (07:55→15:26)
[2018-10-05] MEDS: PANTOPRAZOLE 40 MG TABLET PO SCH (07:55)
[2018-10-05] MEDS: METOPROLOL TARTRATE 12.5 MG TAB PO SCH (07:55)
[2018-10-05] MEDS: ASPIRIN 81 MG PO SCH (07:56)
[2018-10-05] MEDS: SILVER sulfADIAZINE Cream 400 GM 1 APPLIC APPLIC TOPICAL SCH (07:57)
[2018-10-05 09:24] LABS: Basophils % (A) 0 %; Eosinophils # (A) 0.4 k/uL (0-0.7); Eosinophils % (A) 4 %; HCT 43.3 % (39.0-53.0); HGB 13.4 gm/dL (13.0-17.5); Lymphocytes % (A) 10 %; MCH 32.9 pg (25.0-35.0); MCHC 30.9 g/dL (31.0-37.0); MCV 106.2 fL (80.0-100.0); Macrocytosis Moderate; Mean Platelet Volume 8.6; Monocytes # (A) 0.4 k/uL (0-1.0); Monocytes % (A) 4 %; Neutrophils # (A) 8.1 k/uL (1.3-7.7); Neutrophils % (A) 81 %; Platelet Count 125 k/uL (150-450); RBC 4.08 m/uL (4.30-5.90); RDW 12.8 % (11.5-15.5)
[2018-10-05 09:38] LABS: Anion Gap 3 mmol/L; Blood Urea Nitrogen 20 mg/dL (9-20); Calcium 8.8 mg/dL (8.4-10.2); Carbon Dioxide 33 mmol/L (22-30); Chloride 114 mmol/L (98-107); Glucose 157 mg/dL (74-99); Magnesium 1.7 mg/dL (1.6-2.3); Potassium 3.7 mmol/L (3.5-5.1); Sodium 150 mmol/L (137-145)
[2018-10-05 11:14] VITALS: BMI 35.4
[2018-10-05] MEDS: IPRATROPIUM-ALBUTEROL 3 ML NEB INHALATION SCH ×4 (11:43→19:36)
[2018-10-05 12:55] LABS: Glucose,Whole Blood 175 mg/dL (75-99)
--- NOTE | 2018-10-05 13:00 | FL ---
Modified barium swallow HISTORY: Dysphagia, cerebrovascular accident 1 minute 43 seconds fluoroscopy time. No intraoperative images obtained. Patient ingested liquids and solids mixed with barium. Patient was evaluated in real-time fluoroscopy in the lateral projection. Transient laryngeal penetration noted on thin liquids. No evident aspiration. See dictated report spe ech pathology.
[2018-10-05] MEDS: FOLIC ACID 1 MG TAB PO SCH (13:03)
[2018-10-05] MEDS: MULTIVITAMINS, THERA 1 EACH TAB PO SCH (13:03)
[2018-10-05] MEDS: THIAMINE 100 MG TAB PO SCH ×2 (13:03→17:42)
[2018-10-05] MEDS: CARVEDILOL 6.25 MG TAB PO SCH ×2 (15:26→17:42)
--- NOTE | 2018-10-05 16:06 | P.PN ---
Subjective Progress Note Date: 10/05/18 Progress note being dictated for Dr. Blue. Interval history:Left MCA stroke Mr. Glasgow is a 57-year-old male with a past medical history of chronic low back pain status post laminectomy and fusion follows with Dr. Ruth, obstructive sleep apnea, obesity, hypertension brought in by his family members for right upper extremity weakness and right facial twitching. And he has pain having garbled speech for the past couple of days. The patient has garbled speech which cannot be comprehended, so most of the history is taken from the who is at the bedside. The mentions that for the past 1 week patient has been having right arm weakness, and also slurring of his speech. When he was asked by his to go to the hospital, the patient became very combative and did not want to seek medical attention. But eventually the family noticed that they could not understand his speech and his weakness has been getting worse and he was not able to get out of the bed, so brought to the hospital for further evaluation. As per his patient is alcoholic and drinks alcohol every day. Patient has history of obstructive sleep apnea. Noncompliant with CPAP. His chronic low back pain issues status post laminectomy and fusion surgery. He follows with Dr. Ruth in the pain clinic. Patient usually walks with a walker at home and has bilateral lower extremity weakness since having the surgery. His also mentions that patient suffered a fall in February 2018 due to his history of alcoholism as he was intoxicated. At that time patient had acute intracerebral hemorrhage involving the right frontal and parietal lobes. In the ED patient had a CAT scan of the brain that was negative for any acute intracranial abnormality. Patient had a fever in the ED, he was given a dose of ceftriaxone and admitted to the hospital. on 09/27/18 - Today the pt is lying in the bed . Over night pt had issues with swallowing and was aspirating his own secretions. He was kept NPO. as per nursing staff report ,pt has twitching movements of his right arm and right side of the face this afternoon. On 09/28/2018 Patient was transferred to intensive care unit due to alcohol withdrawals and possible DTs. Patient was started on Ativan drip. Currently discontinued. Patient's blood pressure is uncontrolled. Patient failed swallow evaluation. Patient was given a dose of IV Lasix 40 mg today. Chest x-ray showed worsening lung markings, minimal pulmonary congestion and no overt heart failure, improved aeration in the right lung base compared to yesterday. Patient is continued on IV steroids and breathing treatments. Patient is being continued on antibiotics for cellulitis. MRI scheduled for 4 PM today., Patient is being followed by pulmonary, neurology and ID. Patient is on high flow oxygen via nausea cannula. 09/29/2018 Patient is still having significant right-sided weakness. But was able to follow simple commands. Patient is still requiring high flow oxygen via nasal cannula. MRI of the brain showed abnormal cortical signal in the left posterior temporal lobe consistent with subacute stroke. EEG is abnormal. 2-D echocardiogram was done. YARIEL could not be done due to his overall respiratory status. Chest x-ray showed minimal platelike atelectasis, left base. Patient is being continued on Unasyn for the cellulitis in his bilateral lower extremities. Pulmonary, ID and neurology is following.. 10/02/2018 Patient is currently awake alert but does have expressive aphasia. Patient is status post PEG tube placement and was started on tube feeding. Patient otherwise still agitated sometimes and continued on sitter as he was pulling tubes. Patient is afebrile. Sodium 152 for depression 3.4 No nausea no vomiting. Tolerating tube feeding. Patient is being transferred to medical floor today. Chest x-ray showed mild left lower lobe infiltrate essentially stable from previous study Review of systems-could not be done as the patient has garbled speech. He has expressive aphasia. Current medications reviewed. Patient has right upper extremity along with slurring of speech secondary to stroke. CT of the head has been negative for any acute intracranial process. MRI of the brain showed abnormal cortical signal in the left posterior temporal lobe and also insula of the left temporal lobe consistent with subacute infarct. 2-D echocardiogram showed normal EF. Patient be continued on aspirin, Catapres patch and hydralazine when necessary. Medications can be changed to via PEG tube once the patient tolerates tube feeding. Continued on antibiotics in the form of Unasyn for possible aspiration pneumonia. ID and pulmonary is following. Continue on PT OT and speech therapy. Possible rehab transfer early next week. 10/05/2018 significant clinical improvement. Passed barium swallow, tube feeds discontinued,diet being advanced. Sodium down to 150. Maintained on IV antibiotics. Evaluated by PT/OT and subacute rehab recommended. Tremors, mild , patient states he normally drinks a couple of beers per day. Maintained on CIWA protocol, has not required today. Objective - Vital Signs Vital signs: Vital Signs Temp 98.3 F 10/05/18 13:38 Pulse 78 10/05/18 13:38 Resp 18 10/05/18 13:38 BP 126/72 10/05/18 13:38 Pulse Ox 94 L 10/05/18 13:38 Intake & Output 10/04/18 10/05/18 10/05/18 18:59 06:59 18:59 Intake Total 120 840 Output Total 400 Balance -280 840 Weight 118.5 kg Intake: Tube Feeding 120 840 Output: Urine 400 Other: Voiding Method Urinal Urinal Bedside Commode Diaper Incontinent # Voids 1 2 # Bowel Movements 1 2 3 - Exam GEN. APPEARANCE: alert and oriented 2, dysphagic with garbled speech. HEAD EXAM: atraumatic, normocephalic, normal inspection EYE EXAM: No pallor. No icterus. ENT EXAM: normal exam, mucous membranes moist NECK EXAM: Supple No JVD. No thyromegaly. RESPIRATORY EXAM: Coarse breath sounds heard bilaterally. No wheezes or crackles. Diminished at the bases. CARDIOVASCULAR EXAM: S1 and S2 heard. Tachycardia. GI/ABDOMINAL EXAM: soft, normal bowel sounds. PEG tube present. Absent: distended, tenderness, guarding, rebound, rigid EXTREMITIES EXAM: No edema. NEUROLOGICAL EXAM: Higher functions as mentioned earlier, mild generalized diffuse weakness greater on the left side. Dysphasic. Gait dysfunction. - Labs CBC & Chem 7: 10/05/18 08:45 10/05/18 08:45 Labs: Abnormal Lab Results - Last 24 Hours (Table) 10/04/18 10/04/18 10/05/18 Range/Units 17:23 23:52 05:39 RBC (4.30-5.90) m/uL MCV (80.0-100.0) fL MCHC (31.0-37.0) g/dL Plt Count (150-450) k/uL Neutrophils # (1.3-7.7) k/uL Sodium (137-145) mmol/L Chloride (98-107) mmol/L Carbon Dioxide (22-30) mmol/L Glucose (74-99) mg/dL POC Glucose (mg/dL) 142 H 168 H 135 H (75-99) mg/dL 10/05/18 10/05/18 10/05/18 Range/Units 08:45 08:45 12:52 RBC 4.08 L (4.30-5.90) m/uL MCV 106.2 H (80.0-100.0) fL MCHC 30.9 L (31.0-37.0) g/dL Plt Count 125 L (150-450) k/uL Neutrophils # 8.1 H (1.3-7.7) k/uL Sodium 150 H (137-145) mmol/L Chloride 114 H (98-107) mmol/L Carbon Dioxide 33 H (22-30) mmol/L Glucose 157 H (74-99) mg/dL POC Glucose (mg/dL) 175 H (75-99) mg/dL Assessment and Plan Assessment: Acute hypoxic respiratory failure secondary to fluid overload and aspiration pneumonia. Right upper extremity weakness- secondary to acute left hemispheric cerebrovascular accident Dysphagia secondary to CVA. Status post PEG tube placement Hypertensive urgency Alcohol withdrawal symptoms and possible DTs History of obstructive sleep apnea Chronic back pain with history of work-related injury Alcohol abuse Hypomagnesemia Obesity BMI is 35.9 DVT prophylaxis Plan: Continue current medication regime ,monitoring and symptomatic treatment. PEG tube to be capped, scheduled for removal in 1 month as per GI, if no further difficulties with swallowing/aspirating. IV fluids and tube feedings discontinued. Close monitoring of electrolytes with repeat labs ordered for a.m. antihypertensives adjusted with prn meds discontinued, metoprolol discontinued, Coreg initiated. Evaluated by PT/OT, subacute rehab recommended. Currently being evaluated by Anita with pre-CERT pending. Both patient and significant other updated at bedside on plan of care. Discharge planning in progress pending pre-CERT, neurology clearance. The impression and plan of care has been dictated as directed. : I performed a history and examination of this patient, discussed the same with the dictator. I agree with the dictator's note ,documented as a scribe. Any additional findings or plans will be noted.
--- NOTE | 2018-10-05 22:25 | P.PN ---
Subjective Progress Note Date: 10/05/18 57 -year-old male presents to the emergency center by his family. They relates that he has a history of significant alcohol use. Often greater than 10 drinks a day. Apparently for 3 or 4 days before they brought him to Hospital was a marked decrease in the amount of alcohol that he was drinking. They thought the changes that he was exhibiting were related to some alcohol withdrawal. However he had difficulties with some right-sided weakness and difficulty ambulating in his speech was garbled, when he started to have some twitching to the right side of his face they were concerned and was brought to the emergency center. He subsequently has been seen by neurology with concerns to a left MCA stroke original computed tomography scan without evidence of acute change MRI is pending. Infectious diseases consultation is requested regarding the fever that was present at admission of 101.1 elevation of his lactic acid of 2.5. The family relates that he seems to be calm at this point in time it is evident that his speech is unintelligible. He seems comfortable and calm with his family present. 09/28/2018 patient is just returned from his MRI to further characterize the brain lesion. Nursing staff is noted are some ecchymosis to the right ear which was not easily seen in the past. Patient has confusion but does not seem to have tenderness at the site. 09/29/2018 patient continues to have some difficulties with secretions, continues to have a large amount of twitching on the right side of his face and is following with neurology status post his significant stroke. 10/05/2018 patient is now considerably improved. His is working with the speech pathologist and is able to speak many intelligible words and answers simple questions appropriately. PEG tube is placed and surprisingly today he was able to pass a swallow study Objective - Vital Signs Vital signs: Vital Signs Temp 98.3 F 10/05/18 13:38 Pulse 69 10/05/18 19:45 Resp 18 10/05/18 15:29 BP 126/72 10/05/18 13:38 Pulse Ox 94 L 10/05/18 13:38 Intake & Output 10/05/18 10/05/18 10/06/18 06:59 18:59 06:59 Intake Total 840 Balance 840 Weight 118.5 kg 118.5 kg Intake: Tube Feeding 840 Other: Voiding Method Urinal Bedside Commode Bedside Commode Diaper Incontinent # Voids 2 # Bowel Movements 2 1 - Exam 57-year-old male who looks older than his stated age HEENT: Anicteric conjunctiva are pink and moist nasal mucosa grossly intact without significant lesions, there is no thrush. Dentition is poor for age, evidence of some ecchymosis to the right pinna and to the very outer aspect of the outer canal. No fluctuance or hematoma is palpated Neck: The neck is supple without significant lymphadenopathy or thyromegaly. Lungs: There is symmetrical bilateral air entry there are a few expiratory wheezes that are scattered without savanna bronchial sounds or dullness or egophony is noted Heart: Regular rate and rhythm with an audible S1-S2, audible S3 positive S4. There is no significant murmur click or rub, PMI was nondisplaced. Abdomen: Positive bowel sounds soft and nontender without palpable masses or organomegaly. There was no guarding or rebound. Extremities: The upper extremities have excellent pulses they are symmetric, the lower extremities show evidence of chronic bilateral lower extremity edema with chronic hemosiderin staining bilaterally, small area of irritation possibly injury to the medial aspect of the left calf. there are some scattered ecchymosis on the upper extremities. There is minimal erythema superimposed on the chronic skin changes to the left leg. Neuro: The patient is awake and alert his speech is now understood and follows simple commands without difficulties. She'll twitching is resolved - Labs CBC & Chem 7: 10/05/18 08:45 10/05/18 08:45 Labs: Abnormal Lab Results - Last 24 Hours (Table) 10/04/18 10/05/18 10/05/18 Range/Units 23:52 05:39 08:45 RBC 4.08 L (4.30-5.90) m/uL MCV 106.2 H (80.0-100.0) fL MCHC 30.9 L (31.0-37.0) g/dL Plt Count 125 L (150-450) k/uL Neutrophils # 8.1 H (1.3-7.7) k/uL Sodium (137-145) mmol/L Chloride (98-107) mmol/L Carbon Dioxide (22-30) mmol/L Glucose (74-99) mg/dL POC Glucose (mg/dL) 168 H 135 H (75-99) mg/dL 10/05/18 10/05/18 Range/Units 08:45 12:52 RBC (4.30-5.90) m/uL MCV (80.0-100.0) fL MCHC (31.0-37.0) g/dL Plt Count (150-450) k/uL Neutrophils # (1.3-7.7) k/uL Sodium 150 H (137-145) mmol/L Chloride 114 H (98-107) mmol/L Carbon Dioxide 33 H (22-30) mmol/L Glucose 157 H (74-99) mg/dL POC Glucose (mg/dL) 175 H (75-99) mg/dL Laboratory Results WBC 10.0 k/uL (3.8-10.6) 10/05/18 08:45 RBC 4.08 m/uL (4.30-5.90) L 10/05/18 08:45 Hgb 13.4 gm/dL (13.0-17.5) 10/05/18 08:45 Hct 43.3 % (39.0-53.0) 10/05/18 08:45 MCV 106.2 fL (80.0-100.0) H 10/05/18 08:45 MCH 32.9 pg (25.0-35.0) 10/05/18 08:45 MCHC 30.9 g/dL (31.0-37.0) L 10/05/18 08:45 RDW 12.8 % (11.5-15.5) 10/05/18 08:45 Plt Count 125 k/uL (150-450) L 10/05/18 08:45 Neutrophils % 81 % 10/05/18 08:45 Lymphocytes % 10 % 10/05/18 08:45 Monocytes % 4 % 10/05/18 08:45 Eosinophils % 4 % 10/05/18 08:45 Basophils % 0 % 10/05/18 08:45 Neutrophils # 8.1 k/uL (1.3-7.7) H 10/05/18 08:45 Lymphocytes # 1.0 k/uL (1.0-4.8) 10/05/18 08:45 Monocytes # 0.4 k/uL (0-1.0) 10/05/18 08:45 Eosinophils # 0.4 k/uL (0-0.7) 10/05/18 08:45 Basophils # 0.0 k/uL (0-0.2) 10/05/18 08:45 Macrocytosis Moderate 10/05/18 08:45 PT 12.3 sec (9.0-12.0) H 10/02/18 04:07 INR 1.3 (<1.2) H 10/02/18 04:07 APTT 24.2 sec (22.0-30.0) 09/26/18 10:00 Sample Site Right Radial 09/29/18 06:24 ABG pH 7.57 (7.35-7.45) H* 09/29/18 06:24 ABG pCO2 34 mmHg (35-45) L 09/29/18 06:24 ABG pO2 148 mmHg (83-108) H 09/29/18 06:24 ABG HCO3 31 mmol/L (21-25) H 09/29/18 06:24 ABG Total CO2 32 mmol/L (19-24) H 09/29/18 06:24 ABG O2 Saturation 99.2 % (94-97) H 09/29/18 06:24 ABG Base Excess 9.0 mmol/L 09/29/18 06:24 Dre Test Yes 09/29/18 06:24 FiO2 60 % 09/29/18 06:24 Sodium 150 mmol/L (137-145) H 10/05/18 08:45 Potassium 3.7 mmol/L (3.5-5.1) 10/05/18 08:45 Chloride 114 mmol/L (98-107) H 10/05/18 08:45 Carbon Dioxide 33 mmol/L (22-30) H 10/05/18 08:45 Anion Gap 3 mmol/L 10/05/18 08:45 BUN 20 mg/dL (9-20) 10/05/18 08:45 Creatinine 0.81 mg/dL (0.66-1.25) 10/05/18 08:45 Est GFR (CKD-EPI)AfAm >90 (>60 ml/min/1.73 sqM) 10/05/18 08:45 Est GFR (CKD-EPI)NonAf >90 (>60 ml/min/1.73 sqM) 10/05/18 08:45 Glucose 157 mg/dL (74-99) H 10/05/18 08:45 POC Glucose (mg/dL) 175 mg/dL (75-99) H 10/05/18 12:52 POC Glu Sheet Metal Apprentice ID Anjelica Arshad 10/05/18 12:52 Lactic Ac Sepsis Rflx Y 09/26/18 10:49 Plasma Lactic Acid Jeremy 1.1 mmol/L (0.7-2.0) 09/26/18 14:07 Calcium 8.8 mg/dL (8.4-10.2) 10/05/18 08:45 Phosphorus 4.1 mg/dL (2.5-4.5) 09/29/18 04:55 Magnesium 1.7 mg/dL (1.6-2.3) 10/05/18 08:45 Total Bilirubin 1.4 mg/dL (0.2-1.3) H 10/02/18 04:07 AST 90 U/L (17-59) H 10/02/18 04:07 ALT 85 U/L (21-72) H 10/02/18 04:07 Alkaline Phosphatase 88 U/L (38-126) 10/02/18 04:07 Total Creatine Kinase 154 U/L (55-170) 09/26/18 10:00 CK-MB (CK-2) 0.4 ng/mL (0.0-2.4) 09/26/18 10:00 CK-MB (CK-2) Rel Index 0.3 09/26/18 10:00 Troponin I <0.012 ng/mL (0.000-0.034) 09/26/18 10:00 NT-Pro-B Natriuret Pep 392 pg/mL 09/27/18 05:18 Total Protein 6.8 g/dL (6.3-8.2) 10/02/18 04:07 Albumin 3.4 g/dL (3.5-5.0) L 10/02/18 04:07 Triglycerides 100 mg/dL (<150) 09/27/18 05:18 Cholesterol 174 mg/dL (<200) 09/27/18 05:18 LDL Cholesterol, Calc 112 mg/dL (0-99) H 09/27/18 05:18 HDL Cholesterol 42 mg/dL (40-60) 09/27/18 05:18 Urine Color Yellow 09/26/18 13:27 Urine Appearance Clear (Clear) 09/26/18 13:27 Urine pH 7.0 (5.0-8.0) 09/26/18 13:27 Ur Specific [place] 1.014 (1.001-1.035) 09/26/18 13:27 Urine Protein Trace (Negative) H 09/26/18 13:27 Urine Glucose (UA) Negative (Negative) 09/26/18 13:27 Urine Ketones Negative (Negative) 09/26/18 13:27 Urine Blood Negative (Negative) 09/26/18 13:27 Urine Nitrite Negative (Negative) 09/26/18 13:27 Urine Bilirubin Negative (Negative) 09/26/18 13:27 Urine Urobilinogen 4.0 mg/dL (<2.0) 09/26/18 13:27 Ur Leukocyte Esterase Negative (Negative) 09/26/18 13:27 Serum Alcohol <10 mg/dL 09/26/18 10:00 Influenza Type A RNA Not Detected (Not Detectd) 09/26/18 10:00 Influenza Type B (PCR) Not Detected (Not Detectd) 09/26/18 10:00 Microbiology 09/26/18 10:00 Blood Blood Culture - Final No Growth after 144 hours 09/26/18 23:10 Urine,Catheterized Urine Culture - Final 09/26/18 13:28 Urine,Catheterized Urine Culture - Final Assessment and Plan (1) Alcoholism Current Visit: Yes Status: Acute Code(s): F10.20 - ALCOHOL DEPENDENCE, UNCOMPLICATED SNOMED Code(s): 7617148 (2) Acute ischemic left middle cerebral artery (MCA) stroke Current Visit: Yes Status: Acute Code(s): I63.512 - CEREB INFRC D/T UNSP OCCLS OR STENOS OF LEFT MID CEREB ART SNOMED Code(s): 865615125 (3) Fever Narrative/Plan: 57-year-old male presents to hospital with alteration of his mental status. The patient has a long-standing history of alcohol use and at first the family thought with his decreased alcohol intake he was having difficulties with withdrawal. However he then developed some twitching to the right side of his face and his speech worsened and constantly was brought to the emergency center. There there was concerns to a left MCA stroke given the twitching to the right arm the right facial droop and twitching and his unintelligible speech. Original computed tomography scan is normal but MRI is still pending, neurology consult is ongoing. At presentation the patient did have a fever 101.1 and an elevated lactic acid. Given his stroke there was concerns of potential aspiration especially since he was also having some acute respiratory failure at the time of his admission that has now improved. On the exam the patient does have evidence of the minimal erythema to the left leg it appears to be small injury the family relates may have come from their pet dog. With his alcohol use he has been skin is noted by the multiple ecchymotic areas on the upper extremities of the also claim comes from his interactions with their pet dog. There could be a mild cellulitis of the left lower extremity and constantly antibiotic therapy will be utilized. There is also concern for potential aspiration although his chest x-ray looks quite well and respiratory failure appears to be improving. Antibiotic therapy with Unasyn is started other antibiotics have been discontinued. Local wound care to the lower extremities with Silvadene is requested. The patient's fever and transient lactic acidosis admission could've also been directly related to his acute cerebrovascular accident. Cultures are negative so far as of 09/28/2018. MRI has just been completed and await the results and further help quantify any difficulty with the right pinna and outer aspect of the auditory canal given the ecchymosis that is seen. There is some notation there has been some traumatic falls. 09/29/2018 patient with little change in the last day. Followed by neurology regarding his cerebrovascular accident temporal area. Patient continues has some difficulty handling secretions with ongoing concerns to aspiration events. 10/05/2018 patient has had a marked improvement since last evaluation. Sitting upright. Working with a speech pathologist able to answer simple questions and follows simple commands. Passed his swallow study without difficulties. The patient was doing very poorly had a PEG tube applied and received feeding. After several days of feeding the patient is now had a marked improvement likely the nutritional support that he received for those days allowed part of his recovery. He will work toward his poststroke recovery, with complete another 3 days of antibiotic therapy with Augmentin Current Visit: Yes Status: Acute Code(s): R50.9 - FEVER, UNSPECIFIED SNOMED Code(s): 815238302
--- NOTE | 2018-10-05 23:31 | P.PN ---
Subjective Progress Note Date: 10/05/18 This patient is a 57-year-old male who was seen in neurology consultation for evaluation of altered mental status and increased confusion. Patient was found to have evidence of expressive aphasia with right-sided facial droop. He underwent an MRI of the brain for further evaluation of acute left MCA stroke. He was noted to have some facial twitching on his right side as well with evidence yesterday of having some blepharospasms of the eyelids. The patient has a extensive history of alcohol abuse in the past. He has been placed on a CIWA protocol and was switched to an Ativan drip due to agitation today. Due to excessive sedation he was taken off of the Ativan drip this morning. He is to continue on a CIWA protocol. The patient is undergoing a complete stroke evaluation. The patient remains somewhat obtunded today but is arousable only to sternal rub. This is likely secondary effect to his Ativan CIWA protocol. The patient was able to complete MRI of the brain yesterday which was reviewed. His MRI reveals abnormal cortical signal in the left posterior temporal lobe and also the left insula. These findings are consistent with subacute infarct. There was also probable involvement of the left occipital lobe as well. These multiple areas of infarction suggest possibility of cardioembolic stroke. We are recommending the patient to be evaluated by cardiology for YARIEL procedure. He does continue to demonstrate evidence of dysarthric speech when he is awake and conversing with the nursing staff. He has word finding difficulties in speech is quite garbled at times. This patient has suffered an acute left hemispheric stroke suggesting possibility of cardioembolic phenomenon. His MRI findings were discussed today with Dr. Quiñonez from cardiology. He would like to hold off on performing a YARIEL procedure on this patient who is still not alert enough to follow commands. There is concern for possibility of aspiration given his low level of alertness. We will hold off on YARIEL procedure at this time until the patient shows more improvement in his overall mental status. The patient failed his swallow evaluation by speech therapy today. He has been reluctant to move forward with a PEG tube placement but we did discuss this treatment option with him and his and son at bedside. Patient is now agreeable to consider moving forward to have a PEG tube placement at least temporarily until he is able to swallow without risk of aspiration. The patient underwent this is a slow PEG tube placement last week and has been tolerating tube feedings quite well. He continues to show improvement in his overall mental status as well with less weakness noted in his right upper extremity secondary to his recent stroke. He did pass his barium swallow study test today and his tube feedings were discontinued. Patient is currently being evaluated for placement at [facility] and is pending certification there. We have explained to the patient that his PEG tube will be capped and he should be able to have it reversed in a month. The patient is doing much better in terms of his mental status. He should schedule a follow-up in the outpatient neurology clinic in 3- 4 weeks. Patient is neurologically stable for discharge home or to the nursing facility as soon as a bed is available. His overall prognosis at this time remains guarded. Objective - Vital Signs Vital signs: Vital Signs Temp 98.3 F 10/05/18 13:38 Pulse 69 10/05/18 19:45 Resp 18 10/05/18 15:29 BP 126/72 10/05/18 13:38 Pulse Ox 94 L 10/05/18 13:38 Intake & Output 10/05/18 10/05/18 10/06/18 06:59 18:59 06:59 Intake Total 840 Balance 840 Weight 118.5 kg Intake: Tube Feeding 840 Other: Voiding Method Urinal Bedside Commode Diaper Incontinent # Voids 2 # Bowel Movements 2 1 - Exam Physical examination: PHYSICAL EXAMINATION: Patient is resting comfortably in bed. VITAL SIGNS: Blood pressure is [126/72]. Heart rate is [78]. Respiration is [18] . Temperature is [98.3]. HEENT: Head is atraumatic, neck is supple, there were no carotid bruits. CHEST: Lungs are clear to auscultation and percussion. CARDIAC: S1, S2 normal rate and rhythm. There is no murmur. ABDOMEN: Soft and nontender. Bowel sounds are present. EXTREMITIES: There is no pedal edema. Peripheral pulses are present. Neurological examination: The patient is examined today in the intensive care unit. He is much more awake and alert today in the intensive care unit. Patient is much more calm today and less agitated. He is able to follow simple commands. He is moving all extremities with slight right-sided weakness. The deep tendon reflexes are 1+ and symmetric. Plantar responses flexor bilaterally. - Labs CBC & Chem 7: 11/12/18 08:45 10/05/18 08:45 Labs: Abnormal Lab Results - Last 24 Hours (Table) 10/04/18 10/05/18 10/05/18 Range/Units 23:52 05:39 08:45 RBC 4.08 L (4.30-5.90) m/uL MCV 106.2 H (80.0-100.0) fL MCHC 30.9 L (31.0-37.0) g/dL Plt Count 125 L (150-450) k/uL Neutrophils # 8.1 H (1.3-7.7) k/uL Sodium (137-145) mmol/L Chloride (98-107) mmol/L Carbon Dioxide (22-30) mmol/L Glucose (74-99) mg/dL POC Glucose (mg/dL) 168 H 135 H (75-99) mg/dL 10/05/18 10/05/18 Range/Units 08:45 12:52 RBC (4.30-5.90) m/uL MCV (80.0-100.0) fL MCHC (31.0-37.0) g/dL Plt Count (150-450) k/uL Neutrophils # (1.3-7.7) k/uL Sodium 150 H (137-145) mmol/L Chloride 114 H (98-107) mmol/L Carbon Dioxide 33 H (22-30) mmol/L Glucose 157 H (74-99) mg/dL POC Glucose (mg/dL) 175 H (75-99) mg/dL Assessment and Plan (1) Acute ischemic left middle cerebral artery (MCA) stroke Current Visit: Yes Status: Acute Code(s): I63.512 - CEREB INFRC D/T UNSP OCCLS OR STENOS OF LEFT MID CEREB ART SNOMED Code(s): 626638805 (2) Alcoholism Current Visit: Yes Status: Acute Code(s): F10.20 - ALCOHOL DEPENDENCE, UNCOMPLICATED SNOMED Code(s): 2441549 (3) Febrile illness Current Visit: Yes Status: Acute Code(s): R50.9 - FEVER, UNSPECIFIED SNOMED Code(s): 682700637 (4) Chronic kidney disease Current Visit: No Status: Acute Code(s): N18.9 - CHRONIC KIDNEY DISEASE, UNSPECIFIED SNOMED Code(s): 296027563 (5) Syncopal episodes Current Visit: No Status: Acute Code(s): R55 - SYNCOPE AND COLLAPSE SNOMED Code(s): 033506076 Plan: This patient is a 58-year-old right-handed white male who was admitted to Hospital with symptoms of acute hypoxic respiratory failure and fluid overload. He was resuscitated and transferred to the intensive care unit where he was noted to have evidence of severe dysarthric speech. Patient has history of alcohol abuse and was started on a CIWA protocol in the intensive care unit. He was complaining of weakness on his right side. He was sent for MRI of the brain today which was completed yesterday. MRI reveals evidence of multiple areas of acute stroke involving the left posterior temporal lobe and left insula. There is also questionable left occipital lobe infarct on this MRI of the brain. These findings suggest possibility of cardioembolic phenomena as a cause of his stroke. We have consulted cardiology for YARIEL procedure tomorrow morning. Case was discussed today with Dr. Quiñonez from cardiology. He would like to hold off on performing the YAREIL procedure until the patient is more awake and alert. He is concerned for possibility of aspiration. The patient is being treated for alcohol withdrawal syndrome and is currently on Ativan drip. Due to severe sedation he is now been switched back to a CIWA protocol and seems to be tolerating this well. He was very combative earlier in the day secondary to his long-standing history of alcohol abuse. We did have a long discussion with the patient his and his son at bedside today in the ICU. He is much more awake and alert and is able to understand and comprehend what we were discussing in terms of his stroke and his inability to swallow. We've recommended patient to strongly consider moving forward with a PEG tube placement at least temporarily until he shows improvement with his swallowing capacity secondary to a stroke. Patient is now agreeable after discussing all of these points with his and son at bedside. We will notify the nursing staff in the ICU of his intention now to go ahead with a PEG tube placement. We will continue to monitor his progress closely during this admission. Neurologically the patient is showing no new clinical signs. Patient had a successful PEG tube placement and he passed his swallow evaluation today. The tube feedings have been placed on hold and discontinued at this time. Patient is awaiting discharge to [facility] when a bed is available. He should schedule follow-up in the outpatient neurology clinic in 3 -4 weeks. His overall prognosis at this time remains guarded. We will continue close neurological follow-up for this patient during this admission.
[2018-10-06] MEDS: AMPICILLIN-SULBACTAM 3 GM in SODIUM CHLORIDE 0.9% 100 ML IVPB SCH ×3 (00:03→12:49)
[2018-10-06] MEDS: GABAPENTIN 300 MG CAP PO SCH ×3 (00:03→15:59)
[2018-10-06 07:43] VITALS: RESP 16
[2018-10-06] MEDS: IPRATROPIUM-ALBUTEROL 3 ML NEB INHALATION SCH ×3 (07:51→15:51)
[2018-10-06] MEDS: PANTOPRAZOLE 40 MG TABLET PO SCH (08:00)
[2018-10-06] MEDS: CARVEDILOL 6.25 MG TAB PO SCH (08:00)
[2018-10-06] MEDS: SILVER sulfADIAZINE Cream 400 GM 1 APPLIC APPLIC TOPICAL SCH (08:01)
[2018-10-06] MEDS: ASPIRIN 81 MG PO SCH (08:01)
[2018-10-06] MEDS: oxyCODONE-APAP 10-325MG 1 EACH TAB PO PRN ×2 (08:03→15:59)
[2018-10-06 09:33] LABS: Basophils % (A) 0 %; Eosinophils # (A) 0.5 k/uL (0-0.7); Eosinophils % (A) 4 %; HCT 42.7 % (39.0-53.0); HGB 13.4 gm/dL (13.0-17.5); Lymphocytes # (A) 1.3 k/uL (1.0-4.8); Lymphocytes % (A) 10 %; MCH 32.9 pg (25.0-35.0); MCHC 31.4 g/dL (31.0-37.0); MCV 104.9 fL (80.0-100.0); Macrocytosis Slight; Mean Platelet Volume 8.9; Monocytes # (A) 0.4 k/uL (0-1.0); Monocytes % (A) 3 %; Neutrophils % (A) 82 %; Platelet Count 117 k/uL (150-450); RBC 4.07 m/uL (4.30-5.90); RDW 12.7 % (11.5-15.5); WBC 12.2 k/uL (3.8-10.6)
[2018-10-06 09:49] LABS: Anion Gap 1 mmol/L; Blood Urea Nitrogen 15 mg/dL (9-20); Calcium 8.6 mg/dL (8.4-10.2); Carbon Dioxide 33 mmol/L (22-30); Chloride 106 mmol/L (98-107); Glucose 153 mg/dL (74-99); Potassium 4.2 mmol/L (3.5-5.1); Sodium 140 mmol/L (137-145)
[2018-10-06] MEDS: MULTIVITAMINS, THERA 1 EACH TAB PO SCH (12:49)
[2018-10-06] MEDS: FOLIC ACID 1 MG TAB PO SCH (12:49)
[2018-10-06] MEDS: THIAMINE 100 MG TAB PO SCH (12:49)
[2018-10-06] MEDS: SCOPOLAMINE 1.5MG/72HR PATCH TRANSDERM SCH (12:50)
[2018-10-06 14:29] VITALS: BP 110/59; PULSE 57; TEMP 97
--- NOTE | 2018-10-06 16:20 | P.DS ---
Providers Date of admission: 09/26/18 15:06 Expected date of discharge: 10/06/18 Attending physician: MD Dr. Mirza Bowens Consults: 09/26/18 15:05 Consult Physician Routine Consulting Provider: Gage Jensen Consult Reason/Comments: CVA Do you want consulting provider notified?: Yes 09/26/18 18:33 Consult Physician Routine Consulting Provider: Osmin López Consult Reason/Comments: Altered Mental status/possible cellulitis of lower extremities Do you want consulting provider notified?: Yes 09/27/18 00:40 Consult Physician Stat Consulting Provider: Joceline Cedeño Consult Reason/Comments: per physician order-fluid overload Do you want consulting provider notified?: Yes 09/28/18 02:17 Consult Physician Routine Consulting Provider: Joceline Cedeño Consult Reason/Comments: ICU Management Do you want consulting provider notified?: Yes 09/29/18 08:00 Consult Physician Routine Consulting Provider: Ynes Quiñonez Consult Reason/Comments: Patient with acute left hemispheric strokes, possible cardioembolic. Do you want consulting provider notified?: Yes Primary care physician: Diana Rick Hospital Course: Final DIagnoses: Acute hypoxic respiratory failure secondary to fluid overload and aspiration pneumonia, improved. Right upper extremity weakness- secondary to acute left hemispheric cerebrovascular accident Dysphagia secondary to CVA. Status post PEG tube placement- now clamped. Passed sALLOW EVAL. please refer to Diet Rec. Hypertensive urgency,resolved Alcohol withdrawal symptoms and possible DTs, resolved History of obstructive sleep apnea Chronic back pain with history of work-related injury Obesity BMI is 35.9 HospiTAL Course:Mr. Glasgow is a 57-year-old male with a past medical history of chronic low back pain status post laminectomy and fusion follows with Dr. Ruth, obstructive sleep apnea, obesity, hypertension brought in by his family members for right upper extremity weakness and right facial twitching. And he has pain having garbled speech for the past couple of days. The patient has garbled speech which cannot be comprehended, so most of the history is taken from the who is at the bedside. The mentions that for the past 1 week patient has been having right arm weakness, and also slurring of his speech. When he was asked by his to go to the hospital, the patient became very combative and did not want to seek medical attention. But eventually the family noticed that they could not understand his speech and his weakness has been getting worse and he was not able to get out of the bed, so brought to the hospital for further evaluation. As per his patient is alcoholic and drinks alcohol every day. Patient has history of obstructive sleep apnea. Noncompliant with CPAP. His chronic low back pain issues status post laminectomy and fusion surgery. He follows with Dr. Ruth in the pain clinic. Patient usually walks with a walker at home and has bilateral lower extremity weakness since having the surgery. His also mentions that patient suffered a fall in February 2018 due to his history of alcoholism as he was intoxicated. At that time patient had acute intracerebral hemorrhage involving the right frontal and parietal lobes. In the ED patient had a CAT scan of the brain that was negative for any acute intracranial abnormality. Patient had a fever in the ED, he was given a dose of ceftriaxone and admitted to the hospital. on 09/27/18 - Today the pt is lying in the bed . Over night pt had issues with swallowing and was aspirating his own secretions. He was kept NPO. as per nursing staff report ,pt has twitching movements of his right arm and right side of the face this afternoon. On 09/28/2018 Patient was transferred to intensive care unit due to alcohol withdrawals and possible DTs. Patient was started on Ativan drip. Currently discontinued. Patient's blood pressure is uncontrolled. Patient failed swallow evaluation. Patient was given a dose of IV Lasix 40 mg today. Chest x-ray showed worsening lung markings, minimal pulmonary congestion and no overt heart failure, improved aeration in the right lung base compared to yesterday. Patient is continued on IV steroids and breathing treatments. Patient is being continued on antibiotics for cellulitis. MRI scheduled for 4 PM today., Patient is being followed by pulmonary, neurology and ID. Patient is on high flow oxygen via nausea cannula. 09/29/2018 Patient is still having significant right-sided weakness. But was able to follow simple commands. Patient is still requiring high flow oxygen via nasal cannula. MRI of the brain showed abnormal cortical signal in the left posterior temporal lobe consistent with subacute stroke. EEG is abnormal. 2-D echocardiogram was done. YARIEL could not be done due to his overall respiratory status. Chest x-ray showed minimal platelike atelectasis, left base. Patient is being continued on Unasyn for the cellulitis in his bilateral lower extremities. Pulmonary, ID and neurology is following.. 10/02/2018 Patient is currently awake alert but does have expressive aphasia. Patient is status post PEG tube placement and was started on tube feeding. Patient otherwise still agitated sometimes and continued on sitter as he was pulling tubes. Patient is afebrile. Sodium 152 for depression 3.4 No nausea no vomiting. Tolerating tube feeding. Patient is being transferred to medical floor today. Chest x-ray showed mild left lower lobe infiltrate essentially stable from previous study Review of systems-could not be done as the patient has garbled speech. He has expressive aphasia. Current medications reviewed. Patient has right upper extremity along with slurring of speech secondary to stroke. CT of the head has been negative for any acute intracranial process. MRI of the brain showed abnormal cortical signal in the left posterior temporal lobe and also insula of the left temporal lobe consistent with subacute infarct. 2-D echocardiogram showed normal EF. Patient be continued on aspirin, Catapres patch and hydralazine when necessary. Medications can be changed to via PEG tube once the patient tolerates tube feeding. Continued on antibiotics in the form of Unasyn for possible aspiration pneumonia. ID and pulmonary is following. Continue on PT OT and speech therapy. Possible rehab transfer early next week. Significant clinical improvement. Passed barium swallow, tube feeds discontinued,diet advanced. Tolerated well.PEG capped, scheduled for removal in 1 month as per GI, if no further difficulties with swallowing/aspirating. Sodium WNL. Maintained on IV antibiotics. Cleared by all consults for Dc. Patient is being discharged to [facility] in a stable condition with guarded prognosis. - Exam GEN. APPEARANCE: alert and oriented 2, with garbled speech, no acute distress RESPIRATORY EXAM: Coarse breath sounds heard bilaterally. No wheezes or crackles. Diminished at the bases. CARDIOVASCULAR EXAM: S1 and S2 heard. GI/ABDOMINAL EXAM: soft, normal bowel sounds. PEG tube present. Absent: distended, tenderness, guarding, rebound, rigid NEUROLOGICAL EXAM: Higher functions as mentioned earlier, mild generalized diffuse weakness greater on the left side. Gait dysfunction. The impression and plan of care has been dictated as directed. : I performed a history and examination of this patient, discussed the same with the dictator. I agree with the dictator's note ,documented as a scribe. Any additional findings or plans will be noted. TIme taken: 35 min. Patient Condition at Discharge: Stable Plan - Discharge Summary Discharge Rx Participant: Yes New Discharge Prescriptions: New Aspirin 81 mg PO DAILY chew Folic Acid 1 mg PO DAILY@1200 tab Ipratropium-Albuterol Nebulize [Duoneb 0.5 mg-3 mg/3 ml Soln] 3 ml INHALATION RT-QID ampul.neb Ipratropium-Albuterol Nebulize [Duoneb 0.5 mg-3 mg/3 ml Soln] 3 ml INHALATION Q4H PRN ampul.neb PRN Reason: Shortness Of Breath Or Wheezing Multivitamins, Thera [Multivitamin (formulary)] 1 each PO DAILY@1200 tab Pantoprazole [Protonix] 40 mg PO AC-BRKFST tablet. SILVER sulfADIAZINE Cream [Silvadene 1% Cream] 1 applic TOPICAL DAILY applic Thiamine [Vitamin B-1] 100 mg PO BID@1200,1700 tab Carvedilol [Coreg] 6.25 mg PO BID-W/MEALS tab Amoxic-Pot Clav 875-125Mg [Augmentin 875-125] 1 tab PO Q12HR #6 tablet Continue Gabapentin 600 mg PO Q8H oxyCODONE-APAP 10-325MG [Percocet 10-325 mg] 1 tab PO QID PRN #12 tab PRN Reason: Pain Discontinued Losartan-Hctz 50-12.5 mg [Hyzaar 50-12.5] 1 tab PO DAILY Discharge Medication List Gabapentin 600 mg PO Q8H 03/03/18 [History] Amoxic-Pot Clav 875-125Mg [Augmentin 875-125] 1 tab PO Q12HR #6 tablet 10/06/18 [Rx] Aspirin 81 mg PO DAILY chew 10/06/18 [Rx] Carvedilol [Coreg] 6.25 mg PO BID-W/MEALS tab 10/06/18 [Rx] Folic Acid 1 mg PO DAILY@1200 tab 10/06/18 [Rx] Ipratropium-Albuterol Nebulize [Duoneb 0.5 mg-3 mg/3 ml Soln] 3 ml INHALATION Q4H PRN ampul.neb 10/06/18 [Rx] Ipratropium-Albuterol Nebulize [Duoneb 0.5 mg-3 mg/3 ml Soln] 3 ml INHALATION RT -QID ampul.neb 10/06/18 [Rx] Multivitamins, Thera [Multivitamin (formulary)] 1 each PO DAILY@1200 tab [Rx] Pantoprazole [Protonix] 40 mg PO AC-BRKFST tablet. 10/06/18 [Rx] SILVER sulfADIAZINE Cream [Silvadene 1% Cream] 1 applic TOPICAL DAILY applic [Rx] Thiamine [Vitamin B-1] 100 mg PO BID@1200,1700 tab 10/06/18 [Rx] oxyCODONE-APAP 10-325MG [Percocet 10-325 mg] 1 tab PO QID PRN #12 tab 10/06/18 [ Rx] Follow up Appointment(s)/Referral(s): Gage Jensen MD [STAFF PHYSICIAN] - 1 Week Bharath Hall MD [STAFF PHYSICIAN] - 3 Days (while at [facility]) Diana Rick MD [Primary Care Provider] - 1 Week (after dc from [facility]) Peter Rosado MD [STAFF PHYSICIAN] - 1 Week (PEG tube may be removed in 1 month if patient continues to tolerate diet. ) Patient Instructions/Handouts: Ischemic Stroke (DC) Activity/Diet/Wound Care/Special Instructions: antibx as per ID confirm cardiology F/U apt. prior to dc Fall precautions, up with assist, use forearm crutches. Peg site skin care daily. NO smoking- cessation information provided. NO alcohol use. References for AA given. Heart healthy diet, nectar thickened liquid, no straws, aspiration precaution. cbc,bmp in 3 days
--- NOTE | 2018-10-06 22:06 | P.PN ---
Subjective Progress Note Date: 10/06/18 57 -year-old male presents to the emergency center by his family. They relates that he has a history of significant alcohol use. Often greater than 10 drinks a day. Apparently for 3 or 4 days before they brought him to Hospital was a marked decrease in the amount of alcohol that he was drinking. They thought the changes that he was exhibiting were related to some alcohol withdrawal. However he had difficulties with some right-sided weakness and difficulty ambulating in his speech was garbled, when he started to have some twitching to the right side of his face they were concerned and was brought to the emergency center. He subsequently has been seen by neurology with concerns to a left MCA stroke original computed tomography scan without evidence of acute change MRI is pending. Infectious diseases consultation is requested regarding the fever that was present at admission of 101.1 elevation of his lactic acid of 2.5. The family relates that he seems to be calm at this point in time it is evident that his speech is unintelligible. He seems comfortable and calm with his family present. 09/28/2018 patient is just returned from his MRI to further characterize the brain lesion. Nursing staff is noted are some ecchymosis to the right ear which was not easily seen in the past. Patient has confusion but does not seem to have tenderness at the site. 09/29/2018 patient continues to have some difficulties with secretions, continues to have a large amount of twitching on the right side of his face and is following with neurology status post his significant stroke. 10/05/2018 patient is now considerably improved. His is working with the speech pathologist and is able to speak many intelligible words and answers simple questions appropriately. PEG tube is placed and surprisingly today he was able to pass a swallow study 10/06/2018 patient much improved Is being readied for his transfer to the extended care facility to complete his rehab she can be independent back in his home setting. Objective - Vital Signs Vital signs: Vital Signs Temp 97.0 F L 10/06/18 14:10 Pulse 57 L 10/06/18 15:30 Resp 16 10/06/18 15:30 BP 110/59 10/06/18 14:10 Pulse Ox 95 10/06/18 14:10 Intake & Output 10/06/18 10/06/18 10/07/18 06:59 18:59 06:59 Intake Total 250 Output Total 700 Balance -450 Weight 118.5 kg Intake: Oral 250 Output: Urine 700 Other: Voiding Method Bedside Commode Bedside Commode # Voids 1 2 # Bowel Movements 2 1 - Exam 57-year-old male who looks older than his stated age HEENT: Anicteric conjunctiva are pink and moist nasal mucosa grossly intact without significant lesions, there is no thrush. Dentition is poor for age, evidence of some ecchymosis to the right pinna and to the very outer aspect of the outer canal. No fluctuance or hematoma is palpated Neck: The neck is supple without significant lymphadenopathy or thyromegaly. Lungs: There is symmetrical bilateral air entry there are a few expiratory wheezes that are scattered without savanna bronchial sounds or dullness or egophony is noted Heart: Regular rate and rhythm with an audible S1-S2, audible S3 positive S4. There is no significant murmur click or rub, PMI was nondisplaced. Abdomen: Positive bowel sounds soft and nontender without palpable masses or organomegaly. There was no guarding or rebound. Extremities: The upper extremities have excellent pulses they are symmetric, the lower extremities show evidence of chronic bilateral lower extremity edema with chronic hemosiderin staining bilaterally, small area of irritation possibly injury to the medial aspect of the left calf. there are some scattered ecchymosis on the upper extremities. There is minimal erythema superimposed on the chronic skin changes to the left leg. Neuro: The patient is awake and alert his speech is now understood and follows simple commands without difficulties. Facial twitching is resolved - Labs CBC & Chem 7: 10/06/18 08:52 10/06/18 08:52 Labs: Abnormal Lab Results - Last 24 Hours (Table) 10/06/18 10/06/18 Range/Units 08:52 08:52 WBC 12.2 H (3.8-10.6) k/uL RBC 4.07 L (4.30-5.90) m/uL MCV 104.9 H (80.0-100.0) fL Plt Count 117 L (150-450) k/uL Neutrophils # 10.0 H (1.3-7.7) k/uL Carbon Dioxide 33 H (22-30) mmol/L Glucose 153 H (74-99) mg/dL Laboratory Results WBC 12.2 k/uL (3.8-10.6) H 10/06/18 08:52 RBC 4.07 m/uL (4.30-5.90) L 10/06/18 08:52 Hgb 13.4 gm/dL (13.0-17.5) 10/06/18 08:52 Hct 42.7 % (39.0-53.0) 10/06/18 08:52 MCV 104.9 fL (80.0-100.0) H 10/06/18 08:52 MCH 32.9 pg (25.0-35.0) 10/06/18 08:52 MCHC 31.4 g/dL (31.0-37.0) 10/06/18 08:52 RDW 12.7 % (11.5-15.5) 10/06/18 08:52 Plt Count 117 k/uL (150-450) L 10/06/18 08:52 Neutrophils % 82 % 10/06/18 08:52 Lymphocytes % 10 % 10/06/18 08:52 Monocytes % 3 % 10/06/18 08:52 Eosinophils % 4 % 10/06/18 08:52 Basophils % 0 % 10/06/18 08:52 Neutrophils # 10.0 k/uL (1.3-7.7) H 10/06/18 08:52 Lymphocytes # 1.3 k/uL (1.0-4.8) 10/06/18 08:52 Monocytes # 0.4 k/uL (0-1.0) 10/06/18 08:52 Eosinophils # 0.5 k/uL (0-0.7) 10/06/18 08:52 Basophils # 0.0 k/uL (0-0.2) 10/06/18 08:52 Macrocytosis Slight 10/06/18 08:52 PT 12.3 sec (9.0-12.0) H 10/02/18 04:07 INR 1.3 (<1.2) H 10/02/18 04:07 APTT 24.2 sec (22.0-30.0) 09/26/18 10:00 Sample Site Right Radial 09/29/18 06:24 ABG pH 7.57 (7.35-7.45) H* 09/29/18 06:24 ABG pCO2 34 mmHg (35-45) L 09/29/18 06:24 ABG pO2 148 mmHg (83-108) H 09/29/18 06:24 ABG HCO3 31 mmol/L (21-25) H 09/29/18 06:24 ABG Total CO2 32 mmol/L (19-24) H 09/29/18 06:24 ABG O2 Saturation 99.2 % (94-97) H 09/29/18 06:24 ABG Base Excess 9.0 mmol/L 09/29/18 06:24 Dre Test Yes 09/29/18 06:24 FiO2 60 % 09/29/18 06:24 Sodium 140 mmol/L (137-145) 10/06/18 08:52 Potassium 4.2 mmol/L (3.5-5.1) 10/06/18 08:52 Chloride 106 mmol/L (98-107) 10/06/18 08:52 Carbon Dioxide 33 mmol/L (22-30) H 10/06/18 08:52 Anion Gap 1 mmol/L 10/06/18 08:52 BUN 15 mg/dL (9-20) 10/06/18 08:52 Creatinine 0.72 mg/dL (0.66-1.25) 10/06/18 08:52 Est GFR (CKD-EPI)AfAm >90 (>60 ml/min/1.73 sqM) 10/06/18 08:52 Est GFR (CKD-EPI)NonAf >90 (>60 ml/min/1.73 sqM) 10/06/18 08:52 Glucose 153 mg/dL (74-99) H 10/06/18 08:52 POC Glucose (mg/dL) 175 mg/dL (75-99) H 10/05/18 12:52 POC Glu Outsole Handler ID Anjelica Arshad 10/05/18 12:52 Lactic Ac Sepsis Rflx Y 09/26/18 10:49 Plasma Lactic Acid Jeremy 1.1 mmol/L (0.7-2.0) 09/26/18 14:07 Calcium 8.6 mg/dL (8.4-10.2) 10/06/18 08:52 Phosphorus 4.1 mg/dL (2.5-4.5) 09/29/18 04:55 Magnesium 1.7 mg/dL (1.6-2.3) 10/05/18 08:45 Total Bilirubin 1.4 mg/dL (0.2-1.3) H 10/02/18 04:07 AST 90 U/L (17-59) H 10/02/18 04:07 ALT 85 U/L (21-72) H 10/02/18 04:07 Alkaline Phosphatase 88 U/L (38-126) 10/02/18 04:07 Total Creatine Kinase 154 U/L (55-170) 09/26/18 10:00 CK-MB (CK-2) 0.4 ng/mL (0.0-2.4) 09/26/18 10:00 CK-MB (CK-2) Rel Index 0.3 09/26/18 10:00 Troponin I <0.012 ng/mL (0.000-0.034) 09/26/18 10:00 NT-Pro-B Natriuret Pep 392 pg/mL 09/27/18 05:18 Total Protein 6.8 g/dL (6.3-8.2) 10/02/18 04:07 Albumin 3.4 g/dL (3.5-5.0) L 10/02/18 04:07 Triglycerides 100 mg/dL (<150) 09/27/18 05:18 Cholesterol 174 mg/dL (<200) 09/27/18 05:18 LDL Cholesterol, Calc 112 mg/dL (0-99) H 09/27/18 05:18 HDL Cholesterol 42 mg/dL (40-60) 09/27/18 05:18 Urine Color Yellow 09/26/18 13:27 Urine Appearance Clear (Clear) 09/26/18 13:27 Urine pH 7.0 (5.0-8.0) 09/26/18 13:27 Ur Specific [place] 1.014 (1.001-1.035) 09/26/18 13:27 Urine Protein Trace (Negative) H 09/26/18 13:27 Urine Glucose (UA) Negative (Negative) 09/26/18 13:27 Urine Ketones Negative (Negative) 09/26/18 13:27 Urine Blood Negative (Negative) 09/26/18 13:27 Urine Nitrite Negative (Negative) 09/26/18 13:27 Urine Bilirubin Negative (Negative) 09/26/18 13:27 Urine Urobilinogen 4.0 mg/dL (<2.0) 09/26/18 13:27 Ur Leukocyte Esterase Negative (Negative) 09/26/18 13:27 Serum Alcohol <10 mg/dL 09/26/18 10:00 Influenza Type A RNA Not Detected (Not Detectd) 09/26/18 10:00 Influenza Type B (PCR) Not Detected (Not Detectd) 09/26/18 10:00 Microbiology 09/26/18 10:00 Blood Blood Culture - Final No Growth after 144 hours 09/26/18 23:10 Urine,Catheterized Urine Culture - Final 09/26/18 13:28 Urine,Catheterized Urine Culture - Final Assessment and Plan (1) Alcoholism Status: Acute Code(s): F10.20 - ALCOHOL DEPENDENCE, UNCOMPLICATED SNOMED Code(s): 2799993 (2) Acute ischemic left middle cerebral artery (MCA) stroke Status: Acute Code(s): I63.512 - CEREB INFRC D/T UNSP OCCLS OR STENOS OF LEFT MID CEREB ART SNOMED Code(s): 354468529 (3) Fever Narrative/Plan: 57-year-old male presents to hospital with alteration of his mental status. The patient has a long-standing history of alcohol use and at first the family thought with his decreased alcohol intake he was having difficulties with withdrawal. However he then developed some twitching to the right side of his face and his speech worsened and constantly was brought to the emergency center. There there was concerns to a left MCA stroke given the twitching to the right arm the right facial droop and twitching and his unintelligible speech. Original computed tomography scan is normal but MRI is still pending, neurology consult is ongoing. At presentation the patient did have a fever 101.1 and an elevated lactic acid. Given his stroke there was concerns of potential aspiration especially since he was also having some acute respiratory failure at the time of his admission that has now improved. On the exam the patient does have evidence of the minimal erythema to the left leg it appears to be small injury the family relates may have come from their pet dog. With his alcohol use he has been skin is noted by the multiple ecchymotic areas on the upper extremities of the also claim comes from his interactions with their pet dog. There could be a mild cellulitis of the left lower extremity and constantly antibiotic therapy will be utilized. There is also concern for potential aspiration although his chest x-ray looks quite well and respiratory failure appears to be improving. Antibiotic therapy with Unasyn is started other antibiotics have been discontinued. Local wound care to the lower extremities with Silvadene is requested. The patient's fever and transient lactic acidosis admission could've also been directly related to his acute cerebrovascular accident. Cultures are negative so far as of 09/28/2018. MRI has just been completed and await the results and further help quantify any difficulty with the right pinna and outer aspect of the auditory canal given the ecchymosis that is seen. There is some notation there has been some traumatic falls. 09/29/2018 patient with little change in the last day. Followed by neurology regarding his cerebrovascular accident temporal area. Patient continues has some difficulty handling secretions with ongoing concerns to aspiration events. 10/05/2018 patient has had a marked improvement since last evaluation. Sitting upright. Working with a speech pathologist able to answer simple questions and follows simple commands. Passed his swallow study without difficulties. The patient was doing very poorly had a PEG tube applied and received feeding. After several days of feeding the patient is now had a marked improvement likely the nutritional support that he received for those days allowed part of his recovery. He will work toward his poststroke recovery, with complete another 3 days of antibiotic therapy with Augmentin 10/06/2018 patient is now improved to the point where he be transferred to rehab to complete his physical and occupational therapy as well as speech therapy so he will be strong enough to resume his independent activity in the home setting. He will monitor closely for his ability to eat he will then follow up with gastroenterology after 30 days if he is doing well and the PEG tube can be considered to be removed at that time. 3 days of Augmentin are sent to half-way. Status: Acute Code(s): R50.9 - FEVER, UNSPECIFIED SNOMED Code(s): 483421955
== END 2018-10-06 16:59 | DRG 64 ==
LOC: EC 09:40 → 3SCARD 15:06 → 2SICU 09-28 03:02 → 4MS4W 10-02 21:20
PROVIDERS: ADMIT Internal Medicine; ATTEND Internal Medicine
PROC: B24BZZ4 Ultrasonography of Heart with Aorta, Transesophageal (ICD-10-PCS; 2018-09-29)
PROC: 0DH68UZ Insertion of Feeding Device into Stomach, Via Natural or Artificial Opening Endoscopic (ICD-10-PCS; principal; 2018-10-02 08:30)
DX: I63.412 Cerebral infarction due to embolism of left middle cerebral artery (principal); G93.41 Metabolic encephalopathy; J69.0 Pneumonitis due to inhalation of food and vomit; J96.01 Acute respiratory failure with hypoxia; G81.91 Hemiplegia, unspecified affecting right dominant side; E87.0 Hyperosmolality and hypernatremia; E87.1 Hypo-osmolality and hyponatremia; E87.2 Acidosis; F10.231 Alcohol dependence with withdrawal delirium; J98.11 Atelectasis; L03.116 Cellulitis of left lower limb; E11.22 Type 2 diabetes mellitus with diabetic chronic kidney disease; E11.42 Type 2 diabetes mellitus with diabetic polyneuropathy; I08.1 Rheumatic disorders of both mitral and tricuspid valves; I13.10 Hypertensive heart and chronic kidney disease without heart failure, with stage 1 through stage 4 chronic kidney disease, or unspecified chronic kidney disease; R47.01 Aphasia; E83.42 Hypomagnesemia; E87.70 Fluid overload, unspecified; R13.12 Dysphagia, oropharyngeal phase; Z91.81 History of falling; R32 Unspecified urinary incontinence; R29.810 Facial weakness; E66.9 Obesity, unspecified; E78.00 Pure hypercholesterolemia, unspecified; F32.9 Major depressive disorder, single episode, unspecified; G24.5 Blepharospasm; G47.33 Obstructive sleep apnea (adult) (pediatric); G89.29 Other chronic pain; N18.9 Chronic kidney disease, unspecified; I16.0 Hypertensive urgency; J32.2 Chronic ethmoidal sinusitis; J44.9 Chronic obstructive pulmonary disease, unspecified; R58 Hemorrhage, not elsewhere classified; R26.9 Unspecified abnormalities of gait and mobility; R45.1 Restlessness and agitation; Z68.35 Body mass index [BMI] 35.0-35.9, adult; Z91.19 Patient's noncompliance with other medical treatment and regimen; Z87.891 Personal history of nicotine dependence; Z79.899 Other long term (current) drug therapy; Z96.60 Presence of unspecified orthopedic joint implant; Z98.1 Arthrodesis status; Z83.3 Family history of diabetes mellitus
CPT/HCPCS: 36415; 36600; 43246; 51701; 70450; 70551; 71045; 71046; 74230; 76705; 80048; 80053; 80061; 80320; 81003; 82550; 82553; 82805; 83605; 83735; 83880; 84100; 84132; 84484; 85025; 85027; 85610; 85730; 87040; 87086; 87502; 93005; 93306; 93880; 94640; 94760; 95819; 96361; 96365; 96372; 96375; 99285

== ENCOUNTER 2018-11-26 08:58 | Day surgery (SDC) | payer MEDICARE ==
[2018-11-25 09:11] VITALS: BMI 36.1
[~2018-11-26 08:58] MED LIST: LACTATED RINGERS 1,000 ML IV SCH; LIDOCAINE 1% 20 ML VIAL (10MG/ML) FOR IV START INTRADERMA PRN; MIDAZOLAM (PF) 2 MG/2 ML VIAL IV PRN
[2018-11-26 09:38] VITALS: TEMP 97.4
[2018-11-26] MEDS ORDERED: PROPOFOL 10 MG/ML 20 ML VIAL IV ONE (10:03)
[2018-11-26] MEDS ORDERED: IV FLUID CONTINUATION 600 ML IV ONE (10:24)
[2018-11-26 10:30] VITALS: RESP 18
[2018-11-26 10:44] VITALS: BP 133/78; PULSE 68
--- NOTE | 2018-11-26 10:50 | P.PCN ---
Date of Procedure: 11/26/18 Description of Procedure: BRIEF HISTORY: Patient is a 58-year-old, pleasant, male patient who was seen in the hospital with complaints of oropharyngeal dysphagia after a CVA. Recommendations from speech language pathology or for PEG tube placement. The patient underwent EGD with successful placement of a PEG tube. He is seen in follow-up. PROCEDURE PERFORMED: PEG tube removal PREOPERATIVE DIAGNOSIS: PEG tube removal, history of CVA, oropharyngeal dysphagia ESTIMATED BLOOD LOSS: Minimal. IV sedation per anesthesia. PROCEDURE: After informed consent was obtained, the patient was brought into the endoscopy unit. IV sedation was administered by Anesthesia under continuous monitoring. The area surrounding the PEG tube was examined and appeared clean dry and intact. A 4 x 4 gauze was placed at the PEG tube site and gentle traction was placed in the PEG tube was removed. The area was dressed with antibiotic ointment. The patient tolerated the procedure well. IMPRESSION: 1. PEG tube removal. RECOMMENDATIONS: The findings of this examination were discussed with the patient and his . Okay to eat. Continue local wound care.
== END 2018-11-26 10:58 | disposition home or self-care (01) ==
LOC: ORWHC2ENDO 08:58
PROVIDERS: ATTEND Internal Medicine
DX: Z43.1 Encounter for attention to gastrostomy (principal); I69.391 Dysphagia following cerebral infarction; Z87.891 Personal history of nicotine dependence; I69.321 Dysphasia following cerebral infarction; G47.33 Obstructive sleep apnea (adult) (pediatric); Z99.89 Dependence on other enabling machines and devices; Z79.82 Long term (current) use of aspirin; Z79.891 Long term (current) use of opiate analgesic; Z79.899 Other long term (current) drug therapy
CPT/HCPCS: 43246; J2704

== ENCOUNTER 2019-01-05 11:14 | Inpatient (IN) | payer MEDICARE ==
[2019-01-05] MEDS ORDERED: SODIUM CHLORIDE 0.9% 500 ML 500 ML IV STA (11:39)
[2019-01-05] MEDS ORDERED: LORazepam 2 MG/ML INJ IV STA (11:40)
[2019-01-05] MEDS ORDERED: SODIUM CHLORIDE 0.9% 1,000 ML IV ONE ×2 (11:44→14:25)
--- NOTE | 2019-01-05 11:44 | ED ---
General Adult HPI - General Chief complaint: Seizure Stated complaint: Seizure Time Seen by Provider: 01/05/19 11:15 Source: patient, RN notes reviewed Mode of arrival: EMS Limitations: no limitations - History of Present Illness Initial comments: This is a 58-year-old male who presents emergency Department with a past medical history significant for alcoholism and CVA. Patient states she has residual weakness on the right side. Patient had a 15 minute seizure at home according to the and that is why she brought him in. Patient states he's had seizures when he was in the hospital for this CVA but they believe that was alcohol withdrawal seizures. Patient states he continues to drink alcohol daily but he hadn't drank since about 7:00 last night. Patient states he woke up this morning started having a drink and that is when he started having a seizure. Patient denies any new weakness or numbness. Patient denies any headache. Patient denies any chest pain patient denies any recent fever chills per patient denies abdominal pain patient denies nausea vomiting diarrhea. states he's got chronic cellulitis of the legs and has some vascular problems such that it makes it difficult for him to walk patient refuses to follow-up with her neurologist patient refuses to go for alcohol rehabilitation. Patient denies any extremity pain - Related Data Home Medications Medication Instructions Recorded Confirmed Gabapentin 600 mg PO Q8H 03/03/18 01/05/19 Aspirin 325 mg PO DAILY 11/25/18 01/05/19 Carvedilol [Coreg] 6.25 mg PO HS 11/25/18 01/05/19 Losartan-Hctz 50-12.5 mg [Hyzaar 1 each PO QAM 11/25/18 01/05/19 50-12.5] SILVER sulfADIAZINE Cream 1 applic TOPICAL DAILY PRN 11/25/18 01/05/19 [Silvadene 1% Cream] Thiamine [Vitamin B-1] 50 mg PO BID 01/05/19 01/05/19 Previous Rx's Medication Instructions Recorded Folic Acid 1 mg PO DAILY@1200 tab 10/06/18 Multivitamins, Thera [Multivitamin 1 each PO DAILY@1200 tab 10/06/18 (formulary)] Pantoprazole [Protonix] 40 mg PO AC-BRKFST tablet. 10/06/18 oxyCODONE-APAP 10-325MG [Percocet 1 tab PO QID PRN #12 tab 10/06/18 10-325 mg] Atorvastatin Calcium [Lipitor] 20 mg PO HS #30 tab 10/21/18 Allergies Allergy/AdvReac Type Severity Reaction Status Date / Time No Known Allergies Allergy Verified 01/05/19 12:16 Review of Systems ROS Statement: Those systems with pertinent positive or pertinent negative responses have been documented in the HPI. ROS Other: All systems not noted in ROS Statement are negative. Past Medical History Past Medical History: CVA/TIA, Hypertension, Sleep Apnea/CPAP/BIPAP Additional Past Medical History / Comment(s): CVA [id number] speech affected, obstructive sleep apnea,uses cpap, chronic back pain, previous back injury (work-related and the patient has undergone a back surgery with laminectomy and fusion and he is receiving and management through Dr. Ruth) , alcoholism, BL leg/feet neuropathy. History of Any Multi-Drug Resistant Organisms: None Reported Past Surgical History: Back Surgery, Orthopedic Surgery Additional Past Surgical History / Comment(s): Rotator cuff sx, shira knee sx Past Anesthesia/Blood Transfusion Reactions: No Reported Reaction Past Psychological History: No Psychological Hx Reported Smoking Status: Former smoker Past Alcohol Use History: Daily - Past Family History Mother Family Medical History: Diabetes Mellitus General Exam - General Exam Comments Initial Comments: GENERAL: Patient is well-developed and well-nourished. Patient is nontoxic and well- hydrated and is in mild distress. ENT: Neck is soft and supple. No significant lymphadenopathy is noted. Oropharynx is clear. Moist mucous membranes. Neck has full range of motion without eliciting any pain. EYES: The sclera were anicteric and conjunctiva were pink and moist. Extraocular movements were intact and pupils were equal round and reactive to light. Eyelids were unremarkable. PULMONARY: Unlabored respirations. Good breath sounds bilaterally. No audible rales rhonchi or wheezing was noted. CARDIOVASCULAR: There is a regular rate and rhythm without any murmurs gallops or rubs. ABDOMEN: Soft and nontender with normal bowel sounds. No palpable organomegaly was noted. There is no palpable pulsatile mass. SKIN: Skin is clear with no lesions or rashes and otherwise unremarkable. NEUROLOGIC: Patient is alert and oriented x3. Cranial nerves II through XII are grossly intact. Patient has normal sensation in all 4 extremities however his right arm and leg are slightly weaker than the left. Patient states this is normal.. Normal speech, volume and content. Symmetrical smile. MUSCULOSKELETAL: Patient has what appears to be chronic cellulitis on bilateral legs. LYMPHATICS: No significant lymphadenopathy is noted PSYCHIATRIC: Normal psychiatric evaluation. Limitations: no limitations Course Vital Signs 01/05/19 01/05/19 01/05/19 11:15 13:00 14:00 Temperature 98.6 F 98.3 F Pulse Rate 115 H 98 90 Respiratory 18 18 18 Rate Blood Pressure 126/79 117/68 109/65 O2 Sat by Pulse 94 L 98 96 Oximetry Medical Decision Making - Medical Decision Making EKG shows sinus tachycardia at 108 bpm [place] interval 158 QRS 108 QT interval 366 QTC is 490. Patient's EKG shows no ST segment elevation or depression. - Lab Data Result diagrams: 01/05/19 11:30 01/05/19 11:30 Lab Results 01/05/19 01/05/19 Range/Units 11:30 11:30 WBC 5.6 (3.8-10.6) k/uL RBC 5.14 (4.30-5.90) m/uL Hgb 16.6 (13.0-17.5) gm/dL Hct 51.1 (39.0-53.0) % MCV 99.6 (80.0-100.0) fL MCH 32.2 (25.0-35.0) pg MCHC 32.4 (31.0-37.0) g/dL RDW 13.6 (11.5-15.5) % Plt Count 163 (150-450) k/uL Neutrophils % 83 % Lymphocytes % 10 % Monocytes % 5 % Eosinophils % 2 % Basophils % 0 % Neutrophils # 4.6 (1.3-7.7) k/uL Lymphocytes # 0.5 L (1.0-4.8) k/uL Monocytes # 0.3 (0-1.0) k/uL Eosinophils # 0.1 (0-0.7) k/uL Basophils # 0.0 (0-0.2) k/uL Sodium 137 (137-145) mmol/L Potassium 3.7 (3.5-5.1) mmol/L Chloride 101 (98-107) mmol/L Carbon Dioxide 16 L (22-30) mmol/L Anion Gap 20 mmol/L BUN 5 L (9-20) mg/dL Creatinine 0.66 (0.66-1.25) mg/dL Est GFR (CKD-EPI)AfAm >90 (>60 ml/min/1.73 sqM) Est GFR (CKD-EPI)NonAf >90 (>60 ml/min/1.73 sqM) Glucose 190 H (74-99) mg/dL Calcium 9.3 (8.4-10.2) mg/dL Magnesium 1.6 (1.6-2.3) mg/dL Total Bilirubin 1.0 (0.2-1.3) mg/dL AST 97 H (17-59) U/L ALT 49 (21-72) U/L Alkaline Phosphatase 209 H (38-126) U/L Total Protein 7.7 (6.3-8.2) g/dL Albumin 3.8 (3.5-5.0) g/dL Serum Alcohol <10 mg/dL Disposition Clinical Impression: Alcohol withdrawal seizure Disposition: ADMITTED IP TO THIS [facility] Referrals: Diana Rick MD [Primary Care Provider] - 1-2 days Time of Disposition: 14:24
[2019-01-05 12:00] LABS: Basophils % (A) 0 %; Eosinophils # (A) 0.1 k/uL (0-0.7); Eosinophils % (A) 2 %; HCT 51.1 % (39.0-53.0); HGB 16.6 gm/dL (13.0-17.5); Lymphocytes # (A) 0.5 k/uL (1.0-4.8); Lymphocytes % (A) 10 %; MCH 32.2 pg (25.0-35.0); MCHC 32.4 g/dL (31.0-37.0); MCV 99.6 fL (80.0-100.0); Mean Platelet Volume 6.6; Monocytes # (A) 0.3 k/uL (0-1.0); Monocytes % (A) 5 %; Neutrophils # (A) 4.6 k/uL (1.3-7.7); Neutrophils % (A) 83 %; Platelet Count 163 k/uL (150-450); RBC 5.14 m/uL (4.30-5.90); RDW 13.6 % (11.5-15.5); WBC 5.6 k/uL (3.8-10.6)
[2019-01-05 12:10] LABS: ALT 49 U/L (21-72); AST 97 U/L (17-59); Albumin 3.8 g/dL (3.5-5.0); Alcohol <10 mg/dL; Alkaline Phosphatase 209 U/L (38-126); Anion Gap 20 mmol/L; Blood Urea Nitrogen 5 mg/dL (9-20); Calcium 9.3 mg/dL (8.4-10.2); Carbon Dioxide 16 mmol/L (22-30); Chloride 101 mmol/L (98-107); Glucose 190 mg/dL (74-99); Magnesium 1.6 mg/dL (1.6-2.3); Potassium 3.7 mmol/L (3.5-5.1); Sodium 137 mmol/L (137-145); Total Protein 7.7 g/dL (6.3-8.2)
--- NOTE | 2019-01-05 12:40 | CT ---
EXAMINATION TYPE: CT brain wo con DATE OF EXAM: 01/05/2019 COMPARISON: 09/26/2018 an MRI 09/28/2018 HISTORY: 58-year-old male Seizure activity TECHNIQUE: Examination was done in axial plane without intravenous contrast. Coronal and sagittal r econstructions performed. CT DLP: 1099.4 mGycm Automated exposure control for dose reduction was used. FINDINGS: There is no evidence of acute intracranial hemorrhage, acute ischemic changes, mass, mass-effect, or extra-axial fluid collection. There is no effacement of cerebral sulci or basal subarachnoid cister ns. There is no midline shift. Shah-white matter distinction is preserved. There is mild ventriculomegaly likely secondary to central cerebral atrophy, unchanged. Mild patchy w dilma matter hypodensities in both hemispheres. Encephalomalacia involving the left temporoparietal junction compatible with old vascular insult. Bes t seen on sagittal, for example, image 50. Polyps or mucosal retention cysts along the floors of the maxillary sinuses. Undulating nasal septum. Globes are intact. Mastoid air cells well pneumatized. 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 Mild c entral atrophy and changes of chronic small vessel ischemic disease. No acute intracranial abnormalit y seen.
[2019-01-05] MEDS ORDERED: THIAMINE 100 MG/ML 2 ML VIAL IM STA (14:30)
[2019-01-05] MEDS ORDERED: LORazepam 2 MG/ML INJ IV PRN ×3 (14:30)
[2019-01-05] MEDS: GABAPENTIN 300 MG CAP PO SCH (20:27)
[2019-01-05] MEDS: oxyCODONE-APAP 10-325MG 1 EACH TAB PO PRN (20:28)
[2019-01-05] MEDS ORDERED: THIAMINE 50 MG PO SCH (21:00)
[2019-01-05] MEDS ORDERED: ATORVASTATIN 20 MG TAB PO SCH (21:00)
[2019-01-05] MEDS ORDERED: CARVEDILOL 6.25 MG TAB PO SCH (21:00)
[2019-01-05 21:58] VITALS: RESP 18
--- NOTE | 2019-01-05 23:05 | P.HPIM ---
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 Patient did have generalized shakiness at home last about 10-15 minutes. Patient also had tongue bite. Patient felt very weak after seizes and ambulance was called by his .Patient states he's had seizures when he was in the hospital for this CVA but they believe that was alcohol withdrawal seizures. Patient denied any new weakness. No numbness or tingling. No headache. Patient felt dizziness. Denied any chest pain or shortness of breath. No fever no chills. Denied any recent illnesses or sick contacts. As per his patient has been having bilateral lower extremities swelling and vascular problems and also difficulty in ambulation due to weakness. Patient has been drinking every day. Did not drink last night. Patient follows with pain management clinic. Patient refused to go to alcohol rehabilitation. EKG showed sinus tachycardia CT head showed remote vascular insult at the left temporoparietal junction characterized by encephalomalacia. Mild central atrophy and changes of chronic small was an ischemic disease. No acute intracranial abnormality. Review of Systems Constitutional: Patient denies any fever or chills . No generalized weakness or weight loss. Abdomen: Patient denied nausea vomiting and diarrhea and abdominal pain. Cardiovascular: Patient denies any chest pain or short of breath no palpitations. Respiratory: patient denied any cough is from production. No shortness of breath Neurologic: Patient denied any numbness or tingling headache. Musculoskeletal: Patient denies any complaints of joint swelling or deformity. Skin: Negative Psychiatric: Negative Endocrine: No heat or cold intolerance. No recent weight gain. Genitourinary: No dysuria or hematuria. All other 14 point ROS negative except the above Past Medical History Past Medical History: CVA/TIA, Hypertension, Osteoarthritis (OA), Sleep Apnea/ CPAP/BIPAP Additional Past Medical History / Comment(s): CVA [id number] speech affected-(when pt tired or tries to talk to fast) and "some weakness,rt arm/leg " .chronic back pain- previous back injury (work-related and the patient has undergone a back surgery with laminectomy and fusion and he is receiving and management through Dr. Ruth),uses crutches when up . falls alcoholism, BL leg/feet neuropathy. History of Any Multi-Drug Resistant Organisms: None Reported Past Surgical History: Back Surgery, Orthopedic Surgery Additional Past Surgical History / Comment(s): rt Rotator cuff sx, shira knee sx "no knee cap rt knee", lasik eye sx left eye, egd, peg tube -since removed 2018, has lewis and 2 screws in back. pt stated "he broke a vertebre above the back sx srea but no sx done on that" Past Anesthesia/Blood Transfusion Reactions: No Reported Reaction Smoking Status: Former smoker - Past Family History Mother Family Medical History: Diabetes Mellitus Father Family Medical History: Cancer Additional Family Medical History / Comment(s): from lung cancer Medications and Allergies Home Medications Medication Instructions Recorded Confirmed Type Gabapentin 600 mg PO Q8H 03/03/18 01/05/19 History Folic Acid 1 mg PO DAILY@1200 tab 10/06/18 01/05/19 Rx Multivitamins, Thera [Multivitamin 1 each PO DAILY@1200 tab 10/06/18 01/05/19 Rx (formulary)] Pantoprazole [Protonix] 40 mg PO AC-BRKFST tablet. 10/06/18 01/05/19 Rx oxyCODONE-APAP 10-325MG [Percocet 1 tab PO QID PRN #12 tab 10/06/18 01/05/19 Rx 10-325 mg] Atorvastatin Calcium [Lipitor] 20 mg PO HS #30 tab 10/21/18 01/05/19 Rx Aspirin 325 mg PO DAILY 11/25/18 01/05/19 History Carvedilol [Coreg] 6.25 mg PO HS 11/25/18 01/05/19 History Losartan-Hctz 50-12.5 mg [Hyzaar 1 each PO QAM 11/25/18 01/05/19 History 50-12.5] SILVER sulfADIAZINE Cream 1 applic TOPICAL DAILY PRN 11/25/18 01/05/19 History [Silvadene 1% Cream] Thiamine [Vitamin B-1] 50 mg PO BID 01/05/19 01/05/19 History Allergies Allergy/AdvReac Type Severity Reaction Status Date / Time No Known Allergies Allergy Verified 01/05/19 12:16 Physical Exam Vitals: Vital Signs Temp Pulse Pulse Resp BP BP Pulse Ox 01/05/19 21:57 98.2 F 93 18 127/72 94 L 01/05/19 15:39 98 F 98 19 98/65 99 01/05/19 14:57 98 18 118/78 98 01/05/19 14:23 89 18 115/71 97 01/05/19 14:00 90 18 109/65 96 01/05/19 13:00 98.3 F 98 18 117/68 98 01/05/19 11:15 98.6 F 115 H 18 126/79 94 L Intake and Output 01/05/19 01/05/19 01/05/19 06:59 14:59 22:59 Intake Total 1500 Balance 1500 Intake: Amount of Fluid Infused ( 1500 ml) Other: # Voids 2 # Bowel Movements 1 Weight 111.584 kg PHYSICAL EXAMINATION: Patient is lying in the bed comfortably, no acute distress, awake alert and oriented.. HEENT: Normocephalic. Neck is supple. Pupils reactive. Nostrils clear. Oral cavity is moist. Ears reveal no drainage. Neck reveals no JVD, carotid bruits, or thyromegaly. CHEST EXAMINATION: Trachea is central. Symmetrical expansion. Bibasilar diminished air entry. Lung melendez clear to auscultation and percussion. CARDIAC: Normal S1, S2 with no gallops. No murmurs ABDOMEN: Soft. Bowel sounds normal. No organomegaly. No abdominal bruits. Extremities: Bilateral lower extremity lymphedema. No clubbing or cyanosis Neurologically awake, alert, oriented x3 with well-coordinated movements. . Mild right-sided weakness. Skin: No rash or skin lesions. Psychiatric: Coperative. Nonsuicidal Musculoskeletal: No joint swelling or deformity. Normal range of motion. Results CBC & Chem 7: 01/05/19 11:30 01/05/19 11:30 Labs: Abnormal Lab Results - Last 24 Hours (Table) 01/05/19 01/05/19 Range/Units 11:30 11:30 Lymphocytes # 0.5 L (1.0-4.8) k/uL Carbon Dioxide 16 L (22-30) mmol/L BUN 5 L (9-20) mg/dL Glucose 190 H (74-99) mg/dL AST 97 H (17-59) U/L Alkaline Phosphatase 209 H (38-126) U/L Thrombosis Risk Factor Assmnt - Choose All That Apply Any of the Below Risk Factors Present?: Yes Each Factor Represents 1 point: Age 41-60 years Other Risk Factors: No Other congenital or acquired thrombophilia - If yes, enter type in comment: No Thrombosis Risk Factor Assessment Total Risk Factor Score: 1 Thrombosis Risk Factor Assessment Level: Low Risk Assessment and Plan Assessment: Seizures likely due to alcohol withdrawals Alcohol abuse anion gap metabolic acidosis. History of CVA with residual right-sided weakness Hypertension Osteoarthritis Objective sleep apnea on CPAP Chronic back pain with history of laminectomy and fusion Chronic bilateral lower extremity swelling and Bilateral feet neuropathy likely due to alcohol abuse Previous history of smoking DVT prophylaxis with heparin subcu Plan: Patient will be continued on IV hydration. Seizure and fall precautions. Patient also had previous history of seizures after last CVA., Thought to be due to alcohol withdrawals. Continue with thiamine and multivitamins and monitor closely. Continue the home medications and pain management. Further recommendations based on the clinical course. Patient was counseled extensively and recommended to go for alcohol rehabilitation. Prognosis is guarded. Time with Patient: Greater than 30
[2019-01-06] MEDS: GABAPENTIN 300 MG CAP PO SCH ×2 (00:21→08:28)
[2019-01-06] MEDS: HEPARIN SODIUM,PORCINE 5,000 UNIT/ML 1 ML VIAL SQ SCH ×2 (02:00→08:21)
[2019-01-06] MEDS ORDERED: PANTOPRAZOLE 40 MG TABLET PO SCH (07:30)
[2019-01-06 07:51] VITALS: BP 107/63; PULSE 63; TEMP 97.2
[2019-01-06] MEDS: oxyCODONE-APAP 10-325MG 1 EACH TAB PO PRN (08:28)
[2019-01-06 08:36] LABS: Anion Gap 6 mmol/L; Blood Urea Nitrogen 7 mg/dL (9-20); Calcium 8.6 mg/dL (8.4-10.2); Carbon Dioxide 29 mmol/L (22-30); Chloride 104 mmol/L (98-107); Glucose 128 mg/dL (74-99); Potassium 3.6 mmol/L (3.5-5.1); Sodium 139 mmol/L (137-145)
[2019-01-06] MEDS ORDERED: LOSARTAN 25 MG TAB PO SCH (09:00)
[2019-01-06] MEDS ORDERED: ASPIRIN 325 MG TAB PO SCH (09:00)
[2019-01-06] MEDS ORDERED: LOSARTAN-HCTZ 50-12.5 MG 1 EACH TAB PO SCH (09:00)
[2019-01-06] MEDS ORDERED: MULTIVITAMINS, THERA 1 EACH TAB PO SCH (12:00)
[2019-01-06] MEDS ORDERED: FOLIC ACID 1 MG TAB PO SCH (12:00)
[2019-01-06] MEDS ORDERED: THIAMINE 100 MG TAB PO SCH (12:00)
== END 2019-01-06 14:15 | disposition home or self-care (01) | DRG 897 ==
LOC: EC 11:14 → 4MS4W 14:31
PROVIDERS: ADMIT Internal Medicine; ATTEND Internal Medicine
DX: F10.239 Alcohol dependence with withdrawal, unspecified (principal); E87.2 Acidosis; I69.351 Hemiplegia and hemiparesis following cerebral infarction affecting right dominant side; G40.89 Other seizures; G62.1 Alcoholic polyneuropathy; Y90.0 Blood alcohol level of less than 20 mg/100 ml; G47.33 Obstructive sleep apnea (adult) (pediatric); G89.29 Other chronic pain; I10 Essential (primary) hypertension; M54.9 Dorsalgia, unspecified; M19.90 Unspecified osteoarthritis, unspecified site; R00.0 Tachycardia, unspecified; Z79.82 Long term (current) use of aspirin; Z79.899 Other long term (current) drug therapy; Z87.891 Personal history of nicotine dependence; Z96.698 Presence of other orthopedic joint implants; Z80.1 Family history of malignant neoplasm of trachea, bronchus and lung; Z83.3 Family history of diabetes mellitus
CPT/HCPCS: 36415; 70450; 80048; 80053; 80320; 83735; 85025; 93005; 96361; 96372; 96374; 99285

== ENCOUNTER → 2019-02-25 | Outpatient (CLI) | payer MEDICARE | END | disposition home or self-care (01) | LOC: LABWHC1 09:24 | PROVIDERS: ATTEND Psychiatry & Neurology Neurology | DX: G40.209 Localization-related (focal) (partial) symptomatic epilepsy and epileptic syndromes with complex partial seizures, not intractable, without status epilepticus (principal) | CPT/HCPCS: 36415; 80177 ==

== ENCOUNTER 2019-03-12 10:25 | Emergency (ER) | payer MEDICARE ==
[2019-03-12 10:31] VITALS: TEMP 97.9
[2019-03-12] MEDS ORDERED: MORPHINE SULFATE 4 MG/ML SYRINGE IVP STA (11:44)
--- NOTE | 2019-03-12 11:58 | ED ---
Lower Extremity Injury HPI - General Chief Complaint: Extremity Injury, Lower Stated Complaint: lt ankle injury Time Seen by Provider: 03/12/19 10:41 Source: patient, RN notes reviewed, old records reviewed Mode of arrival: ambulatory Limitations: physical limitation - History of Present Illness Initial Comments: Patient is a 58-year-old male who presents emergency department today after tripping on a rug and twisting his ankle approximately one week ago. Patient reports that his ankle wasn't swollen and deformed since that time. He reports he wrapped his leg with an Tray wrap. Patient states he has had some bruising and swelling as well as the ankle. He reports he has full range of motion of the toes and foot. Patient states that he has been walking with a crutch. Patient son states this is when he was able to get some time off to take him to the hospital for evaluation. - Related Data Home Medications Medication Instructions Recorded Confirmed Gabapentin 600 mg PO Q8H 03/03/18 03/12/19 Aspirin 325 mg PO DAILY 11/25/18 03/12/19 Losartan-Hctz 50-12.5 mg [Hyzaar 1 tab PO QAM 11/25/18 03/12/19 50-12.5] Multivitamins, Thera [Multivitamin 1 tab PO DAILY 03/12/19 03/12/19 (formulary)] Pantoprazole [Protonix] 40 mg PO DAILY 03/12/19 03/12/19 levETIRAcetam 750 mg PO BID 03/12/19 03/12/19 Previous Rx's Medication Instructions Recorded Folic Acid 1 mg PO DAILY@1200 tab 10/06/18 oxyCODONE-APAP 10-325MG [Percocet 1 tab PO QID PRN #12 tab 10/06/18 10-325 mg] Atorvastatin Calcium [Lipitor] 20 mg PO HS #30 tab 10/21/18 Thiamine [Vitamin B-1] 100 mg PO DAILY #30 tab 01/06/19 Allergies Allergy/AdvReac Type Severity Reaction Status Date / Time No Known Allergies Allergy Verified 03/12/19 11:08 Review of Systems ROS Statement: Those systems with pertinent positive or pertinent negative responses have been documented in the HPI. ROS Other: All systems not noted in ROS Statement are negative. Past Medical History Past Medical History: CVA/TIA, Hypertension, Osteoarthritis (OA), Sleep Apnea/CPAP/BIPAP Additional Past Medical History / Comment(s): CVA [id number] speech affected-(when pt tired or tries to talk to fast) and "some weakness,rt arm/leg" .chronic back pain- previous back injury (work-related and the patient has undergone a back surgery with laminectomy and fusion and he is receiving and management through Dr. Ruth),uses crutches when up . falls alcoholism, BL leg/feet neuropathy. History of Any Multi-Drug Resistant Organisms: None Reported Past Surgical History: Back Surgery, Orthopedic Surgery Additional Past Surgical History / Comment(s): rt Rotator cuff sx, shira knee sx "no knee cap rt knee", lasik eye sx left eye, egd, peg tube -since removed 2018, has lewis and 2 screws in back. pt stated "he broke a vertebre above the back sx srea but no sx done on that" Past Anesthesia/Blood Transfusion Reactions: No Reported Reaction Past Psychological History: No Psychological Hx Reported Smoking Status: Former smoker Past Alcohol Use History: Daily Past Drug Use History: None Reported - Past Family History Mother Family Medical History: Diabetes Mellitus Father Family Medical History: Cancer Additional Family Medical History / Comment(s): from lung cancer General Exam - General Exam Comments Initial Comments: 4-year-old male presents emergency Department today. He is sitting in a wheelchair. Patient is resting comfortably. Appears in no significant distress. Limitations: physical limitation General appearance: alert, in no apparent distress Head exam: Present: atraumatic, normocephalic, normal inspection Eye exam: Present: normal appearance, PERRL, EOMI. Absent: scleral icterus, conjunctival injection, periorbital swelling ENT exam: Present: normal exam, mucous membranes moist Neck exam: Present: normal inspection. Absent: tenderness, meningismus, lymphadenopathy Respiratory exam: Present: normal lung sounds bilaterally. Absent: respiratory distress, wheezes, rales, rhonchi, stridor Cardiovascular Exam: Present: regular rate, normal rhythm, normal heart sounds. Absent: systolic murmur, diastolic murmur, rubs, gallop, clicks GI/Abdominal exam: Present: soft, normal bowel sounds. Absent: distended, tenderness, guarding, rebound, rigid Extremities exam: Present: full ROM, normal capillary refill. Absent: normal inspection, tenderness, pedal edema, joint swelling, calf tenderness Left Lower Leg exam: Present: full ROM, swelling, ecchymosis (Patient has significant ecchymosis extending up the lower leg.). Absent: normal inspection Ankle exam: Present: deformity (Patient has a lateral deformity noted of the a nkle.). Absent: normal inspection Foot/Toe exam: Present: full ROM, tenderness, swelling. Absent: normal inspection Neurovascular tendon exam: Present: no vascular compromise (Patient has heard Doppler pulse over posterior tibial and dorsalis pedis pulse. Normal sensation to toes distally..) Back exam: Present: normal inspection Course Vital Signs 03/12/19 03/12/19 03/12/19 10:28 12:46 13:08 Temperature 97.9 F Pulse Rate 87 85 91 Respiratory 20 18 20 Rate Blood Pressure 107/64 86/52 95/57 O2 Sat by Pulse 99 97 96 Oximetry 03/12/19 03/12/19 13:37 14:50 Temperature Pulse Rate 80 90 Respiratory 18 18 Rate Blood Pressure 100/66 100/66 O2 Sat by Pulse 96 95 Oximetry Procedures - Orthopedic Joint Reduction Joint #1 Side: left Joint Reduction Location: ankle Analgesia: none Post-Reduction Neuro Exam: intact Post-Reduction Vascular Exam: intact Post Reduction X-Ray Obtained: Yes Post Reduction X-Ray Results: reduced Splint Applied: Yes Patient Tolerated Procedure: well - Orthopedic Splinting/Casting Injury #1 Side: left Lower Extremity Injury Location: ankle Lower Extremity Immobilizer: posterior splint, stirrup splint Other Orthopedic Equipment: crutches Medical Decision Making - Medical Decision Making Patient is a 58 year old male whom presents with 1 week of ankle swelling after rolling ankle. He has been taking at home painmedications. PAtient has evidence of dislocation. Patient is nurovacularly intact. Patient at this time recieved IV morpihine and tolerated reduction and was placed in plaster cast. Patient was reevaluated and neurovascularly intact. Discussed case with RODNEY Devi and he recommends DC with non weight bearing and ortho follow up. Patient agrees to treatment plan and will comply. Discussed with son whom will take care of him. - Radiology Data Radiology results: report reviewed Obliquely oriented non comminuted foreshortened acute fracture of the distal fibula with extensive overlaying soft tissue swelling. Medial tibilat subluxTION AT TALOTIBIAL JOINT IS ALSO SEEN. CONCERN FOR AVUSLION INJURY OF THE DELTIOD LIGAMENT. TIB fib X-ray shows no other fracture besides the distal fibula fracture. REPEAT XRAY SHOWS PARTIAL REDUCTION OF ANKLE DISLOCATION. Disposition Clinical Impression: Ankle dislocation, Left fibular fracture Disposition: HOME SELF-CARE Condition: Good Instructions (If sedation given, give patient instructions): Ankle Fracture (ED) Additional Instructions: Follow-up with Dr. Ritchie on Friday. Patient needs to be nonweightbearing. Take at home pain medicine. Is patient prescribed a controlled substance at d/c from ED?: No Referrals: Diana Rick MD [Primary Care Provider] - 1-2 days Wyatt Ritchie MD [Medical Doctor] - 1-2 days Time of Disposition: 14:28
--- NOTE | 2019-03-12 12:01 | XR ---
EXAMINATION TYPE: XR foot complete LT, XR ankle complete LT DATE OF EXAM: 03/12/2019 CLINICAL HISTORY: Left TECHNIQUE: Frontal, lateral and oblique images of the left ankle and foot are obtained. COMPARISON: None. FINDINGS: There is an obliquely oriented fracture of the distal fibula with extensive overlying soft tissue swelling. There is approximately 1.5 cm foreshortening. There is also widening of the syndesmo sis and medial tibial subluxation. Ankle ligamentous injury is inferred. Small curvilinear densities in the region of the deltoid ligament may relate to avulsion injury. No additional fracture is seen. There is diffuse osseous demineralization. In regards to the left foot there is a hallux valgus defor mity and lateral subluxation of the metatarsophalangeal joints with mild degenerative changes of the first metatarsal phalangeal joint and distal interphalangeal joints. No acute fracture seen of the le ft foot. IMPRESSION: Obliquely oriented noncomminuted, foreshortened, acute fracture of the distal fibula with extensive overlying soft tissue swelling. Medial tibial subluxation at the talotibial joint is also seen with concern for avulsion injury of the deltoid ligament.
--- NOTE | 2019-03-12 12:01 | XR ---
EXAMINATION TYPE: XR tibia fibula LT DATE OF EXAM: 03/12/2019 CLINICAL HISTORY: Fall one week ago with injury TECHNIQUE: Two views of the left leg are obtained. COMPARISON: None. FINDINGS: There is no acute fracture or dislocation seen in the proximal left tibia or fibula. The left knee joint appears to demonstrate mild medial compartment joint space narrowing and small medial compartment osteophytes. The obliquely oriented noncomminuted distal fibular fracture discussed on t he ankle radiographs of the same date is only partially visualized. Extensive overlying soft tissue s welling is seen to the level of the proximal tibia and fibular diaphysis. IMPRESSION: Partial visualization of the distal fibular fracture discussed on the left ankle and foot radiographs of the same date. Generalized soft tissue swelling without additional acute fracture.
[2019-03-12] MEDS ORDERED: SODIUM CHLORIDE 0.9% 1,000 ML IV ONE (12:58)
[2019-03-12 13:38] VITALS: BP 100/66; RESP 18
--- NOTE | 2019-03-12 13:41 | XR ---
EXAMINATION TYPE: XR ankle limited LT DATE OF EXAM: 03/12/2019 CLINICAL HISTORY: Right ankle fracture postreduction. TECHNIQUE: Frontal lateral images of the right ankle are obtained. COMPARISON: None. FINDINGS: There remains an oblique fracture of the lateral malleolus, overall unchanged however there is improved widening of the medial talotibial joint now measuring only 8 mm and previously measuring 1.7 cm. Overlying fixation material limits bony. Extensive soft tissue swelling is again noted. IMPRESSION: Improved alignment of the ankle mortise.
[2019-03-12 14:59] VITALS: PULSE 90
== END 2019-03-12 14:50 | disposition home or self-care (01) ==
LOC: EC 10:25
DX: S82.432A Displaced oblique fracture of shaft of left fibula, initial encounter for closed fracture (principal); S80.12XA Contusion of left lower leg, initial encounter; I10 Essential (primary) hypertension; M19.90 Unspecified osteoarthritis, unspecified site; G62.9 Polyneuropathy, unspecified; G47.30 Sleep apnea, unspecified; Z87.891 Personal history of nicotine dependence; Z79.82 Long term (current) use of aspirin; Z79.899 Other long term (current) drug therapy; Z86.73 Personal history of transient ischemic attack (TIA), and cerebral infarction without residual deficits; Z98.1 Arthrodesis status; Z99.89 Dependence on other enabling machines and devices; Z98.890 Other specified postprocedural states; W18.41XA Slipping, tripping and stumbling without falling due to stepping on object, initial encounter; Y92.009 Unspecified place in unspecified non-institutional (private) residence as the place of occurrence of the external cause
CPT/HCPCS: 73590; 73600; 73610; 73630; 99284; 27788; 96374; 96361 ×2; J2270

== ENCOUNTER 2019-03-23 11:20 | Day surgery (SDC) | payer MEDICARE ==
[~2019-03-23 11:20] MED LIST changes: +DEXAMETHASONE SOD PHOSPHATE 10 MG/ML 1 ML VIAL IV ONE; +HYDROmorphone 0.5 MG/0.5 ML SYRINGE IVP PRN; -LACTATED RINGERS 1,000 ML IV SCH; -MIDAZOLAM (PF) 2 MG/2 ML VIAL IV PRN; +MIDAZOLAM 2 MG/2 ML VIAL IV PRN; +ONDANSETRON 4 MG/2 ML VIAL IVP ONE; +SCOPOLAMINE 1.5MG/72HR PATCH TRANSDERM ONE; +ceFAZolin IN SWFI 2 GM/20 ML SYRINGE IVP ONE
[2019-03-23] MEDS: LACTATED RINGERS 1,000 ML IV SCH ×2 (12:02→18:27)
[2019-03-23] MEDS ORDERED: MIDAZOLAM (PF) 2 MG/2 ML VIAL IV ONE (12:33)
[2019-03-23] MEDS ORDERED: PROPOFOL 10 MG/ML 20 ML VIAL IV ONE (12:47)
[2019-03-23] MEDS ORDERED: SUCCINYLCHOLINE CHLORIDE 100 MG/5 ML SYR IV ONE (12:47)
[2019-03-23] MEDS ORDERED: DEXAMETHASONE SOD PHOSPHATE 4 MG/ML 1 ML VIAL ONE (12:47)
[2019-03-23] MEDS ORDERED: MIDAZOLAM 2 MG/2 ML VIAL ONE (12:47)
[2019-03-23] MEDS ORDERED: ROPIVACAINE 5 MG/ML 30 ML VIAL ONE (12:47)
[2019-03-23] MEDS ORDERED: fentaNYL (PF) 50 MCG/ML 2 ML AMP ONE (12:47)
[2019-03-23] MEDS ORDERED: KETAMINE 10 MG/ML 20 ML VIAL ONE (12:47)
[2019-03-23] MEDS ORDERED: LIDOCAINE 1% INJ 10MG/ML (20 ML MDV) ONE (12:47)
--- NOTE | 2019-03-23 12:50 | P.ONQ ---
Anesthesiology Proc Note - PNB - Peripheral Nerve Block Performed Left Popliteal Single Time Out Performed: Yes Procedure Start Time: 12:34 Procedure Stop Time: 12:37 Indication: Acute Post-Operative Pain, Requested by physician Sedation Type: Sedate with meaningful contact maintained Preparation: Sterile Prep Needle Size: 50mm (2") Needle Gauge: 21 Technique: Ultrasound Injectate: 0.5% Ropivacaine (see comment for volume) (ropi .5% 30cc plus dexamethasone 4mg) Blood Aspirated: No Pain Paresthesia on Injection Noted: No Resistance on Injection: Normal Events: Uneventful and Well Tolerated
[2019-03-23] MEDS ORDERED: ONDANSETRON 4 MG/2 ML VIAL IVP PRN (14:40)
[2019-03-23] MEDS ORDERED: hydrOXYzine PAMOATE 25 MG CAP PO PRN (14:40)
[2019-03-23] MEDS ORDERED: HYDROcodone/APAP 5-325MG 1 EACH TAB PO PRN (14:40)
[2019-03-23] MEDS ORDERED: SENNOSIDES-DOCUSATE SODIUM 1 EACH TAB PO PRN (14:40)
[2019-03-23] MEDS ORDERED: HYDROmorphone 0.5 MG/0.5 ML SYRINGE IVP PRN ×2 (14:40)
--- NOTE | 2019-03-23 14:43 | P.OP ---
Date of Procedure: 03/23/19 Preoperative Diagnosis: 1. Left bimalleolar equivalent ankle fracture 2. Obesity with BMI of 33.2 3. History of chronic alcohol abuse Postoperative Diagnosis: Same Procedure(s) Performed: 1. Open reduction and internal fixation left lateral malleolus ankle fracture 2. Manual application of joint stress by physician for radiography, left ankle 3. Application of short-leg splint by physician, left ankle Anesthesia: ELIZABETHA, regional Surgeon: Wyatt Ritchie Cook 3 Pastry #1: Ellen Yates Estimated Blood Loss (ml): 25 IV fluids (ml): 500 Pathology: none sent Condition: stable Disposition: PACU Indications for Procedure: The patient is a very pleasant 58-year-old female with multiple medical problems who sustained an isolated injury to his left ankle resulting in a grossly unstable bimalleolar equivalent ankle fracture. He was seen in my office for a well-padded bulky Lal splint was placed. We waited until there was resolution of soft tissue swelling and wrinkling of the skin. Since his soft tissue swelling had resolved we discussed treatment options. Due to the gross instability of his ankle I recommended operative stabilization. The patient understands that he is a higher risk of having a complication due to his chronic swelling and alcohol abuse. We discussed the potential risks and competitions of surgery including but not limited to risk of anesthesia, superficial infection, deep infection, delayed wound healing, superficial wound necrosis, deep wound necrosis, damage to local blood vessels or nerves, nonunion of the fracture site, malunion of the fracture site, malreduction of the ankle s yndesmosis or ankle joint, failure of the hardware, chronic pain, chronic swelling, postoperative hardware failure, symptomatically hardware, DVT, PE, other medical complications, need for further surgery, and inability to regain preinjury level of function, generalized to satisfaction with surgery, chronic pain, and possibly loss of life or limb. The patient voiced his understanding of these potential complications and also acknowledges that he is at a higher risk of having a complication due to his weight and alcohol abuse. He also understands that there is the potential for other less common complications. He provided his verbal and written consent to go forward with surgery. Description of Procedure: The patient was identified in preop holding and the correct left leg was marked with my initials. I reviewed the consent form with the patient and all of his questions were answered. The patient was given a popliteal and saphenous nerve block by anesthesia. The patient was then brought back to the operating room by anesthesia. He was transferred onto the OR table where general anesthetic and preoperative antibiotics were administered. A tourniquet was applied the proximal aspect the left leg. A bump was placed on the left buttock internally rotate the leg to neutral. Foam pillow was placed under the right leg. A ramp was placed on the left leg to facilitate imaging. Prior to starting surgery timeout was performed identifying the correct patient, operative extremity, and procedure. Fluoroscopy was then brought in and imaging showed a dislocated ankle with a completely displaced lateral malleolus. The left leg was then prepped and draped in the standard sterile fashion. The leg was elevated, exsanguinated with an Esmarch bandage, and the tourniquet was inflated to 250 mmHg. I began by outlining a straight lateral incision to the lateral malleolus. Skin was made with a scalpel and dissection was carried down carefully through the subcutaneous tissue with tenotomy scissors. The peroneal fascia was incised longitudinally proximally in the wound and distally the periosteum was sharply elevated off the distal fibula. The fracture site was identified and was found to be completely displaced. There was early callus that was sharply debrided with a scalpel. Once the fracture margins were clearly identified a gentle reduction was performed and a [id number] reduction clamp was used to hold the fracture reduced. Fluoroscopy is brought in to verify that the fibula fracture was reduced. The fibula appeared out to length and the ankle mortise was anatomic. A nonlocking 2.7 mm lag screw was placed across the fracture. I then contoured a 5 hole precontoured distal fibular plate over the lateral aspect of the distal fibula. Nonlocking 3.5 mm screws were placed in the first and third hole of the plate bring the plate down to bone. Attention was then turned distal to the fracture. A nonlocking 2.7 mm screws placed through one of the locking holes to bring the plate down to the fibula. Locking screws were then placed the remaining holes and the previously placed nonlocking 2.7 mm screw was exchanged for a locking screw. Attention was then turned to placing a syndesmotic screw due to the patient's body habitus an unstable ankle fracture pattern. A nonlocking 3.5 mm screw was placed through the fourth hole of the plate just proximal to the fracture. Final fluoroscopic images were taken including a mortise view which showed acceptable position of the hardware and an anatomic ankle mortise. A manual external rotation stress x-ray showed no widening of the medial clear space or incisura. Due to the patient's body habitus and chronic soft tissue swelling as well as the anatomic appearance of the ankle mortise I elected to not perform a deltoid repair. The lateral wound was then thoroughly irrigated and closed in layers with 0 Vicryl for the deep layer, 2-0 Vicryl for the subcu, and 3-0 nylon Algor modification of the Donati stitch for the skin. I verified that all instrument, sponge, and sharp counts were correct. The tourniquet was let down. A sterile dressing was applied consisting of Betadine soaked Adaptic, 4 x 4, and sterile web roll. The drapes were taken down and a well-padded bulky Lal splint was placed with the ankle in neutral. The patient was awoken from his anesthetic, transferred to a gurney, and brought to recovery having tolerated the procedure well. Massiel Yates PA-C was required as a skilled medical assistant float for patient positioning, surgical exposure, retraction, reduction of fracture, placement of hardware, closure of wound, and application of splint. Plan: We discussed discharge as an outpatient versus staying overnight for observation. My recommendation would be to keep the patient overnight for 2 doses of antibiotic and evaluation by therapy. He lives alone and has a history of alcohol abuse we discussed having social work with the patient to facilitate discharge planning prior to leaving. The patient's son agrees and would like to have his dad stay overnight. His treatment Strickling nonweightbearing on his left leg for 10-12 weeks.
--- NOTE | 2019-03-23 14:44 | XR ---
EXAMINATION TYPE: XR ankle limited LT, FL guidance operating room DATE OF EXAM: 03/23/2019 CLINICAL HISTORY: Fluoroscopic documentation of open reduction internal fixation of the left ankle. TECHNIQUE: Fluoroscopy. COMPARISON: None. FINDINGS: Fluoroscopic guidance was provided during procedure performed by Dr. Ritchie. A total of 1 minute and is seconds of fluoroscopic time was utilized during the procedure and 3 spot images was acquired during an open reduction internal fixation of the left ankle. IMPRESSION: As Above.
[2019-03-23 16:14] VITALS: BMI 32.5
[2019-03-23 18:13] LABS: Basophils % (A) 0 %; Eosinophils # (A) 0.1 k/uL (0-0.7); Eosinophils % (A) 1 %; HCT 39.4 % (39.0-53.0); HGB 12.5 gm/dL (13.0-17.5); Lymphocytes # (A) 0.5 k/uL (1.0-4.8); Lymphocytes % (A) 9 %; MCH 33.2 pg (25.0-35.0); MCHC 31.7 g/dL (31.0-37.0); MCV 104.8 fL (80.0-100.0); Macrocytosis Slight; Mean Platelet Volume 7.6; Monocytes % (A) 1 %; Neutrophils # (A) 5.1 k/uL (1.3-7.7); Neutrophils % (A) 89 %; Platelet Count 291 k/uL (150-450); RBC 3.76 m/uL (4.30-5.90); RDW 13.2 % (11.5-15.5); WBC 5.7 k/uL (3.8-10.6)
[2019-03-23] MEDS: HYDROcodone/APAP 5-325MG 1 EACH TAB PO PRN (21:52)
[2019-03-23] MEDS: ATORVASTATIN 40 MG TAB PO SCH (21:52)
[2019-03-23] MEDS: ceFAZolin IN SWFI 2 GM/20 ML SYRINGE IVP SCH (21:52)
[2019-03-23] MEDS: THIAMINE 100 MG TAB PO SCH (21:52)
[2019-03-23] MEDS: GABAPENTIN 300 MG CAP PO SCH (21:52)
[2019-03-24] MEDS: HYDROmorphone 1 MG/ML 1 ML SYRINGE IVP PRN ×4 (00:33→23:43)
[2019-03-24] MEDS: LACTATED RINGERS 1,000 ML IV SCH ×4 (02:57→22:27)
[2019-03-24] MEDS: ceFAZolin IN SWFI 2 GM/20 ML SYRINGE IVP SCH (04:52)
[2019-03-24] MEDS: HYDROcodone/APAP 5-325MG 1 EACH TAB PO PRN ×3 (06:17→21:20)
[2019-03-24] MEDS: LOSARTAN-HCTZ 50-12.5 MG 1 EACH TAB PO SCH (08:48)
[2019-03-24] MEDS: ENOXAPARIN 40 MG/0.4 ML SYRINGE SQ SCH (08:48)
[2019-03-24] MEDS: FOLIC ACID 1 MG TAB PO SCH (08:48)
[2019-03-24] MEDS: ASPIRIN 325 MG TAB PO SCH (08:48)
[2019-03-24] MEDS: THIAMINE 100 MG TAB PO SCH ×2 (08:48→21:20)
[2019-03-24] MEDS: GABAPENTIN 300 MG CAP PO SCH ×3 (08:48→21:20)
[2019-03-24] MEDS: MULTIVITAMINS, THERA 1 EACH TAB PO SCH (08:48)
[2019-03-24] MEDS: PANTOPRAZOLE 40 MG TABLET PO SCH (08:48)
--- NOTE | 2019-03-24 09:18 | P.PN ---
Subjective Progress Note Date: 03/24/19 The patient is doing well this morning and has only mild pain in his ankle. He denies chest pain or shortness of breath. Objective - Vital Signs Vital signs: Vital Signs Temp 97.9 F 03/24/19 07:00 Pulse 61 03/24/19 07:00 Resp 16 03/24/19 07:00 BP 116/69 03/24/19 07:00 Pulse Ox 97 03/24/19 07:00 Intake & Output 03/23/19 03/24/19 03/24/19 18:59 06:59 18:59 Intake Total 1680 236 Output Total 625 300 Balance 1055 -300 236 Intake: IV 900 Oral 780 236 Output: Urine 600 300 Estimated Blood Loss 25 Other: Voiding Method Urinal - Exam On inspection of the patient's left leg there is a clean-appearing bulky Lal splint in place. The tips of the toes are warm and well perfused with brisk capillary refill. He has no pain with passive range of motion of the toes. - Labs CBC & Chem 7: 03/23/19 18:02 Labs: Abnormal Lab Results - Last 24 Hours (Table) 03/23/19 Range/Units 18:02 RBC 3.76 L (4.30-5.90) m/uL Hgb 12.5 L (13.0-17.5) gm/dL MCV 104.8 H (80.0-100.0) fL Lymphocytes # 0.5 L (1.0-4.8) k/uL Assessment and Plan (1) Bimalleolar fracture of left ankle Current Visit: Yes Status: Acute Code(s): S82.842A - DISPLACED BIMALLEOLAR FRACTURE OF LEFT LOWER LEG, INIT SNOMED Code(s): 071178477 Plan: The patient is postop day #1 status post left ankle open reduction internal fixation. He was admitted following surgery for discharge planning and physical therapy. He is to remain strictly nonweightbearing on his left ankle. His receive 2 doses of postoperative antibiotics. He will receive DVT prophylaxis with Lovenox while in-house and can discharge home on aspirin. The patient is currently awaiting evaluation by social work for discharge planning. We discussed the possibility of requiring subacute rehab due to the patient being strictly nonweightbearing, living alone, and having a history of falls and alcohol abuse. The patient's son's understand the patient's limitations at home and difficulty with complying weightbearing restrictions.
[2019-03-24] MEDS ORDERED: LORazepam 1 MG TAB PO PRN (14:00)
--- NOTE | 2019-03-24 17:45 | CONS ---
CONSULTATION DATE OF SERVICE: 03/24/2019 REASON FOR CONSULTATION: Advice regarding hypertension and other multiple medical issues, requested for Dr. Ritchie. HISTORY OF PRESENT ILLNESS: This 58-year-old gentleman with a past medical history of CVA, TIA, hypertension, DJD, seizures, sleep apnea, back pain, depression, being followed by Dr. Rick in the outpatient setting, was admitted after open reduction internal fixation of the lateral malleolus ankle fracture and manual application of joint stress and application of a short-leg splint by Dr. Ritchie. The patient is been complaining of some pain at this time. The patient apparently has some difficulty with balance, according to PT/OT reports, and possible ECF rehab is recommended, even though the patient is not very keen on going that route. The patient also has a history of alcohol, up to 6 beers per day. There is no history of any fever, rigor or chills. No history of chest pain, palpitations, headache, loss of consciousness, seizures at this time. PAST MEDICAL HISTORY: 1. CVA, TIA. 2. History of hypertension. 3. History of DJD. 4. History of seizures. 5. History of sleep apnea. 6. History of back surgery, DJD being followed Dr. Ruth. MEDICATIONS: 1. Vitamin B1 (thiamine) 150 mg p.o. b.i.d. 2. Multivitamins 1 p.o. daily. 3. Folic acid 1 mg p.o. daily. 4. Lipitor 40 mg at bedtime. 5. Aspirin 325 mg p.o. daily. 6. Oxycodone (Percocet) 10 mg two tablets q.6 p.r.n. 7. Keppra 750 mg p.o. b.i.d. 8. Silvadene 1 application topically daily p.r.n. 9. Protonix 40 mg p.o. daily. 10.Losartan 50/12.5 mg p.o. daily. 11.Neurontin 600 mg p.o. t.i.d. ALLERGIES: NONE. FAMILY HISTORY: History of diabetes mellitus and cancer in the family. SOCIAL HISTORY: History of previous smoking. History of alcohol as mentioned earlier. REVIEW OF SYSTEMS: ENT: No diminished hearing. No diminished vision. CARDIOVASCULAR SYSTEM: No angina, palpitations. RESPIRATORY SYSTEM: No cough, hemoptysis. GI: No nausea, vomiting. : No dysuria or retention. NERVOUS SYSTEM: As mentioned earlier. ALLERGY/IMMUNOLOGY: No asthma, hayfever. MUSCULOSKELETAL: As mentioned earlier. HEMATOLOGY/ONCOLOGY: No history of anemia. ENDOCRINE: No history of diabetes, hypothyroidism. CONSTITUTIONAL: As mentioned earlier. DERMATOLOGY: Negative. RHEUMATOLOGY: Negative. PSYCHIATRY: As mentioned earlier. PHYSICAL EXAMINATION: Patient alert and oriented x3. Pulse 61, blood pressure 116/69, respirations 16, temperature 97.9, pulse ox 97% on room air. HEENT: Conjunctivae normal. Oral mucosa moist. NECK: No jugular venous distention. No carotid bruit. No lymph node enlargement. CARDIOVASCULAR SYSTEM: S1, S2 muffled. No S3. No S4. RESPIRATORY SYSTEM: Breath sounds diminished at the bases. A few scattered rhonchi. No crackles. ABDOMEN: Soft, non-tender. No mass palpable. LEGS: No edema. No swelling. Status post right hip surgery. NERVOUS SYSTEM: Higher functions as mentioned earlier. Moves all 4 limbs. No focal motor or sensory deficit. LYMPHATICS: No lymph node palpable in neck, axillae or groin. SKIN: No ulcer, rash, bleeding. JOINTS: No active deforming arthropathy. LABS: Labs at this time show WBC 5.7, hemoglobin 12.5, MCV 104.8. ASSESSMENT: 1. Acute left ankle fracture, status post open reduction and internal fixation of the left lateral malleolus ankle fracture. 2. Gait dysfunction and pain. 3. Anemia of chronic disease. 4. History of cerebrovascular accident, transient ischemic attack. 5. Hypertension. 6. History of degenerative joint disease. 7. History of seizure disorder. 8. History of sleep apnea. 9. History of back surgery,degenerative joint disease. 10.History of depression. 11.History of ETOH. 12.Remote history of nicotine dependence. RECOMMENDATIONS AND DISCUSSION: I recommend to continue current medications, continue with the monitoring, symptomatic treatment. I recommend to continue with home medications, DVT prophylaxis. CIWA protocol may be used if the patient symptoms and otherwise Ativan p.r.n. also may be used. See orders for further details. Further recommendations to follow. Recommend PT/OT evaluation, possibly ECF rehab. Also recommend close followup with Dr. iRck in the outpatient setting. MMODL / IJN: [id number] / MARCE
[2019-03-24] MEDS: ATORVASTATIN 40 MG TAB PO SCH (21:19)
[2019-03-25 08:13] VITALS: BP 106/58; PULSE 63; RESP 16; TEMP 97.6
[2019-03-25] MEDS: LACTATED RINGERS 1,000 ML IV SCH ×2 (09:10)
[2019-03-25] MEDS: GABAPENTIN 300 MG CAP PO SCH (09:19)
[2019-03-25] MEDS: ENOXAPARIN 40 MG/0.4 ML SYRINGE SQ SCH (09:19)
[2019-03-25] MEDS: PANTOPRAZOLE 40 MG TABLET PO SCH (09:20)
[2019-03-25] MEDS: MULTIVITAMINS, THERA 1 EACH TAB PO SCH (09:20)
[2019-03-25] MEDS: FOLIC ACID 1 MG TAB PO SCH (09:20)
[2019-03-25] MEDS: THIAMINE 100 MG TAB PO SCH (09:20)
[2019-03-25] MEDS: LOSARTAN-HCTZ 50-12.5 MG 1 EACH TAB PO SCH (09:20)
[2019-03-25] MEDS: ASPIRIN 325 MG TAB PO SCH (09:20)
[2019-03-25] MEDS ORDERED: oxyCODONE-APAP 5-325MG 1 EACH TAB PO PRN (11:14)
--- NOTE | 2019-03-25 11:14 | P.DS ---
Providers Expected date of discharge: 03/25/19 Attending physician: Wyatt Ritchie Consults: 03/23/19 14:51 Consult Physician Routine Consulting Provider: Diana Rick Consult Reason/Comments: Medical management Do you want consulting provider notified?: Yes 03/23/19 15:09 Consult Physician Routine Consulting Provider: Brent Joel Consult Reason/Comments: medical management Do you want consulting provider notified?: Already Contacted Primary care physician: Diana Rick Hospital Course: This patient is a 58-year-old male with multiple medical problems who sustained an isolated injury to his left ankle resulting in an unstable bimalleolar equivalent ankle fracture. Patient was initially seen in the office by Dr. Ritchie and placed into a well-padded bulky Lal splint. He was followed in the office as an outpatient until his ankle swelling resolved. Patient underwent an open reduction and internal fixation of the left lateral malleolus ankle fracture on 03/23/[address] Ritchie. The procedure is performed without complication or sequelae. The patient is doing well postoperatively. Vital signs are stable on postop day #2. The patient is examined bedside this morning with Dr. Ritchie. The patient states he is experiencing pain in the left ankle. He states he has been working with physical therapy, and he is ready to be discharged home. He states he is not interested in going to rehab, he states that he signed himself out AMA at his last day at a rehab center. Patient states that he is aware that the physical therapist and the social workers are recommending that he be transferred to an extended care facility, although he would like to return home instead. Patient also notes that he has a pain contract with Dr. Rtuh, he states that he does refill a prescription for Percocet. Patient states otherwise he is feeling well, he denies chest pain, shortness of breath, nausea, vomiting. Patient denies any additional complaints today. On examination, the patient is sitting up in bed in no acute distress. Patient is alert and orientated x3. His family is bedside. On inspection of the left lower extremity, there is a bulky Lal splint in place. Splint is clean, dry, intact. Patient is able to wiggle toes without issue. The toes are warm and well-perfused with brisk capillary refill. Sensation is intact to light touch of the dorsal and plantar foot, as well as first dorsal webspace. The right calf is soft and non-tender to palpation. The patient is discharged home today, despite physical therapy and social work recommendations to be transferred to rehab, pending medical clearance today. Please refer to the [facility] rec for accurate list of medications. Patient Condition at Discharge: Fair Plan - Discharge Summary Discharge Rx Participant: Yes New Discharge Prescriptions: New Aspirin 325 mg PO DAILY #14 tab Docusate [Colace] 100 mg PO BID #60 capsule Cholecalciferol (Vitamin D3) [Vitamin D3] 2,000 unit PO DAILY #30 capsule Calcium Carbonate [Tums] 500 mg PO QID #90 chewable No Action Aspirin 325 mg PO DAILY Losartan-Hctz 50-12.5 mg [Hyzaar 50-12.5] 1 tab PO DAILY Pantoprazole [Protonix] 40 mg PO DAILY Multivitamins, Thera [Multivitamin (formulary)] 1 tab PO DAILY oxyCODONE-APAP 10-325MG [Percocet 10-325 mg] 2 tab PO Q6HR PRN PRN Reason: Pain Thiamine [Vitamin B-1] 50 mg PO BID Gabapentin [Neurontin] 600 mg PO TID levETIRAcetam [Keppra] 750 mg PO BID Folic Acid 1 mg PO DAILY Atorvastatin Calcium [Lipitor] 40 mg PO HS SILVER sulfADIAZINE Cream [Silvadene 1% Cream] 1 applic TOPICAL DAILY PRN PRN Reason: cellulitis Discharge Medication List Aspirin 325 mg PO DAILY 11/25/18 [History] Losartan-Hctz 50-12.5 mg [Hyzaar 50-12.5] 1 tab PO DAILY 11/25/18 [History] Multivitamins, Thera [Multivitamin (formulary)] 1 tab PO DAILY 03/12/19 [History] Pantoprazole [Protonix] 40 mg PO DAILY 03/12/19 [History] Atorvastatin Calcium [Lipitor] 40 mg PO HS 03/18/19 [History] Folic Acid 1 mg PO DAILY 03/18/19 [History] Gabapentin [Neurontin] 600 mg PO TID 03/18/19 [History] SILVER sulfADIAZINE Cream [Silvadene 1% Cream] 1 applic TOPICAL DAILY PRN 03/18/19 [History] Thiamine [Vitamin B-1] 50 mg PO BID 03/18/19 [History] levETIRAcetam [Keppra] 750 mg PO BID 03/18/19 [History] oxyCODONE-APAP 10-325MG [Percocet 10-325 mg] 2 tab PO Q6HR PRN 03/18/19 [History] Aspirin 325 mg PO DAILY #14 tab 03/25/19 [Rx] Calcium Carbonate [Tums] 500 mg PO QID #90 chewable 03/25/19 [Rx] Cholecalciferol (Vitamin D3) [Vitamin D3] 2,000 unit PO DAILY #30 capsule 03/25/19 [Rx] Docusate [Colace] 100 mg PO BID #60 capsule 03/25/19 [Rx] Follow up Appointment(s)/Referral(s): Diana Rick MD [Primary Care Provider] - 03/31/19 3:15 pm Wyatt Ritchie MD [Medical Doctor] - 04/05/19 2:45 pm Activity/Diet/Wound Care/Special Instructions: -Strict non-weight bearing on your operative leg. Do not remove your splint; Keep splint clean, dry, and intact -Use crutches, knee scooter, or a walker to ambulate after surgery. -Elevate and ice operative leg to help reduce swelling and control pain. -Take Colace as a stool softener. Take aspirin as prescribed for blood clot pr evention. Take vitamin D and calcium as prescribed. -Patient was not given pain medication prescriptions, as he is a pain contract with Dr. Ruth and he states he just received a new prescription for Percocet. -Patient understands that physical therapy and social work recommend that he be transferred to a rehab center, and he is refusing these recommendations. He states he wants to return home and not to a rehab center. -Follow-up appointment with Dr. Ritchie in the office in 2 weeks. -Call the office with any questions or concerns, Discharge Disposition: HOME SELF-CARE
--- NOTE | 2019-03-25 21:18 | PN ---
PROGRESS NOTE DATE OF SERVICE: 03/25/2019 This 58-year-old gentleman was admitted with acute left ankle fracture had surgery. The patient is also to go home at this time. The patient reports that the patient is able to manage things at home, which PT/OT also concurs. No chest pain. No palpitations. No fever. EXAM: GENERAL: Alert and oriented x3. VITAL SIGNS: Vitals are stable. CARDIOVASCULAR SYSTEM: S1, S2. RESPIRATORY: Breath sounds diminished in the bases. No rhonchi. No crackles. ABDOMEN: Soft, nontender. LEGS: Status post surgery. LABS: Not available. ASSESSMENT: 1. Acute left ankle fracture status post open reduction internal fixation of the left lateral malleolus and acute fracture. 2. Gait dysfunction and pain. Improved. 3. Anemia of chronic disease. 4. History of cerebrovascular accident, transient ischemic attack. 5. Hypertension. 6. History of degenerative joint disease. 7. History of seizure disorder. 8. History of sleep apnea. 9. History of back surgery, degenerative joint disease. 10.History of depression. 11.History EtOH. 12.Remote history of nicotine dependence. RECOMMENDATIONS AND DISCUSSION: Recommend to continue current medications, continue with monitoring, symptomatic treatment. Otherwise, at this time, I recommend resume the home medications and closely follow with Dr. Rick on a p.r.n. basis and follow with Orthopedic surgery as recommended. Further recommendations to follow. The overall prognosis guarded. Further recommendations to follow. MMODL / IJN: [id number] /
== END 2019-03-25 12:40 | disposition home or self-care (01) ==
LOC: OR 11:20 → 4SSUR 15:00 → OR 03-25 09:02 → 4SSUR 03-25 09:02 → OR 03-25 12:40
PROVIDERS: ATTEND Orthopaedic Surgery
DX: S82.62XA Displaced fracture of lateral malleolus of left fibula, initial encounter for closed fracture (principal); W18.41XA Slipping, tripping and stumbling without falling due to stepping on object, initial encounter; E66.9 Obesity, unspecified; Z68.33 Body mass index [BMI] 33.0-33.9, adult; I10 Essential (primary) hypertension; Z86.73 Personal history of transient ischemic attack (TIA), and cerebral infarction without residual deficits; F10.10 Alcohol abuse, uncomplicated; F32.9 Major depressive disorder, single episode, unspecified; G40.909 Epilepsy, unspecified, not intractable, without status epilepticus; M19.90 Unspecified osteoarthritis, unspecified site; D63.8 Anemia in other chronic diseases classified elsewhere; G47.30 Sleep apnea, unspecified; K21.9 Gastro-esophageal reflux disease without esophagitis; Z87.891 Personal history of nicotine dependence; Z79.82 Long term (current) use of aspirin; Z79.899 Other long term (current) drug therapy
CPT/HCPCS: 27792; 97162; 64445; 85025; 82306; 73600; C1713; J2250 ×2; J1100 ×2; J2405; J2001; J1650 ×2; J3010; J1170; J2795; J0330; J2704; J0690 ×2

== ENCOUNTER 2019-06-18 10:05 | Emergency (ER) | payer MEDICARE ==
[2019-06-18 10:36] VITALS: PULSE 74; RESP 18
[2019-06-18] MEDS ORDERED: DIPH,PERTUS(ACELL)TETVAC-LF 0.5 ML VIAL IM ONE (11:47)
[2019-06-18] MEDS ORDERED: LIDOCAINE 1% INJ 10MG/ML (20 ML MDV) SQ ONE (11:47)
--- NOTE | 2019-06-18 11:51 | ED ---
General Adult HPI - General Chief complaint: Fall Stated complaint: Toe laceration Time Seen by Provider: 06/18/19 11:24 Source: patient, RN notes reviewed Mode of arrival: wheelchair - History of Present Illness Initial comments: 58-year-old male With a past medical history of CVA, hypertension, seizure disorder presents to the emergency department for all. Patient states he fell approximately 15 hours ago. States that he was dragging his right foot when he tripped and fell hitting his head against the wall. No loss of consciousness. No blood thinners. Denies headache at this time. Patient does have a laceration to the right foot as well. States that he wanted to wait until today to come to the ER to have sutures. Patient is not up-to-date on tetanus. Denies weakness. Denies any other concerns. Patient has no other complaints at this time including shortness of breath, chest pain, abdominal pain, nausea or vomiting, headache, or visual changes. - Related Data Home Medications Medication Instructions Recorded Confirmed Aspirin 325 mg PO DAILY 11/25/18 03/23/19 Losartan-Hctz 50-12.5 mg [Hyzaar 1 tab PO DAILY 11/25/18 03/23/19 50-12.5] Multivitamins, Thera [Multivitamin 1 tab PO DAILY 03/12/19 03/23/19 (formulary)] Pantoprazole [Protonix] 40 mg PO DAILY 03/12/19 03/23/19 Atorvastatin Calcium [Lipitor] 40 mg PO HS 03/18/19 03/23/19 Folic Acid 1 mg PO DAILY 03/18/19 03/23/19 Gabapentin [Neurontin] 600 mg PO TID 03/18/19 03/23/19 SILVER sulfADIAZINE Cream 1 applic TOPICAL DAILY PRN 03/18/19 03/23/19 [Silvadene 1% Cream] Thiamine [Vitamin B-1] 50 mg PO BID 03/18/19 03/23/19 levETIRAcetam [Keppra] 750 mg PO BID 03/18/19 03/23/19 oxyCODONE-APAP 10-325MG [Percocet 2 tab PO Q6HR PRN 03/18/19 03/23/19 10-325 mg] Previous Rx's Medication Instructions Recorded Aspirin 325 mg PO DAILY #14 tab 05/02/19 Calcium Carbonate [Tums] 500 mg PO QID #90 chewable 03/25/19 Cholecalciferol (Vitamin D3) 2,000 unit PO DAILY #30 capsule 03/25/19 [Vitamin D3] Docusate [Colace] 100 mg PO BID #60 capsule 03/25/19 Cephalexin [Keflex] 500 mg PO Q6HR 7 Days cap 06/18/19 Allergies Allergy/AdvReac Type Severity Reaction Status Date / Time No Known Allergies Allergy Verified 06/18/19 10:32 Review of Systems ROS Statement: Those systems with pertinent positive or pertinent negative responses have been documented in the HPI. ROS Other: All systems not noted in ROS Statement are negative. Past Medical History Past Medical History: CVA/TIA, Hypertension, Osteoarthritis (OA), Seizure Disorder, Sleep Apnea/CPAP/BIPAP Additional Past Medical History / Comment(s): CVA (SEP 2018-affected speech when he is tired or talks fast, states he looses his train of thought, memory loss., "some weakness rt arm & leg"., after cva he had peg tube in for 1 month., seizures after stroke but none since on Keppra., chronic back pain from previous back injury & surgery., uses crutches that wrap around his wrists., hx of falls - states "my legs tangled"., Neuropathy in legs & feet., cellulitis legs after stroke- states no drainage now., sleep apnea but does not use his machine., Fracture left ankle- "half cast" with jesse wrap- minimal weight bearing. History of Any Multi-Drug Resistant Organisms: None Reported Past Surgical History: Back Surgery, Orthopedic Surgery Additional Past Surgical History / Comment(s): rt Rotator cuff sx, shira knee sx "no knee cap rt knee", lasik left eye, egd, peg tube ., lewis and 2 screws in back. pt stated "he broke a vertebre above the back sx srea but no sx. Past Anesthesia/Blood Transfusion Reactions: No Reported Reaction Past Psychological History: Depression Smoking Status: Former smoker Past Alcohol Use History: Daily, Heavy Past Drug Use History: None Reported - Past Family History Mother Family Medical History: Diabetes Mellitus Father Family Medical History: Cancer Additional Family Medical History / Comment(s): from lung cancer General Exam General appearance: alert, in no apparent distress Head exam: Present: normocephalic, normal inspection. Absent: atraumatic (Small contusion noted to left frontal bone) Eye exam: Present: normal appearance, PERRL, EOMI. Absent: scleral icterus, conjunctival injection, periorbital swelling ENT exam: Present: normal exam, mucous membranes moist Neck exam: Present: normal inspection, full ROM. Absent: tenderness, meningismus, lymphadenopathy Respiratory exam: Present: normal lung sounds bilaterally. Absent: respiratory distress, wheezes, rales, rhonchi, stridor Cardiovascular Exam: Present: regular rate, normal rhythm, normal heart sounds. Absent: systolic murmur, diastolic murmur, rubs, gallop, clicks Extremities exam: Present: normal capillary refill (cap refill less than 2 seconds in the left great toe), other (Patient has a 4 cm laceration noted to the plantar left toe. Full flexion and extension.) Course Vital Signs 06/18/19 10:33 Temperature 98.1 F Pulse Rate 74 Respiratory 18 Rate O2 Sat by Pulse 95 Oximetry Procedures - Laceration Laceration #1 Consent Obtained: verbal consent Indication: laceration Site: foot Size (cm): 4 Description: linear Depth: simple, single layer Anesthetic Used: lidocaine 1% Anesthesia Technique: local infiltration Amount (mls): 4 Pre-repair: wound explored, irrigated extensively (with copious saline pressure irrigation) Type of Sutures: other (ethilon) Size of Sutures: 5-0 Number of Sutures: 5 Technique: simple, interrupted Patient Tolerated Procedure: well, no complications Medical Decision Making - Medical Decision Making The [id number] male with a past medical history CVA, hypertension, seizure disorder presents to the emergency department for a chief complaint of fall. This was approximately 15 hours ago. Today he was drinking his right foot because of a previous stroke and neuropathy when he tripped and fell hitting his head against the wall. No loss of consciousness. No blood thinners. No headache. Patient does have a laceration to the right foot. Tetanus was updated. CT shows no evidence for acute fracture or subluxation of the cervical spine. CT shows no acute intracranial processes. X-ray of the right foot shows no acute fracture or dislocation in the right great toe at the patient's laceration. However there is a subacute healing comminuted intra- articular nondisplaced fracture of the base of the fifth digit. Laceration was cleaned thoroughly with saline pressure irrigation and sutured loosely with 5 sutures. Discussed with patient that because he left this open for greater than 15 hours there is high risk of infection especially with his history of neuropathy and diminished blood flow. Therefore wound was loosely sutured to allow for drainage patient was put on antibiotics. He will monitor this daily and follow up with primary care for a wound recheck in 2 days. He will return here in 10 days to have sutures removed. He will also follow up with orthopedics for subacute healing fracture. He was put in a fracture shoe for this. Disposition Clinical Impression: Laceration, Foot fracture Disposition: HOME SELF-CARE Condition: Good Instructions (If sedation given, give patient instructions): Laceration (ED), Care For Your Stitches (ED), Foot Fracture in Adults (ED) Additional Instructions: Please take antibiotics as directed. Use fracture shoe. Monitor for signs of infection such as spreading or streaking redness, drainage or fever and return if these occur. Follow-up with primary care in 2 days for a wound recheck. Return in 10 days to have sutures removed. Prescriptions: Cephalexin [Keflex] 500 mg PO Q6HR 7 Days cap Is patient prescribed a controlled substance at d/c from ED?: No Referrals: Diana Rick MD [Primary Care Provider] - 1-2 days Shon Arnold DO [Doctor of Osteopathic Medicine] - 1-2 days Time of Disposition: 14:15
--- NOTE | 2019-06-18 12:19 | XR ---
EXAMINATION TYPE: XR foot complete RT DATE OF EXAM: 06/18/2019 CLINICAL HISTORY: Right great toe pain and laceration TECHNIQUE: Frontal, lateral, and oblique images of the right foot are obtained. COMPARISON: None FINDINGS: There appears to be a subacute healing fracture of the base of the fifth proximal phalanx w ith some bony proliferation and sclerosis. This is comminuted and intra-articular. No acute fracture or dislocation is seen of the first digit at the patient's site of laceration. Slight hallux valgus d eformity is noted. Degenerative changes are seen of the distal interphalangeal joints and tarsometata rsal joints. There is demineralization throughout the right foot that is mild. Erosions are seen of t he distal fifth metatarsal and to lesser degree of the distal fourth metatarsal. IMPRESSION: 1. No acute fracture or dislocation in the right great toe at the patient's stated area of pain and l aceration. 2. Subacute healing comminuted, intra-articular, nondisplaced fracture of the base of fifth digit. 3. Moderate arthropathy of the right foot with osseous erosions. Consider erosive osteoarthropathy, g out, or CPPD.
--- NOTE | 2019-06-18 12:27 | CT ---
EXAMINATION TYPE: CT brain chad gracia DATE OF EXAM: 06/18/2019 COMPARISON: 01/05/2019 HISTORY: Pain Unenhanced CT of the brain was performed. The ventricles, basal cisterns and sulci overlying the cerebral convexities demonstrate mild enlargem ent. There is no evidence for intracranial hemorrhage or sulcal effacement. There is decreased attenuatio n about the periventricular white matter and deep white matter of both cerebral hemispheres, compatib le with chronic small vessel ischemia. No mass effects are seen. If symptoms persist consider MRI. Osseous calvarium is intact. IMPRESSION: 1. Age related atrophic and chronic small vessel ischemic change without acute intracranial process seen at this time. CT Cervical Spine: Unenhanced CT of the cervical spine was performed with bone and soft tissue window settings submitted . Coronal and sagittal reconstruction is obtained. There is normal alignment and prevertebral soft tissues. No evidence for acute cervical fracture . Scattered degenerative disc disease and spondylosis. Biapical scarring. IMPRESSION: 1. No evidence for acute fracture or subluxation of the cervical spine.
[2019-06-18 14:36] VITALS: BP 100/82; TEMP 98.5
== END 2019-06-18 14:34 | disposition home or self-care (01) ==
LOC: EC 10:05
DX: S92.514A Nondisplaced fracture of proximal phalanx of right lesser toe(s), initial encounter for closed fracture (principal); S91.112A Laceration without foreign body of left great toe without damage to nail, initial encounter; I10 Essential (primary) hypertension; M19.90 Unspecified osteoarthritis, unspecified site; G40.909 Epilepsy, unspecified, not intractable, without status epilepticus; F32.9 Major depressive disorder, single episode, unspecified; Z23 Encounter for immunization; Z86.73 Personal history of transient ischemic attack (TIA), and cerebral infarction without residual deficits; Z87.891 Personal history of nicotine dependence; G62.9 Polyneuropathy, unspecified; Z79.82 Long term (current) use of aspirin; Z79.899 Other long term (current) drug therapy; W01.198A Fall on same level from slipping, tripping and stumbling with subsequent striking against other object, initial encounter
CPT/HCPCS: 12002; 70450; 72125; 90471; 90715; 99283

== ENCOUNTER → 2019-08-11 | Outpatient (CLI) | payer MEDICARE ==
--- NOTE | 2019-08-11 14:10 | US ---
EXAMINATION TYPE: US venous doppler duplex LE LT DATE OF EXAM: 08/11/2019 1:51 PM COMPARISON: NONE CLINICAL HISTORY: I80.9 Phlebitis and thrombophlebitis of unspecifie. Increased left leg and foot swe lling; HX of disc compression; left ankle fracture 3 months ago. SIDE PERFORMED: Left TECHNIQUE: The lower extremity deep venous system is examined utilizing real time linear array sonog eliana with graded compression, doppler sonography and color-flow sonography. VESSELS IMAGED: Common Femoral Vein Deep Femoral Vein Greater Saphenous Vein * Femoral Vein Popliteal Vein Small Saphenous Vein * Proximal Calf Veins (* superficial vessels) Left Leg: Negative for DVT. Negative for SVT. IMPRESSION: 1. No left lower extremity venous thrombosis. Superficial and deep veins appear patent
== END | disposition home or self-care (01) ==
LOC: RADUSWWP 13:20
PROVIDERS: ATTEND Physical Medicine & Rehabilitation
DX: I80.9 Phlebitis and thrombophlebitis of unspecified site (principal); M48.061 Spinal stenosis, lumbar region without neurogenic claudication; M51.17 Intervertebral disc disorders with radiculopathy, lumbosacral region; M47.817 Spondylosis without myelopathy or radiculopathy, lumbosacral region; M96.1 Postlaminectomy syndrome, not elsewhere classified; I10 Essential (primary) hypertension; G60.9 Hereditary and idiopathic neuropathy, unspecified; R26.2 Difficulty in walking, not elsewhere classified; R20.2 Paresthesia of skin

== ENCOUNTER 2020-05-17 12:58 | Inpatient (IN) | payer MEDICARE ==
--- NOTE | 2020-05-17 14:35 | ED ---
Fall HPI - General Chief Complaint: Fall Stated Complaint: fall, head injury Time Seen by Provider: 05/17/20 14:11 Source: patient Mode of arrival: wheelchair - History of Present Illness Initial Comments: Patient is 59-year-old male presenting to emergency for with a chief complaint of a fall. Patient states this happened about an hour prior to arrival. Patient reports he was putting his pants on when he tripped over them and fell forward and hitting another object with his head. Patient nausea or vomiting. Patient denies loss of consciousness. Patient states she is not on any blood thinners. Denies any nausea or vomiting. He does report an abrasion on the parietal aspect of his head. Patient denies any other injuries. Tetanus is up-to-date. Denies taking any other medications to alleviate his symptoms. - Related Data Home Medications Medication Instructions Recorded Confirmed Aspirin 325 mg PO DAILY 11/25/18 03/23/19 Losartan-Hctz 50-12.5 mg [Hyzaar 1 tab PO DAILY 11/25/18 03/23/19 50-12.5] Multivitamins, Thera [Multivitamin 1 tab PO DAILY 03/12/19 03/23/19 (formulary)] Pantoprazole [Protonix] 40 mg PO DAILY 03/12/19 03/23/19 Atorvastatin Calcium [Lipitor] 40 mg PO HS 03/18/19 03/23/19 Folic Acid 1 mg PO DAILY 03/18/19 03/23/19 Gabapentin [Neurontin] 600 mg PO TID 03/18/19 03/23/19 SILVER sulfADIAZINE Cream 1 applic TOPICAL DAILY PRN 03/18/19 03/23/19 [Silvadene 1% Cream] Thiamine [Vitamin B-1] 50 mg PO BID 03/18/19 03/23/19 levETIRAcetam [Keppra] 750 mg PO BID 03/18/19 03/23/19 oxyCODONE-APAP 10-325MG [Percocet 2 tab PO Q6HR PRN 03/18/19 03/23/19 10-325 mg] Previous Rx's Medication Instructions Recorded Aspirin 325 mg PO DAILY #14 tab 03/25/19 Calcium Carbonate [Tums] 500 mg PO QID #90 chewable 03/25/19 Cholecalciferol (Vitamin D3) 2,000 unit PO DAILY #30 capsule 03/25/19 [Vitamin D3] Docusate [Colace] 100 mg PO BID #60 capsule 03/25/19 Cephalexin [Keflex] 500 mg PO Q6HR 7 Days cap 06/18/19 Allergies Allergy/AdvReac Type Severity Reaction Status Date / Time No Known Allergies Allergy Verified 06/18/19 10:32 Review of Systems ROS Statement: Those systems with pertinent positive or pertinent negative responses have been documented in the HPI. ROS Other: All systems not noted in ROS Statement are negative. Past Medical History Past Medical History: CVA/TIA, Hypertension, Osteoarthritis (OA), Seizure Disorder, Sleep Apnea/CPAP/BIPAP Additional Past Medical History / Comment(s): CVA (SEP 2018-affected speech when he is tired or talks fast, states he looses his train of thought, memory loss., "some weakness rt arm & leg"., after cva he had peg tube in for 1 month., seizures after stroke but none since on Keppra., chronic back pain from previous back injury & surgery., uses crutches that wrap around his wrists., hx of falls - states "my legs tangled"., Neuropathy in legs & feet., cellulitis legs after stroke- states no drainage now., sleep apnea but does not use his machine., Fracture left ankle- "half cast" with jesse wrap- minimal weight bearing. History of Any Multi-Drug Resistant Organisms: None Reported Past Surgical History: Back Surgery, Orthopedic Surgery Additional Past Surgical History / Comment(s): rt Rotator cuff sx, shira knee sx "no knee cap rt knee", lasik left eye, egd, peg tube ., lewis and 2 screws in back. pt stated "he broke a vertebre above the back sx srea but no sx. Past Anesthesia/Blood Transfusion Reactions: No Reported Reaction Past Psychological History: Depression Smoking Status: Former smoker Past Alcohol Use History: Daily, Heavy Past Drug Use History: None Reported - Past Family History Mother Family Medical History: Diabetes Mellitus Father Family Medical History: Cancer Additional Family Medical History / Comment(s): from lung cancer General Exam Limitations: physical limitation General appearance: alert, in no apparent distress Head exam: Present: normocephalic, normal inspection. Absent: atraumatic (Small abrasion on the parietal), other (Negative Fowler sign, negative hemotympanum, negative raccoon eyes.) Eye exam: Present: normal appearance, PERRL, EOMI Pupils: Present: normal accommodation ENT exam: Present: normal exam, normal oropharynx, mucous membranes moist Neck exam: Present: normal inspection, full ROM. Absent: tenderness Respiratory exam: Present: normal lung sounds bilaterally. Absent: respiratory distress, wheezes Cardiovascular Exam: Present: regular rate, normal rhythm, normal heart sounds Extremities exam: Present: normal inspection, full ROM, normal capillary refill. Absent: tenderness Back exam: Present: normal inspection, full ROM Neurological exam: Present: alert, oriented X3, CN II-XII intact Psychiatric exam: Present: normal affect, normal mood Skin exam: Present: warm, dry, intact, normal color Course Vital Signs 05/17/20 05/17/20 13:52 16:10 Temperature 97.9 F 98.0 F Pulse Rate 81 83 Respiratory 18 18 Rate Blood Pressure 116/63 119/59 O2 Sat by Pulse 97 97 Oximetry Procedures - Laceration Laceration #1 Consent Obtained: verbal consent Indication: laceration Site: face Size (cm): 2 Description: linear Depth: simple, single layer Sedation/Analgesia: none Anesthetic Used: lidocaine 1% Anesthesia Technique: local infiltration Amount (mls): 3 Pre-repair: irrigated extensively, deep structures intact Type of Sutures: nylon Size of Sutures: 4-0 Number of Sutures: 3 Technique: simple, interrupted Patient Tolerated Procedure: well, no complications Medical Decision Making - Medical Decision Making Patient is a 59-year-old male presenting to emergency Department with a chief complaint of a fall. Patient is not on any blood thinners. No loss of consciousness. Tetanus is up-to-date. Laceration site noted on the left supraorbital region measuring approximately 1.5 cm. Laceration site was repaired with 3 sutures. Patient tolerated procedure well. Brain CT and spine is unremarkable. CBC reveals mild anemia. Patient is hyponatremic at 122. Patient will be admitted for hyponatremia and further medical management. I discussed the case with .Admitting physician is Dr Joel Nephrology consult - Lab Data Result diagrams: 05/17/20 14:55 05/17/20 14:55 Lab Results 05/17/20 05/17/20 05/17/20 Range/Units 14:55 14:55 14:55 WBC 6.3 (3.8-10.6) k/uL RBC 3.59 L (4.30-5.90) m/uL Hgb 12.2 L (13.0-17.5) gm/dL Hct 35.5 L (39.0-53.0) % MCV 98.9 (80.0-100.0) fL MCH 33.9 (25.0-35.0) pg MCHC 34.3 (31.0-37.0) g/dL RDW 12.9 (11.5-15.5) % Plt Count 164 (150-450) k/uL Neutrophils % 69 % Lymphocytes % 16 % Monocytes % 7 % Eosinophils % 6 % Basophils % 1 % Neutrophils # 4.3 (1.3-7.7) k/uL Lymphocytes # 1.0 (1.0-4.8) k/uL Monocytes # 0.4 (0-1.0) k/uL Eosinophils # 0.4 (0-0.7) k/uL Basophils # 0.0 (0-0.2) k/uL PT 10.8 (9.0-12.0) sec INR 1.1 (<1.2) APTT 25.5 (22.0-30.0) sec Sodium 122 L (137-145) mmol/L Potassium 3.5 (3.5-5.1) mmol/L Chloride 85 L (98-107) mmol/L Carbon Dioxide 25 (22-30) mmol/L Anion Gap 12 mmol/L BUN 13 (9-20) mg/dL Creatinine 0.80 (0.66-1.25) mg/dL Est GFR (CKD-EPI)AfAm >90 (>60 ml/min/1.73 sqM) Est GFR (CKD-EPI)NonAf >90 (>60 ml/min/1.73 sqM) Glucose 138 H (74-99) mg/dL Calcium 9.1 (8.4-10.2) mg/dL Total Bilirubin 1.9 H (0.2-1.3) mg/dL AST 139 H (17-59) U/L ALT 38 (4-49) U/L Alkaline Phosphatase 170 H (38-126) U/L Total Protein 7.5 (6.3-8.2) g/dL Albumin 3.7 (3.5-5.0) g/dL Disposition Clinical Impression: Fall, Head injury, Abrasion, Laceration, Hyponatremia Disposition: ADMITTED IP TO THIS HOSP Condition: Good Instructions (If sedation given, give patient instructions): Care For Your Stitches (DC), Laceration (DC) Additional Instructions: Return to emergency department in 5 days for suture removal. Is patient prescribed a controlled substance at d/c from ED?: No Referrals: Diana Rick MD [Primary Care Provider] - 1-2 days Time of Disposition: 15:53
--- NOTE | 2020-05-17 14:55 | CT ---
EXAMINATION TYPE: CT brain chad angel con DATE OF EXAM: 05/17/2020 COMPARISON: 06/18/2019 HISTORY: Fall today with injury. CT DLP: 1641.[address] of the brain was performed. The ventricles, basal cisterns and sulci overlying the cerebral convexities demonstrate mild enlargem ent. There is no evidence for intracranial hemorrhage or sulcal effacement. There is decreased attenuatio n about the periventricular white matter and deep white matter of both cerebral hemispheres, compatib le with chronic small vessel ischemia. No mass effects are seen. If symptoms persist consider MRI. Osseous calvarium is intact. IMPRESSION: 1. Age related atrophic and chronic small vessel ischemic change without acute intracranial process seen at this time. CT Cervical Spine: Unenhanced CT of the cervical spine was performed with bone and soft tissue window settings submitted . Coronal and sagittal reconstruction is obtained. There is normal alignment and prevertebral soft tissues. No evidence for acute cervical fracture . Scattered degenerative disc disease and spondylosis. Biapical scarring. IMPRESSION: 1. No evidence for acute fracture or subluxation of the cervical spine.
--- NOTE | 2020-05-17 15:29 | XR ---
EXAMINATION TYPE: XR chest 2V DATE OF EXAM: 05/17/2020 COMPARISON: 10/02/2018 HISTORY: Shortness of breath TECHNIQUE: Frontal and lateral views of the chest are obtained. FINDINGS: Scattered senescent parenchymal changes noted. Hyperinflation compatible with COPD. No evidence for infiltrate. No evidence for atelectasis. Heart size is stable. Mediastinal structures are stable and grossly unremarkable. No evidence for hilar prominence. Degenerative changes dorsal spine. IMPRESSION: 1. No evidence for acute pulmonary disease.
[2020-05-17 15:34] LABS: ALT 38 U/L (4-49); AST 139 U/L (17-59); African American GFR (CKD) >90 (>60 ml/min/1.73 sqM); Albumin 3.7 g/dL (3.5-5.0); Alkaline Phosphatase 170 U/L (38-126); Anion Gap 12 mmol/L; Blood Urea Nitrogen 13 mg/dL (9-20); Calcium 9.1 mg/dL (8.4-10.2); Carbon Dioxide 25 mmol/L (22-30); Chloride 85 mmol/L (98-107); Glucose 138 mg/dL (74-99); Non-African American GFR(CKD) >90 (>60 ml/min/1.73 sqM); Potassium 3.5 mmol/L (3.5-5.1); Sodium 122 mmol/L (137-145); Total Bilirubin 1.9 mg/dL (0.2-1.3); Total Protein 7.5 g/dL (6.3-8.2)
[2020-05-17 15:39] LABS: INR 1.1 (<1.2); Partial Thromboplastin Time 25.5 sec (22.0-30.0); Prothrombin Time 10.8 sec (9.0-12.0)
[2020-05-17 15:47] LABS: Basophils % (A) 1 %; Eosinophils # (A) 0.4 k/uL (0-0.7); Eosinophils % (A) 6 %; HCT 35.5 % (39.0-53.0); HGB 12.2 gm/dL (13.0-17.5); Lymphocytes % (A) 16 %; MCH 33.9 pg (25.0-35.0); MCHC 34.3 g/dL (31.0-37.0); MCV 98.9 fL (80.0-100.0); Mean Platelet Volume 8.1; Monocytes # (A) 0.4 k/uL (0-1.0); Monocytes % (A) 7 %; Neutrophils # (A) 4.3 k/uL (1.3-7.7); Neutrophils % (A) 69 %; Platelet Count 164 k/uL (150-450); RBC 3.59 m/uL (4.30-5.90); RDW 12.9 % (11.5-15.5); WBC 6.3 k/uL (3.8-10.6)
[2020-05-17] MEDS ORDERED: LIDOCAINE 1% INJ 10MG/ML (20 ML MDV) SQ ONE (15:53)
[2020-05-17] MEDS ORDERED: SODIUM CHLORIDE 0.9% 1,000 ML IV STA (16:42)
[2020-05-17] MEDS ORDERED: oxyCODONE-APAP 5-325MG 1 EACH TAB PO PRN (16:43)
[2020-05-17] MEDS ORDERED: ACETAMINOPHEN TAB 325 MG TAB PO PRN (16:43)
[2020-05-17] MEDS ORDERED: HYDROmorphone 0.5 MG/0.5 ML SYRINGE IVP PRN (16:43)
[2020-05-17] MEDS ORDERED: NALOXONE 0.4 MG/ML 1 ML VIAL IV PRN (16:43)
[2020-05-17] MEDS ORDERED: LORazepam 2 MG/ML INJ IV PRN ×4 (16:43→23:10)
[2020-05-17] MEDS ORDERED: THIAMINE 100 MG TAB PO PRN (23:00)
[2020-05-17] MEDS: MORPHINE SULFATE 4 MG/ML SYRINGE IV PRN (23:42)
[2020-05-17 23:51] LABS: African American GFR (CKD) >90 (>60 ml/min/1.73 sqM); Anion Gap 10 mmol/L; Blood Urea Nitrogen 11 mg/dL (9-20); Calcium 9.4 mg/dL (8.4-10.2); Carbon Dioxide 27 mmol/L (22-30); Chloride 89 mmol/L (98-107); Glucose 154 mg/dL (74-99); Non-African American GFR(CKD) >90 (>60 ml/min/1.73 sqM); Potassium 3.4 mmol/L (3.5-5.1); Sodium 126 mmol/L (137-145)
[2020-05-18] MEDS ORDERED: TEMAZEPAM 15 MG CAP PO PRN (00:09)
[2020-05-18] MEDS ORDERED: SODIUM CHLORIDE 0.9% 1,000 ML IV SCH (03:15)
[2020-05-18] MEDS: MORPHINE SULFATE 4 MG/ML SYRINGE IV PRN (05:30)
[2020-05-18 05:45] LABS: Appearance,Urine Clear (Clear); Bilirubin,Urine Negative (Negative); Blood,Urine Negative (Negative); Color,Urine Light Yellow; Glucose,Urine (UA) Negative (Negative); Ketones,Urine Negative (Negative); Leukocyte Esterase,Urine Negative (Negative); Nitrite,Urine Negative (Negative); PH, Urine 6.5 (5.0-8.0); Protein,Urine Negative (Negative); Specific Gravity,Urine 1.002 (1.001-1.035); Urobilinogen,Urine <2.0 mg/dL (<2.0)
[2020-05-18 06:30] LABS: ALT 33 U/L (4-49); AST 106 U/L (17-59); African American GFR (CKD) >90 (>60 ml/min/1.73 sqM); Albumin 3.3 g/dL (3.5-5.0); Alkaline Phosphatase 155 U/L (38-126); Anion Gap 8 mmol/L; Blood Urea Nitrogen 8 mg/dL (9-20); Calcium 9.1 mg/dL (8.4-10.2); Carbon Dioxide 29 mmol/L (22-30); Chloride 94 mmol/L (98-107); Glucose 125 mg/dL (74-99); Magnesium 1.9 mg/dL (1.6-2.3); Non-African American GFR(CKD) >90 (>60 ml/min/1.73 sqM); Potassium 3.1 mmol/L (3.5-5.1); Sodium 131 mmol/L (137-145); Total Bilirubin 1.9 mg/dL (0.2-1.3); Total Protein 6.6 g/dL (6.3-8.2); Uric Acid 6.5 mg/dL (3.5-8.5)
--- NOTE | 2020-05-18 06:35 | HP ---
HISTORY AND PHYSICAL DATE OF SERVICE: 05/18/2020 CHIEF COMPLAINT: Weakness, shakes, tremors and alcoholism. HISTORY OF PRESENT ILLNESS: This 59-year-old gentleman with a past medical history of multiple medical problems including history of CVA, TIA, hypertension, DJD, seizure disorder, also had some tremors. Patient also had change in mental status and multiple falls and patient was taken to [facility] and admitted for further evaluation and treatment. Patient also had history of EtOH according to the staff and the patient also seen by Dr. Rick in the outpatient setting. The patient was apparently evaluated by Dr. Jensen in the outpatient setting. There is no history of fever, rigors or chills. No history of headache, loss of consciousness or seizures. Patient is unable to give a coherent history. Most of the history is taken by my discussion with staff and review of the chart. PAST MEDICAL HISTORY: History of CVA, TIA, hypertension, DJD, seizure disorder, sleep apnea MEDICATIONS: Home medications are: 1. Silvadene cream. 2. Losartan. 3. Folic acid. 4. Aspirin. 5. Thiamine. 6. Protonix. 7. Oxycodone. 8. Keppra. 9. Multivitamins. 10.Gabapentin. 11.Lipitor. FAMILY HISTORY: History of diabetes mellitus and lung cancer. SOCIAL HISTORY: History of alcohol. Remote history of smoking. REVIEW OF SYSTEMS: ENT: No diminished hearing or diminished vision. CARDIOVASCULAR SYSTEM: No angina. RESPIRATORY SYSTEM: As mentioned earlier. GI: As mentioned earlier. : No dysuria. NERVOUS SYSTEM: As mentioned earlier. ALLERGY/IMMUNOLOGY: No asthma. MUSCULOSKELETAL: As mentioned earlier. HEMATOLOGY: No history of anemia. ENDOCRINE: No history of diabetes or hypothyroidism. CONSTITUTIONAL: As mentioned earlier. DERMATOLOGY: Negative. RHEUMATOLOGY: Negative. PSYCHIATRY: As mentioned earlier. PHYSICAL EXAMINATION: The patient is alert and oriented x3. Pulse 86, blood pressure 112/67, respiration 17, temperature 98.9, pulse ox 96% on room air. HEENT: Conjunctivae normal. NECK: No jugular venous distention. CARDIOVASCULAR: S1, S2 muffled. RESPIRATORY: Breath sounds diminished at the bases. A few scattered rhonchi and crackles. ABDOMEN: Soft, nontender. No mass palpable. LEGS: No edema, no swelling. NERVOUS SYSTEM: Higher function as mentioned earlier. Moves all 4 limbs. Diffusely weak and tremors and increased tone with cogwheel rigidity suggestive of parkinsonism present. SKIN: No ulcer, rash or bleeding. JOINTS: No active deforming arthropathy. Gait dysfunction present. LABS: Labs are at this time, WBC 6.3, hemoglobin 12.2, sodium 122, and glucose 138. Total bilirubin is 1.9, AST is 139. ASSESSMENT: 1. Gait dysfunction, fall, tremors, possible acute parkinsonism syndrome. 2. Hyponatremia. 3. History of EtOH. 4. Increased bilirubin and AST with alcoholic hepatitis. 5. Anemia, normocytic anemia of chronic disease. 6. History of cerebrovascular accident, transient ischemic attack. 7. Hypertension. 8. History of degenerative joint disease. 9. History of seizure disorder. 10.History of sleep apnea. 11.History of chronic back pain, degenerative joint disease. 12.Gait dysfunction. 13.Back surgery. 14.Depression. 15.Remote history of nicotine dependence and alcohol intake. 16.FULL CODE. RECOMMENDATIONS AND DISCUSSION: This 59-year-old gentleman who presented with multiple complex medical issues, we will monitor the patient closely. Continue the current medications and symptomatic treatment. Otherwise, I would recommend neurovascular evaluation and neurology consultation for possible Sinemet for Parkinson's. Otherwise PT, OT evaluation, possible ECF rehab, CIWA protocol. Resume the home medications. Prognosis extremely guarded because of multiple complex medical issues. Further recommendations to follow. A copy of dictation forwarded to Dr. Rick who is the primary physician. MMYESIL / JULISSAN: [id number] / MTDSamantha
[2020-05-18] MEDS ORDERED: SODIUM CHLORIDE 0.45% 1,000 ML IV SCH (07:45)
[2020-05-18] MEDS ORDERED: POTASSIUM CHLORIDE ER 20 MEQ TAB.ER PO STA (08:43)
--- NOTE | 2020-05-18 08:44 | P.NPCON ---
History of Present Illness - Reason for Consult hyponatremia - History of Present Illness Reason for consultation: Hyponatremia History of present illness: Patient is a 59-year-old male seen in consultation for hyponatremia. Patient's sodium level yesterday at 2:45 PM was 122. He was started on normal saline at 100 mL an hour. It is up to 131 this morning. Patient states he came to the hospital after he sustained a fall. Patient states he was trying to put his pants on and subsequently fell in the bathroom and also hit his head. CT of the head and spine revealed no acute changes. chest x-ray revealed no acute process. He denies fever or chills. No vomiting. Patient states he has been having diarrhea for the last 2 weeks or so. He was is having as many as 8-10 bowel movements a day but now much better. Oral intake is fair. blood pressure has been fairly stable although little on the lower side. He was taking losartan with hydrochlorothiazide at home. He denies drinking excessive amounts of fluid. he is also noted to have tremors and is concern for underlying Parkinson's. he also has history of alcohol abuse. patient is not completely reliable historian. Some of the history was obtained from the chart. Patient states that he's planning on leaving at 11 AM today. Vital signs are stable. General: The patient appeared well nourished and normally developed. HEENT: laceration on the head noted. LUNGS: Lungs are clear to auscultation and percussion. Breath sounds decreased. HEART: Rate and Rhythm are regular. ABDOMEN: soft, nontender. EXTREMITITES: No clubbing, cyanosis, or edema. Past Medical History Past Medical History: CVA/TIA, Hypertension, Osteoarthritis (OA), Seizure Disorder, Sleep Apnea/CPAP/BIPAP Additional Past Medical History / Comment(s): CVA (SEP 2018-affected speech when he is tired or talks fast, states he looses his train of thought, memory loss., "some weakness rt arm & leg"., after cva he had peg tube in for 1 month., seizures after stroke but none since on Keppra., chronic back pain from previous back injury & surgery., uses crutches that wrap around his wrists., hx of falls - states "my legs tangled"., Neuropathy in legs & feet., cellulitis legs after stroke- states no drainage now., sleep apnea but does not use his machine., Fracture left ankle- "half cast" with jesse wrap- minimal weight bearing. History of Any Multi-Drug Resistant Organisms: None Reported Past Surgical History: Back Surgery, Orthopedic Surgery Additional Past Surgical History / Comment(s): rt Rotator cuff sx, shira knee sx "no knee cap rt knee", lasik left eye, egd, peg tube ., lewis and 2 screws in back. pt stated "he broke a vertebre above the back sx srea but no sx. Past Anesthesia/Blood Transfusion Reactions: No Reported Reaction Past Psychological History: Depression Additional Psychological History / Comment(s): . Smoking Status: Former smoker Past Alcohol Use History: Daily, Heavy Additional Past Alcohol Use History / Comment(s): pt stated he started smoking age 11, quit smoking 20 years ago, smoked 2-3 ppd. DRINKS 6 BEERS DAILY Past Drug Use History: None Reported - Past Family History Mother Family Medical History: Diabetes Mellitus Father Family Medical History: Cancer Additional Family Medical History / Comment(s): from lung cancer Medications and Allergies Home Medications Medication Instructions Recorded Confirmed Type Losartan-Hctz 50-12.5 mg [Hyzaar 1 tab PO HS 11/25/18 05/17/20 History 50-12.5] Multivitamins, Thera [Multivitamin 1 tab PO DAILY 03/12/19 05/17/20 History (formulary)] Pantoprazole [Protonix] 40 mg PO DAILY 03/12/19 05/17/20 History Atorvastatin Calcium [Lipitor] 40 mg PO HS 03/18/19 05/17/20 History Folic Acid 1 mg PO HS 03/18/19 05/17/20 History Gabapentin [Neurontin] 600 mg PO TID 03/18/19 05/17/20 History SILVER sulfADIAZINE Cream 1 applic TOPICAL HS PRN 03/18/19 05/17/20 History [Silvadene 1% Cream] Thiamine [Vitamin B-1] 50 mg PO BID PRN 03/18/19 05/17/20 History levETIRAcetam [Keppra] 750 mg PO BID 03/18/19 05/17/20 History oxyCODONE-APAP 10-325MG [Percocet 1 tab PO Q6HR PRN 03/18/19 05/17/20 History 10-325 mg] Aspirin 325 mg PO DAILY #14 tab 03/25/19 05/17/20 Rx Allergies Allergy/AdvReac Type Severity Reaction Status Date / Time No Known Allergies Allergy Verified 05/17/20 17:44 Physical Exam Vitals: Vital Signs Temp Pulse Pulse Resp BP BP Pulse Ox 05/18/20 04:25 98.0 F 77 14 105/59 98 05/17/20 21:25 97.7 F 90 12 119/71 99 05/17/20 21:12 98.9 F 86 17 112/67 96 05/17/20 18:55 97.0 F L 82 18 117/55 98 05/17/20 16:10 98.0 F 83 18 119/59 97 05/17/20 13:52 97.9 F 81 18 116/63 97 Intake and Output 05/17/20 05/18/20 05/18/20 22:59 06:59 14:59 Intake Total 500 Output Total 550 325 Balance 500 -550 -325 Intake: IV 500 Sodium Chloride 0.9% 1, 500 000 ml @ 100 mls/hr IV . Q10H [facility] Rx#:[id number] Output: Urine 550 325 Other: Voiding Method Urinal # Voids 1 1 Weight 111.584 kg Results - Lab Results Most recent lab results Calcium 9.1 mg/dL (8.4-10.2) 05/18/20 05:51 Magnesium 1.9 mg/dL (1.6-2.3) 05/18/20 05:51 05/17/20 14:55 05/18/20 05:51 Assessment and Plan Plan: Assessment: 1. Hypovolemic hyponatremia secondary to diarrhea and further worsened from the use of hydrochlorothiazide. Improving with IV hydration. Sodium level 131 this morning. 2. Hypokalemia secondary to diuretic and poor intake. Magnesium normal. 3. Benign hypertension. Controlled. 4. Gait dysfunction with falls and tremors. ? Parkinson's. Plan: I will change IV fluids to half-normal saline to be run at 75 mL an hour. Replace potassium. 60 mg once today. Repeat sodium level at noon. Avoid thiazide diuretics in the future. Hold all antihypertensives at this time. Thank you for the consultation. I will continue to follow the patient with you during his hospital stay.
[2020-05-18] MEDS: PANTOPRAZOLE 40 MG TABLET PO SCH (08:50)
[2020-05-18] MEDS: MULTIVITAMINS, THERA 1 EACH TAB PO SCH (08:50)
[2020-05-18] MEDS: GABAPENTIN 300 MG CAP PO SCH ×3 (08:50→20:58)
[2020-05-18] MEDS: THIAMINE 100 MG TAB PO SCH ×2 (08:57→15:02)
[2020-05-18] MEDS ORDERED: ASPIRIN 325 MG TAB PO SCH (09:00)
[2020-05-18] MEDS ORDERED: DEXTROSE 5% IN WATER 1,000 ML IV SCH (15:00)
--- NOTE | 2020-05-18 15:49 | P.PN ---
Subjective Progress Note Date: 05/18/20 Principal diagnosis: This is a 59-year-old male who was recently admitted with change in mental status, multiple falls and is being closely monitored. Neurology was consulted as patient is also having multiple falls and tremors noted. Patient does have a history of EtOH and will be maintained on CIWA protocol. PT/OT evaluating the patient recommending ECF for subacute rehab although patient is refusing at this time. Nephrology also following as sodium was found to be 122 during admission. Sodium is improved and is currently 131 today. Will repeat a.m. labs. Patient continues to have tremors noted that appear to be parkinsonian although states his tremors are due to alcohol withdrawal ever since he had a stroke. Will await neurology evaluation. Review of systems: Constitutional: No reports of fevers or chills Cardiovascular: No reports of chest pain or palpitations Respiratory: No reports of shortness of breath or cough GI: No reports of nausea, vomiting, or diarrhea : Reports of dysuria or retention Neurovascular: No reports of weakness or numbness Active Medications Acetaminophen (Tylenol Tab) 650 mg PO Q6HR PRN PRN Reason: Mild Pain or Fever > 100.5 Atorvastatin Calcium (Lipitor) 40 mg PO HS JALEN Folic Acid (Folic Acid) 1 mg PO HS JALEN Gabapentin (Neurontin) 600 mg PO TID [facility] Last Admin: 05/18/20 15:01 Dose: 600 mg Documented by: Hydromorphone HCl (Dilaudid) 0.5 mg IVP Q3HR PRN PRN Reason: Moderate Pain Sodium Chloride (Saline 0.45%) 1,000 mls @ 75 mls/hr IV .[id number] [facility] Last Admin: 05/18/20 09:01 Dose: 75 mls/hr Documented by: Dextrose/Water (Dextrose 5%-Water Iv Soln) 1,000 mls @ 75 mls/hr IV .[id number] [facility] Last Admin: 05/18/20 15:05 Dose: 75 mls/hr Documented by: Levetiracetam (Keppra) 750 mg PO BID [facility] Last Admin: 05/18/20 08:50 Dose: 750 mg Documented by: Lorazepam (Ativan) 1 mg IV Q2HR PRN PRN Reason: CIWA 8 or 9 Lorazepam (Ativan) 1 mg IV Q1HR PRN PRN Reason: CIWA 10 to 15 Lorazepam (Ativan) 2 mg IV Q10M PRN PRN Reason: CIWA 16 or higher Stop: 05/19/20 23:11 Morphine Sulfate (Morphine Sulfate (Inj)) 4 mg IV Q4HR PRN PRN Reason: Severe Pain Last Admin: 05/18/20 05:30 Dose: 4 mg Documented by: Multivitamins (Theragran) 1 each PO DAILY [facility] Last Admin: 05/18/20 08:50 Dose: 1 each Documented by: Naloxone HCl (Narcan) 0.2 mg IV Q2M PRN PRN Reason: Opioid Reversal Oxycodone/Acetaminophen (Percocet 5-325) 1 each PO Q4HR PRN PRN Reason: Severe Pain Last Admin: 05/18/20 01:58 Dose: 1 each Documented by: Pantoprazole Sodium (Protonix) 40 mg PO DAILY [facility] Last Admin: 05/18/20 08:50 Dose: 40 mg Documented by: Silver Sulfadiazine (Silvadene Cream) 1 applic TOPICAL HS PRN PRN Reason: cellulitis Temazepam (Restoril) 15 mg PO HS PRN PRN Reason: Insomnia Thiamine HCl (Vitamin B-1) 50 mg PO BID PRN PRN Reason: Alcohol Withdrawal Thiamine HCl (Vitamin B-1) 100 mg PO BID-W/MEALS [facility] Last Admin: 05/18/20 15:02 Dose: 100 mg Documented by: Objective - Vital Signs Vital signs: Vital Signs Temp 98.3 F 05/18/20 12:44 Pulse 79 05/18/20 12:44 Resp 16 05/18/20 12:44 BP 109/65 05/18/20 12:44 Pulse Ox 96 05/18/20 12:44 Intake & Output 05/17/20 05/18/20 05/18/20 18:59 06:59 18:59 Intake Total 500 1125 Output Total 550 545 Balance -50 580 Weight 111.584 kg Intake: IV 500 Sodium Chloride 0.9% 1, 500 000 ml @ 100 mls/hr IV . Q10H [facility] Rx#:[id number] Intake, IV Titration 525 Amount Sodium Chloride 0.45% 1, 525 000 ml @ 75 mls/hr IV . [id number] [facility] Rx#:[id number] Oral 600 Output: Urine 550 545 Other: Voiding Method Urinal Urinal # Voids 1 - Exam Gen: This is a 59-year-old male sitting up in the chair, awake, alert and oriented 3, well-developed, well-nourished. Temp is 98.3F, pulse is 79, respirations are 16, blood pressure is 109/65, oxygen saturation is 96% on room air. HEENT: Head is atraumatic, normocephalic. Pupils equal, round. Sclerae is anicteric. NECK: Supple. No JVD. No lymphadenopathy. No thyromegaly. LUNGS: Diminished breath sounds at the bases with a few scattered rhonchi and crackles noted. No intercostal retractions. HEART: S1, S2 are muffled ABDOMEN: Soft. Bowel sounds are present. No masses. No tenderness. EXTREMITIES: No pedal edema. No calf tenderness. NEUROLOGICAL: Patient is awake, alert and oriented x3. Tremors noted along with increased tone with rigidity noted suggestive of parkinsonism. Diffusely weak - Labs CBC & Chem 7: 05/17/20 14:55 05/18/20 11:55 Labs: Abnormal Lab Results - Last 24 Hours (Table) 05/17/20 05/17/20 05/17/20 Range/Units 14:55 14:55 22:37 RBC 3.59 L (4.30-5.90) m/uL Hgb 12.2 L (13.0-17.5) gm/dL Hct 35.5 L (39.0-53.0) % Sodium 122 L 126 L (137-145) mmol/L Potassium 3.4 L (3.5-5.1) mmol/L Chloride 85 L 89 L (98-107) mmol/L BUN (9-20) mg/dL Creatinine 0.64 L (0.66-1.25) mg/dL Glucose 138 H 154 H (74-99) mg/dL Total Bilirubin 1.9 H (0.2-1.3) mg/dL AST 139 H (17-59) U/L Alkaline Phosphatase 170 H (38-126) U/L Albumin (3.5-5.0) g/dL 05/18/20 05/18/20 Range/Units 05:51 11:55 RBC (4.30-5.90) m/uL Hgb (13.0-17.5) gm/dL Hct (39.0-53.0) % Sodium 131 L 132 L (137-145) mmol/L Potassium 3.1 L (3.5-5.1) mmol/L Chloride 94 L (98-107) mmol/L BUN 8 L (9-20) mg/dL Creatinine 0.55 L (0.66-1.25) mg/dL Glucose 125 H (74-99) mg/dL Total Bilirubin 1.9 H (0.2-1.3) mg/dL AST 106 H (17-59) U/L Alkaline Phosphatase 155 H (38-126) U/L Albumin 3.3 L (3.5-5.0) g/dL Assessment and Plan Assessment: Gait dysfunction, falls, tremors, possible acute parkinsonism syndrome Hyponatremia history of EtOH Increased bilirubin and AST with alcoholic hepatitis Anemia, normocytic anemia of chronic disease History of CVA, TIA Hypertension History of degenerative joint disease history of seizure disorder history of sleep apnea history of chronic back pain, degenerative joint disease Gait dysfunction Back surgery Depression Remote history of nicotine dependence and alcohol intake Full code Recommendations and discussion: Recommend continue current medications, management, and symptomatic treatment. PT/OT following recommending subacute rehab for continued gait dysfunction and weakness although patient and family are refusing for rehab upon discharge. Neurology consulted and pending at this time. Patient is maintained on CIWA pr otocol and will continue at this time. Due to multiple complex medical issues, prognosis is extremely guarded. Further recommendations to follow. Sodium slightly improved today at 131. Nephrology following. Will repeat a.m. labs. Possible discharge in 24-48 hours.
--- NOTE | 2020-05-18 19:28 | P.CNNES ---
History of Present Illness Consult date: 05/18/20 Reason for Consult: recent fall Chief complaint: recent fall History of Present Illness: this is a 59-year-old gentleman with a copy gait a past medical history who came to the emergency room after having a fall. He was in the process of putting on his pants in wrapped his foot into the pants leg and fell head forward. He came in with vibrations on his head and left side of the face he was also found to be hyponatremic on admission with a sodium of 122. This patient has a complicated neurological history. He is followed very closely by an outside outpatient neurologist Dr. Hopkins. He has a history of a prior stroke and following the stroke he developed seizures. He is currently on Keppra and he's not had any further seizures since his stroke which was in 2018. He also has obstructive sleep apnea but is noncompliant with CPAP. He suffers from chronic pain in his opioid dependent on Percocet. His surgical history is significant for back surgery rotator cuff surgery bilateral knee surgery. Review of his chart shows pertinent labs indicate the hemoglobin and hematocrit were decreased 12.2 hematocrit 35.5. Sodium was 122 chloride 85 glucose 138 Nephrology has seen him and his determine he has hypovolemic hyponatremia secondary to diarrhea and worsening with hydrochlorothiazide. There was concern that his gait dysfunction and falls and the essential tremor that I note may be related to Parkinson's. However the patient states that Dr. Hopkins believes this tremor is long-standing and chronic which the patient's himself agrees that he's had this for many years even prior to his stroke. His attests to this as well. When I question him on falls he and his report that he does not fall frequently this was just an unusual circumstance when he tried to stand up alone and not his foot caught in his pants leg. Due to his severe back problems he usually has several walker he has great difficulty in balancing and has significant leg claudication. His reports that he will soon be considered as a potential candidate for a spine stimulator. Past Medical History Past Medical History: CVA/TIA, Hypertension, Osteoarthritis (OA), Seizure Disorder, Sleep Apnea/CPAP/BIPAP Additional Past Medical History / Comment(s): CVA (SEP 2018-affected speech when he is tired or talks fast, states he looses his train of thought, memory loss., "some weakness rt arm & leg"., after cva he had peg tube in for 1 month., seizures after stroke but none since on Keppra., chronic back pain from previous back injury & surgery., uses crutches that wrap around his wrists., hx of falls - states "my legs tangled"., Neuropathy in legs & feet., cellulitis legs after stroke- states no drainage now., sleep apnea but does not use his machine., Fracture left ankle- "half cast" with jesse wrap- minimal weight bearing. History of Any Multi-Drug Resistant Organisms: None Reported Past Surgical History: Back Surgery, Orthopedic Surgery Additional Past Surgical History / Comment(s): rt Rotator cuff sx, shira knee sx "no knee cap rt knee", lasik left eye, egd, peg tube ., lewis and 2 screws in back. pt stated "he broke a vertebre above the back sx srea but no sx. Past Anesthesia/Blood Transfusion Reactions: No Reported Reaction Past Psychological History: Depression Additional Psychological History / Comment(s): . Smoking Status: Former smoker Past Alcohol Use History: Daily, Heavy Additional Past Alcohol Use History / Comment(s): pt stated he started smoking age 11, quit smoking 20 years ago, smoked 2-3 ppd. DRINKS 6 BEERS DAILY Past Drug Use History: None Reported - Past Family History Mother Family Medical History: Diabetes Mellitus Father Family Medical History: Cancer Additional Family Medical History / Comment(s): from lung cancer Medications and Allergies Home Medications Medication Instructions Recorded Confirmed Type Losartan-Hctz 50-12.5 mg [Hyzaar 1 tab PO HS 11/25/18 05/17/20 History 50-12.5] Multivitamins, Thera [Multivitamin 1 tab PO DAILY 03/12/19 05/17/20 History (formulary)] Pantoprazole [Protonix] 40 mg PO DAILY 03/12/19 05/17/20 History Atorvastatin Calcium [Lipitor] 40 mg PO HS 03/18/19 05/17/20 History Folic Acid 1 mg PO HS 03/18/19 05/17/20 History Gabapentin [Neurontin] 600 mg PO TID 03/18/19 05/17/20 History SILVER sulfADIAZINE Cream 1 applic TOPICAL HS PRN 03/18/19 05/17/20 History [Silvadene 1% Cream] Thiamine [Vitamin B-1] 50 mg PO BID PRN 03/18/19 05/17/20 History levETIRAcetam [Keppra] 750 mg PO BID 03/18/19 05/17/20 History oxyCODONE-APAP 10-325MG [Percocet 1 tab PO Q6HR PRN 03/18/19 05/17/20 History 10-325 mg] Aspirin 325 mg PO DAILY #14 tab 03/25/19 05/17/20 Rx Allergies Allergy/AdvReac Type Severity Reaction Status Date / Time No Known Allergies Allergy Verified 05/17/20 17:44 Physical Examination - Vital Signs Vital Signs: Vital Signs Temp Pulse Pulse Resp BP BP Pulse Ox 05/18/20 12:44 98.3 F 79 16 109/65 96 05/18/20 04:25 98.0 F 77 14 105/59 98 05/17/20 21:25 97.7 F 90 12 119/71 99 05/17/20 21:12 98.9 F 86 17 112/67 96 Intake and Output 05/18/20 05/18/20 05/18/20 06:59 14:59 22:59 Intake Total 1125 Output Total 550 545 Balance -550 580 Intake: Intake, IV Titration 525 Amount Sodium Chloride 0.45% 1, 525 000 ml @ 75 mls/hr IV . [id number] [facility] Rx#:[id number] Oral 600 Output: Urine 550 545 Other: Voiding Method Urinal Urinal # Voids 1 # Bowel Movements 1 the patient was examined and chart reviewed. Gen. examination Appearance: Poor hygiene. Morbidly obese HEENT clear sclera poor oral hygiene. Malaika Boss grade 3. Neck supple. No cervical lymphadenopathy. Chest: Clear to route. Cardiac: Regular rate and rhythm no murmurs noted. No carotid bruits present. Pulses: Radial pedal pulses equal and symmetric Extremities cellulitis noted in the right leg and peripheral stasis noted in the left leg edema is present in both feet and legs up to the ankle. Skin: Multiple bruises noted of different stages in the arms. Neurologic exam Mental status awake alert oriented 3. Speech fluent. Affect is sad and ralph ewhat flat. Pupils: 2 mm equally reactive to light and accommodation. Cranial nerve examination: Extraocular movements full. Cranial nerves III through XII are intact. Motor examination strength is 5 out of 5 in the upper extremities pronator drift negative. There is significant weakness noted proximally and distally in the legs. Patient is able to lift both legs off the bed at only 10 with drift. There is no essential tremor noted in the right arm greater than the left. Some head titubation is also noted. Coordination testing intact to finger to nose testing with eyes open and eyes closed. Sensory: Grossly intact to light touch throughout. Deep tendon reflexes are +2 over the biceps brachial radialis bilaterally. Patellar reflexes are absent. Ankle jerks absent. Plantar responses are mute bilaterally. Gait examination deferred Results - Laboratory Findings CBC and BMP: 05/17/20 14:55 05/18/20 17:43 Abnormal Lab Findings: Abnormal Labs 05/17/20 05/17/20 05/17/20 14:55 14:55 22:37 RBC 3.59 L Hgb 12.2 L Hct 35.5 L Sodium 122 L 126 L Potassium 3.4 L Chloride 85 L 89 L BUN Creatinine 0.64 L Glucose 138 H 154 H Total Bilirubin 1.9 H AST 139 H Alkaline Phosphatase 170 H Albumin 05/18/20 05/18/20 05/18/20 05:51 11:55 17:43 RBC Hgb Hct Sodium 131 L 132 L 132 L Potassium 3.1 L Chloride 94 L BUN 8 L Creatinine 0.55 L Glucose 125 H Total Bilirubin 1.9 H AST 106 H Alkaline Phosphatase 155 H Albumin 3.3 L Assessment and Plan Assessment: This is a 59-year-old gentleman with a history of a prior stroke back in 2018 following the stroke he had a seizure and has been well controlled on Keppra monotherapy. He is under close supervision of his neurological conditions with Dr. Hopkins an outpatient neurologist. This patient was admitted after falling while trying to dress himself. He denies having any history of recent falls. He does however have significant disability when it comes to standing & being able to ambulate due to his chronic back pain and prior surgeries. He is currently being considered for a spine stimulator implant. The neurologic exam today was significant for tremor that seems more likely that of essential tremor. Both the patient and his report that he's had this tremor for many years even prior to his back surgery. The physical exam is concerning for cellulitis developing as well as severe vascular stasis. His reports that this is fairly recent over the last several weeks his legs have gotten very bad. Due to her understanding and knowledge there has not been any formal workup for cellulitis or peripheral vascular disease. Summary 1. 59-year-old with history of remote stroke 2018 with seizure disorder. Seizures well controlled on current Keppra. 2. Chronic back pain/failed back surgery chronic opioid dependency. 3. Poor ability to ambulate due to back condition/recent fall due to balance instability from back surgery. 4. Gen. physical exam significant for acute cellulitis and severe peripheral vascular disease next Recommendations 1. Continue with supportive care for recent fall and head injury. 2. Continue with patient's current anticonvulsant medication Keppra. 3. Hyponatremia to be didn't addressed by medical team. 4. Recommend formal workup for cellulitis and peripheral vascular disease. We'll obtain a duplex ultrasound of the bilateral lower extremities to rule out DVT on this admission. 5. noncompliant with CPAP therapy Thank you for this consultation. There are no acute neurological concerns at this time related to the fall. His seizure condition is well-controlled on Ke ppra and he is closely followed by his outpatient neurologist. The tremor is unlikely to be parkinsonian. This tremor is more along the lines of an essential tremor based on the history given. My main concern at this time is addressing this cellulitis that has been evolving over the last several weeks and increasing peripheral vascular disease. Further recommendations will be made as this case evolves. Please note that there will be no on-site neurologist this weekend. Danica Bunch M.D. Board Certified in Neurology and Sleep Medicine
[2020-05-18] MEDS ORDERED: FOLIC ACID 1 MG TAB PO SCH (21:00)
[2020-05-18] MEDS ORDERED: ATORVASTATIN 40 MG TAB PO SCH (21:00)
[2020-05-18] MEDS ORDERED: LOSARTAN-HCTZ 50-12.5 MG 1 EACH TAB PO SCH (21:00)
[2020-05-19 07:47] LABS: Basophils % (A) 1 %; Eosinophils # (A) 0.1 k/uL (0-0.7); Eosinophils % (A) 3 %; HCT 34.4 % (39.0-53.0); HGB 11.3 gm/dL (13.0-17.5); Lymphocytes # (A) 0.8 k/uL (1.0-4.8); Lymphocytes % (A) 20 %; MCH 33.7 pg (25.0-35.0); MCHC 32.8 g/dL (31.0-37.0); MCV 102.7 fL (80.0-100.0); Macrocytosis Slight; Mean Platelet Volume 7.8; Monocytes # (A) 0.3 k/uL (0-1.0); Monocytes % (A) 8 %; Neutrophils # (A) 2.6 k/uL (1.3-7.7); Neutrophils % (A) 67 %; Platelet Count 137 k/uL (150-450); RBC 3.35 m/uL (4.30-5.90); RDW 12.9 % (11.5-15.5); WBC 3.9 k/uL (3.8-10.6)
[2020-05-19 07:53] LABS: ALT 38 U/L (4-49); AST 113 U/L (17-59); African American GFR (CKD) >90 (>60 ml/min/1.73 sqM); Albumin 3.1 g/dL (3.5-5.0); Alkaline Phosphatase 154 U/L (38-126); Anion Gap 6 mmol/L; Blood Urea Nitrogen 3 mg/dL (9-20); Calcium 8.7 mg/dL (8.4-10.2); Carbon Dioxide 29 mmol/L (22-30); Chloride 99 mmol/L (98-107); Glucose 136 mg/dL (74-99); Non-African American GFR(CKD) >90 (>60 ml/min/1.73 sqM); Potassium 3.5 mmol/L (3.5-5.1); Sodium 134 mmol/L (137-145); Total Bilirubin 1.6 mg/dL (0.2-1.3); Total Protein 6.6 g/dL (6.3-8.2)
--- NOTE | 2020-05-19 08:26 | US ---
EXAMINATION TYPE: US venous doppler duplex LE DATE OF EXAM: 05/19/2020 8:14 AM COMPARISON: US 2019 CLINICAL HISTORY: suspect DVT. Bilateral leg swelling SIDE PERFORMED: Bilateral TECHNIQUE: The lower extremity deep venous system is examined utilizing real time linear array sonog eliana with graded compression, doppler sonography and color-flow sonography. VESSELS IMAGED: External Iliac Vein (EIV) Common Femoral Vein Deep Femoral Vein Greater Saphenous Vein * Femoral Vein Popliteal Vein Small Saphenous Vein * Proximal Calf Veins (* superficial vessels) Right Leg: Appears negative for DVT Left Leg: Appears negative for DVT IMPRESSION: 1. Bilateral lower extremity ultrasound negative for deep venous thrombosis.
--- NOTE | 2020-05-19 08:47 | P.PN ---
Subjective Patient is seen in follow-up for hyponatremia. Sodium level 134 this morning. Oral intake fair. Denies vomiting or diarrhea. Currently off IV fluids. Vital signs are stable. General: The patient appeared well nourished and normally developed. HEENT: Head exam is unremarkable. Neck is without jugular venous distension. LUNGS: Lungs are clear to auscultation and percussion. Breath sounds decreased. HEART: Rate and Rhythm are regular. ABDOMEN: Soft, nontender. EXTREMITITES: No clubbing, cyanosis, or edema. Objective - Vital Signs Vital signs: Vital Signs Temp 97.9 F 05/19/20 05:27 Pulse 80 05/19/20 05:27 Resp 12 05/19/20 05:27 BP 144/73 05/19/20 05:27 Pulse Ox 98 05/19/20 05:27 Intake & Output 05/18/20 05/19/20 05/19/20 18:59 06:59 18:59 Intake Total 1125 75 Output Total 545 Balance 580 75 Intake: Intake, IV Titration 525 75 Amount Dextrose 5% in Water 1, 75 000 ml @ 75 mls/hr IV . [id number] [facility] Rx#:[id number] Sodium Chloride 0.45% 1, 525 000 ml @ 75 mls/hr IV . [id number] [facility] Rx#:[id number] Oral 600 Output: Urine 545 Other: Voiding Method Urinal Urinal # Voids 1 # Bowel Movements 1 - Labs CBC & Chem 7: 05/19/20 06:35 05/19/20 06:35 Labs: Abnormal Lab Results - Last 24 Hours (Table) 05/18/20 05/18/20 05/18/20 Range/Units 11:55 17:43 19:28 RBC (4.30-5.90) m/uL Hgb (13.0-17.5) gm/dL Hct (39.0-53.0) % MCV (80.0-100.0) fL Plt Count (150-450) k/uL Lymphocytes # (1.0-4.8) k/uL Sodium 132 L 132 L (137-145) mmol/L BUN (9-20) mg/dL Creatinine (0.66-1.25) mg/dL Glucose (74-99) mg/dL Total Bilirubin (0.2-1.3) mg/dL AST (17-59) U/L Alkaline Phosphatase (38-126) U/L C-Reactive Protein 20.6 H (<10.0) mg/L Albumin (3.5-5.0) g/dL 05/19/20 05/19/20 Range/Units 06:35 06:35 RBC 3.35 L (4.30-5.90) m/uL Hgb 11.3 L (13.0-17.5) gm/dL Hct 34.4 L (39.0-53.0) % MCV 102.7 H (80.0-100.0) fL Plt Count 137 L (150-450) k/uL Lymphocytes # 0.8 L (1.0-4.8) k/uL Sodium 134 L (137-145) mmol/L BUN 3 L (9-20) mg/dL Creatinine 0.48 L (0.66-1.25) mg/dL Glucose 136 H (74-99) mg/dL Total Bilirubin 1.6 H (0.2-1.3) mg/dL AST 113 H (17-59) U/L Alkaline Phosphatase 154 H (38-126) U/L C-Reactive Protein (<10.0) mg/L Albumin 3.1 L (3.5-5.0) g/dL Assessment and Plan Plan: Assessment: 1. Hypovolemic hyponatremia secondary to diarrhea and further worsened from the use of hydrochlorothiazide. Improved with IV hydration. Sodium level 134 this morning. 2. Hypokalemia secondary to diuretic and poor intake. Magnesium normal. 3. Benign hypertension. Controlled. 4. Gait dysfunction with falls and tremors. ? Parkinson's. Plan: Remains off IV fluids. Encouraged oral intake. Avoid thiazide diuretics in the future.
[2020-05-19] MEDS: GABAPENTIN 300 MG CAP PO SCH (10:39)
[2020-05-19] MEDS: PANTOPRAZOLE 40 MG TABLET PO SCH (10:39)
[2020-05-19] MEDS: THIAMINE 100 MG TAB PO SCH (10:39)
[2020-05-19] MEDS: MULTIVITAMINS, THERA 1 EACH TAB PO SCH (10:39)
[2020-05-19 11:44] VITALS: BP 120/76; PULSE 78; RESP 18; TEMP 98.4
--- NOTE | 2020-05-20 10:04 | P.DS ---
Providers Date of admission: 05/17/20 16:43 Expected date of discharge: 05/19/20 Attending physician: Brent Joel Consults: 05/17/20 16:43 Consult Physician Stat Consulting Provider: Moiz Beauchamp Consult Reason/Comments: Hyponatremia, fall Do you want consulting provider notified?: Yes 05/17/20 21:54 Consult Physician Stat Consulting Provider: Danica Bunch Consult Reason/Comments: tremors, history stroke Do you want consulting provider notified?: Yes Primary care physician: Diana Rick [facility] Course: Final diagnosis Gait dysfunction, falls, tremors, possible acute parkinsonian syndrome Hyponatremia history of EtOH Increased bilirubin and AST with alcoholic hepatitis Anemia, normocytic anemia of chronic disease History of CVA, TIA Hypertension History of degenerative joint disease history of seizure disorder history of sleep apnea history of chronic back pain, degenerative joint disease Gait dysfunction Back surgery Depression Remote history of nicotine dependence and alcohol intake Full code Discharge disposition Patient is being discharged in a stable condition with guarded prognosis to home. Patient will follow-up with Dr. Rick upon discharge. Total time taken is greater than 35 minutes. History of present illness This is a 59-year-old male who was recently admitted with change in mental status, multiple falls, and hyponatremia and was being closely monitored. Patient was placed on IV hydration along with CIWA protocol and is showing improvement. Per family, patient drinks large amounts of beer and whiskey daily. Sodium is 134 today. Sodium was 122 on admission. Patient was evaluated by nephrology as well as neurology. Patient will discontinue hctz upon discharge. Patient also instructed to avoid alcohol intake. Neurology evaluated the patient stating that the tremors are essential tremors. Patient underwent CT of the brain showing small chronic vessel ischemic changes with age related and no acute intracranial process noted. Patient was also seen and evaluated by PT/OT due to falls recommending [facility] for rehab and patient and family refused. Patient states he would like to go home today. Patient instructed to follow up in the ED in 5 days for suture removal due to the head laceration he endured during the fall. Currently no reports of chest pain, palpitations, or shortness of breath. Patient is afebrile. No reports of nausea or vomiting and patient is tolerating diet. Guarded prognosis. On exam vital signs are stable. Temp is 98.4F, pulse is 78, respirations are 18, blood pressure 120/76, oxygen saturation is 96% on room air. Cardio S1, S2 are present. Respiratory shows diminished breath sounds bilaterally with no wheezing or rhonchi noted. Abdomen is soft and non-tender. Nervous system shows no focal deficits. Please refer to medication reconciliation sheet for a list of medications. Patient Condition at Discharge: Good Plan - Discharge Summary Discharge Rx Participant: No New Discharge Prescriptions: Continue Pantoprazole [Protonix] 40 mg PO DAILY Multivitamins, Thera [Multivitamin (formulary)] 1 tab PO DAILY oxyCODONE-APAP 10-325MG [Percocet 10-325 mg] 1 tab PO Q6HR PRN PRN Reason: Pain Thiamine [Vitamin B-1] 50 mg PO BID PRN PRN Reason: Alcohol Withdrawal Gabapentin [Neurontin] 600 mg PO TID levETIRAcetam [Keppra] 750 mg PO BID Folic Acid 1 mg PO HS Atorvastatin Calcium [Lipitor] 40 mg PO HS SILVER sulfADIAZINE Cream [Silvadene 1% Cream] 1 applic TOPICAL HS PRN PRN Reason: cellulitis Aspirin 325 mg PO DAILY #14 tab Discontinued Losartan-Hctz 50-12.5 mg [Hyzaar 50-12.5] 1 tab PO HS Discharge Medication List Multivitamins, Thera [Multivitamin (formulary)] 1 tab PO DAILY 03/12/19 [History] Pantoprazole [Protonix] 40 mg PO DAILY 03/12/19 [History] Atorvastatin Calcium [Lipitor] 40 mg PO HS 03/18/19 [History] Folic Acid 1 mg PO HS 03/18/19 [History] Gabapentin [Neurontin] 600 mg PO TID 03/18/19 [History] SILVER sulfADIAZINE Cream [Silvadene 1% Cream] 1 applic TOPICAL HS PRN 03/18/19 [History] Thiamine [Vitamin B-1] 50 mg PO BID PRN 03/18/19 [History] levETIRAcetam [Keppra] 750 mg PO BID 03/18/19 [History] oxyCODONE-APAP 10-325MG [Percocet 10-325 mg] 1 tab PO Q6HR PRN 03/18/19 [History] Aspirin 325 mg PO DAILY #14 tab 03/25/19 [Rx] Follow up Appointment(s)/Referral(s): Diana Rick MD [Primary Care Provider] - 1-2 days (please call office to set up appt. date and time) Patient Instructions/Handouts: Care For Your Stitches (DC), Laceration (DC) Activity/Diet/Wound Care/Special Instructions: Return to emergency department in 5 days for suture removal. Follow-up with primary care provider upon discharge Activity Limited until follow-up Continue current diet Discharge Disposition: HOME SELF-CARE
== END 2020-05-19 12:46 | disposition home or self-care (01) | DRG 57 ==
LOC: EC 12:58 → 4SSUR 16:43 → 5NMEDONC 20:58
PROVIDERS: ADMIT Hospitalist; ATTEND Hospitalist
PROC: 0HQ1XZZ Repair Face Skin, External Approach (ICD-10-PCS; principal; 2020-05-17)
DX: G20 Parkinson's disease (principal); E87.1 Hypo-osmolality and hyponatremia; F11.20 Opioid dependence, uncomplicated; S01.81XA Laceration without foreign body of other part of head, initial encounter; E86.1 Hypovolemia; D63.8 Anemia in other chronic diseases classified elsewhere; E87.6 Hypokalemia; F32.9 Major depressive disorder, single episode, unspecified; G40.909 Epilepsy, unspecified, not intractable, without status epilepticus; G47.33 Obstructive sleep apnea (adult) (pediatric); G89.29 Other chronic pain; I10 Essential (primary) hypertension; R29.6 Repeated falls; T50.2X5A Adverse effect of carbonic-anhydrase inhibitors, benzothiadiazides and other diuretics, initial encounter; W01.0XXA Fall on same level from slipping, tripping and stumbling without subsequent striking against object, initial encounter; I73.9 Peripheral vascular disease, unspecified; G25.0 Essential tremor; M19.90 Unspecified osteoarthritis, unspecified site; K70.10 Alcoholic hepatitis without ascites; R19.7 Diarrhea, unspecified; R26.9 Unspecified abnormalities of gait and mobility; Z11.59 Encounter for screening for other viral diseases; Z79.82 Long term (current) use of aspirin; Z79.899 Other long term (current) drug therapy; Z80.1 Family history of malignant neoplasm of trachea, bronchus and lung; Z86.73 Personal history of transient ischemic attack (TIA), and cerebral infarction without residual deficits; Z87.891 Personal history of nicotine dependence; Z87.828 Personal history of other (healed) physical injury and trauma; Z91.19 Patient's noncompliance with other medical treatment and regimen; Z83.3 Family history of diabetes mellitus; Z91.81 History of falling
CPT/HCPCS: 12011; 36415; 70450; 71046; 72125; 80048; 80053; 81003; 82533; 83735; 84295; 84443; 84550; 85025; 85610; 85652; 85730; 86140; 93005; 93970; 96360; 96361; 99285

== ENCOUNTER → 2020-06-20 | Outpatient (CLI) | payer MEDICARE ==
[2020-06-20 11:13] LABS: HCT 32.6 % (39.0-53.0); HGB 11.5 gm/dL (13.0-17.5); MCHC 35.1 g/dL (31.0-37.0); MCV 99.7 fL (80.0-100.0); Mean Platelet Volume 7.3; Platelet Count 113 k/uL (150-450); RBC 3.27 m/uL (4.30-5.90); RDW 12.4 % (11.5-15.5); WBC 4.4 k/uL (3.8-10.6)
== END | disposition home or self-care (01) ==
LOC: LABWHC1 09:28
PROVIDERS: ATTEND Physical Medicine & Rehabilitation
DX: G60.9 Hereditary and idiopathic neuropathy, unspecified (principal); M48.061 Spinal stenosis, lumbar region without neurogenic claudication; M47.27 Other spondylosis with radiculopathy, lumbosacral region; M51.17 Intervertebral disc disorders with radiculopathy, lumbosacral region; M96.1 Postlaminectomy syndrome, not elsewhere classified; R26.2 Difficulty in walking, not elsewhere classified; R20.2 Paresthesia of skin; I10 Essential (primary) hypertension; I80.8 Phlebitis and thrombophlebitis of other sites; G25.2 Other specified forms of tremor; Z86.73 Personal history of transient ischemic attack (TIA), and cerebral infarction without residual deficits
CPT/HCPCS: 36415; 85027

== ENCOUNTER → 2020-06-26 | Outpatient (CLI) | payer MEDICARE ==
[2020-06-27 04:30] LABS: INR 1.12 (0.90-1.11); Partial Thromboplastin Time 30.8 sec (24.7-29.9); Prothrombin Time 11.9 sec (9.9-11.9)
== END | disposition home or self-care (01) ==
LOC: LABWHC1 14:17
PROVIDERS: ATTEND Physical Medicine & Rehabilitation
DX: M96.1 Postlaminectomy syndrome, not elsewhere classified (principal); R26.2 Difficulty in walking, not elsewhere classified; G60.9 Hereditary and idiopathic neuropathy, unspecified; M48.061 Spinal stenosis, lumbar region without neurogenic claudication; M47.817 Spondylosis without myelopathy or radiculopathy, lumbosacral region; M51.17 Intervertebral disc disorders with radiculopathy, lumbosacral region; R20.2 Paresthesia of skin; I10 Essential (primary) hypertension; I80.8 Phlebitis and thrombophlebitis of other sites; G89.4 Chronic pain syndrome
CPT/HCPCS: 36415; 85610; 85730

== ENCOUNTER → 2020-12-13 | Outpatient (CLI) | payer MEDICARE | END | disposition home or self-care (01) | LOC: LABWHC1 09:24 | PROVIDERS: ATTEND Psychiatry & Neurology Neurology | DX: G40.209 Localization-related (focal) (partial) symptomatic epilepsy and epileptic syndromes with complex partial seizures, not intractable, without status epilepticus (principal); Z79.899 Other long term (current) drug therapy | CPT/HCPCS: 36415; 80177; 82306 ==

== ENCOUNTER → 2021-02-21 | Outpatient (CLI) | payer MEDICARE | END | disposition home or self-care (01) | LOC: LABWHC1 08:51 | PROVIDERS: ATTEND Psychiatry & Neurology Neurology | DX: G40.209 Localization-related (focal) (partial) symptomatic epilepsy and epileptic syndromes with complex partial seizures, not intractable, without status epilepticus (principal) | CPT/HCPCS: 36415; 80177 ==

== ENCOUNTER → 2021-09-26 | Outpatient (CLI) | payer MEDICARE | END | disposition home or self-care (01) | LOC: LABWHC1 09:11 | PROVIDERS: ATTEND Psychiatry & Neurology Neurology | DX: G40.209 Localization-related (focal) (partial) symptomatic epilepsy and epileptic syndromes with complex partial seizures, not intractable, without status epilepticus (principal) | CPT/HCPCS: 36415; 80177 ==

== ENCOUNTER 2022-01-18 07:22 | Day surgery (SDC) | payer MEDICARE ==
[2022-01-18 08:38] VITALS: RESP 16; TEMP 98.1
[2022-01-18] MEDS ORDERED: diazePAM 5 MG TAB PO STA (09:00)
--- NOTE | 2022-01-18 10:11 | FL ---
EXAMINATION TYPE: FL myelogram lumbosacral DATE OF EXAM: 01/18/2022 10:03 AM HISTORY: Lower extremity pain and numbness Informed consent was obtained and all the patient's questions were answered. The L3-L4 level was loc alized under fluoroscopy. Standard sterile technique was utilized as well as appropriate local anest hesia 1% Lidocaine and sodium bicarbonate. Spinal needle was introduced into the thecal sac under fl uoroscopic guidance and 10 ml of Omni 300 was injected. The patient tolerated the procedure well and left the department in stable condition. CT myelography is to follow. IMPRESSION: Successful myelography lumbar spine Fluoro time 1 min 31s.
--- NOTE | 2022-01-18 10:15 | CT ---
EXAMINATION TYPE: CT lumbar spine w con DATE OF EXAM: 01/18/2022 COMPARISON: 09/01/2013 HISTORY: Lumbar pain, stenosis CT DLP: 1568.4 mGycm Automated exposure control for dose reduction was used. CONTRAST: CT scan of the lumbar is performed with IV Contrast, patient injected with 10 mL of Isovue M300. Enhanced CT of the lumbar spine was performed. Bone and soft tissue window settings are submitted as well as coronal and sagittal reconstructions. L1-L2: Normal disc space height. No disc herniation protrusion or central stenosis. No facet joint arthropathy. No evidence for foraminal encroachment. L2-L3: Normal disc space height. No disc herniation protrusion or central stenosis. No facet joint arthropathy. No evidence for foraminal encroachment. L3-L4: Mild degenerative disc space narrowing. Posterior disc bulge with the mild effacement ventral thecal sac. Mild bilateral lateral recess stenosis noted with borderline central stenosis. Mild spond ylosis. Foramina are patent. Facet joint arthropathy. L4-L5: Postoperative changes of decompressive laminectomy redemonstrated. Retrolisthesis of about 4.4 mm of L4 on L5. Radicular screws result in streak artifact. Spinal canal is capacious. L5-S1: Postoperative changes of lumbar laminectomy. Pedicular screws in place. Grade 2 anterolisthesi s L5 on S1 measuring 1.7 cm. No evidence for recurrent or residual disease. No central stenosis. Spin al canal is capacious. IMPRESSION: 1. Decompressive laminectomy at L4-5 and L5-S1. 2. Grade 1 retrolisthesis of L4 and L5 and grade 2 anterolisthesis L5 on S1. 2. Borderline central stenosis at L3-4.
[2022-01-18 13:41] VITALS: BP 98/64; PULSE 60
== END 2022-01-18 13:26 | disposition home or self-care (01) ==
LOC: RADPROMAIN 07:22
PROVIDERS: ATTEND Orthopaedic Surgery Orthopaedic Surgery of the Spine
DX: M43.17 Spondylolisthesis, lumbosacral region (principal); M48.061 Spinal stenosis, lumbar region without neurogenic claudication
CPT/HCPCS: 62304; 72132; Q9967

== ENCOUNTER → 2022-04-25 | Outpatient (CLI) | payer MEDICARE | END | disposition home or self-care (01) | LOC: LABWHC1 08:39 | PROVIDERS: ATTEND Psychiatry & Neurology Neurology | DX: G40.209 Localization-related (focal) (partial) symptomatic epilepsy and epileptic syndromes with complex partial seizures, not intractable, without status epilepticus (principal) | CPT/HCPCS: 36415; 80177 ==

== ENCOUNTER → 2023-01-30 | Outpatient (CLI) | payer MEDICARE | END | disposition home or self-care (01) | LOC: LABWHC1 08:16 | PROVIDERS: ATTEND Psychiatry & Neurology Neurology | DX: G40.209 Localization-related (focal) (partial) symptomatic epilepsy and epileptic syndromes with complex partial seizures, not intractable, without status epilepticus (principal) | CPT/HCPCS: 36415; 80177 ==

== ENCOUNTER → 2023-06-30 | Outpatient (CLI) | payer MEDICARE ==
[2023-06-30 20:06] LABS: Basophils # (A) 0.03 X 10*3/uL (0.00-0.10); Basophils % (A) 0.4 %; Eosinophils # (A) 0.21 X 10*3/uL (0.04-0.35); Eosinophils % (A) 2.7 %; HCT 42.5 % (39.6-50.0); HGB 14.4 d/dL (13.0-17.0); Lymphocytes # (A) 1.84 X 10*3/uL (0.90-5.00); Lymphocytes % (A) 23.4 %; MCH 33.1 pg (27.0-32.0); MCHC 33.9 d/dL (32.0-37.0); MCV 97.7 FL (80.0-97.0); Mean Platelet Volume 11.5 FL (9.5-12.2); Monocytes # (A) 0.68 X 10*3/uL (0.20-1.00); Monocytes % (A) 8.6 %; NRBC Per 100 WBC 0 X 10*3/uL (0.00-0.01); Neutrophils % (A) 64.6 %; Platelet Count 197 X 10*3/uL (140-440); RBC 4.35 X 10*6/uL (4.40-5.60); RDW 11.9 % (11.5-14.5); WBC 7.88 X 10*3/uL (4.50-10.00)
[2023-06-30 21:03] LABS: ALT 27 U/L (10-49); AST 32 U/L (14-35); Albumin 4.2 d/dL (3.8-4.9); Albumin/Globulin Ratio 1.45 Ratio (1.60-3.17); Alkaline Phosphatase 99 U/L (41-126); Blood Urea Nitrogen 10.9 mg/dL (9.0-27.0); Calcium 9.7 mg/dL (8.7-10.3); Carbon Dioxide 24.6 mmol/L (21.6-31.8); Chloride 97 mmol/L (96-109); Chol/HDL Ratio 3.52 Ratio; Globulin 2.9 d/dL (1.6-3.3); Glucose 93 mg/dL (70-110); LDL Cholesterol,Calculated 64.5 mg/dL (0.0-131.0); Potassium 4.3 mmol/L (3.5-5.5); Sodium 134 mmol/L (135-145); Total Bilirubin 0.7 mg/dL (0.3-1.2); Total Protein 7.1 d/dL (6.2-8.2); VLDL Calculation 17.08 mg/dL (5.00-40.00)
== END | disposition home or self-care (01) ==
LOC: LABWHC1 14:02
PROVIDERS: ATTEND Internal Medicine
DX: I10 Essential (primary) hypertension (principal); E78.00 Pure hypercholesterolemia, unspecified; E55.9 Vitamin D deficiency, unspecified
CPT/HCPCS: 36415; 80053; 80061; 82306; 85025

== ENCOUNTER → 2024-09-15 | Outpatient (CLI) | payer MEDICARE, OTHER ==
[2024-09-15 14:20] LABS: African American GFR (CKD) >90 (>60 ml/min/1.73 sqM); Blood Urea Nitrogen 11 mg/dL (9-20); Non-African American GFR(CKD) 81 (>60 ml/min/1.73 sqM)
--- NOTE | 2024-09-15 15:23 | CT ---
EXAMINATION TYPE: CT head noncontrast. CT angio head CT DLP: 2511 mGycm, Automated exposure control for dose reduction was used. DATE OF EXAM: 09/15/2024 3:12 PM COMPARISON: 05/17/2020 CLINICAL INDICATION: Male, 63 years old with history of ABNORMAL HEAD MRI, STROKE R93.0 I63.9; PHH, a bnormal MRI, cva TECHNIQUE: CT brain without contrast followed by CT angiogram. CT angio head Axially acquired helical CT angiogram was obtained. Axial images are supplemented with 3D reconstructions which were post-processed at an independent workstation. NASCET criteria used. Contrast used:100 mL of Isovue 370 without and with IV Contrast, none Oral contrast used: none FINDINGS: Brain: Extra-axial spaces: No abnormal extra-axial fluid collections. Ventricular system: Dilatation in proportion to cerebral atrophy. Cerebral parenchyma: Left frontal lobe encephalomalacia from prior injury. Cerebral atrophy. No acute intraparenchymal hemorrhage or mass effect. The reynoso-white junction is well differentiated. Scatter ed hypoattenuating areas are seen within the white matter. Cerebellum: Unremarkable. Mass effect: No evidence of midline shift. Intracranial vasculature: Atherosclerotic calcifications of the intracranial vessels. Soft tissues: Normal. Calvarium/osseous structures: No depressed skull fracture. Paranasal sinuses and mastoid air cells: Mild scattered paranasal sinus disease. Visualized orbits: Orbital contents are intact. Vertebral arteries: The vertebral arteries are patent. Vertebral artery dominance: Codominant Basilar artery: The basilar artery is intact. The basilar artery bifurcation is normal. Internal Carotid arteries: The cervical, petrous, cavernous and supraclinoid segments are normal. LUIS: Saccular dilation measuring 3 mm at the ACOM on the left series 12 image 44. ACOM: Present without evidence of aneurysm. MCA: Patent with no evidence of aneurysm. [employer]: Patent with no evidence of aneurysm. PCOM: Hypoplastic bilaterally. Dural sinuses: Patent. IMPRESSION: 1. Saccular dilation of the left LUIS/ACOM possibly representing dilated infundibulum versus aneurysm . Best appreciated on coronal imaging. No evidence of high-grade stenosis. 2. No acute intracranial process. 3. Nonspecific white matter changes, likely secondary to chronic small vessel ischemic disease. 4. Remote left frontal lobe injury with encephalomalacia. [facility], , 09/15/2024 3:20 PM
== END | disposition home or self-care (01) ==
LOC: RADCTMAIN 12:43
PROVIDERS: ATTEND Psychiatry & Neurology Neurology
CPT/HCPCS: 36415; 70496; 82565; 84520

== ENCOUNTER → 2025-03-31 | Outpatient (CLI) | payer MEDICARE, OTHER ==
[2025-03-31 14:49] LABS: HCT 46.7 % (39.6-50.0); HGB 15.8 g/dL (13.0-17.0); MCH 32.8 pg (27.0-32.0); MCHC 33.8 g/dL (32.0-37.0); MCV 96.9 FL (80.0-97.0); Mean Platelet Volume 11.3 FL (9.5-12.2); NRBC Per 100 WBC 0 X 10*3/uL (0.00-0.01); Platelet Count 170 X 10*3/uL (140-440); RBC 4.82 X 10*6/uL (4.40-5.60); RDW 12.3 % (11.5-14.5); WBC 7.63 X 10*3/uL (4.50-10.00)
[2025-03-31 15:26] LABS: ALT 19 U/L (10-49); AST 26 U/L (14-35); Blood Urea Nitrogen 13.5 mg/dL (9.0-27.0); Calcium 9.4 mg/dL (8.7-10.3); Carbon Dioxide 24.8 mmol/L (21.6-31.8); Chloride 103 mmol/L (96-109); Chol/HDL Ratio 3.54 Ratio; Glucose 108 mg/dL (70-110); LDL Cholesterol,Calculated 75.6 mg/dL (0.0-131.0); Potassium 4.2 mmol/L (3.5-5.5); Sodium 140 mmol/L (135-145); VLDL Calculation 15.48 mg/dL (5.00-40.00)
== END | disposition home or self-care (01) ==
LOC: LABWHC1 08:49
PROVIDERS: ATTEND Internal Medicine Cardiovascular Disease
DX: E78.2 Mixed hyperlipidemia (principal); I48.11 Longstanding persistent atrial fibrillation
CPT/HCPCS: 36415; 80048; 80061; 84443; 84450; 84460; 85027